=== PATIENT | female | born 1935 | race Caucasian/White ===

== ENCOUNTER → 2016-06-22 | Outpatient (CLI) | payer BC ==
[~2016-06-22] MED LIST: ACT15 PO; ATOR10TA88 PO; CHOL2000 PO; CMD5 PO; DIGO0.2518 PO; DLCSR240 PO; HMLIS SC; INSDGI SC; LMGOPS OPB; METO100T14 PO
[2016-06-22 12:05] LABS: HEMATOCRIT 39.5 % (37-47); MEAN CELL VOLUME 97.3 fL (80-100); MEAN CORPUSCULAR HGB CONC 34.9 g/dl (32-36); MEAN PLATELET VOLUME 10.3 fL (7.4-10.4); PLATELET COUNT 268 K/uL (130-400); RED BLOOD COUNT 4.06 M/uL (4.2-5.4); WHITE BLOOD COUNT 8.48 K/uL (4.8-10.8)
[2016-06-22 12:17] LABS: ALT/SGPT 19 U/L (12-78); AST/SGOT 22 U/L (15-37); BLOOD UREA NITROGEN 18 mg/dl (7-18); BUN/CREATININE RATIO 13.7 (10-20); CALCIUM 9.8 mg/dl (8.5-10.1); CARBON DIOXIDE 26 mmol/L (21-32); CHLORIDE 103 mmol/L (98-107); CHOLESTEROL 128 mg/dl (0-200); GLUCOSE 162 mg/dl (70-99); POTASSIUM 4.1 mmol/L (3.5-5.1); SODIUM 140 mmol/L (136-145); TRIGLYCERIDES 113 mg/dl (0-150); VERY LOW DENSITY LIPOPROT CALC 23 mg/dl
[2016-06-22 12:18] LABS: URINE APPEARANCE CLOUDY (CLEAR); URINE COLOR DK YELLOW; URINE EPITHELIAL CELL AUTO >30 /lpf (0-5); URINE NITRITE NEG (NEG); URINE SPECIFIC GRAVITY 1.028 (1.000-1.030); UROBILINOGEN NEG (NEG)
[2016-06-22 12:20] LABS: CHOLESTEROL/HDL RATIO 2.2; HDL CHOLESTEROL 59 mg/dl; LDL CHOLESTEROL CALCULATED 46 mg/dl; PHOSPHORUS 2.8 mg/dl (2.5-4.9)
[2016-06-22 12:41] LABS: MANUAL MICROSCOPIC REQUIRED? NO; REVIEW REQ? YES; URINE BILIRUBIN NEG (NEG)
[2016-06-22 12:43] LABS: ESTIMATED AVERAGE GLUCOSE 217 mg/dl; HA1C FLAG Normal (Normal)
[2016-06-22 12:48] LABS: URINE PROTIEN/CREAT RATIO 0.3 (0-0.2); URINE TOTAL PROTEIN 118.2 mg/dl (0-11.9)
[2016-06-22 12:49] LABS: URINE MUCUS PRESENT (NONE PRSENT)
== END | disposition home or self-care (01) ==
LOC: C.LAB1850 10:12
PROVIDERS: ATTEND Internal Medicine Nephrology
DX: E11.29 Type 2 diabetes mellitus with other diabetic kidney complication (principal); I48.2 Chronic atrial fibrillation; I12.9 Hypertensive chronic kidney disease with stage 1 through stage 4 chronic kidney disease, or unspecified chronic kidney disease; N18.3 Chronic kidney disease, stage 3 (moderate); R60.9 Edema, unspecified; E11.22 Type 2 diabetes mellitus with diabetic chronic kidney disease

== ENCOUNTER → 2016-12-03 | Outpatient (CLI) | payer BC ==
[2016-12-03 09:37] LABS: MEAN CORPUSCULAR HEMOGLOBIN 33.9 pg (25-34); MEAN PLATELET VOLUME 10.5 fL (7.4-10.4); PLATELET COUNT 246 K/uL (130-400); RED BLOOD COUNT 4.33 M/uL (4.2-5.4); WHITE BLOOD COUNT 6.73 K/uL (4.8-10.8)
[2016-12-03 09:42] LABS: URINE APPEARANCE CLOUDY (CLEAR); URINE BILIRUBIN NEG (NEG); URINE COLOR YELLOW; URINE EPITHELIAL CELL AUTO >30 /lpf (0-5); URINE NITRITE NEG (NEG); UROBILINOGEN NEG (NEG)
[2016-12-03 09:44] LABS: MANUAL MICROSCOPIC REQUIRED? NO; REVIEW REQ? YES
[2016-12-03 10:07] LABS: BLOOD UREA NITROGEN 17 mg/dl (7-18); BUN/CREATININE RATIO 13.2 (10-20); CALCIUM 9.6 mg/dl (8.5-10.1); CARBON DIOXIDE 28 mmol/L (21-32); CHLORIDE 104 mmol/L (98-107); ESTIMATED AVERAGE GLUCOSE 246 mg/dl; GLUCOSE 156 mg/dl (70-99); HA1C FLAG Normal (Normal); PHOSPHORUS 2.9 mg/dl (2.5-4.9); POTASSIUM 4.1 mmol/L (3.5-5.1); SODIUM 137 mmol/L (136-145)
[2016-12-03 10:10] LABS: URINE PROTIEN/CREAT RATIO 0.3 (0-0.2); URINE TOTAL PROTEIN 41.4 mg/dl (0-11.9)
== END | disposition home or self-care (01) ==
LOC: C.LAB1850 08:08
PROVIDERS: ATTEND Nurse Practitioner Adult Health
DX: I12.9 Hypertensive chronic kidney disease with stage 1 through stage 4 chronic kidney disease, or unspecified chronic kidney disease (principal); N18.3 Chronic kidney disease, stage 3 (moderate); R80.9 Proteinuria, unspecified; I73.9 Peripheral vascular disease, unspecified; R60.9 Edema, unspecified; E11.65 Type 2 diabetes mellitus with hyperglycemia

== ENCOUNTER → 2017-05-02 | Day surgery (SDC) | payer BC ==
[2017-04-23 08:45] VITALS: BMI 29.0
[~2017-05-02] VITALS: Ht 170.2 cm; Wt 84.5 kg
[~2017-05-02] MED LIST changes: +ATOR10TA82 PO; -ATOR10TA88 PO; +ATROPINE SULFATE 0.1 MG/ML 5ML SYR IV PRN; +BIMA0.01 OPB; -CMD5 PO; -DIGO0.2518 PO; +DIGO0.2519 PO; +DILT240C48 PO; -DLCSR240 PO; +EpHEDrine SULFATE INJ 50 MG/ML AMP IV PRN; -HMLIS SC; +INSU100I2 SC; +LIDOCAINE HCL 2% 2 ML VIAL (20MG/ML) ONE; -LMGOPS OPB; +PROPOFOL IV EMULSION 10 MG/ML 20 ML VIAL IV ONE; +WARF5TAB7 PO
[2017-05-02 14:09] VITALS: Ht 170.2 cm; Wt 84.5 kg
--- NOTE | 2017-05-02 14:28 | Endo History and Physical ---
History & Physical Date of Service: May 02, 2017. Chief Complaint: Hx CRC Referring Physician: Dr Kahn History of Present Illness For colonoscopy Past Surgical History Hx Cardiac Surgery: Yes (CARDIOVERSION) Hx Internal Defibrillator: No Hx Pacemaker: No Hx Abdominal Surgery: Yes ([facility]ARDO AND APPY) Hx of Implantable Prosthesis: No Hx Post-Op Nausea and Vomiting: No Hx Cancer Surgery: Yes (LARGE INTESTINE COLON RESECTION) Hx Thoracic Surgery: No Hx Orthopedic: No Hx Urinary Tract Surgery: No Family History None Social History Smoking Status: Never Smoker Hx Substance Use: No Hx Alcohol Use: No Allergies Coded Allergies: Sulfa Drugs (Verified Allergy, Unknown, BAD TASTE "LIKE ROTTEN EGGS", 04/23) Current Medications Reported Home Medications Medications Dose Route/Sig Max Daily Dose Days Date Category Dose Instructions Lumigan (Bimatoprost) 0.01 % Mary 1 Drops OPB HS 04/23/17 Reported Humalog Kwikpen (Insulin Lispro (Human)) 100 Unit/Ml Inj 1 Dose SC UD 04/23/17 Reported PER SLIDING SCALE Lantus (Insulin Glargine) 100 Unit/Ml Inj 30 Units SC BID 04/23/17 Reported Cartia Xt (Diltiazem Hcl Coated Beads) 240 Mg Cap 1 Cap PO QAM 04/23/17 Reported Actos (Pioglitazone) 15 Mg Tab 1 Tab PO QPM 04/23/17 Reported Jantoven (Warfarin Sodium) 5 Mg Tab 0.5 Tab PO 2XWK 04/23/17 Reported MON,FRI Jantoven (Warfarin Sodium) 5 Mg Tab 5 Mg PO 5XWK 04/23/17 Reported SUN,TUES,WED,THURS,SAT Digox (Digoxin) 250 Mcg Tab 1 Tab PO QPM 04/23/17 Reported Vitamin D3 (Cholecalciferol) 2,000 Unit Cap 2,000 Interunit PO QAM 12/20/16 Reported Lopressor (Metoprolol Tartrate) 100 Mg Tab 0.5 Tab PO BID 11/15/10 Reported Lipitor (Atorvastatin Calcium) 10 Mg Tab 10 Mg PO QPM 05/05/07 Reported Vital Signs Weight (Kilograms): 84.55 Height (Feet): 5 Height (Inches): 7 Physical Exam General Appearance: WD/WN Respiratory/Chest: Respiratory effort: no dyspnea Cardiovascular: Heart Auscultation: RRR Abdomen: Inspection & Palpation: soft (scar) Assessment and Plan Hx CRC for colonoscopy
--- NOTE | 2017-05-02 14:51 | Discharge Instructions ---
Endoscopy Patient Instructions Date / Procedure(s) Performed May 02, 2017. Colonoscopy Allergy Information Coded Allergies: Sulfa Drugs (Verified Allergy, Unknown, BAD TASTE "LIKE ROTTEN EGGS", 04/23) Discharge Date / Findings May 02, 2017. diverticulosis Medication Instructions Stopped Medication(s): TOLD TO JUST TAKE BLOOD PRESSURE MEDIACTIONS Restart Stopped Medication(s): resume meds Reported Home Medications Medications Dose Route/Sig Max Daily Dose Days Date Category Dose Instructions Lumigan (Bimatoprost) 0.01 % Mary 1 Drops OPB HS 04/23/17 Reported Humalog Kwikpen (Insulin Lispro (Human)) 100 Unit/Ml Inj 1 Dose SC UD 04/23/17 Reported PER SLIDING SCALE Lantus (Insulin Glargine) 100 Unit/Ml Inj 30 Units SC BID 04/23/17 Reported Cartia Xt (Diltiazem Hcl Coated Beads) 240 Mg Cap 1 Cap PO QAM 04/23/17 Reported Actos (Pioglitazone) 15 Mg Tab 1 Tab PO QPM 04/23/17 Reported Jantoven (Warfarin Sodium) 5 Mg Tab 0.5 Tab PO 2XWK 04/23/17 Reported MON,FRI Jantoven (Warfarin Sodium) 5 Mg Tab 5 Mg PO 5XWK 04/23/17 Reported SUN,TUES,WED,THURS,SAT Digox (Digoxin) 250 Mcg Tab 1 Tab PO QPM 04/23/17 Reported Vitamin D3 (Cholecalciferol) 2,000 Unit Cap 2,000 Interunit PO QAM 12/20/16 Reported Lopressor (Metoprolol Tartrate) 100 Mg Tab 0.5 Tab PO BID 11/15/10 Reported Lipitor (Atorvastatin Calcium) 10 Mg Tab 10 Mg PO QPM 05/05/07 Reported Provider Instructions Activity Restrictions - No exercising or heavy lifting for 24 hours. - Do not drink alcohol the day of the procedure. - Do not drive a car or operate machinery until the day after the procedure. - Do not make any important decisions or sign important papers in 24 hours after the procedure. Following Day: - Return to full activity which may include returning to work/school. Diet Start your diet with liquids and light foods (jello, soup, juice, toast). Then eat your usual diet if not nauseated. Treatment For Common After Affects For mild abdominal pain, bloating, or excessive gas: - Rest - Eat lightly - Lie on right side Follow-Up Information Follow-up with DR. WINIFRED MARTINEZ as scheduled Anesthesia Information What You Should Know You have had a procedure that required some medicine to reduce anxiety and discomfort. This treatment is called moderate sedation. After receiving the treatment, you may be sleepy, but you will be able to breathe on your own. The effects of the treatment may last for several hours. Follow these instructions along with Activity/Diet recommendations noted above: * Do NOT do anything where dizziness or clumsiness would be dangerous. * Rest quietly at home today, then you can be up and about tomorrow. * Have a responsible person stay with you the rest of today. * You may have had an I.V. today. If so, you may take the dressing off later today. Recommendations Call your doctor if: * Trouble breathing * Continuous vomiting for more than 24 hours * Temperature above 101 degrees * Severe abdominal pain or bloating * Pain not relieved by pain medicine ordered * There is increased drainage or redness from any incision * A large amount of rectal bleeding greater than 2-3 tablespoons. (If you had a polyp/s removed or have hemorrhoids, a small amount of blood - from the rectum is to be expected.) * You have any unanswered questions or concerns. IN THE EVENT OF A SERIOUS EMERGENCY, GO TO THE NEAREST EMERGENCY ROOM Your discharge instructions were prepared by provider Nestor Key. Patient Instructions Signature Page Ewelina Nolasco Patient (or Guardian) Signature/Date: I have read and understand the instructions given to me by my caregivers. Caregiver/RN/Doctor Signature/Date: The above-named patient and/or guardian has received patient instructions on this date. + Original Patient Signature Page (only) stays with chart. Please make copy for patient.
--- NOTE | 2017-05-02 14:56 | GI REPORT ---
Procedure Date: 05/02/2017 2:23 PM Procedure: Colonoscopy Indications: Personal history of malignant neoplasm of the colon Medicines: Propofol total dose 200 mg IV, Lidocaine 40 mg IV Complications: No immediate complications. Estimated Blood Loss: Estimated blood loss: none. Procedure: Pre-Anesthesia Assessment: - Prior to the procedure, a History and Physical was performed, and patient medications, allergies and sensitivities were reviewed. The patient's tolerance of previous anesthesia was reviewed. - The risks and benefits of the procedure and the sedation options and risks were discussed with the patient. All questions were answered and informed consent was obtained. After I obtained informed consent, the scope was passed under direct vision. Throughout the procedure, the patient's blood pressure, pulse, and oxygen saturations were monitored continuously. The scope was introduced through the anus and advanced to the ileocolonic anastomosis. The colonoscopy was performed without difficulty. The patient tolerated the procedure well. The quality of the bowel preparation was good. Findings: There was evidence of a prior end-to-side ileo-colonic anastomosis in the recto-sigmoid colon. This was patent and was characterized by healthy appearing mucosa. The anastomosis was traversed. The terminal ileum appeared normal. A few diverticula were found in the recto-sigmoid colon. Impression: - Patent end-to-side ileo-colonic anastomosis, characterized by healthy appearing mucosa. - The examined portion of the ileum was normal. - Diverticulosis in the recto-sigmoid colon. - No specimens collected. Recommendation: - Discharge patient to home (ambulatory). - Continue present medications. - Repeat colonoscopy in 5 years for surveillance. - Return to primary care physician PRN. Nestor Key M.D. Nestor Key MD 05/02/2017 2:55:50 PM This report has been signed electronically. Note Initiated On: 05/02/2017 2:23 PM I attest to the content of the Intraoperative Record and orders documented therein, exceptions below
--- NOTE | 2017-05-02 15:00 | Anesthesiology Progress Note ---
Anesthesia Post Op Note Date & Time May 02, 2017 at 15:00 Vital Signs Pain Intensity: 0 Vital Signs Past 12 Hours Date Time Temp Pulse Resp B/P (MAP) Pulse Ox O2 Delivery O2 Flow Rate FiO2 05/02/17 14:17 36.4 89 20 162/103 (122) 99 Room Air Notes Mental Status: alert / awake / arousable, participated in evaluation Pt Amnestic to Procedure: Yes Nausea / Vomiting: adequately controlled Pain: adequately controlled Airway Patency, RR, SpO2: stable & adequate BP & HR: stable & adequate Hydration State: stable & adequate Anesthetic Complications: no major complications apparent
[2017-05-02 15:26] VITALS: BP 170/98; PULSE 86; O2SAT 98
== END | disposition home or self-care (01) ==
LOC: C.GI 13:49
PROVIDERS: ATTEND Internal Medicine Gastroenterology
DX: Z85.038 Personal history of other malignant neoplasm of large intestine (principal); K57.30 Diverticulosis of large intestine without perforation or abscess without bleeding; Z90.49 Acquired absence of other specified parts of digestive tract; Z79.4 Long term (current) use of insulin; Z79.899 Other long term (current) drug therapy

== ENCOUNTER → 2017-06-25 | Outpatient (CLI) | payer BC ==
[~2017-06-25] MED LIST changes: -ATROPINE SULFATE 0.1 MG/ML 5ML SYR IV PRN; -EpHEDrine SULFATE INJ 50 MG/ML AMP IV PRN; -LIDOCAINE HCL 2% 2 ML VIAL (20MG/ML) ONE; +MULT-190 PO; -PROPOFOL IV EMULSION 10 MG/ML 20 ML VIAL IV ONE
[2017-06-25 09:33] LABS: HEMATOCRIT 40.2 % (37-47); HEMOGLOBIN 13.8 g/dL (12.0-16.0); MEAN CELL VOLUME 98.8 fL (80-100); MEAN CORPUSCULAR HEMOGLOBIN 33.9 pg (25-34); MEAN CORPUSCULAR HGB CONC 34.3 g/dl (32-36); MEAN PLATELET VOLUME 10.6 fL (7.4-10.4); PLATELET COUNT 214 K/uL (130-400); RED CELL DISTRIBUTION WIDTH CV 13.6 % (11.5-14.5); RED CELL DISTRIBUTION WIDTH SD 49.2 fL (36.4-46.3); WHITE BLOOD COUNT 5.74 K/uL (4.8-10.8)
[2017-06-25 09:55] LABS: HEMOGLOBIN A1C 10.4 % (4.5-5.6)
[2017-06-25 10:08] LABS: ALBUMIN 3.3 gm/dl (3.4-5.0); ALT/SGPT 26 U/L (12-78); AST/SGOT 23 U/L (15-37); BLOOD UREA NITROGEN 17 mg/dl (7-18); CALCIUM 9.3 mg/dl (8.5-10.1); CARBON DIOXIDE 25 mmol/L (21-32); CREATININE 1.28 mg/dl (0.60-1.20); GLUCOSE 181 mg/dl (70-99); POTASSIUM 4.1 mmol/L (3.5-5.1); SODIUM 136 mmol/L (136-145)
[2017-06-25 10:11] LABS: ALKALINE PHOSPHATASE 63 U/L (45-117); PHOSPHORUS 2.5 mg/dl (2.5-4.9)
== END | disposition home or self-care (01) ==
LOC: C.LAB1850 08:26
PROVIDERS: ATTEND Nurse Practitioner Adult Health
DX: E11.65 Type 2 diabetes mellitus with hyperglycemia (principal); I12.9 Hypertensive chronic kidney disease with stage 1 through stage 4 chronic kidney disease, or unspecified chronic kidney disease; N18.3 Chronic kidney disease, stage 3 (moderate); R80.9 Proteinuria, unspecified

== ENCOUNTER → 2017-11-12 | Outpatient (CLI) | payer BC ==
[2017-11-12 10:18] LABS: HEMOGLOBIN A1C 9.6 % (4.5-5.6)
== END | disposition home or self-care (01) ==
LOC: C.LAB1850 08:25
PROVIDERS: ATTEND Nurse Practitioner Adult Health
DX: E78.5 Hyperlipidemia, unspecified (principal); E11.29 Type 2 diabetes mellitus with other diabetic kidney complication; Z79.4 Long term (current) use of insulin

== ENCOUNTER 2021-09-07 12:22 | Inpatient (IN) ==
[2021-09-07] MEDS ORDERED: OPTIRAY 320 125ml IV ONE (12:40)
--- NOTE | 2021-09-07 12:57 | Emergency Department Note ---
Impression & Plan Confusion, Vomiting, Back pain ED Provider Note Provider: Jarod Walker MD DATE OF SERVICE: 09/07/2021 CHIEF COMPLAINT: Pain, vomiting HISTORY OF PRESENT ILLNESS: Patient is a 86-year-old female history type 2 diabetes, CKD, hypertension, atrial fibrillation on Coumadin presenting to the emergency department today with reports of onset of confusion this morning. Was normal at breakfast 8 AM. Between then and neck just before noon had a episode of emesis and was complaining of a headache and was acting more confused. He met states she has been wearing some redirection. They states that she has had some garbled speech has been making some odd statements. No trauma has been reported. Patient herself cries out help me help he was able to give a clear history. Given that she was taken immediately upon arrival here the emergency department to the CT scanner for head imaging. Patient denies abdominal pain. She reports he is having back pain or she describes it "pain in my fender and pocket ". She knows her birthday but not what month it is. She is able to tell me how long she has been at [facility]. She follows simple commands sometimes. Likes to rest on her right side. REVIEW OF SYSTEMS: A total of 10 review of systems was obtained and negative except as stated above in the HPI. PAST MEDICAL HISTORY: As noted above MEDICATIONS: Medication listing from the facility SOCIAL HISTORY: Resides at [facility] PHYSICAL EXAM: GENERAL: alert laying on her right side in the stretcher. Head: normocephalic and atraumatic EYES: No injection, discharge or icterus. PERRL NECK: Trachea midline. Supple. ENT: Mucous membranes pink and moist. LUNGS: Airway patent. No retractions. Breath sounds clear with good air entry bilaterally. HEART: Irregular irregularrate and rhythm. No chest wall tenderness ABDOMEN: Soft and non-tender, without guarding or rebound. BACK: No midline tenderness, no SI joint tenderness. SKIN: Acyanotic, warm, dry, without rashes EXTREMITIES: Patient with 1+ lower extremity swelling but no obvious deformity. Negative straight leg raise. NEUROLOGICAL: No obvious facial droop. No clear aphasia but occasionally will not answer questions appropriately. Normal strength and tone in the extremities. Sensation to gross touch normal. EK from an atrial fibrillation with rapid ventricular response. Nonspecific ST changes across the precordium and laterally. QTc 421 CONTINUOUS CARDIAC MONITORING: was ordered and showed a heart rate of 90s-110s bpm in atrial fibrillation Patient's laboratory studies and imaging reviewed. Differential includes Infection, dehydration, metabolic abnormality, hypo/hyperglycemia, electrolyte disturbance, anemia, hypoxia, cardiac sources, intracerebral event, toxicologic, neurologic, as well as other pathologies. IMPRESSION/MEDICAL DECISION MAKING: Patient reportedly with headache and episode of vomiting and more confused suddenly this morning. She is on Coumadin, INR 1.9. Immediately taken for CT scan upon arrival here without evidence of acute intracranial bleed or obvious vascular occlusion according to radiology report. Upon evaluation she not having significant focal deficits that I can obviously tell although she is not oriented to the month and not always answering questions appropriately. She gestures to pain in her back But negative straight leg raise. Benign abdomen in the front. However given her complaints and the odd story we will complete a CT abdomen pelvis to look for occult pathology. Doubt spinal cord pathology. Question if she could have an occult CVA that is not hemorrhagic or large vessel occlusion. UA was ordered. Digoxin level sent and therapeutic. Negative COVID. Stable renal function. Mild hyponatremia although not that far off recent values. High since he troponin 24 with no priors for comparison. Lipase not elevated. CT abdomen pelvis per radiology without significant acute pathology noted. Heart rates have been mildly elevated in regards to her atrial fibrillation. Normally takes diltiazem and given a small IV dose of this. Now complains a bit of a headache and given a dose of Tylenol. Given her continued confusion and change in underlying status early further observation here is warranted. Hospitalist contacted. Attempted to contact daughter at listed phone number who was updated. Question if some of the back pain is more chronic however the confusion again reported as more acute. DIAGNOSIS: Confusion, back pain, nausea, atrial fibrillation with rapid ventricular response, headache DISPOSITION: Hospitalist will evaluate Past Med/Surg History Medical History Chronic kidney disease, stage 3 Dysmetabolic syndrome X History of actinic keratosis History of basal cell carcinoma History of colon cancer History of diabetes mellitus History of nummular eczema History of rheumatic fever History of rosacea Hypertension Right knee DJD Vitamin D deficiency Surgical History History of partial colectomy History of tonsillectomy Hx of appendectomy Hx of cholecystectomy Family History (System 09/07/21 @ 12:47 by Laura Gardner) Unknown Family history of thromboembolic disease Social History (System 09/07/21 @ 12:47 by Laura Gardner) Smoking Status: Unknown if ever smoked Hx Alcohol Use: No marital status: / current occupational status: retired Feels Safe at Home: Yes Allergies Allergies Allergy/AdvReac Type Severity Reaction Status Date / Time Sulfa (Sulfonamide Allergy Unknown Nausea Unverified 09/07/21 12:47 Antibiotics) Home Meds Home Medications Medication Instructions Recorded Confirmed cholecalciferol (vitamin D3) 50 2,000 unit PO DAILY 01/03/18 09/06/21 mcg (2,000 unit) capsule (Vitamin D3) lancets (3D SystemsTouch UltraSoft #50 ea 10/31/18 09/06/21 Lancets) blood sugar diagnostic (3D SystemsTouch ea 06/29/20 09/06/21 Ultra Blue Test Strip) vitamins A,C,[id number]-eduz-[id number] 14,320 1 cap PO BID 11/24/20 09/06/21 unit-226 mg-200 unit capsule (PreserVision AREDS) insulin glargine 100 unit/mL 38 unit SUBCUT BID ml 08/09/21 09/06/21 subcutaneous solution (Lantus U-100 Insulin) acetaminophen 500 mg tablet 1,000 mg PO TID tab 08/22/21 09/06/21 tramadol 50 mg tablet 50 mg PO Q6H PRN 08/22/21 09/06/21 bimatoprost 0.01 % eye drops 1 drp OPHTHALMIC (EYE) DAILY 09/06/21 09/06/21 cyclobenzaprine 5 mg tablet 5 mg PO TID PRN 09/06/21 09/06/21 warfarin 5 mg tablet See Rx Instructions PO UD tab 09/06/21 09/06/21 Previous Rx's Medication Instructions Recorded digoxin 250 mcg (0.25 mg) tablet 250 mcg PO QPM #90 tab 05/11/20 BD SafetyGlide Insulin Syringe 1 #100 ea NS 07/13/20 mL 31 gauge x 15/64" (insulin syringe,safetyneedle) BD Ultra-Fine Short Pen Needle 31 #100 ea NS 07/13/20 gauge x 5/16" (pen needle, diabetic) metoprolol tartrate 100 mg tablet 50 mg PO BID #90 tab 09/19/20 (Lopressor) diltiazem HCl 240 mg 240 mg PO DAILY #90 cap 11/18/20 capsule,extended release 24 hr (Cartia XT) atorvastatin 10 mg tablet 10 mg PO QPM #90 tab 11/21/20 insulin lispro 100 unit/mL 18 - 22 unit SUBCUT AC #15 ml 05/08/21 subcutaneous pen (Humalog KwikPen (U-100) Insulin) FreeStyle Roman 2 Sensor (flash #2 ea NS 08/04/21 glucose sensor) Results & Data (ED) Vital Signs Vital Signs - 24 hr 09/07/21 12:27 Temperature 36.7 C Temperature Source Oral Pulse Rate 108 H Pulse Rhythm Irregular Pulse Strength Normal Respiratory Rate 18 Respiratory Effort / Characteristics Non-Labored Respiratory Depth Normal Respiratory Pattern Regular Blood Pressure 195/90 H Blood Pressure Mean 125 Blood Pressure Position Lying Pulse Oximetry 97 Oxygen Delivery Method Room Air Sepsis Recent Fever Within 48 Hours No Sepsis New/Unexplained Change in Mental Status Yes Sepsis Action Taken by Nursing MD Previously Notified Laboratory Data Result diagrams: 09/07/21 12:45 09/07/21 12:45 Lab Results 09/07/21 09/07/21 09/07/21 Range/Units 12:45 12:45 12:45 WBC 10.58 (4.8-10.8) K/uL RBC 3.84 L (4.2-5.4) M/uL Hgb 12.8 (12.0-16.0) g/dL Hct 38.0 (37-47) % MCV 99.0 (80-100) fL MCH 33.3 (25-34) pg MCHC 33.7 (32-36) g/dL RDW Std Deviation 49.7 H (36.4-46.3) fL RDW Coeff of Rosie 13.9 (11.5-14.5) % Plt Count 272 (130-400) K/uL MPV 10.1 (7.4-10.4) fL Immature Gran % (Auto) 0.2 % Neut % (Auto) 76.7 % Lymph % (Auto) 13.3 % Moody % (Auto) 9.5 % Eos % (Auto) 0.1 % Baso % (Auto) 0.2 % Neut # (Auto) 8.11 H (1.4-6.5) K/uL Lymph # (Auto) 1.41 (1.2-3.4) K/uL Moody # (Auto) 1.01 H (0.11-0.59) K/uL Eos # (Auto) 0.01 (0-0.5) K/uL Baso # (Auto) 0.02 (0-0.2) K/uL Immature Gran # (Auto) 0.02 (0.00-0.02) K/uL PT 19.1 H (9.0-12.0) Seconds INR 1.9 H (0.9-1.1) APTT 29.1 (21.0-31.0) Seconds PTT Ratio 1.1 Sodium 130 L (136-145) mmol/L Potassium 4.5 (3.5-5.1) mmol/L Chloride 95 L (98-107) mmol/L Carbon Dioxide 27 (21-32) mmol/L Anion Gap 8 (3-11) BUN 26 H (6-23) mg/dl Creatinine 1.05 (0.6-1.2) mg/dl Est Cr Clr Drug Dosing 48.1 ml/min Est GFR ( Amer) 56.5 ml/min Est GFR (Non-Af Amer) 48.7 ml/min BUN/Creatinine Ratio 24.8 H (10-20) Glucose 272 H (70-99(Fasting)) mg/dl POC Glucose (70-99) mg/dl Calcium 9.4 (8.5-10.1) mg/dl Magnesium 1.7 (1.7-2.4) mg/dl Total Bilirubin 0.8 (0.2-1.0) mg/dl AST 15 (13-39) U/L ALT 23 (7-52) U/L Alkaline Phosphatase 53 (34-104) U/L Troponin I High Sens 24.1 H (0-14) pg/ml Total Protein 6.5 (6.0-8.3) gm/dl Albumin 3.4 (3.4-5.0) gm/dl Globulin 3.1 (2.5-4.0) gm/dl Albumin/Globulin Ratio 1.1 (0.9-2) Lipase 21 (11-82) U/L Digoxin (0.8-2.0) ng/ml SARS-CoV-2, RNA, NAAT (NEGATIVE) 09/07/21 09/07/21 09/07/21 Range/Units 12:45 12:45 13:13 WBC (4.8-10.8) K/uL RBC (4.2-5.4) M/uL Hgb (12.0-16.0) g/dL Hct (37-47) % MCV (80-100) fL MCH (25-34) pg MCHC (32-36) g/dL RDW Std Deviation (36.4-46.3) fL RDW Coeff of Rosie (11.5-14.5) % Plt Count (130-400) K/uL MPV (7.4-10.4) fL Immature Gran % (Auto) % Neut % (Auto) % Lymph % (Auto) % Moody % (Auto) % Eos % (Auto) % Baso % (Auto) % Neut # (Auto) (1.4-6.5) K/uL Lymph # (Auto) (1.2-3.4) K/uL Moody # (Auto) (0.11-0.59) K/uL Eos # (Auto) (0-0.5) K/uL Baso # (Auto) (0-0.2) K/uL Immature Gran # (Auto) (0.00-0.02) K/uL PT (9.0-12.0) Seconds INR (0.9-1.1) APTT (21.0-31.0) Seconds PTT Ratio Sodium (136-145) mmol/L Potassium (3.5-5.1) mmol/L Chloride (98-107) mmol/L Carbon Dioxide (21-32) mmol/L Anion Gap (3-11) BUN (6-23) mg/dl Creatinine (0.6-1.2) mg/dl Est Cr Clr Drug Dosing ml/min Est GFR ( Amer) ml/min Est GFR (Non-Af Amer) ml/min BUN/Creatinine Ratio (10-20) Glucose (70-99(Fasting)) mg/dl POC Glucose 276 H (70-99) mg/dl Calcium (8.5-10.1) mg/dl Magnesium (1.7-2.4) mg/dl Total Bilirubin (0.2-1.0) mg/dl AST (13-39) U/L ALT (7-52) U/L Alkaline Phosphatase (34-104) U/L Troponin I High Sens (0-14) pg/ml Total Protein (6.0-8.3) gm/dl Albumin (3.4-5.0) gm/dl Globulin (2.5-4.0) gm/dl Albumin/Globulin Ratio (0.9-2) Lipase (11-82) U/L Digoxin 1.6 (0.8-2.0) ng/ml SARS-CoV-2, RNA, NAAT NEGATIVE (NEGATIVE) Administered Medications Discontinued Medications Sodium Chloride (Nss 1000ml) 500 mls @ 999 mls/hr IV .Q31M ONE Stop: 09/07/21 13:34 Last Admin: 09/07/21 14:31 Dose: 999 mls/hr Documented by: [id number] Ioversol (Optiray 320 125ml) 120 ml IV ONCE ONE Stop: 09/07/21 12:41 Last Admin: 09/07/21 12:41 Dose: 120 ml Documented by: [id number] Imaging Data Radiologist's Impression: Head CT 09/07/21 12:[address] OF THE BRAIN; CT ANGIOGRAM OF THE BRAIN; CT ANGIOGRAM OF THE NECK CLINICAL HISTORY: Strokelike symptoms. Headache. COMPARISON STUDY: No priors TECHNIQUE: Unenhanced axial CT scan of the brain is performed. Subsequently, following the IV administration of 120 of Optiray 320, CT angiogram of the head and neck was performed from the aortic arch to the vertex. Images are reviewed in the axial, sagittal, and coronal planes. 3-D MIPS images are created and assessed. IV contrast was administered without complication. All measurements were calculated based on NASCET criteria. A dose lowering technique was utilized adhering to the principles of ALARA. The CT angiogram of the neck is significantly degraded by motion artifact. CT DOSE: 2060.36 mGy.cm FINDINGS: Brain parenchyma: There is age-related involutional change noting mild subcortical and periventricular microangiopathic disease. There is no hemorrhage, mass effect, or evidence of acute territorial ischemia by CT criteria. There is no evidence of enhancing mass lesion on the angiogram phase images. The ventricles, sulci, and cisterns are prominent secondary to involutional change. Mejia-white matter differentiation is preserved. No extra- axial fluid collection is seen. Thoracic aorta: There is atherosclerotic calcification of the thoracic aorta. Visualized portions of the thoracic aorta are normal in caliber. The aortic arch demonstrates standard 3-vessel anatomy. Right carotid arterial system: The right common carotid artery is widely patent, as are the right internal and external carotid arteries. Calcified plaque is no ren in the carotid bulb. Left carotid arterial system: The left common carotid artery is widely patent, as are the left internal and external carotid arteries. Calcified plaque is noted in the carotid bulb. Vertebral arteries: The vertebral arteries are widely patent bilaterally and codominant. Subclavian arteries: Widely patent bilaterally. Intracranial vasculature: The internal carotid arteries are patent at the skull base, as are the anterior and middle cerebral arteries bilaterally. There is origin of the left posterior cerebral artery. The vertebrobasilar system and posterior cerebral arteries are widely patent. The vertebral arteries are codominant. There is no high-grade stenosis or focal vessel cut off seen throughout the intracranial circulation. 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 No additional aneurysm is identified throughout the intracranial circulation. Jugular veins: Patent bilaterally. Dural sinuses: Patent. Lung apices: Partially visualized upper lobe lung parenchyma appears clear. Soft tissues: The visualized pharyngeal soft tissues are normal in appearance noting angiographic phase technique. The oropharyngeal airway appears widely patent. The salivary and thyroid glands are normal in appearance. No cervical lymphadenopathy is seen. Skeletal structures: The skeletal structures are osteopenic. The calvarium appears intact. The cervical spine is maintained noting multilevel spondylosis. No lytic or blastic lesion is seen. Orbits: The bony orbits are intact. Orbital contents are normal as visualized noting a right ocular lens implants. Sinuses and mastoids: There is trace mucosal thickening within the maxillary antra. The remaining paranasal sinuses are clear. The mastoid air cells are well pneumatized. IMPRESSION: 1 There is no hemorrhage, mass effect, or evidence of acute territorial ischemia by CT criteria. 2. 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 3. Otherwise unremarkable CT angiogram of the brain. 4. Unremarkable CT angiogram of the neck. ACT 112: Negative or not required by law. Electronically signed by: Antonio Brock M.D. 09/07/2021 12:56 PM Head CTA 09/07/21 12:[address] OF THE BRAIN; CT ANGIOGRAM OF THE BRAIN; CT ANGIOGRAM OF THE NECK CLINICAL HISTORY: Strokelike symptoms. Headache. COMPARISON STUDY: No priors TECHNIQUE: Unenhanced axial CT scan of the brain is performed. Subsequently, following the IV administration of 120 of Optiray 320, CT angiogram of the head and neck was performed from the aortic arch to the vertex. Images are reviewed in the axial, sagittal, and coronal planes. 3-D MIPS images are created and assessed. IV contrast was administered without complication. All measurements were calculated based on NASCET criteria. A dose lowering technique was utilized adhering to the principles of ALARA. The CT angiogram of the neck is significantly degraded by motion artifact. CT DOSE: 2060.36 mGy.cm FINDINGS: Brain parenchyma: There is age-related involutional change noting mild subcortical and periventricular microangiopathic disease. There is no hemorrhage, mass effect, or evidence of acute territorial ischemia by CT criteria. There is no evidence of enhancing mass lesion on the angiogram phase images. The ventricles, sulci, and cisterns are prominent secondary to involutional change. Mejia-white matter differentiation is preserved. No extra- axial fluid collection is seen. Thoracic aorta: There is atherosclerotic calcification of the thoracic aorta. Visualized portions of the thoracic aorta are normal in caliber. The aortic arch demonstrates standard 3-vessel anatomy. Right carotid arterial system: The right common carotid artery is widely patent, as are the right internal and external carotid arteries. Calcified plaque is noted in the carotid bulb. Left carotid arterial system: The left common carotid artery is widely patent, as are the left internal and external carotid arteries. Calcified plaque is noted in the carotid bulb. Vertebral arteries: The vertebral arteries are widely patent bilaterally and codominant. Subclavian arteries: Widely patent bilaterally. Intracranial vasculature: The internal carotid arteries are patent at the skull base, as are the anterior and middle cerebral arteries bilaterally. There is origin of the left posterior cerebral artery. The vertebrobasilar system and posterior cerebral arteries are widely patent. The vertebral arteries are codominant. There is no high-grade stenosis or focal vessel cut off seen throughout the intracranial circulation. There is a 4 mm aneurysm of the M2 se gment of the right middle cerebral artery seen in the temporal fossa on image #119. No additional aneurysm is identified throughout the intracranial circulation. Jugular veins: Patent bilaterally. Dural sinuses: Patent. Lung apices: Partially visualized upper lobe lung parenchyma appears clear. Soft tissues: The visualized pharyngeal soft tissues are normal in appearance noting angiographic phase technique. The oropharyngeal airway appears widely patent. The salivary and thyroid glands are normal in appearance. No cervical lymphadenopathy is seen. Skeletal structures: The skeletal structures are osteopenic. The calvarium appears intact. The cervical spine is maintained noting multilevel spondylosis. No lytic or blastic lesion is seen. Orbits: The bony orbits are intact. Orbital contents are normal as visualized noting a right ocular lens implants. Sinuses and mastoids: There is trace mucosal thickening within the maxillary antra. The remaining paranasal sinuses are clear. The mastoid air cells are well pneumatized. IMPRESSION: 1 There is no hemorrhage, mass effect, or evidence of acute territorial ischemia by CT criteria. 2. 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 3. Otherwise unremarkable CT angiogram of the brain. 4. Unremarkable CT angiogram of the neck. ACT 112: Negative or not required by law. Electronically signed by: Antonio Brock M.D. 09/07/2021 12:56 PM Neck CTA 09/07/21 12:[address] OF THE BRAIN; CT ANGIOGRAM OF THE BRAIN; CT ANGIOGRAM OF THE NECK CLINICAL HISTORY: Strokelike symptoms. Headache. COMPARISON STUDY: No priors TECHNIQUE: Unenhanced axial CT scan of the brain is performed. Subsequently, following the IV administration of 120 of Optiray 320, CT angiogram of the head and neck was performed from the aortic arch to the vertex. Images are reviewed in the axial, sagittal, and coronal planes. 3-D MIPS images are created and assessed. IV contrast was administered without complication. All measurements were calculated based on NASCET criteria. A dose lowering technique was utilized adhering to the principles of ALARA. The CT angiogram of the neck is significantly degraded by motion artifact. CT DOSE: 2060.36 mGy.cm FINDINGS: Brain parenchyma: There is age-related involutional change noting mild subcortical and periventricular microangiopathic disease. There is no hemorrhage, mass effect, or evidence of acute territorial ischemia by CT criteria. There is no evidence of enhancing mass lesion on the angiogram phase images. The ventricles, sulci, and cisterns are prominent secondary to involutional change. Mejia-white matter differentiation is preserved. No extra- axial fluid collection is seen. Thoracic aorta: There is atherosclerotic calcification of the thoracic aorta. Visualized portions of the thoracic aorta are normal in caliber. The aortic arch demonstrates standard 3-vessel anatomy. Right carotid arterial system: The right common carotid artery is widely patent, as are the right internal and external carotid arteries. Calcified plaque is noted in the carotid bulb. Left carotid arterial system: The left common carotid artery is widely patent, as are the left internal and external carotid arteries. Calcified plaque is noted in the carotid bulb. Vertebral arteries: The vertebral arteries are widely patent bilaterally and codominant. Subclavian arteries: Widely patent bilaterally. Intracranial vasculature: The internal carotid arteries are patent at the skull base, as are the anterior and middle cerebral arteries bilaterally. There is origin of the left posterior cerebral artery. The vertebrobasilar system and posterior cerebral arteries are widely patent. The vertebral arteries are codominant. There is no high-grade stenosis or focal vessel cut off seen throughout the intracranial circulation. 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 No additional aneurysm is identified throughout the intracranial circulation. Jugular veins: Patent bilaterally. Dural sinuses: Patent. Lung apices: Partially visualized upper lobe lung parenchyma appears clear. Soft tissues: The visualized pharyngeal soft tissues are normal in appearance noting angiographic phase technique. The oropharyngeal airway appears widely patent. The salivary and thyroid glands are normal in appearance. No cervical lymphadenopathy is seen. Skeletal structures: The skeletal structures are osteopenic. The calvarium appears intact. The cervical spine is maintained noting multilevel spondylosis. No lytic or blastic lesion is seen. Orbits: The bony orbits are intact. Orbital contents are normal as visualized noting a right ocular lens implants. Sinuses and mastoids: There is trace mucosal thickening within the maxillary antra. The remaining paranasal sinuses are clear. The mastoid air cells are well pneumatized. IMPRESSION: 1 There is no hemorrhage, mass effect, or evidence of acute territorial ischemia by CT criteria. 2. 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 3. Otherwise unremarkable CT angiogram of the brain. 4. Unremarkable CT angiogram of the neck. ACT 112: Negative or not required by law. Electronically signed by: Antonio Brock M.D. 09/07/2021 12:56 PM Abdomen/Pelvis CT 09/07/21 13:[address] WITHOUT CONTRAST CT DOSE: 339.18 mGy.cm HISTORY: Acute nausea with low back pain nausea, confusion, back pain TECHNIQUE: Multiaxial CT images of the abdomen and pelvis were performed without contrast. A dose lowering technique was utilized adhering to the principles of ALARA. COMPARISON STUDY: CT lumbar spine 08/21/2021 FINDINGS: Cardiomegaly with coronary artery calcifications. Mild linear scarring versus atelectasis within the right middle lobe. Study is degraded by respiratory motion artifact. There is no pneumatosis or pneumoperitoneum. The unenhanced spleen is unremarkable with a few scattered calcified granulomata. The pancreas is atrophic with associated pancreatic calcifications suggestive of chronic pancreatitis. Calcifications of the left adrenal gland suggests prior hemorrhage or infection. The right adrenal gland is unremarkable. The gallbladder is not identified and is either contracted or surgically absent. Hepatic steatosis. No hepatic mass or marginal nodularity identified. Contrast within the renal collecting systems from the CTA studies of same day. This limits evaluation of renal or ureteral calculi. No hydronephrosis or urothelial lesion identified. Mild nonspecific urinary bladder wall thickening. Vascular calcifications of the uterus. No adnexal mass lesions identified. Atherosclerosis of the aorta. There is no lymphadenopathy. Small hiatal hernia. No bowel obstruction or bowel wall thickening. Surgical suture material is noted involving a loop of bowel within the anterior pelvis. No ascites or mesenteric inflammation. Degenerative changes of the spine, pelvis and hips. No acute fracture identified. IMPRESSION: 1. Motion degraded exam. 2. No bowel obstruction or bowel wall thickening. 3. Hepatic steatosis. 4. Evidence of chronic pancreatitis. 5. Tiny hiatal hernia. 6. Additional findings as above. ACT 112: Negative or not required by law. The above report was generated using voice recognition software. It may contain grammatical, syntax or spelling errors. Electronically signed by: Merlin Nye M.D. 09/07/2021 2:49 PM Discharge Plan Visit Data Chief Complaint: Confusion ED Provider: Jarod Walker Discharge Problem: Confusion, Vomiting, Back pain Patient Disposition: Being Evaluated by Hospitalist Forms Stand Alone Forms: [facility] [email or web address] Prescriptions Prescriptions: No Action tramadol 50 mg tablet 50 mg PO Q6H PRNRF: 0 PreserVision AREDS [id number] capsule 1 cap PO BID RF: 0 acetaminophen 500 mg tablet 1,000 mg PO TID RF: 0 warfarin 5 mg tablet See Rx Instructions PO UD RF: 0 cyclobenzaprine 5 mg tablet 5 mg PO TID PRNRF: 0 bimatoprost 0.01 % drops 1 drp ophthalmic (eye) DAILY RF: 0 digoxin 250 mcg (0.25 mg) tablet 250 mcg PO QPM Qty: 90 RF: 3 (DME) BD SafetyGlide Insulin Syringe 1 mL 31 gauge x 15/64" syringe See Rx Instructions .ROUTE .MEDSUPPLY Qty: 100 RF: 11 (DME) pen needle, diabetic [BD Ultra-Fine Short Pen Needle] 31 gauge x 5/16" needle See Rx Instructions .ROUTE .MEDSUPPLY Qty: 100 RF: 11 metoprolol tartrate [Lopressor] 100 mg tablet 50 mg PO BID Qty: 90 RF: 3 diltiazem HCl [Cartia XT] 240 mg capsule,extended release 24hr 240 mg PO DAILY Qty: 90 RF: 3 atorvastatin 10 mg tablet 10 mg PO QPM Qty: 90 RF: 3 insulin lispro [Humalog KwikPen Insulin] 100 unit/mL insulin pen 18 - 22 unit SUBCUT AC Qty: 15 RF: 3 (DME) FreeStyle Roman 2 Sensor Kit See Rx Instructions .ROUTE .MEDSUPPLY Qty: 2 RF: 1 (DME) lancets [OneTouch UltraSoft Lancets] misc See Dose Instructions .ROUTE .MEDSUPPLY Qty: 50 RF: 0 (DME) OneTouch Ultra Blue Test Strip Strip See Rx Instructions .ROUTE .MEDSUPPLY RF: 0 Lantus U-100 Insulin 100 unit/mL solution 38 unit SUBCUT BID RF: 0 cholecalciferol (vitamin D3) [Vitamin D3] 2,000 unit Capsule 2,000 unit PO DAILY RF: 0 Referrals Referrals: Erik Garcia [Primary Care Provider] - Discharge Problem: Vomiting Qualifiers: Vomiting type: unspecified Nausea presence: unspecified Qualified Code(s): R11.10 - Vomiting, unspecified Back pain Qualifiers: Back pain location: low back pain Chronicity: unspecified Back pain laterality: midline Sciatica presence: without sciatica Qualified Code(s): M54.50 - Low back pain, unspecified
--- NOTE | 2021-09-07 12:58 | CT Scan Report ---
UNENHANCED CT OF THE BRAIN; CT ANGIOGRAM OF THE BRAIN; CT ANGIOGRAM OF THE NECK CLINICAL HISTORY: Strokelike symptoms. Headache. COMPARISON STUDY: No priors TECHNIQUE: Unenhanced axial CT scan of the brain is performed. Subsequently, following the IV adminis tration of 120 of Optiray 320, CT angiogram of the head and neck was performed from the aortic arch t o the vertex. Images are reviewed in the axial, sagittal, and coronal planes. 3-D MIPS images are cre ated and assessed. IV contrast was administered without complication. All measurements were calculate d based on NASCET criteria. A dose lowering technique was utilized adhering to the principles of ALA RA. The CT angiogram of the neck is significantly degraded by motion artifact. CT DOSE: 2060.36 mGy.cm FINDINGS: Brain parenchyma: There is age-related involutional change noting mild subcortical and periventricula r microangiopathic disease. There is no hemorrhage, mass effect, or evidence of acute territorial isc hemia by CT criteria. There is no evidence of enhancing mass lesion on the angiogram phase images. Th e ventricles, sulci, and cisterns are prominent secondary to involutional change. Mejia-white matter d ifferentiation is preserved. No extra-axial fluid collection is seen. Thoracic aorta: There is atherosclerotic calcification of the thoracic aorta. Visualized portions of the thoracic aorta are normal in caliber. The aortic arch demonstrates standard 3-vessel anatomy. Right carotid arterial system: The right common carotid artery is widely patent, as are the right int ernal and external carotid arteries. Calcified plaque is noted in the carotid bulb. Left carotid arterial system: The left common carotid artery is widely patent, as are the left fashion styling intern al and external carotid arteries. Calcified plaque is noted in the carotid bulb. Vertebral arteries: The vertebral arteries are widely patent bilaterally and codominant. Subclavian arteries: Widely patent bilaterally. Intracranial vasculature: The internal carotid arteries are patent at the skull base, as are the ante rior and middle cerebral arteries bilaterally. There is origin of the left posterior cerebral a rtery. The vertebrobasilar system and posterior cerebral arteries are widely patent. The vertebral ar teries are codominant. There is no high-grade stenosis or focal vessel cut off seen throughout the in tracranial circulation. 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 No additional aneurysm is identified throughout the intra cranial circulation. Jugular veins: Patent bilaterally. Dural sinuses: Patent. Lung apices: Partially visualized upper lobe lung parenchyma appears clear. Soft tissues: The visualized pharyngeal soft tissues are normal in appearance noting angiographic pha se technique. The oropharyngeal airway appears widely patent. The salivary and thyroid glands are nor mal in appearance. No cervical lymphadenopathy is seen. Skeletal structures: The skeletal structures are osteopenic. The calvarium appears intact. The cervic al spine is maintained noting multilevel spondylosis. No lytic or blastic lesion is seen. Orbits: The bony orbits are intact. Orbital contents are normal as visualized noting a right ocular l ens implants. Sinuses and mastoids: There is trace mucosal thickening within the maxillary antra. The remaining par anasal sinuses are clear. The mastoid air cells are well pneumatized. IMPRESSION: 1 There is no hemorrhage, mass effect, or evidence of acute territorial ischemia by CT criteria. 2. 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 3. Otherwise unremarkable CT angiogram of the brain. 4. Unremarkable CT angiogram of the neck. ACT 112: Negative or not required by law. Electronically signed by: Antonio Brock M.D. 09/07/2021 12:56 PM
[2021-09-07] MEDS ORDERED: SODIUM CHLORIDE 0.9% 1000ML 500 ML IV ONE (13:04)
[2021-09-07 13:15] LABS: Basophils # (auto) 0.02 K/uL (0-0.2); Basophils % (auto) 0.2 %; Eosinophils # (auto) 0.01 K/uL (0-0.5); Eosinophils % (auto) 0.1 %; Hemoglobin 12.8 g/dL (12.0-16.0); Immature Granulocytes # (auto) 0.02 K/uL (0.00-0.02); Immature Granulocytes % (auto) 0.2 %; Lymphocytes # (auto) 1.41 K/uL (1.2-3.4); Lymphocytes % (auto) 13.3 %; Mean Corpuscular Hemoglobin 33.3 pg (25-34); Mean Corpuscular Hgb Conc 33.7 g/dL (32-36); Mean Platelet Volume 10.1 fL (7.4-10.4); Monocytes # (auto) 1.01 K/uL (0.11-0.59); Monocytes % (auto) 9.5 %; Neutrophils # (auto) 8.11 K/uL (1.4-6.5); Neutrophils % (auto) 76.7 %; Platelet Count 272 K/uL (130-400); RDW Coefficient of Variation 13.9 % (11.5-14.5); RDW Standard Deviation 49.7 fL (36.4-46.3); Red Blood Count 3.84 M/uL (4.2-5.4); White Blood Count 10.58 K/uL (4.8-10.8)
[2021-09-07 13:23] LABS: INR 1.9 (0.9-1.1); Partial Thromboplastin Ratio 1.1; Partial Thromboplastin Time 29.1 Seconds (21.0-31.0); Prothrombin Time 19.1 Seconds (9.0-12.0)
[2021-09-07 13:45] LABS: Troponin I High Sensitivity 24.1 pg/ml (0-14)
[2021-09-07 13:55] LABS: Albumin Globulin Ratio 1.1 (0.9-2); Albumin Level 3.4 gm/dl (3.4-5.0); BUN Creatinine Ratio 24.8 (10-20); Bilirubin,Total 0.8 mg/dl (0.2-1.0); Calcium 9.4 mg/dl (8.5-10.1); Creatinine Clr Calc Pharmacy 48.1 ml/min; Est GFR (African American) 56.5 ml/min; Est GFR (Non-African American) 48.7 ml/min; Globulin 3.1 gm/dl (2.5-4.0); Magnesium 1.7 mg/dl (1.7-2.4); Potassium 4.5 mmol/L (3.5-5.1); Total Protein 6.5 gm/dl (6.0-8.3)
--- NOTE | 2021-09-07 14:51 | CT Scan Report ---
ABDOMEN AND PELVIS CT WITHOUT CONTRAST CT DOSE: 339.18 mGy.cm HISTORY: Acute nausea with low back pain nausea, confusion, back pain TECHNIQUE: Multiaxial CT images of the abdomen and pelvis were performed without contrast. A dose lo wering technique was utilized adhering to the principles of ALARA. COMPARISON STUDY: CT lumbar spine 08/21/2021 FINDINGS: Cardiomegaly with coronary artery calcifications. Mild linear scarring versus atelectasis within the right middle lobe. Study is degraded by respiratory motion artifact. There is no pneumatosis or pneum operitoneum. The unenhanced spleen is unremarkable with a few scattered calcified granulomata. The pa ncreas is atrophic with associated pancreatic calcifications suggestive of chronic pancreatitis. Calc ifications of the left adrenal gland suggests prior hemorrhage or infection. The right adrenal gland is unremarkable. The gallbladder is not identified and is either contracted or surgically absent. Hep atic steatosis. No hepatic mass or marginal nodularity identified. Contrast within the renal collecting systems from the CTA studies of same day. This limits evaluation of renal or ureteral calculi. No hydronephrosis or urothelial lesion identified. Mild nonspecific ur inary bladder wall thickening. Vascular calcifications of the uterus. No adnexal mass lesions identif ied. Atherosclerosis of the aorta. There is no lymphadenopathy. Small hiatal hernia. No bowel obstruction or bowel wall thickening. Surgical suture material is noted involving a loop of bowel within the anterior pelvis. No ascites or mesenteric inflammation. Degener ative changes of the spine, pelvis and hips. No acute fracture identified. IMPRESSION: 1. Motion degraded exam. 2. No bowel obstruction or bowel wall thickening. 3. Hepatic steatosis. 4. Evidence of chronic pancreatitis. 5. Tiny hiatal hernia. 6. Additional findings as above. ACT 112: Negative or not required by law. The above report was generated using voice recognition software. It may contain grammatical, syntax o r spelling errors. Electronically signed by: Merlin Nye M.D. 09/07/2021 2:49 PM
[2021-09-07] MEDS ORDERED: dilTIAZem HCl 5 MG/ML 5 ML VIAL IV STA (14:55)
[2021-09-07] MEDS ORDERED: ACETAMINOPHEN 325 MG TAB PO STA (14:59)
--- NOTE | 2021-09-07 15:15 | History & Physical Report ---
Date of Service September 07, 2021 Assessment & Plan (1) Encephalopathy: Plan: Patient presents with confusion, headache and elevated blood pressure in the setting of n/v and elevated BP - DDX: HTN Urgency vs. Toxic vs. Metabolic - she did not take any of her medications this morning -- will admin now - digoxin level not elevated - Glucose appears to be within her normal range - currently without infectious etiology WBC 10, NLR ~2.1- may be elevated from this morning vomiting and stress- follow await UA - Appears this has been ongoing over the past 3-4 days per review - Will hold her Tramadol - Follow Dig level in AM - MRI brain evaluate for PRESS or CVA/other cause- PRESS unlikely as BP not overtly elevated and not noted on CT - Neurological exam q4 hours- follow hemodynamics through PM (2) Headache: Plan: As above- CT head completed without tumor mass or noted congestion in sinus - Provider oral BP medications home regimen - No seizures, and improving mentation - Not meningitic - extends into upper shoulders/traps - MRI negative (3) Back pain: Plan: Chronic- SI joint pain with palpation and with leg raise of the left leg - Hold Tramadol - Previously appears trialed on Gabapentin - Consider Lumbar/sacral MRI - CT scan of Lspine done 08/21/21 - Tylenol and lidocaine patch- Narcotic if needed (4) A-fib: Plan: Usually well controlled with rate - On Cardizem HCL - give home dose now - Metoprolol Succinate 50mg PO BID- give dose tonight - will give 25mg Metoprolol tartrate now to bridge until dose tonight - Follow- electrolytes are within normal range - PRN Metoprolol if needed - COntinue warfarin INR in morning - currently 1.9 (5) Dyslipidemia: Plan: Continue statin (6) Controlled type 2 diabetes mellitus with kidney complication, with long-term current use of insulin: Plan: On Basal bolus insulin dosing at home with Dexcom - Previous A1c in August 07, 2021- 8.4 - continu basal insulin - sliding scal aspart insulin for bolus dosing CF 20, ration 10 (7) Hypertension: Plan: Usually appears well controlled - provide home dosing at this time- CT scan of head and CTA without evidence of PRESS or bleed - MRI as above - Follow closely over next 24 hours (8) Chronic kidney disease, stage 3: Plan: As above- secondary to poorly controlled DM - follow with BP control - avoid further nephrotoxins (9) Elevated troponin: Plan: HScTNI evaluated by EMD on arrival- 24.1 will recheck level now - ECG pending - Likely type II secondary to demand with elevated BP and tachycardia- trend (10) Aneurysm: Plan: 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 Past medical history of: chronic back pain, right leg pain, bilateral knee pain, DMII (on Insulin), HTN, AFIB (on Warfarin), CKDIII, VItamin D deficiency, HLD. Patient sent to the EMD today after eating breakfast she had large amount of emesis, nausea, associated with confusion. She also has a POLST form with DNR/DNI. Patient is mentating better at this time as compared to initial EMD evaluation, remains complaining of lower back pain, and headache that is frontal as well as back of neck into shoulders. Reviewing notes from [facility], patient appears to report not feeling well over the weekend, with decreased appetite and variable blood pressures. She was checked for COVID on 09/06/21 at [facility] that was negative and is COVID negative on admission as well. Appears as well the patient did not take her morning medications either. Did call and discuss with the patient's daughter Kenny for review. She states that over the past couple months the patient has been being evaluated for chronic lower back pain that does go down her legs as well as causing her knee and ankle pain. She follows with Dr. Sousa and has had some of her pain medications adjusted and is planning for MRI of the lower back later in the month. She reports that she is normally fairly independent getting around and getting to meals. Usually a good appetite. Patient will be admitted to PCU for frequent neurological evaluations and following her HR and BP effects over the night. Will obtain MRI brain evaluate for CVA/PRESS. COVID test on admisison is: NEGATIVE Allergies Allergy/AdvReac Type Severity Reaction Status Date / Time Sulfa (Sulfonamide Allergy Unknown Nausea Unverified 09/07/21 15:39 Antibiotics) Home Medications Medication Instructions Recorded Confirmed Type cholecalciferol (vitamin D3) 50 2,000 unit PO DAILY 01/03/18 09/07/21 History mcg (2,000 unit) capsule (Vitamin D3) lancets (weipassTouch UltraSoft #50 ea 10/31/18 09/06/21 History Lancets) blood sugar diagnostic (OneTouch ea 06/29/20 09/06/21 History Ultra Blue Test Strip) BD SafetyGlide Insulin Syringe 1 #100 ea NS 07/13/20 09/06/21 Rx mL 31 gauge x 15/64" (insulin syringe,safetyneedle) BD Ultra-Fine Short Pen Needle 31 #100 ea NS 07/13/20 09/06/21 Rx gauge x 5/16" (pen needle, diabetic) metoprolol tartrate 100 mg tablet 50 mg PO BID #90 tab 09/19/20 09/07/21 Rx (Lopressor) atorvastatin 10 mg tablet 10 mg PO QPM #90 tab 11/21/20 09/07/21 Rx vitamins A,C,V-rluw-crevke 14,320 1 cap PO BID 11/24/20 09/07/21 History unit-226 mg-200 unit capsule (PreserVision AREDS) insulin lispro 100 unit/mL 18 - 22 unit SUBCUT AC #15 ml 05/08/21 09/07/21 Rx subcutaneous pen (Humalog KwikPen (U-100) Insulin) FreeStyle Roman 2 Sensor (flash #2 ea NS 08/04/21 09/06/21 Rx glucose sensor) insulin glargine 100 unit/mL 38 unit SUBCUT BID ml 08/09/21 09/07/21 History subcutaneous solution (Lantus U-100 Insulin) acetaminophen 500 mg tablet 1,000 mg PO TID tab 08/22/21 09/07/21 History tramadol 50 mg tablet 50 mg PO Q6H PRN 08/22/21 09/07/21 History bimatoprost 0.01 % eye drops 1 drp OPHTHALMIC (EYE) DAILY 09/06/21 09/07/21 History cyclobenzaprine 5 mg tablet 5 mg PO TID PRN 09/06/21 09/07/21 History warfarin 5 mg tablet 5 mg PO 3XWK tab 09/06/21 09/07/21 History bisacodyl 10 mg rectal suppository 10 mg CO Q OTHER DAY PRN 09/07/21 09/07/21 History digoxin 250 mcg (0.25 mg) tablet 250 mcg PO QAM 09/07/21 09/07/21 History diltiazem HCl 240 mg 240 mg PO QAM 09/07/21 09/07/21 History capsule,extended release 24 hr (Cartia XT) magnesium hydroxide 400 mg/5 mL 30 ml PO Q OTHER DAY PRN 09/07/21 09/07/21 History oral suspension (Milk of Magnesia) sodium phosphates 19 gram-7 118 ml CO Q3D PRN 09/07/21 09/07/21 History gram/118 mL enema (Fleet Enema) warfarin 5 mg tablet 2.5 mg PO 4XWK 09/07/21 09/07/21 History Past Med/Surg History Medical History Chronic kidney disease, stage 3 Dysmetabolic syndrome X History of actinic keratosis History of basal cell carcinoma History of colon cancer History of diabetes mellitus History of nummular eczema History of rheumatic fever History of rosacea Hypertension Right knee DJD Vitamin D deficiency Surgical History History of partial colectomy History of tonsillectomy Hx of appendectomy Hx of cholecystectomy Family History Unknown Family history of thromboembolic disease Social History Smoking Status: Never smoker Hx Alcohol Use: No Hx Substance Use: No Preferred Language: Citizen Of [place] Communication Ability: Effective 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 Beliefs That Will Affect Care: None marital status: / Current Living Situation: Alone Current Living Situation Comment: [facility], [place] [facility] [place] current occupational status: retired Feels Safe at Home: Yes Safety Concerns: Feels Safe At This Time Assistive Devices: Walker Review of Systems Review of Systems: REVIEW OF SYSTEMS: Constitutional: No fever, sweats or chills Eyes: (+) frontal headache behind eyes, No diplopia, no worsening or blurred vision ENT: normal hearing, no trouble swallowing Respiratory: No cough, sputum, dyspnea at rest or on exertion Cardiovascular: No chest pain, tightness or palpitations Abdomen: (+) N/V, No pain, diarrhea or constipation Musculoskeletal: (+) Lower back pain SI joint, No joint pain, calf pain, swelling Neurologic: (+) confusion and fatigue, No weakness, numbness/tingling, or balance problems Psychiatric: No anxiety or depression Skin: No rash or itch Physical Exam Physical Exam: PHYSICAL EXAM: General: awake, alert, oriented to person and date, Head: Normocephalic, atraumatic ENT: PERRLA, EOMI, no pharyngeal exudate, mucous membranes dry Neuro: AAO x 2, speech clear and appropriate, strength intact bilaterally 5/5, sensation intact and equal all extremities and dermatomes, no pronator drift, no facial asymmetry Chest: equal rise and fall of the chest, no accessory muscle use, no heaves or thrills, Clear to auscultation, on room air, Cardiac: irregular rate and rhythm, telemetry reviewed- afib, skin warm dry, cap refill <3 seconds, peripheral pulses +2 no JVD, no murmur, trace lower extremity edema GI: NABS x 4 quadrants, soft, nontender to palpation, no rebound, guarding or tenderness : incontinent urine, no pain, no CVA tenderness, Psych: Normal mood and affect Skin: bruising to lower legs Results & Data Results & Data ([facility]) Vital Signs (Past 12 Hours) Vital Signs Temp Pulse Resp BP Pulse Ox 09/07/21 12:27 36.7 C 108 H 18 195/90 H 97 Laboratory Results Abnormal lab results 09/07/21 09/07/21 09/07/21 Range/Units 12:45 12:45 12:45 RBC 3.84 L (4.2-5.4) M/uL RDW Std Deviation 49.7 H (36.4-46.3) fL Neut # (Auto) 8.11 H (1.4-6.5) K/uL [place] # (Auto) 1.01 H (0.11-0.59) K/uL PT 19.1 H (9.0-12.0) Seconds INR 1.9 H (0.9-1.1) Sodium 130 L (136-145) mmol/L Chloride 95 L (98-107) mmol/L BUN 26 H (6-23) mg/dl BUN/Creatinine Ratio 24.8 H (10-20) Glucose 272 H (70-99(Fasting)) mg/dl POC Glucose (70-99) mg/dl Troponin I High Sens 24.1 H (0-14) pg/ml 09/07/21 Range/Units 13:13 RBC (4.2-5.4) M/uL RDW Std Deviation (36.4-46.3) fL Neut # (Auto) (1.4-6.5) K/uL [place] # (Auto) (0.11-0.59) K/uL PT (9.0-12.0) Seconds INR (0.9-1.1) Sodium (136-145) mmol/L Chloride (98-107) mmol/L BUN (6-23) mg/dl BUN/Creatinine Ratio (10-20) Glucose (70-99(Fasting)) mg/dl POC Glucose 276 H (70-99) mg/dl Troponin I High Sens (0-14) pg/ml Diagnostic Findings Head CT 09/07/21 12:[address] OF THE BRAIN; CT ANGIOGRAM OF THE BRAIN; CT ANGIOGRAM OF THE NECK CLINICAL HISTORY: Strokelike symptoms. Headache. COMPARISON STUDY: No priors TECHNIQUE: Unenhanced axial CT scan of the brain is performed. Subsequently, following the IV administration of 120 of Optiray 320, CT angiogram of the head and neck was performed from the aortic arch to the vertex. Images are reviewed in the axial, sagittal, and coronal planes. 3-D MIPS images are created and assessed. IV contrast was administered without complication. All measurements were calculated based on NASCET criteria. A dose lowering technique was utilized adhering to the principles of ALARA. The CT angiogram of the neck is significantly degraded by motion artifact. CT DOSE: 2060.36 mGy.cm FINDINGS: Brain parenchyma: There is age-related involutional change noting mild subcortical and periventricular microangiopathic disease. There is no hemorrhage, mass effect, or evidence of acute territorial ischemia by CT criteria. There is no evidence of enhancing mass lesion on the angiogram phase images. The ventricles, sulci, and cisterns are prominent secondary to involu tional change. Mejia-white matter differentiation is preserved. No extra-axial fluid collection is seen. Thoracic aorta: There is atherosclerotic calcification of the thoracic aorta. Visualized portions of the thoracic aorta are normal in caliber. The aortic arch demonstrates standard 3-vessel anatomy. Right carotid arterial system: The right common carotid artery is widely patent, as are the right internal and external carotid arteries. Calcified plaque is noted in the carotid bulb. Left carotid arterial system: The left common carotid artery is widely patent, as are the left internal and external carotid arteries. Calcified plaque is noted in the carotid bulb. Vertebral arteries: The vertebral arteries are widely patent bilaterally and codominant. Subclavian arteries: Widely patent bilaterally. Intracranial vasculature: The internal carotid arteries are patent at the skull base, as are the anterior and middle cerebral arteries bilaterally. There is origin of the left posterior cerebral artery. The vertebrobasilar system and posterior cerebral arteries are widely patent. The vertebral arteries are codominant. There is no high-grade stenosis or focal vessel cut off seen throughout the intracranial circulation. 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 No additional aneurysm is identified throughout the intracranial circulation. Jugular veins: Patent bilaterally. Dural sinuses: Patent. Lung apices: Partially visualized upper lobe lung parenchyma appears clear. Soft tissues: The visualized pharyngeal soft tissues are normal in appearance noting angiographic phase technique. The oropharyngeal airway appears widely patent. The salivary and thyroid glands are normal in appearance. No cervical lymphadenopathy is seen. Skeletal structures: The skeletal structures are osteopenic. The calvarium appears intact. The cervical spine is maintained noting multilevel spondylosis. No lytic or blastic lesion is seen. Orbits: The bony orbits are intact. Orbital contents are normal as visualized noting a right ocular lens implants. Sinuses and mastoids: There is trace mucosal thickening within the maxillary antra. The remaining paranasal sinuses are clear. The mastoid air cells are well pneumatized. IMPRESSION: 1 There is no hemorrhage, mass effect, or evidence of acute territorial ischemia by CT criteria. 2. 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 3. Otherwise unremarkable CT angiogram of the brain. 4. Unremarkable CT angiogram of the neck. ACT 112: Negative or not required by law. Electronically signed by: Antonio Brock M.D. 09/07/2021 12:56 PM Head CTA 09/07/21 12:[address] OF THE BRAIN; CT ANGIOGRAM OF THE BRAIN; CT ANGIOGRAM OF THE NECK CLINICAL HISTORY: Strokelike symptoms. Headache. COMPARISON STUDY: No priors TECHNIQUE: Unenhanced axial CT scan of the brain is performed. Subsequently, following the IV administration of 120 of Optiray 320, CT angiogram of the head and neck was performed from the aortic arch to the vertex. Images are reviewed in the axial, sagittal, and coronal planes. 3-D MIPS images are created and assessed. IV contrast was administered without complication. All measurements were calculated based on NASCET criteria. A dose lowering technique was utilized adhering to the principles of ALARA. The CT angiogram of the neck is significantly degraded by motion artifact. CT DOSE: 2060.36 mGy.cm FINDINGS: Brain parenchyma: There is age-related involutional change noting mild subcortical and periventricular microangiopathic disease. There is no hemorrhage, mass effect, or evidence of acute territorial ischemia by CT criteria. There is no evidence of enhancing mass lesion on the angiogram phase images. The ventricles, sulci, and cisterns are prominent secondary to involutional change. Mejia-white matter differentiation is preserved. No extra- axial fluid collection is seen. Thoracic aorta: There is atherosclerotic calcification of the thoracic aorta. Visualized portions of the thoracic aorta are normal in caliber. The aortic arch demonstrates standard 3-vessel anatomy. Right carotid arterial system: The right common carotid artery is widely patent, as are the right internal and external carotid arteries. Calcified plaque is noted in the carotid bulb. Left carotid arterial system: The left common carotid artery is widely patent, as are the left internal and external carotid arteries. Calcified plaque is noted in the carotid bulb. Vertebral arteries: The vertebral arteries are widely patent bilaterally and codominant. Subclavian arteries: Widely patent bilaterally. Intracranial vasculature: The internal carotid arteries are patent at the skull base, as are the anterior and middle cerebral arteries bilaterally. There is origin of the left posterior cerebral artery. The vertebrobasilar system and posterior cerebral arteries are widely patent. The vertebral arteries are codominant. There is no high-grade stenosis or focal vessel cut off seen throughout the intracranial circulation. 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 No additional aneurysm is identified throughout the intracranial circulation. Jugular veins: Patent bilaterally. Dural sinuses: Patent. Lung apices: Partially visualized upper lobe lung parenchyma appears clear. Soft tissues: The visualized pharyngeal soft tissues are normal in appearance noting angiographic phase technique. The oropharyngeal airway appears widely patent. The salivary and thyroid glands are normal in appearance. No cervical lymphadenopathy is seen. Skeletal structures: The skeletal structures are osteopenic. The calvarium appears intact. The cervical spine is maintained noting multilevel spondylosis. No lytic or blastic lesion is seen. Orbits: The bony orbits are intact. Orbital contents are normal as visualized noting a right ocular lens implants. Sinuses and mastoids: There is trace mucosal thickening within the maxillary antra. The remaining paranasal sinuses are clear. The mastoid air cells are well pneumatized. IMPRESSION: 1 There is no hemorrhage, mass effect, or evidence of acute territorial ischemia by CT criteria. 2. 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 3. Otherwise unremarkable CT angiogram of the brain. 4. Unremarkable CT angiogram of the neck. ACT 112: Negative or not required by law. Electronically signed by: Antonio Brock M.D. 09/07/2021 12:56 PM Neck CTA 09/07/21 12:[address] OF THE BRAIN; CT ANGIOGRAM OF THE BRAIN; CT ANGIOGRAM OF THE NECK CLINICAL HISTORY: Strokelike symptoms. Headache. COMPARISON STUDY: No priors TECHNIQUE: Unenhanced axial CT scan of the brain is performed. Subsequently, following the IV administration of 120 of Optiray 320, CT angiogram of the head and neck was performed from the aortic arch to the vertex. Images are reviewed in the axial, sagittal, and coronal planes. 3-D MIPS images are created and assessed. IV contrast was administered without complication. All measurements were calculated based on NASCET criteria. A dose lowering technique was utilized adhering to the principles of ALARA. The CT angiogram of the neck is significantly degraded by motion artifact. CT DOSE: 2060.36 mGy.cm FINDINGS: Brain parenchyma: There is age-related involutional change noting mild subcortical and periventricular microangiopathic disease. There is no hemorrhage, mass effect, or evidence of acute territorial ischemia by CT criteria. There is no evidence of enhancing mass lesion on the angiogram phase images. The ventricles, sulci, and cisterns are prominent secondary to involutional change. Mejia-white matter differentiation is preserved. No extra- axial fluid collection is seen. Thoracic aorta: There is atherosclerotic calcification of the thoracic aorta. Visualized portions of the thoracic aorta are normal in caliber. The aortic arch demonstrates standard 3-vessel anatomy. Right carotid arterial system: The right common carotid artery is widely patent, as are the right internal and external carotid arteries. Calcified plaque is noted in the carotid bulb. Left carotid arterial system: The left common carotid artery is widely patent, as are the left internal and external carotid arteries. Calcified plaque is noted in the carotid bulb. Vertebral arteries: The vertebral arteries are widely patent bilaterally and codominant. Subclavian arteries: Widely patent bilaterally. Intracranial vasculature: The internal carotid arteries are patent at the skull base, as are the anterior and middle cerebral arteries bilaterally. There is origin of the left posterior cerebral artery. The vertebrobasilar system and posterior cerebral arteries are widely patent. The vertebral arteries are codominant. There is no high-grade stenosis or focal vessel cut off seen throughout the intracranial circulation. 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 No additional aneurysm is identified throughout the intracranial circulation. Jugular veins: Patent bilaterally. Dural sinuses: Patent. Lung apices: Partially visualized upper lobe lung parenchyma appears clear. Soft tissues: The visualized pharyngeal soft tissues are normal in appearance noting angiographic phase technique. The oropharyngeal airway appears widely patent. The salivary and thyroid glands are normal in appearance. No cervical lymphadenopathy is seen. Skeletal structures: The skeletal structures are osteopenic. The calvarium appears intact. The cervical spine is maintained noting multilevel spondylosis. No lytic or blastic lesion is seen. Orbits: The bony orbits are intact. Orbital contents are normal as visualized noting a right ocular lens implants. Sinuses and mastoids: There is trace mucosal thickening within the maxillary antra. The remaining paranasal sinuses are clear. The mastoid air cells are well pneumatized. IMPRESSION: 1 There is no hemorrhage, mass effect, or evidence of acute territorial ischemia by CT criteria. 2. 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 3. Otherwise unremarkable CT angiogram of the brain. 4. Unremarkable CT angiogram of the neck. ACT 112: Negative or not required by law. Electronically signed by: Antonio Brock M.D. 09/07/2021 12:56 PM Abdomen/Pelvis CT 09/07/21 13:[address] WITHOUT CONTRAST CT DOSE: 339.18 mGy.cm HISTORY: Acute nausea with low back pain nausea, confusion, back pain TECHNIQUE: Multiaxial CT images of the abdomen and pelvis were performed without contrast. A dose lowering technique was utilized adhering to the principles of ALARA. COMPARISON STUDY: CT lumbar spine 08/21/2021 FINDINGS: Cardiomegaly with coronary artery calcifications. Mild linear scarring versus atelectasis within the right middle lobe. Study is degraded by respiratory motion artifact. There is no pneumatosis or pneumoperitoneum. The unenhanced spleen is unremarkable with a few scattered calcified granulomata. The pancreas is atrophic with associated pancreatic calcifications suggestive of chronic pancreatitis. Calcifications of the left adrenal gland suggests prior hemorrhage or infection. The right adrenal gland is unremarkable. The gallbladder is not identified and is either contracted or surgically absent. Hepatic steatosis. No hepatic mass or marginal nodularity identified. Contrast within the renal collecting systems from the CTA studies of same day. This limits evaluation of renal or ureteral calculi. No hydronephrosis or urothelial lesion identified. Mild nonspecific urinary bladder wall thickening. Vascular calcifications of the uterus. No adnexal mass lesions identified. Atherosclerosis of the aorta. There is no lymphadenopathy. Small hiatal hernia. No bowel obstruction or bowel wall thickening. Surgical suture material is noted involving a loop of bowel within the anterior pelvis. No ascites or mesenteric inflammation. Degenerative changes of the spine, pelvis and hips. No acute fracture identified. IMPRESSION: 1. Motion degraded exam. 2. No bowel obstruction or bowel wall thickening. 3. Hepatic steatosis. 4. Evidence of chronic pancreatitis. 5. Tiny hiatal hernia. 6. Additional findings as above. ACT 112: Negative or not required by law. The above report was generated using voice recognition software. It may contain grammatical, syntax or spelling errors. Electronically signed by: Merlin Nye M.D. 09/07/2021 2:49 PM Medications Administered Discontinued Medications Acetaminophen (Acetaminophen 325 Mg Tab) 650 mg PO NOW STA Stop: 09/07/21 15:00 Last Admin: 09/07/21 15:29 Dose: 650 mg Documented by: [id number] Diltiazem HCl (Diltiazem Hcl 5 Mg/Ml 5 Ml Vial) 10 mg IV NOW STA Stop: 09/07/21 14:56 Last Admin: 09/07/21 15:32 Dose: 10 mg Documented by: [id number] Cosigned by: [id number] Sodium Chloride (Nss 1000ml) 500 mls @ 999 mls/hr IV .Q31M ONE Stop: 09/07/21 13:34 Last Infusion: 09/07/21 15:49 Dose: 0 mls/hr Documented by: [id number] Admin: 09/07/21 14:31 Dose: 999 mls/hr Documented by: [id number] Ioversol (Optiray 320 125ml) 120 ml IV ONCE ONE Stop: 09/07/21 12:41 Last Admin: 09/07/21 12:41 Dose: 120 ml Documented by: [id number] Home Medications cholecalciferol (vitamin D3) 50 mcg (2,000 unit) capsule (Vitamin D3) 2,000 unit PO DAILY 01/03/18 [History Confirmed 09/06/21] lancets (weipassTouch UltraSoft Lancets) #50 ea 10/31/18 [History Confirmed 09/06/21] blood sugar diagnostic (OneTouch Ultra Blue Test Strip) ea 06/29/20 [History Confirmed 09/06/21] BD SafetyGlide Insulin Syringe 1 mL 31 gauge x 15/64" (insulin syringe,safetyneedle) #100 ea NS 07/13/20 [Rx Confirmed 09/06/21] BD Ultra-Fine Short Pen Needle 31 gauge x 5/16" (pen needle, diabetic) #100 ea NS 07/13/20 [Rx Confirmed 09/06/21] metoprolol tartrate 100 mg tablet (Lopressor) 50 mg PO BID #90 tab 09/19/20 [Rx Confirmed 09/06/21] atorvastatin 10 mg tablet 10 mg PO QPM #90 tab 11/21/20 [Rx Confirmed 09/06/21] vitamins A,C,U-cirb-rpnaac 14,320 unit-226 mg-200 unit capsule (PreserVision AREDS) 1 cap PO BID 11/24/20 [History Confirmed 09/06/21] insulin lispro 100 unit/mL subcutaneous pen (Humalog KwikPen (U-100) Insulin) 18 - 22 unit SUBCUT AC #15 ml 05/08/21 [Rx Confirmed 09/06/21] FreeStyle Roman 2 Sensor (flash glucose sensor) #2 ea NS 08/04/21 [Rx Confirmed 09/06/21] insulin glargine 100 unit/mL subcutaneous solution (Lantus U-100 Insulin) 38 unit SUBCUT BID ml 08/09/21 [History Confirmed 09/06/21] acetaminophen 500 mg tablet 1,000 mg PO TID tab 08/22/21 [History Confirmed 09/06/21] tramadol 50 mg tablet 50 mg PO Q6H PRN 08/22/21 [History Confirmed 09/06/21] bimatoprost 0.01 % eye drops 1 drp OPHTHALMIC (EYE) DAILY 09/06/21 [History Confirmed 09/06/21] cyclobenzaprine 5 mg tablet 5 mg PO TID PRN 09/06/21 [History Confirmed 09/06/21] warfarin 5 mg tablet See Rx Instructions PO UD tab 09/06/21 [History Confirmed 09/06/21] bisacodyl 10 mg rectal suppository 10 mg CO Q OTHER DAY PRN 09/07/21 [History Confirmed 09/07/21] digoxin 250 mcg (0.25 mg) tablet 250 mcg PO QAM 09/07/21 [History Confirmed 09/07/21] diltiazem HCl 240 mg capsule,extended release 24 hr (Cartia XT) 240 mg PO QAM 09/07/21 [History Confirmed 09/07/21] magnesium hydroxide 400 mg/5 mL oral suspension (Milk of Magnesia) 30 ml PO Q OTHER DAY PRN 09/07/21 [History Confirmed 09/07/21] sodium phosphates 19 gram-7 gram/118 mL enema (Fleet Enema) 118 ml CO Q3D PRN 09/07/21 [History Confirmed 09/07/21] warfarin 5 mg tablet 2.5 mg PO [id number] 09/07/21 [History Confirmed 09/07/21] Active Medications Diltiazem HCl (Diltiazem Hcl 240 Mg Capcr) 240 mg PO QAM AAYUSH Stop: 10/07/21 16:14 ECG Additional Comments: Atrial fibrillation with rapid ventricular response Left axis deviation Septal infarct , age undetermined ST & T wave abnormality, consider lateral ischemia Abnormal ECG Code Status & VTE Plan Code Status CODE: DNR/DNI VTE: SCDS, Warfain VTE Prophylaxis Plan VTE Prophylaxis will be ordered: Yes Supervising Physician Co-Signing Physician Notes Patient seen and examined at bedside. Obtained a physical examination and history during face to face encounter. I discussed plan of care with JOHN Garcia I reviewed above note and agree with it. Patient admitted for encephalopathy. Will monitor. doubt PRES PG Care Time/CCT Total # of Minutes Spent Total Time Spent with Patient: Total time spent is greater than 50% in coordination of care (as documented) at patient's floor/unit and/or counseling patient: Coding Level of Care Code 09332 Initial Inpt Care Lvl 3 Diagnoses Encephalopathy G93.40 Back pain M54.50 Back pain laterality: midline Back pain location: low back pain Chronicity: unspecified Sciatica presence: without sciatica A-fib I48.91 Dyslipidemia E78.5 Controlled type 2 diabetes mellitus with kidney complication, with long-term current use of insulin E11.29; Z79.4 Hypertension I10 Chronic kidney disease, stage 3 N18.3 Elevated troponin R77.8 Aneurysm I72.9 Headache R51.9 Chronic pancreatitis K86.1 (1) Back pain Back pain laterality: midline Back pain location: low back pain Chronicity: unspecified Sciatica presence: without sciatica Qualified Code(s): M54.50 - Low back pain, unspecified
[2021-09-07] MEDS ORDERED: METOPROLOL TARTRATE 25 MG TAB PO ONE (16:00)
--- NOTE | 2021-09-07 18:10 | Magnetic Resonance Report ---
MR brain wo con HISTORY: 86 years-old Female encephalopathy, rule out stroke or other acute headache with strokelike symptoms and confusion COMPARISON: Head CT of same day TECHNIQUE: Multiplanar multisequence MRI of the brain was obtained without the use of IV contrast. 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 Degenerative changes of the yang ged cervical spine. Midline structures appear unremarkable. No restricted diffusion. No acute intracr anial hemorrhage, midline shift, abnormal extra-axial collection, hydrocephalus or intracranial mass. Mild involutional changes. Mild to moderate T2/FLAIR hyperintense foci are noted throughout the whit e matter and pontine brainstem. Venous sinuses and major arterial flow voids appear patent. Mastoid air cells are clear. Minimal muco pallavi thickening of the paranasal sinuses. The skull and soft tissues are unremarkable. Prior right-marco a ed lens repair. IMPRESSION: 1. No acute intracranial abnormality. No acute or subacute infarct. 2. Age-related involutional changes with mild to moderate chronic microvascular ischemic disease. ACT 112: Negative or not required by law. The above report was generated using voice recognition software. It may contain grammatical, syntax o r spelling errors. Electronically signed by: Merlin Nye M.D. 09/07/2021 6:07 PM
[2021-09-07] MEDS ORDERED: GLUCOSE 40% GEL 15 GM TUBE PO PRN (18:32)
[2021-09-07] MEDS ORDERED: METOPROLOL TARTRATE 1 MG/ML VIAL IV PRN (18:32)
[2021-09-07] MEDS ORDERED: traMADol HCL 50 MG TABLET PO PRN (18:32)
[2021-09-07] MEDS ORDERED: GLUCAGON FOR INJ 1 MG VIAL SQ PRN (18:32)
[2021-09-07] MEDS ORDERED: ACETAMINOPHEN 325 MG TAB PO PRN (18:32)
[2021-09-07] MEDS ORDERED: CARBOHYDRATES FOR HYPOGLYCEMIA PO PRN (18:32)
[2021-09-07] MEDS ORDERED: GLUCOSE 10 TABS/TUBE PO PRN (18:32)
[2021-09-07] MEDS ORDERED: LIDOCAINE 5% 1 PATCH TD SCH (18:32)
[2021-09-07] MEDS ORDERED: DEXTROSE 50% 50 ML SYRINGE IV PRN (18:32)
[2021-09-07] MEDS ORDERED: ONDANSETRON INJ 2 MG/ML 2 ML VIAL IV PRN (18:32)
[2021-09-07] MEDS: LIDOCAINE 5% 1 PATCH TD SCH (19:47)
[2021-09-07] MEDS: WARFARIN SOD 2.5 MG TAB PO SCH (19:50)
[2021-09-07] MEDS: ATORVASTATIN 10 MG TAB PO SCH (19:51)
[2021-09-07] MEDS: METOPROLOL TARTRATE 50 MG TAB PO SCH (19:52)
[2021-09-07] MEDS: FAMOTIDINE 20 MG in SYRINGE 3 ML IV SCH (19:52)
[2021-09-07] MEDS: dilTIAZem HCL 240 MG CAPCR PO SCH (19:52)
[2021-09-07] MEDS: INSULIN ASPART PER UNIT SC SCH ×2 (20:26→20:33)
[2021-09-07] MEDS: INSULIN GLARGINE SOLOSTAR 100 UNITS/ML 3 ML PEN SQ SCH (20:27)
[2021-09-08 03:48] LABS: Basophils # (auto) 0.01 K/uL (0-0.2); Basophils % (auto) 0.1 %; Eosinophils # (auto) 0.05 K/uL (0-0.5); Eosinophils % (auto) 0.5 %; Hematocrit (blood only) 38.6 % (37-47); Hemoglobin 13.3 g/dL (12.0-16.0); Immature Granulocytes # (auto) 0.02 K/uL (0.00-0.02); Immature Granulocytes % (auto) 0.2 %; Lymphocytes % (auto) 23.7 %; Mean Corpuscular Hemoglobin 34.7 pg (25-34); Mean Corpuscular Hgb Conc 34.5 g/dL (32-36); Mean Corpuscular Volume 100.8 fL (80-100); Mean Platelet Volume 9.7 fL (7.4-10.4); Monocytes # (auto) 1.56 K/uL (0.11-0.59); Monocytes % (auto) 14.2 %; Neutrophils # (auto) 6.75 K/uL (1.4-6.5); Neutrophils % (auto) 61.3 %; Platelet Count 266 K/uL (130-400); RDW Coefficient of Variation 13.7 % (11.5-14.5); Red Blood Count 3.83 M/uL (4.2-5.4); White Blood Count 10.99 K/uL (4.8-10.8)
[2021-09-08 04:04] LABS: BUN Creatinine Ratio 23.1 (10-20); Calcium 9.6 mg/dl (8.5-10.1); Creatinine Clr Calc Pharmacy 46.4 ml/min; Est GFR (African American) 67.1 ml/min; Est GFR (Non-African American) 57.9 ml/min; Potassium 4.2 mmol/L (3.5-5.1)
[2021-09-08 04:11] LABS: INR 1.5 (0.9-1.1); Prothrombin Time 16.1 Seconds (9.0-12.0)
[2021-09-08 07:24] LABS: Estimated Average Glucose 189 mg/dl; Hemoglobin A1C 8.2 % (4.5-5.6)
[2021-09-08] MEDS: INSULIN ASPART PER UNIT SC SCH ×4 (08:40→21:54)
[2021-09-08] MEDS: INSULIN GLARGINE SOLOSTAR 100 UNITS/ML 3 ML PEN SQ SCH ×2 (08:43→21:55)
[2021-09-08] MEDS ORDERED: dilTIAZem HCL 240 MG CAPCR PO SCH (09:00)
[2021-09-08] MEDS: dilTIAZem HCL 240 MG CAPCR PO SCH (10:48)
[2021-09-08] MEDS: DIGOXIN 0.25 MG TAB PO SCH (10:48)
[2021-09-08] MEDS: FAMOTIDINE 20 MG in SYRINGE 3 ML IV SCH (10:57)
[2021-09-08] MEDS: METOPROLOL TARTRATE 50 MG TAB PO SCH ×2 (11:25→20:08)
--- NOTE | 2021-09-08 11:58 | Hospitalist Progress Note ---
Date of Service September 08, 2021 Assessment & Plan (1) Encephalopathy: Plan: Patient presents with confusion, headache and elevated blood pressure in the setting of n/v No fevers, urinalysis still not yet collected as patient is incontinent and refuses straight cath. Mild leukocytosis at 10.9 on admission, mild hyponatremia may be contributing. Renal function normal. CT head, CT angiogram head and neck all normal except a 4 mm right MCA aneurysm which would not be causing this MRI brain negative for stroke CT abdomen/pelvis done for some complaint of abdominal pain on admission which she is no longer having-has evidence of chronic pancreatitis, fatty liver, but otherwise normal Digoxin level acceptable at 1.5 Glucose normal Mentation is somewhat improved today it seems with normalized blood pressures and normalized sodium although remains lethargic. Headache is improved after receiving IV fluids However, given outdoor exposure and history of frequent walking of her dog and recent sciatica-checked Lyme titer which was positive for the IgM. She had a ne gative Lyme titer 1 year ago. -Treat with doxycycline for Lyme disease for a minimum of 14 days -Follow-up Western blot of Lyme -Check TSH in the morning -Check anaplasmosis smear-negative, anaplasmosis PCR pending -Follow-up on urinalysis when able to be collected -Discontinued home tramadol -Supportive care (2) Lyme disease: Plan: IgM positive Follow-up Western blot Treating with doxycycline (3) Elevated troponin: Plan: High-sensitivity troponin mildly elevated at 24.1 and trended upward and peaked at [address] depressions in lateral leads which improved on repeat ECG today She has no chest pain at all Echocardiogram ordered and pending Cardiology consult pending Likely myocardial demand ischemia in the setting of acute illness (4) Headache: Plan: As above- CT head completed without tumor mass or noted congestion in sinus -Improved now with improvement in blood pressure MRI brain negative - No seizures, and improving mentation - Not meningitic - extends into upper shoulders/traps Tylenol as needed Treating for Lyme disease (5) Hyponatremia: Plan: Sodium 130 on arrival and now improved 135 after normal saline Hold home tramadol which can cause SIADH Follow BMP (6) Vomiting: Plan: Now resolved, tolerating clear liquids diet Continue clear liquids diet for now and advance as tolerated (7) Sciatica: Plan: Recent last few weeks has caused her to have to enter into assisted living at [facility] Lumbar CT recently negative for anything significant Could be related to Lyme disease Treating for Lyme as above Hold tramadol due to confusion and hyponatremia Apparently gabapentin was ordered as an outpatient but was not covered by insurance-daughter reports she might pay allen for this if needed Could trial low-dose gabapentin here if needed Tylenol as needed Lidocaine patch (8) A-fib: Plan: Rates are now well controlled Continue home metoprolol 50 mg p.o. twice daily, diltiazem 240 mg once daily Continue telemetry monitoring - COntinue warfarin at home dosing-INR is subtherapeutic today at 1.5 Start bridging Lovenox at 1 mg/KG twice daily until INR is therapeutic Follow INR in the morning (9) Controlled type 2 diabetes mellitus with kidney complication, with long-term current use of insulin: Plan: On Basal bolus insulin dosing at home with Dexcom - Previous A1c in August 07, 2021- 8.4 percent -Continue basal bolus insulin and adjust as needed (10) Hypertension: Plan: Usually appears well controlled but was elevated on arrival-now improved Continue home medications (11) Chronic kidney disease, stage 3: Plan: As above- secondary to poorly controlled DM - follow with BP control - avoid further nephrotoxins (12) Aneurysm: Plan: 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 Disposition-continued stay on PCU DNR/DNI Case discussed with her daughter on the phone and later with her son at the bedside Will need PT/OT consultations Admission and Anticipated Discharge Date Admission Date: September 07, 2021 Subjective Patient feels very tired, no appetite but is not nauseated anymore. Wants to try clear liquids diet rather than solid foods. The patient reports she has no recollection of coming to the hospital yesterday or why she came. Denies headache or lightheadedness, no chest pains or shortness of breath, no abdominal pains. No diarrhea. No joint pains but does have pretty significant right-sided sciatica pain for the last several weeks. No rashes anywhere. When asked if she has had any tick bites she points to a spot on her scalp that she has felt a lump with crusty sensation on it for the last 2 weeks. She reports that prior to developing the significant sciatica and going into personal-assisted within the last 2 weeks, she was walking her dog 4 times a day. Her daughter reports to me on the phone that despite being in personal care, the patient was outside with them for a visit within the last week. I discussed her care with cardiology. Telemetry with atrial fibrillation with rates in the 80s to 90s Review of Systems Review of Systems: All systems reviewed & are unremarkable except as noted in HPI & below Physical Exam Constitutional: WD/WN, vitals as above Eyes: PERRL, conjunctivae normal, anicteric sclerae ENMT: external ear and nose normal, oropharynx normal Neck: trachea midline, no thyromegaly neck nontender Respiratory: normal respiratory effort, lungs clear to auscultation Cardiovascular: Rate/Rhythm: regular rate and + irregularly irregular Heart Sounds: no murmur Extremities: + edema (1+ pitting edema ankles and distal legs bilaterally-chronic as per patient) Chest (Breasts): Chest: normal inspection of chest Gastrointestinal (Abdomen): normal bowel sounds, soft, nontender, no hepatosplenomegaly Musculoskeletal: Extremities: extremities normal to inspection; no cyanosis and no clubbing Skin: no rashes, warm and dry Small 2 mm crusted scab on top of scalp anteriorly, no erythema Neurologic: moves all extremities and awake; no focal motor deficits Psychiatric: A+Ox3, euthymic affect Lymphatic: no cervical lymphadenopathy Results & Data Results & Data ([facility]) Vital Signs (Past 12 Hours) Vital Signs Temp Pulse Pulse Resp BP Pulse Ox 09/08/21 11:52 36.7 C 99 H 18 105/61 96 09/08/21 08:01 36.9 C 80 16 96/53 L 96 09/08/21 02:42 36.8 C 79 20 145/85 H 97 09/08/21 00:00 89 Laboratory Results 09/08/21 09/08/21 09/08/21 Range/Units Unknown 16:28 12:28 WBC (4.8-10.8) K/uL RBC (4.2-5.4) M/uL Hgb (12.0-16.0) g/dL Hct (37-47) % MCV (80-100) fL MCH (25-34) pg MCHC (32-36) g/dL RDW Std Deviation (36.4-46.3) fL RDW Coeff of Rosie (11.5-14.5) % Plt Count (130-400) K/uL MPV (7.4-10.4) fL Immature Gran % (Auto) % Neut % (Auto) % Lymph % (Auto) % Real % (Auto) % Eos % (Auto) % Baso % (Auto) % Neut # (Auto) (1.4-6.5) K/uL Lymph # (Auto) (1.2-3.4) K/uL Real # (Auto) (0.11-0.59) K/uL Eos # (Auto) (0-0.5) K/uL Baso # (Auto) (0-0.2) K/uL Immature Gran # (Auto) (0.00-0.02) K/uL PT (9.0-12.0) Seconds INR (0.9-1.1) Sodium (136-145) mmol/L Potassium (3.5-5.1) mmol/L Chloride (98-107) mmol/L Carbon Dioxide (21-32) mmol/L Anion Gap (3-11) BUN (6-23) mg/dl Creatinine (0.6-1.2) mg/dl Est Cr Clr Drug Dosing ml/min Est GFR ( Amer) ml/min Est GFR (Non-Af Amer) ml/min BUN/Creatinine Ratio (10-20) Glucose (70-99(Fasting)) mg/dl POC Glucose 206 H (70-99) mg/dl Estimat Average Glucose mg/dl Hemoglobin A1c (4.5-5.6) % Calcium (8.5-10.1) mg/dl Magnesium (1.7-2.4) mg/dl Troponin I High Sens (0-14) pg/ml Nasal Screen MRSA (PCR) Negative (Negative) Digoxin (0.8-2.0) ng/ml Anaplasma Smear A. phagocytophilum DNA Lyme Disease IgG Ab (Negative) Lyme IgG (Western Blot) Pending Lyme IgG 18 kDa Band Pending Lyme IgG 23 kDa Band Pending Lyme IgG 28 kDa Band Pending Lyme IgG 30 kDa Band Pending Lyme IgG 39 kDa Band Pending Lyme IgG 41 kDa Band Pending Lyme IgG 45 kDa Band Pending Lyme IgG 58 kDa Band Pending Lyme IgG 66 kDa Band Pending Lyme IgG 93 kDa Band Pending Lyme IgM Ab (WB) Pending Lyme Disease IgM Ab (Negative) Lyme IgM 23 kDa Band Pending Lyme IgM 39 kDa Band Pending Lyme IgM 41 kDa Band Pending 09/08/21 09/08/21 09/08/21 Range/Units 12:28 12:28 12:28 WBC (4.8-10.8) K/uL RBC (4.2-5.4) M/uL Hgb (12.0-16.0) g/dL Hct (37-47) % MCV (80-100) fL MCH (25-34) pg MCHC (32-36) g/dL RDW Std Deviation (36.4-46.3) fL RDW Coeff of Rosie (11.5-14.5) % Plt Count (130-400) K/uL MPV (7.4-10.4) fL Immature Gran % (Auto) % Neut % (Auto) % Lymph % (Auto) % Real % (Auto) % Eos % (Auto) % Baso % (Auto) % Neut # (Auto) (1.4-6.5) K/uL Lymph # (Auto) (1.2-3.4) K/uL Real # (Auto) (0.11-0.59) K/uL Eos # (Auto) (0-0.5) K/uL Baso # (Auto) (0-0.2) K/uL Immature Gran # (Auto) (0.00-0.02) K/uL PT (9.0-12.0) Seconds INR (0.9-1.1) Sodium (136-145) mmol/L Potassium (3.5-5.1) mmol/L Chloride (98-107) mmol/L Carbon Dioxide (21-32) mmol/L Anion Gap (3-11) BUN (6-23) mg/dl Creatinine (0.6-1.2) mg/dl Est Cr Clr Drug Dosing ml/min Est GFR ( Amer) ml/min Est GFR (Non-Af Amer) ml/min BUN/Creatinine Ratio (10-20) Glucose (70-99(Fasting)) mg/dl POC Glucose (70-99) mg/dl Estimat Average Glucose mg/dl Hemoglobin A1c (4.5-5.6) % Calcium (8.5-10.1) mg/dl Magnesium (1.7-2.4) mg/dl Troponin I High Sens (0-14) pg/ml Nasal Screen MRSA (PCR) (Negative) Digoxin (0.8-2.0) ng/ml Anaplasma Smear See Comment A. phagocytophilum DNA Pending Lyme Disease IgG Ab Negative (Negative) Lyme IgG (Western Blot) Lyme IgG 18 kDa Band Lyme IgG 23 kDa Band Lyme IgG 28 kDa Band Lyme IgG 30 kDa Band Lyme IgG 39 kDa Band Lyme IgG 41 kDa Band Lyme IgG 45 kDa Band Lyme IgG 58 kDa Band Lyme IgG 66 kDa Band Lyme IgG 93 kDa Band Lyme IgM Ab (WB) Lyme Disease IgM Ab Positive A (Negative) Lyme IgM 23 kDa Band Lyme IgM 39 kDa Band Lyme IgM 41 kDa Band 09/08/21 09/08/21 09/08/21 Range/Units 11:22 10:40 07:22 WBC (4.8-10.8) K/uL RBC (4.2-5.4) M/uL Hgb (12.0-16.0) g/dL Hct (37-47) % MCV (80-100) fL MCH (25-34) pg MCHC (32-36) g/dL RDW Std Deviation (36.4-46.3) fL RDW Coeff of Rosie (11.5-14.5) % Plt Count (130-400) K/uL MPV (7.4-10.4) fL Immature Gran % (Auto) % Neut % (Auto) % Lymph % (Auto) % Real % (Auto) % Eos % (Auto) % Baso % (Auto) % Neut # (Auto) (1.4-6.5) K/uL Lymph # (Auto) (1.2-3.4) K/uL Real # (Auto) (0.11-0.59) K/uL Eos # (Auto) (0-0.5) K/uL Baso # (Auto) (0-0.2) K/uL Immature Gran # (Auto) (0.00-0.02) K/uL PT (9.0-12.0) Seconds INR (0.9-1.1) Sodium (136-145) mmol/L Potassium (3.5-5.1) mmol/L Chloride (98-107) mmol/L Carbon Dioxide (21-32) mmol/L Anion Gap (3-11) BUN (6-23) mg/dl Creatinine (0.6-1.2) mg/dl Est Cr Clr Drug Dosing ml/min Est GFR ( Amer) ml/min Est GFR (Non-Af Amer) ml/min BUN/Creatinine Ratio (10-20) Glucose (70-99(Fasting)) mg/dl POC Glucose 233 H 192 H (70-99) mg/dl Estimat Average Glucose mg/dl Hemoglobin A1c (4.5-5.6) % Calcium (8.5-10.1) mg/dl Magnesium (1.7-2.4) mg/dl Troponin I High Sens 42.6 H D (0-14) pg/ml Nasal Screen MRSA (PCR) (Negative) Digoxin (0.8-2.0) ng/ml Anaplasma Smear A. phagocytophilum DNA Lyme Disease IgG Ab (Negative) Lyme IgG (Western Blot) Lyme IgG 18 kDa Band Lyme IgG 23 kDa Band Lyme IgG 28 kDa Band Lyme IgG 30 kDa Band Lyme IgG 39 kDa Band Lyme IgG 41 kDa Band Lyme IgG 45 kDa Band Lyme IgG 58 kDa Band Lyme IgG 66 kDa Band Lyme IgG 93 kDa Band Lyme IgM Ab (WB) Lyme Disease IgM Ab (Negative) Lyme IgM 23 kDa Band Lyme IgM 39 kDa Band Lyme IgM 41 kDa Band 09/08/21 09/08/21 09/08/21 Range/Units 03:31 03:31 03:31 WBC (4.8-10.8) K/uL RBC (4.2-5.4) M/uL Hgb (12.0-16.0) g/dL Hct (37-47) % MCV (80-100) fL MCH (25-34) pg MCHC (32-36) g/dL RDW Std Deviation (36.4-46.3) fL RDW Coeff of Rosie (11.5-14.5) % Plt Count (130-400) K/uL MPV (7.4-10.4) fL Immature Gran % (Auto) % Neut % (Auto) % Lymph % (Auto) % Real % (Auto) % Eos % (Auto) % Baso % (Auto) % Neut # (Auto) (1.4-6.5) K/uL Lymph # (Auto) (1.2-3.4) K/uL Real # (Auto) (0.11-0.59) K/uL Eos # (Auto) (0-0.5) K/uL Baso # (Auto) (0-0.2) K/uL Immature Gran # (Auto) (0.00-0.02) K/uL PT (9.0-12.0) Seconds INR (0.9-1.1) Sodium 135 L (136-145) mmol/L Potassium 4.2 (3.5-5.1) mmol/L Chloride 99 (98-107) mmol/L Carbon Dioxide 28 (21-32) mmol/L Anion Gap 8 (3-11) BUN 21 (6-23) mg/dl Creatinine 0.91 (0.6-1.2) mg/dl Est Cr Clr Drug Dosing 46.4 ml/min Est GFR ( Amer) 67.1 ml/min Est GFR (Non-Af Amer) 57.9 ml/min BUN/Creatinine Ratio 23.1 H (10-20) Glucose 145 H (70-99(Fasting)) mg/dl POC Glucose (70-99) mg/dl Estimat Average Glucose 189 mg/dl Hemoglobin A1c 8.2 H (4.5-5.6) % Calcium 9.6 (8.5-10.1) mg/dl Magnesium 2.0 (1.7-2.4) mg/dl Troponin I High Sens 52.6 H* (0-14) pg/ml Nasal Screen MRSA (PCR) (Negative) Digoxin (0.8-2.0) ng/ml Anaplasma Smear A. phagocytophilum DNA Lyme Disease IgG Ab (Negative) Lyme IgG (Western Blot) Lyme IgG 18 kDa Band Lyme IgG 23 kDa Band Lyme IgG 28 kDa Band Lyme IgG 30 kDa Band Lyme IgG 39 kDa Band Lyme IgG 41 kDa Band Lyme IgG 45 kDa Band Lyme IgG 58 kDa Band Lyme IgG 66 kDa Band Lyme IgG 93 kDa Band Lyme IgM Ab (WB) Lyme Disease IgM Ab (Negative) Lyme IgM 23 kDa Band Lyme IgM 39 kDa Band Lyme IgM 41 kDa Band 09/08/21 09/08/21 09/08/21 Range/Units 03:31 03:31 03:31 WBC 10.99 H (4.8-10.8) K/uL RBC 3.83 L (4.2-5.4) M/uL Hgb 13.3 (12.0-16.0) g/dL Hct 38.6 (37-47) % MCV 100.8 H (80-100) fL MCH 34.7 H (25-34) pg MCHC 34.5 (32-36) g/dL RDW Std Deviation 51.0 H (36.4-46.3) fL RDW Coeff of Rosie 13.7 (11.5-14.5) % Plt Count 266 (130-400) K/uL MPV 9.7 (7.4-10.4) fL Immature Gran % (Auto) 0.2 % Neut % (Auto) 61.3 % Lymph % (Auto) 23.7 % Real % (Auto) 14.2 % Eos % (Auto) 0.5 % Baso % (Auto) 0.1 % Neut # (Auto) 6.75 H (1.4-6.5) K/uL Lymph # (Auto) 2.60 (1.2-3.4) K/uL Real # (Auto) 1.56 H (0.11-0.59) K/uL Eos # (Auto) 0.05 (0-0.5) K/uL Baso # (Auto) 0.01 (0-0.2) K/uL Immature Gran # (Auto) 0.02 (0.00-0.02) K/uL PT 16.1 H (9.0-12.0) Seconds INR 1.5 H (0.9-1.1) Sodium (136-145) mmol/L Potassium (3.5-5.1) mmol/L Chloride (98-107) mmol/L Carbon Dioxide (21-32) mmol/L Anion Gap (3-11) BUN (6-23) mg/dl Creatinine (0.6-1.2) mg/dl Est Cr Clr Drug Dosing ml/min Est GFR ( Amer) ml/min Est GFR (Non-Af Amer) ml/min BUN/Creatinine Ratio (10-20) Glucose (70-99(Fasting)) mg/dl POC Glucose (70-99) mg/dl Estimat Average Glucose mg/dl Hemoglobin A1c (4.5-5.6) % Calcium (8.5-10.1) mg/dl Magnesium (1.7-2.4) mg/dl Troponin I High Sens (0-14) pg/ml Nasal Screen MRSA (PCR) (Negative) Digoxin 1.5 (0.8-2.0) ng/ml Anaplasma Smear A. phagocytophilum DNA Lyme Disease IgG Ab (Negative) Lyme IgG (Western Blot) Lyme IgG 18 kDa Band Lyme IgG 23 kDa Band Lyme IgG 28 kDa Band Lyme IgG 30 kDa Band Lyme IgG 39 kDa Band Lyme IgG 41 kDa Band Lyme IgG 45 kDa Band Lyme IgG 58 kDa Band Lyme IgG 66 kDa Band Lyme IgG 93 kDa Band Lyme IgM Ab (WB) Lyme Disease IgM Ab (Negative) Lyme IgM 23 kDa Band Lyme IgM 39 kDa Band Lyme IgM 41 kDa Band 09/08/21 09/07/21 Range/Units 00:00 22:19 WBC (4.8-10.8) K/uL RBC (4.2-5.4) M/uL Hgb (12.0-16.0) g/dL Hct (37-47) % MCV (80-100) fL MCH (25-34) pg MCHC (32-36) g/dL RDW Std Deviation (36.4-46.3) fL RDW Coeff of Rosie (11.5-14.5) % Plt Count (130-400) K/uL MPV (7.4-10.4) fL Immature Gran % (Auto) % Neut % (Auto) % Lymph % (Auto) % Real % (Auto) % Eos % (Auto) % Baso % (Auto) % Neut # (Auto) (1.4-6.5) K/uL Lymph # (Auto) (1.2-3.4) K/uL Real # (Auto) (0.11-0.59) K/uL Eos # (Auto) (0-0.5) K/uL Baso # (Auto) (0-0.2) K/uL Immature Gran # (Auto) (0.00-0.02) K/uL PT (9.0-12.0) Seconds INR (0.9-1.1) Sodium (136-145) mmol/L Potassium (3.5-5.1) mmol/L Chloride (98-107) mmol/L Carbon Dioxide (21-32) mmol/L Anion Gap (3-11) BUN (6-23) mg/dl Creatinine (0.6-1.2) mg/dl Est Cr Clr Drug Dosing ml/min Est GFR ( Amer) ml/min Est GFR (Non-Af Amer) ml/min BUN/Creatinine Ratio (10-20) Glucose (70-99(Fasting)) mg/dl POC Glucose 136 H (70-99) mg/dl Estimat Average Glucose mg/dl Hemoglobin A1c (4.5-5.6) % Calcium (8.5-10.1) mg/dl Magnesium (1.7-2.4) mg/dl Troponin I High Sens 47.8 H D (0-14) pg/ml Nasal Screen MRSA (PCR) (Negative) Digoxin (0.8-2.0) ng/ml Anaplasma Smear A. phagocytophilum DNA Lyme Disease IgG Ab (Negative) Lyme IgG (Western Blot) Lyme IgG 18 kDa Band Lyme IgG 23 kDa Band Lyme IgG 28 kDa Band Lyme IgG 30 kDa Band Lyme IgG 39 kDa Band Lyme IgG 41 kDa Band Lyme IgG 45 kDa Band Lyme IgG 58 kDa Band Lyme IgG 66 kDa Band Lyme IgG 93 kDa Band Lyme IgM Ab (WB) Lyme Disease IgM Ab (Negative) Lyme IgM 23 kDa Band Lyme IgM 39 kDa Band Lyme IgM 41 kDa Band PG Care Time/CCT Total # of Minutes Spent Total Time Spent with Patient: Total time spent is greater than 50% in coordination of care (as documented) at patient's floor/unit and/or counseling patient: Coding Level of Care Code 02528 Subseq Hosp Care Lvl 3 Diagnoses Encephalopathy G93.40 Headache R51.9 A-fib I48.91 Dyslipidemia E78.5 Controlled type 2 diabetes mellitus with kidney complication, with long-term current use of insulin E11.29; Z79.4 Hypertension I10 Chronic kidney disease, stage 3 N18.3 Elevated troponin R77.8 Aneurysm I72.9 Chronic pancreatitis K86.1 Vomiting R11.10 Nausea presence: unspecified Vomiting type: unspecified Lyme disease A69.20 Sciatica M54.30 Hyponatremia E87.1 (1) Vomiting Nausea presence: unspecified Vomiting type: unspecified Qualified Code(s): R11.10 - Vomiting, unspecified
[2021-09-08 14:04] LABS: Lyme Ab IgG w/WB Rflx Negative (Negative)
[2021-09-08 14:18] LABS: Lyme Ab IgM w/WB Rflx Positive (Negative)
[2021-09-08] MEDS: ENOXAPARIN 80 MG/0.8 ML SYR SQ SCH ×2 (15:34→21:56)
[2021-09-08] MEDS: DOXYCYCLINE HYCLATE 100 MG in DEXTROSE 5% 100 ML IV SCH (15:35)
[2021-09-08] MEDS ORDERED: WARFARIN SOD 5 MG TAB PO SCH (16:00)
[2021-09-08] MEDS: LIDOCAINE 5% 1 PATCH TD SCH (20:07)
[2021-09-08] MEDS: ATORVASTATIN 10 MG TAB PO SCH (20:08)
[2021-09-09] MEDS: DOXYCYCLINE HYCLATE 100 MG in DEXTROSE 5% 100 ML IV SCH ×2 (03:09→14:29)
[2021-09-09 06:25] LABS: Basophils # (auto) 0.02 K/uL (0-0.2); Basophils % (auto) 0.2 %; Hematocrit (blood only) 39.5 % (37-47); Hemoglobin 13.5 g/dL (12.0-16.0); Immature Granulocytes # (auto) 0.02 K/uL (0.00-0.02); Immature Granulocytes % (auto) 0.2 %; Lymphocytes # (auto) 2.24 K/uL (1.2-3.4); Mean Corpuscular Hemoglobin 33.8 pg (25-34); Mean Corpuscular Hgb Conc 34.2 g/dL (32-36); Mean Corpuscular Volume 98.8 fL (80-100); Monocytes # (auto) 1.42 K/uL (0.11-0.59); Monocytes % (auto) 14.6 %; Neutrophils # (auto) 5.92 K/uL (1.4-6.5); Platelet Count 274 K/uL (130-400); RDW Coefficient of Variation 13.4 % (11.5-14.5); RDW Standard Deviation 48.6 fL (36.4-46.3); White Blood Count 9.72 K/uL (4.8-10.8)
[2021-09-09 06:49] LABS: INR 1.8 (0.9-1.1); Prothrombin Time 18.2 Seconds (9.0-12.0)
[2021-09-09 06:50] LABS: Albumin Level 3.6 gm/dl (3.4-5.0); BUN Creatinine Ratio 22.2 (10-20); Bilirubin Direct 0.1 mg/dl (0-0.2); Bilirubin,Total 1.1 mg/dl (0.2-1.0); Calcium 9.6 mg/dl (8.5-10.1); Creatinine Clr Calc Pharmacy 42.7 ml/min; Est GFR (African American) 60.6 ml/min; Est GFR (Non-African American) 52.3 ml/min; Magnesium 1.9 mg/dl (1.7-2.4); Potassium 3.8 mmol/L (3.5-5.1)
--- NOTE | 2021-09-09 07:39 | Cardiology Consultation ---
Date of Consultation September 08, 2021 Assessment & Plan (1) Elevated troponin: (2) A-fib: (3) Chronic anticoagulation: (4) Confusion: 1. Elevated troponin: She does have an elevated troponin, it is certainly possible that she has underlying coronary artery disease as she does have risk factors for it and perhaps her electrocardiographic abnormalities are consistent with that. On the other hand the level is relatively low and is probably demand ischemia, either in the presence of coronary disease or not. In either case it is not symptomatic and I do not believe I would pursue further evaluation at this time. I would recommend an echocardiogram now and consideration for stress test later although I think that is optional at this point. I do not know what we would do with the result if it were positive although perhaps we would change her medical therapy. 2. Atrial fibrillation: She has permanent atrial fibrillation, her rate appears to be adequately controlled although was somewhat elevated on presentation but that may have been due to anxiety. 3. Anticoagulation: She is on chronic warfarin anticoagulation, her INR measurements are not good, out of the last 10 measurements she was in range on half of them (5 times) and both over and under the remainder. I am not sure why she is not on one of the newer agents I do not see a contraindication. I would recommend switching to Eliquis, she has normal kidney function and is greater than 60 kg therefore her dose would be 5 mg twice a day. 4. Confusion: I do not know the cause of her confusion, it does not appear on her brain imaging that there is any stroke so it is probably not related to atrial fibrillation although with poor control (often with a low INR) perhaps small nondetectable strokes could explain it although that seems remote. History of Present Illness Reason for Consultation: Elevated troponin, ECG abnormalities Attending Physician: Steff Tuttle MD History of Present Illness This is a 86-year-old woman with a history of hypertension, dyslipidemia, chronic kidney disease and permanent atrial fibrillation. She is followed by Dr. Murphy in our office as well as by nephrology and the anticoagulant clinic as well as for diabetes. She was last seen December 2020 in the cardiology office where she was doing well from the cardiovascular standpoint. She presented to the emergency room on September 07, 2021 with some confusion which started that morning as well as some headache and emesis. When I discussed her presenting symptoms with her she could not describe them, she seemed to not know or have any recollection of the symptoms that preceded her admission. At the time my evaluation she was comfortable and laying in bed. Evaluation in the emergency room was somewhat concerning due to some lateral ST- T abnormalities on her electrocardiogram as well as some tachycardia during atrial fibrillation (presenting rate 107 bpm although that corrected to 88 bpm by the next day but the electrocardiographic abnormalities continued). High- sensitivity troponin measurements were done a total of 5 times, on presentation the measurement was 24 and it increased to 52 by the morning of September 08, 2021 but later that morning had dropped back to 42. I do not believe that her coronary status is known, she did have a stress test perhaps a decade ago which was negative for ischemia but has not had a catheterization to my knowledge. At the time of my evaluation as noted above she had no recollection of what happened at her presentation, she was laying in bed and was confused in general but conversational and seem to be moving all extremities. She denied current cardiovascular symptoms including palpitations or chest discomfort. Allergies Allergy/AdvReac Type Severity Reaction Status Date / Time Sulfa (Sulfonamide Allergy Unknown Nausea Unverified 09/07/21 15:39 Antibiotics) Home Medications Medication Instructions Recorded Confirmed Type cholecalciferol (vitamin D3) 50 2,000 unit PO DAILY 01/03/18 09/07/21 History mcg (2,000 unit) capsule (Vitamin D3) lancets (OneTouch UltraSoft #50 ea 10/31/18 09/06/21 History Lancets) blood sugar diagnostic (OneTouch ea 06/29/20 09/06/21 History Ultra Blue Test Strip) BD SafetyGlide Insulin Syringe 1 #100 ea NS 07/13/20 09/06/21 Rx mL 31 gauge x 15/64" (insulin syringe,safetyneedle) BD Ultra-Fine Short Pen Needle 31 #100 ea NS 07/13/20 09/06/21 Rx gauge x 5/16" (pen needle, diabetic) metoprolol tartrate 100 mg tablet 50 mg PO BID #90 tab 09/19/20 09/07/21 Rx (Lopressor) atorvastatin 10 mg tablet 10 mg PO QPM #90 tab 11/21/20 09/07/21 Rx vitamins A,C,A-iywf-dqynsu 14,320 1 cap PO BID 11/24/20 09/07/21 History unit-226 mg-200 unit capsule (PreserVision AREDS) insulin lispro 100 unit/mL 18 - 22 unit SUBCUT AC #15 ml 05/08/21 09/07/21 Rx subcutaneous pen (Humalog KwikPen (U-100) Insulin) FreeStyle Roman 2 Sensor (flash #2 ea NS 08/04/21 09/06/21 Rx glucose sensor) insulin glargine 100 unit/mL 38 unit SUBCUT BID ml 08/09/21 09/07/21 History subcutaneous solution (Lantus U-100 Insulin) acetaminophen 500 mg tablet 1,000 mg PO TID tab 08/22/21 09/07/21 History tramadol 50 mg tablet 50 mg PO Q6H PRN 08/22/21 09/07/21 History bimatoprost 0.01 % eye drops 1 drp OPHTHALMIC (EYE) DAILY 09/06/21 09/07/21 History cyclobenzaprine 5 mg tablet 5 mg PO TID PRN 09/06/21 09/07/21 History warfarin 5 mg tablet 5 mg PO 3XWK tab 09/06/21 09/07/21 History bisacodyl 10 mg rectal suppository 10 mg LA Q OTHER DAY PRN 09/07/21 09/07/21 History digoxin 250 mcg (0.25 mg) tablet 250 mcg PO QAM 09/07/21 09/07/21 History diltiazem HCl 240 mg 240 mg PO QAM 09/07/21 09/07/21 History capsule,extended release 24 hr (Cartia XT) magnesium hydroxide 400 mg/5 mL 30 ml PO Q OTHER DAY PRN 09/07/21 09/07/21 History oral suspension (Milk of Magnesia) sodium phosphates 19 gram-7 118 ml LA Q3D PRN 09/07/21 09/07/21 History gram/118 mL enema (Fleet Enema) warfarin 5 mg tablet 2.5 mg PO 4XWK 09/07/21 09/07/21 History Patient History Medical History Chronic kidney disease, stage 3 Dysmetabolic syndrome X History of actinic keratosis History of basal cell carcinoma History of colon cancer History of diabetes mellitus History of nummular eczema History of rheumatic fever History of rosacea Hypertension Right knee DJD Vitamin D deficiency Surgical History History of partial colectomy History of tonsillectomy Hx of appendectomy Hx of cholecystectomy Family History Unknown Family history of thromboembolic disease Social History Smoking Status: Never smoker Hx Alcohol Use: No Hx Substance Use: No Preferred Language: [place]ian Communication Ability: Effective 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 HEENT: Unremarkable Neck: No jugular venous distention, carotid pulses are irregular but otherwise normal and equal bilaterally without bruits. Pulmonary: Clear to auscultation bilaterally. Cardiac: Irregular rhythm with no murmur, gallop or rub. Abdomen: Soft, nontender with normal bowel sounds. Extremities: +1 bilateral pretibial edema. Distal pulses intact. Neurologic: No focal findings. Gait is steady. Skin: No rash, ecchymoses or petechiae. Results & Data ([facility]) Vital Signs (Past 12 Hours) Vital Signs Temp Pulse Pulse Resp BP Pulse Ox 09/08/21 19:06 36.6 C 81 18 137/67 97 09/08/21 15:48 36.8 C 85 20 147/75 H 96 09/08/21 11:52 36.7 C 99 H 18 105/61 96 09/08/21 08:01 36.9 C 80 16 96/53 L 96 Laboratory Results Cardiac Enzymes 09/08/21 09/09/21 Range/Units 10:40 05:52 AST 18 (13-39) U/L Troponin I High Sens 42.6 H D (0-14) pg/ml Coagulation 09/09/21 Range/Units 05:52 PT 18.2 H (9.0-12.0) Seconds CBC 09/09/21 Range/Units 05:52 WBC 9.72 (4.8-10.8) K/uL RBC 4.00 L (4.2-5.4) M/uL Hgb 13.5 (12.0-16.0) g/dL Hct 39.5 (37-47) % Plt Count 274 (130-400) K/uL Neut # (Auto) 5.92 (1.4-6.5) K/uL Lymph # (Auto) 2.24 (1.2-3.4) K/uL [place] # (Auto) 1.42 H (0.11-0.59) K/uL Eos # (Auto) 0.10 (0-0.5) K/uL Baso # (Auto) 0.02 (0-0.2) K/uL Comprehensive Metabolic Panel 09/09/21 Range/Units 05:52 Sodium 137 (136-145) mmol/L Potassium 3.8 (3.5-5.1) mmol/L Chloride 101 (98-107) mmol/L Carbon Dioxide 27 (21-32) mmol/L BUN 22 (6-23) mg/dl Creatinine 0.99 (0.6-1.2) mg/dl Glucose 149 H (70-99(Fasting)) mg/dl Calcium 9.6 (8.5-10.1) mg/dl Direct Bilirubin 0.1 (0-0.2) mg/dl AST 18 (13-39) U/L ALT 24 (7-52) U/L Alkaline Phosphatase 54 (34-104) U/L Total Protein 7.0 (6.0-8.3) gm/dl Albumin 3.6 (3.4-5.0) gm/dl Intake and Output 09/08/21 09/09/21 09/09/21 22:59 06:59 14:59 Intake Total 110 / 220 110 / 220 Balance 110 / 218 110 / 218 Intake: IV 110 / 220 110 / 220 Doxycycline Hyclate 100 mg In 110 / 220 110 / 220 Dextrose 5% 100 ml @ 50 mls/hr IV Q12H [facility] Rx#:[id number] Other: Other Intake Source sips # Unmeasured Voids 2 3 Weight 75.9 kg Weight Measurement Method Built in [facility] Diagnostic Findings Telemetry: Atrial fibrillation with a well-controlled heart rate PG Care Time/CCT Total # of Minutes Spent Total Time Spent with Patient: Total time spent is greater than 50% in coordination of care (as documented) at patient's floor/unit and/or counseling patient: Coding Level of Care Code 22318 Initial Inpt Care Lvl 3 Diagnoses Elevated troponin R77.8 A-fib I48.21 Atrial fibrillation type: permanent Chronic anticoagulation Z79.01 Confusion R41.0 (1) A-fib Atrial fibrillation type: permanent Qualified Code(s): I48.21 - Permanent atrial fibrillation
--- NOTE | 2021-09-09 08:01 | Hospitalist Progress Note ---
Date of Service September 09, 2021 Assessment & Plan (1) Encephalopathy: Plan: Patient presents with confusion, headache and elevated blood pressure in the setting of n/v. No lactic/blood cx/procal on admission (will check procal to am labs) No fevers, urinalysis still not yet collected as patient is incontinent and refuses straight cath. Mild leukocytosis at 10.9 on admission, mild hyponatremia may be contributing. Renal function normal. CT head, CT angiogram head and neck all normal except a 4 mm right MCA aneurysm which would not be causing this MRI brain negative for stroke CT abdomen/pelvis done for some complaint of abdominal pain on admission which she is no longer having-has evidence of chronic pancreatitis, fatty liver, but otherwise normal Digoxin level acceptable at 1.5 TSH 0.479 Glucose normal Mentation is somewhat improved today it seems with normalized blood pressures and normalized sodium although remains lethargic/faatigued. Reported headache is improved after receiving IV fluids and no headache reported 6/4 Given outdoor exposure and history of frequent walking of her dog and recent sciatica-checked Lyme titer which was positive for the IgM. She had a negative Lyme titer 1 year ago. * -Treat with doxycycline for Lyme disease for a minimum of 14 days * -Follow-up Western blot of Lyme * Anaplasmosis smear-negative, anaplasmosis PCR pending Follow-up on urinalysis when able to be collected -- still incontinent Discontinued home tramadol 6/4 WBC wnl, afebrile and awaiting PT/OT evaluations (2) Lyme disease: Plan: IgM positive Follow-up Western blot Treating with doxycycline (3) Elevated troponin: Plan: High-sensitivity troponin mildly elevated at 24.1 and trended upward and peaked at [address] depressions in lateral leads which improved on repeat ECG today She has no chest pain at all Echocardiogram ordered -- LV systolic function normal, mild concentric LVH, LA mildly dilated. RA mild-moderately dilated. Mild MR. RVSP is normal Cardiology consult pending -- would not persue further eval, could consider stress test later Likely myocardial demand ischemia in the setting of acute illness (4) Headache: Plan: As above- CT head completed without tumor mass or noted congestion in sinus -Improved now with improvement in blood pressure , none reported today MRI brain negative - No seizures, and improving mentation - Not meningitic - extended into upper shoulders/traps Tylenol as needed Treating for Lyme disease (5) Hyponatremia: Plan: Sodium 130 on arrival and now improved 135 after normal saline and currently 137 Holding home tramadol which can cause SIADH Follow BMP (6) Vomiting: Plan: Now resolved, tolerating clear liquids diet and requested advancement of diet as reported nausea related to not being able to advance past clears Monitor (7) Sciatica: Plan: Recent last few weeks has caused her to have to enter into assisted living at [facility] Lumbar CT recently negative for anything significant Could be related to Lyme disease Treating for Lyme as above Hold tramadol due to confusion and hyponatremia Apparently gabapentin was ordered as an outpatient but was not covered by insurance-daughter reports she might pay allen for this if needed Could trial low-dose gabapentin here if needed, denies need for increased pain control currently Tylenol as needed Lidocaine patch (8) A-fib: Plan: Rates are now well controlled Continue home metoprolol 50 mg p.o. twice daily, diltiazem 240 mg once daily Continue telemetry monitoring -Continue warfarin at home dosing-INR is subtherapeutic today at 1.8 - Continue bridging Lovenox at 1 mg/KG twice daily until INR is therapeutic INRs consistently subtherapeutic and discussed with patient possibly switching to low dose eliquis instead of the coumadin She would like to think about it and we will re-discuss in AM Follow INR in the morning (9) Controlled type 2 diabetes mellitus with kidney complication, with long-term current use of insulin: Plan: On Basal bolus insulin dosing at home with Dexcom - Previous A1c in August 07, 2021- 8.4 percent -Continue basal bolus insulin and adjust as needed Elevated BSGs last evening to 300s addressed by resident team takes glargine 38u BID, lispro 18-22u AC at home (not getting nearly that however decreased PO/clear liquid since admit, just now advanced) --> tightened parameters slightly this afternoon given BSGs to 201 and will monitor ad diet advanced (10) Hypertension: Plan: Usually appears well controlled but was elevated on arrival-now improved 151/76 Continue home medications (11) Chronic kidney disease, stage 3: Plan: As above- secondary to poorly controlled DM Cr stable 0.99, Crcl 42.7 - follow with BP control - avoid further nephrotoxins If agreeable to Eliquis, would require 2.5mg BID dosing given age/wt <80 (12) Aneurysm: Plan: CTA of head revealed 4mm M2 segment MCA aneurysm - no comparison for size comparison over time - no acute need at this time- BP control Recommend outpatient follow-up (13) Chronic pancreatitis: Plan: noted on CT scan of abdomen and pelvis- lipase currently normal (14) Dyslipidemia: Plan: Continue statin Plan: DVT prophylaxis-Coumadin, Lovenox. Disposition-continued stay on PCU DNR/DNI Case discussed with her daughter on the phone and later with her son at the bedside / PT/OT consultations ordered -recs SNF. Will alert CM Admission and Anticipated Discharge Date Admission Date: September 07, 2021 Subjective Evaluated this morning. States she feels about the same. Had some nausea this morning but no vomiting. She states she would like to try some more solid food. BM/urinary incontinence this morning. States was seen by PT yesterday but they didn't work together, unclear why. Discussed tx for Lyme. Also reporting some R knee discomfort, no falls reported. Pain currently controlled and stating not having pain in her lower legs. [place] cold this morning and currently. Looked at thermostat, turned the whole way down. ASked neighbor, also very cold, and turned up temperature in the room. No chest pain/shortness of breath or abdominal pain associated with nausea, no palpitations. Discussed eliquis over coumadin. She would like time to think about this. Questions/concerns addressed at this time. Review of Systems Review of Systems: All systems reviewed & are unremarkable except as noted in HPI & below Physical Exam Constitutional: WD/WN, vitals as above Eyes: PERRL, conjunctivae normal, anicteric sclerae ENMT: external ear and nose normal, oropharynx normal Neck: trachea midline, no thyromegaly neck nontender Respiratory: normal respiratory effort, lungs clear to auscultation Cardiovascular: Rate/Rhythm: + irregularly irregular (rate low 100s this morning) Heart Sounds: no murmur Extremities: + edema (1+ pitting edema ankles and distal legs bilaterally-chronic as per patient) Chest (Breasts): Chest: normal inspection of chest Gastrointestinal (Abdomen): normal bowel sounds, soft, nontender, no hepatosplenomegaly Musculoskeletal: Extremities: extremities normal to inspection; no cyanosis and no clubbing R knee slightly tender, no erythema/bruising (or report of prior fall) Skin: no rashes, warm and dry Small 2 mm crusted scab on top of scalp anteriorly, no erythema Neurologic: moves all extremities and awake; no focal motor deficits generalized weakness Psychiatric: A+Ox3, euthymic affect Genitourinary: no mcgregor Lymphatic: no cervical lymphadenopathy Results & Data Results & Data ([facility]) Vital Signs (Past 12 Hours) Vital Signs Temp Pulse Resp BP Pulse Ox 09/09/21 04:10 37 C 83 20 161/81 H 97 09/08/21 23:59 36.9 C 71 18 149/81 H 95 Laboratory Results 09/09/21 09/09/21 09/09/21 Range/Units 07:46 05:52 05:52 WBC 9.72 (4.8-10.8) K/uL RBC 4.00 L (4.2-5.4) M/uL Hgb 13.5 (12.0-16.0) g/dL Hct 39.5 (37-47) % MCV 98.8 (80-100) fL MCH 33.8 (25-34) pg MCHC 34.2 (32-36) g/dL RDW Std Deviation 48.6 H (36.4-46.3) fL RDW Coeff of Rosie 13.4 (11.5-14.5) % Plt Count 274 (130-400) K/uL MPV 10.0 (7.4-10.4) fL Immature Gran % (Auto) 0.2 % Neut % (Auto) 61.0 % Lymph % (Auto) 23.0 % Garfield % (Auto) 14.6 % Eos % (Auto) 1.0 % Baso % (Auto) 0.2 % Neut # (Auto) 5.92 (1.4-6.5) K/uL Lymph # (Auto) 2.24 (1.2-3.4) K/uL Garfield # (Auto) 1.42 H (0.11-0.59) K/uL Eos # (Auto) 0.10 (0-0.5) K/uL Baso # (Auto) 0.02 (0-0.2) K/uL Immature Gran # (Auto) 0.02 (0.00-0.02) K/uL PT 18.2 H (9.0-12.0) Seconds INR 1.8 H (0.9-1.1) Sodium (136-145) mmol/L Potassium (3.5-5.1) mmol/L Chloride (98-107) mmol/L Carbon Dioxide (21-32) mmol/L Anion Gap (3-11) BUN (6-23) mg/dl Creatinine (0.6-1.2) mg/dl Est Cr Clr Drug Dosing ml/min Est GFR ( Amer) ml/min Est GFR (Non-Af Amer) ml/min BUN/Creatinine Ratio (10-20) Glucose (70-99(Fasting)) mg/dl POC Glucose 169 H (70-99) mg/dl Calcium (8.5-10.1) mg/dl Magnesium (1.7-2.4) mg/dl Total Bilirubin (0.2-1.0) mg/dl Direct Bilirubin (0-0.2) mg/dl AST (13-39) U/L ALT (7-52) U/L Alkaline Phosphatase (34-104) U/L Troponin I High Sens (0-14) pg/ml Total Protein (6.0-8.3) gm/dl Albumin (3.4-5.0) gm/dl TSH (0.300-4.500) uIu/ml Anaplasma Smear A. phagocytophilum DNA Lyme Disease IgG Ab (Negative) Lyme IgG (Western Blot) Lyme IgG 18 kDa Band Lyme IgG 23 kDa Band Lyme IgG 28 kDa Band Lyme IgG 30 kDa Band Lyme IgG 39 kDa Band Lyme IgG 41 kDa Band Lyme IgG 45 kDa Band Lyme IgG 58 kDa Band Lyme IgG 66 kDa Band Lyme IgG 93 kDa Band Lyme IgM Ab (WB) Lyme Disease IgM Ab (Negative) Lyme IgM 23 kDa Band Lyme IgM 39 kDa Band Lyme IgM 41 kDa Band 09/09/21 09/09/21 09/09/21 Range/Units 05:52 05:52 04:54 WBC (4.8-10.8) K/uL RBC (4.2-5.4) M/uL Hgb (12.0-16.0) g/dL Hct (37-47) % MCV (80-100) fL MCH (25-34) pg MCHC (32-36) g/dL RDW Std Deviation (36.4-46.3) fL RDW Coeff of Rosie (11.5-14.5) % Plt Count (130-400) K/uL MPV (7.4-10.4) fL Immature Gran % (Auto) % Neut % (Auto) % Lymph % (Auto) % Garfield % (Auto) % Eos % (Auto) % Baso % (Auto) % Neut # (Auto) (1.4-6.5) K/uL Lymph # (Auto) (1.2-3.4) K/uL Garfield # (Auto) (0.11-0.59) K/uL Eos # (Auto) (0-0.5) K/uL Baso # (Auto) (0-0.2) K/uL Immature Gran # (Auto) (0.00-0.02) K/uL PT (9.0-12.0) Seconds INR (0.9-1.1) Sodium 137 (136-145) mmol/L Potassium 3.8 (3.5-5.1) mmol/L Chloride 101 (98-107) mmol/L Carbon Dioxide 27 (21-32) mmol/L Anion Gap 9 (3-11) BUN 22 (6-23) mg/dl Creatinine 0.99 (0.6-1.2) mg/dl Est Cr Clr Drug Dosing 42.7 ml/min Est GFR ( Amer) 60.6 ml/min Est GFR (Non-Af Amer) 52.3 ml/min BUN/Creatinine Ratio 22.2 H (10-20) Glucose 149 H (70-99(Fasting)) mg/dl POC Glucose 163 H (70-99) mg/dl Calcium 9.6 (8.5-10.1) mg/dl Magnesium 1.9 (1.7-2.4) mg/dl Total Bilirubin 1.1 H (0.2-1.0) mg/dl Direct Bilirubin 0.1 (0-0.2) mg/dl AST 18 (13-39) U/L ALT 24 (7-52) U/L Alkaline Phosphatase 54 (34-104) U/L Troponin I High Sens (0-14) pg/ml Total Protein 7.0 (6.0-8.3) gm/dl Albumin 3.6 (3.4-5.0) gm/dl TSH 0.479 (0.300-4.500) uIu/ml Anaplasma Smear A. phagocytophilum DNA Lyme Disease IgG Ab (Negative) Lyme IgG (Western Blot) Lyme IgG 18 kDa Band Lyme IgG 23 kDa Band Lyme IgG 28 kDa Band Lyme IgG 30 kDa Band Lyme IgG 39 kDa Band Lyme IgG 41 kDa Band Lyme IgG 45 kDa Band Lyme IgG 58 kDa Band Lyme IgG 66 kDa Band Lyme IgG 93 kDa Band Lyme IgM Ab (WB) Lyme Disease IgM Ab (Negative) Lyme IgM 23 kDa Band Lyme IgM 39 kDa Band Lyme IgM 41 kDa Band 09/09/21 09/08/21 09/08/21 Range/Units 00:05 21:17 21:15 WBC (4.8-10.8) K/uL RBC (4.2-5.4) M/uL Hgb (12.0-16.0) g/dL Hct (37-47) % MCV (80-100) fL MCH (25-34) pg MCHC (32-36) g/dL RDW Std Deviation (36.4-46.3) fL RDW Coeff of Rosie (11.5-14.5) % Plt Count (130-400) K/uL MPV (7.4-10.4) fL Immature Gran % (Auto) % Neut % (Auto) % Lymph % (Auto) % Garfield % (Auto) % Eos % (Auto) % Baso % (Auto) % Neut # (Auto) (1.4-6.5) K/uL Lymph # (Auto) (1.2-3.4) K/uL Garfield # (Auto) (0.11-0.59) K/uL Eos # (Auto) (0-0.5) K/uL Baso # (Auto) (0-0.2) K/uL Immature Gran # (Auto) (0.00-0.02) K/uL PT (9.0-12.0) Seconds INR (0.9-1.1) Sodium (136-145) mmol/L Potassium (3.5-5.1) mmol/L Chloride (98-107) mmol/L Carbon Dioxide (21-32) mmol/L Anion Gap (3-11) BUN (6-23) mg/dl Creatinine (0.6-1.2) mg/dl Est Cr Clr Drug Dosing ml/min Est GFR ( Amer) ml/min Est GFR (Non-Af Amer) ml/min BUN/Creatinine Ratio (10-20) Glucose (70-99(Fasting)) mg/dl POC Glucose 212 H 353 H* 331 H* (70-99) mg/dl Calcium (8.5-10.1) mg/dl Magnesium (1.7-2.4) mg/dl Total Bilirubin (0.2-1.0) mg/dl Direct Bilirubin (0-0.2) mg/dl AST (13-39) U/L ALT (7-52) U/L Alkaline Phosphatase (34-104) U/L Troponin I High Sens (0-14) pg/ml Total Protein (6.0-8.3) gm/dl Albumin (3.4-5.0) gm/dl TSH (0.300-4.500) uIu/ml Anaplasma Smear A. phagocytophilum DNA Lyme Disease IgG Ab (Negative) Lyme IgG (Western Blot) Lyme IgG 18 kDa Band Lyme IgG 23 kDa Band Lyme IgG 28 kDa Band Lyme IgG 30 kDa Band Lyme IgG 39 kDa Band Lyme IgG 41 kDa Band Lyme IgG 45 kDa Band Lyme IgG 58 kDa Band Lyme IgG 66 kDa Band Lyme IgG 93 kDa Band Lyme IgM Ab (WB) Lyme Disease IgM Ab (Negative) Lyme IgM 23 kDa Band Lyme IgM 39 kDa Band Lyme IgM 41 kDa Band 09/08/21 09/08/21 09/08/21 Range/Units 16:28 12:28 12:28 WBC (4.8-10.8) K/uL RBC (4.2-5.4) M/uL Hgb (12.0-16.0) g/dL Hct (37-47) % MCV (80-100) fL MCH (25-34) pg MCHC (32-36) g/dL RDW Std Deviation (36.4-46.3) fL RDW Coeff of Rosie (11.5-14.5) % Plt Count (130-400) K/uL MPV (7.4-10.4) fL Immature Gran % (Auto) % Neut % (Auto) % Lymph % (Auto) % Garfield % (Auto) % Eos % (Auto) % Baso % (Auto) % Neut # (Auto) (1.4-6.5) K/uL Lymph # (Auto) (1.2-3.4) K/uL [place]field # (Auto) (0.11-0.59) K/uL Eos # (Auto) (0-0.5) K/uL Baso # (Auto) (0-0.2) K/uL Immature Gran # (Auto) (0.00-0.02) K/uL PT (9.0-12.0) Seconds INR (0.9-1.1) Sodium (136-145) mmol/L Potassium (3.5-5.1) mmol/L Chloride (98-107) mmol/L Carbon Dioxide (21-32) mmol/L Anion Gap (3-11) BUN (6-23) mg/dl Creatinine (0.6-1.2) mg/dl Est Cr Clr Drug Dosing ml/min Est GFR ( Amer) ml/min Est GFR (Non-Af Amer) ml/min BUN/Creatinine Ratio (10-20) Glucose (70-99(Fasting)) mg/dl POC Glucose 206 H (70-99) mg/dl Calcium (8.5-10.1) mg/dl Magnesium (1.7-2.4) mg/dl Total Bilirubin (0.2-1.0) mg/dl Direct Bilirubin (0-0.2) mg/dl AST (13-39) U/L ALT (7-52) U/L Alkaline Phosphatase (34-104) U/L Troponin I High Sens (0-14) pg/ml Total Protein (6.0-8.3) gm/dl Albumin (3.4-5.0) gm/dl TSH (0.300-4.500) uIu/ml Anaplasma Smear A. phagocytophilum DNA Pending Lyme Disease IgG Ab (Negative) Lyme IgG (Western Blot) Pending Lyme IgG 18 kDa Band Pending Lyme IgG 23 kDa Band Pending Lyme IgG 28 kDa Band Pending Lyme IgG 30 kDa Band Pending Lyme IgG 39 kDa Band Pending Lyme IgG 41 kDa Band Pending Lyme IgG 45 kDa Band Pending Lyme IgG 58 kDa Band Pending Lyme IgG 66 kDa Band Pending Lyme IgG 93 kDa Band Pending Lyme IgM Ab (WB) Pending Lyme Disease IgM Ab (Negative) Lyme IgM 23 kDa Band Pending Lyme IgM 39 kDa Band Pending Lyme IgM 41 kDa Band Pending 09/08/21 09/08/21 09/08/21 Range/Units 12:28 12:28 11:22 WBC (4.8-10.8) K/uL RBC (4.2-5.4) M/uL Hgb (12.0-16.0) g/dL Hct (37-47) % MCV (80-100) fL MCH (25-34) pg MCHC (32-36) g/dL RDW Std Deviation (36.4-46.3) fL RDW Coeff of Rosie (11.5-14.5) % Plt Count (130-400) K/uL MPV (7.4-10.4) fL Immature Gran % (Auto) % Neut % (Auto) % Lymph % (Auto) % [place]field % (Auto) % Eos % (Auto) % Baso % (Auto) % Neut # (Auto) (1.4-6.5) K/uL Lymph # (Auto) (1.2-3.4) K/uL [place]field # (Auto) (0.11-0.59) K/uL Eos # (Auto) (0-0.5) K/uL Baso # (Auto) (0-0.2) K/uL Immature Gran # (Auto) (0.00-0.02) K/uL PT (9.0-12.0) Seconds INR (0.9-1.1) Sodium (136-145) mmol/L Potassium (3.5-5.1) mmol/L Chloride (98-107) mmol/L Carbon Dioxide (21-32) mmol/L Anion Gap (3-11) BUN (6-23) mg/dl Creatinine (0.6-1.2) mg/dl Est Cr Clr Drug Dosing ml/min Est GFR ( Amer) ml/min Est GFR (Non-Af Amer) ml/min BUN/Creatinine Ratio (10-20) Glucose (70-99(Fasting)) mg/dl POC Glucose 233 H (70-99) mg/dl Calcium (8.5-10.1) mg/dl Magnesium (1.7-2.4) mg/dl Total Bilirubin (0.2-1.0) mg/dl Direct Bilirubin (0-0.2) mg/dl AST (13-39) U/L ALT (7-52) U/L Alkaline Phosphatase (34-104) U/L Troponin I High Sens (0-14) pg/ml Total Protein (6.0-8.3) gm/dl Albumin (3.4-5.0) gm/dl TSH (0.300-4.500) uIu/ml Anaplasma Smear See Comment A. phagocytophilum DNA Lyme Disease IgG Ab Negative (Negative) Lyme IgG (Western Blot) Lyme IgG 18 kDa Band Lyme IgG 23 kDa Band Lyme IgG 28 kDa Band Lyme IgG 30 kDa Band Lyme IgG 39 kDa Band Lyme IgG 41 kDa Band Lyme IgG 45 kDa Band Lyme IgG 58 kDa Band Lyme IgG 66 kDa Band Lyme IgG 93 kDa Band Lyme IgM Ab (WB) Lyme Disease IgM Ab Positive A (Negative) Lyme IgM 23 kDa Band Lyme IgM 39 kDa Band Lyme IgM 41 kDa Band 09/08/21 Range/Units 10:40 WBC (4.8-10.8) K/uL RBC (4.2-5.4) M/uL Hgb (12.0-16.0) g/dL Hct (37-47) % MCV (80-100) fL MCH (25-34) pg MCHC (32-36) g/dL RDW Std Deviation (36.4-46.3) fL RDW Coeff of Rosie (11.5-14.5) % Plt Count (130-400) K/uL MPV (7.4-10.4) fL Immature Gran % (Auto) % Neut % (Auto) % Lymph % (Auto) % [place] % (Auto) % Eos % (Auto) % Baso % (Auto) % Neut # (Auto) (1.4-6.5) K/uL Lymph # (Auto) (1.2-3.4) K/uL [place] # (Auto) (0.11-0.59) K/uL Eos # (Auto) (0-0.5) K/uL Baso # (Auto) (0-0.2) K/uL Immature Gran # (Auto) (0.00-0.02) K/uL PT (9.0-12.0) Seconds INR (0.9-1.1) Sodium (136-145) mmol/L Potassium (3.5-5.1) mmol/L Chloride (98-107) mmol/L Carbon Dioxide (21-32) mmol/L Anion Gap (3-11) BUN (6-23) mg/dl Creatinine (0.6-1.2) mg/dl Est Cr Clr Drug Dosing ml/min Est GFR ( Amer) ml/min Est GFR (Non-Af Amer) ml/min BUN/Creatinine Ratio (10-20) Glucose (70-99(Fasting)) mg/dl POC Glucose (70-99) mg/dl Calcium (8.5-10.1) mg/dl Magnesium (1.7-2.4) mg/dl Total Bilirubin (0.2-1.0) mg/dl Direct Bilirubin (0-0.2) mg/dl AST (13-39) U/L ALT (7-52) U/L Alkaline Phosphatase (34-104) U/L Troponin I High Sens 42.6 H D (0-14) pg/ml Total Protein (6.0-8.3) gm/dl Albumin (3.4-5.0) gm/dl TSH (0.300-4.500) uIu/ml Anaplasma Smear A. phagocytophilum DNA Lyme Disease IgG Ab (Negative) Lyme IgG (Western Blot) Lyme IgG 18 kDa Band Lyme IgG 23 kDa Band Lyme IgG 28 kDa Band Lyme IgG 30 kDa Band Lyme IgG 39 kDa Band Lyme IgG 41 kDa Band Lyme IgG 45 kDa Band Lyme IgG 58 kDa Band Lyme IgG 66 kDa Band Lyme IgG 93 kDa Band Lyme IgM Ab (WB) Lyme Disease IgM Ab (Negative) Lyme IgM 23 kDa Band Lyme IgM 39 kDa Band Lyme IgM 41 kDa Band PG Care Time/CCT Total # of Minutes Spent Total Time Spent with Patient: Total time spent is greater than 50% in coordination of care (as documented) at patient's floor/unit and/or counseling patient: Coding Level of Care Code 43191 Subseq Hosp Care Lvl 2 Diagnoses Encephalopathy G93.40 Lyme disease A69.20 Elevated troponin R77.8 Headache R51.9 Hyponatremia E87.1 Vomiting R11.10 Nausea presence: unspecified Vomiting type: unspecified Sciatica M54.30 A-fib I48.21 Atrial fibrillation type: permanent Controlled type 2 diabetes mellitus with kidney complication, with long-term current use of insulin E11.29; Z79.4 Hypertension I10 Chronic kidney disease, stage 3 N18.3 Aneurysm I72.9 Chronic pancreatitis K86.1 Dyslipidemia E78.5 (1) A-fib Atrial fibrillation type: permanent Qualified Code(s): I48.21 - Permanent atrial fibrillation (2) Vomiting Nausea presence: unspecified Vomiting type: unspecified Qualified Code(s): R11.10 - Vomiting, unspecified
[2021-09-09] MEDS: INSULIN ASPART PER UNIT SC SCH ×4 (08:40→21:01)
[2021-09-09] MEDS: INSULIN GLARGINE SOLOSTAR 100 UNITS/ML 3 ML PEN SQ SCH ×2 (08:40→20:54)
[2021-09-09] MEDS: dilTIAZem HCL 240 MG CAPCR PO SCH (08:43)
[2021-09-09] MEDS: DIGOXIN 0.25 MG TAB PO SCH (08:43)
[2021-09-09] MEDS: METOPROLOL TARTRATE 50 MG TAB PO SCH ×2 (08:44→21:05)
[2021-09-09] MEDS: FAMOTIDINE 20 MG in SYRINGE 3 ML IV SCH (08:44)
[2021-09-09] MEDS: ENOXAPARIN 80 MG/0.8 ML SYR SQ SCH ×2 (08:44→20:50)
--- NOTE | 2021-09-09 09:53 | XCELERA ---
[id number]
--- NOTE | 2021-09-09 14:14 | Electrocardiogram Report ---
Test Reason : Blood Pressure : / mmHG Vent. Rate : 107 BPM Atrial Rate : 081 BPM P-R Int : 000 ms QRS Dur : 082 ms QT Int : 316 ms P-R-T Axes : 000 -68 117 degrees QTc Int : 421 ms Atrial fibrillation with rapid ventricular response Left axis deviation Septal infarct (cited on or before 07-SEP-2021) Abnormal ECG When compared with ECG of 20-JUL-2020 08:22, Septal infarct is now Present Confirmed by Odin Chapman ([id number]) on 09/09/2021 2:14:11 PM Referred By: REFERRED SELF Confirmed By:Odin Chapman
[2021-09-09] MEDS: WARFARIN SOD 2.5 MG TAB PO SCH (17:06)
[2021-09-09] MEDS: LIDOCAINE 5% 1 PATCH TD SCH (20:51)
[2021-09-09] MEDS: ATORVASTATIN 10 MG TAB PO SCH (20:53)
[2021-09-10] MEDS: DOXYCYCLINE HYCLATE 100 MG in DEXTROSE 5% 100 ML IV SCH ×2 (02:21→16:49)
[2021-09-10 06:41] LABS: Hematocrit (blood only) 38.2 % (37-47); Mean Corpuscular Hemoglobin 33.6 pg (25-34); Mean Corpuscular Volume 98.7 fL (80-100); Mean Platelet Volume 10.6 fL (7.4-10.4); Platelet Count 253 K/uL (130-400); RDW Coefficient of Variation 13.6 % (11.5-14.5); RDW Standard Deviation 48.5 fL (36.4-46.3); Red Blood Count 3.87 M/uL (4.2-5.4); White Blood Count 14.76 K/uL (4.8-10.8)
[2021-09-10 06:53] LABS: Basophils # (auto) 0.02 K/uL (0-0.2); Basophils % (auto) 0.1 %; Eosinophils # (auto) 0.01 K/uL (0-0.5); Eosinophils % (auto) 0.1 %; Immature Granulocytes # (auto) 0.09 K/uL (0.00-0.02); Immature Granulocytes % (auto) 0.6 %; Lymphocytes # (auto) 1.82 K/uL (1.2-3.4); Lymphocytes % (auto) 12.3 %; Monocytes # (auto) 3.01 K/uL (0.11-0.59); Monocytes % (auto) 20.4 %; Neutrophils # (auto) 9.81 K/uL (1.4-6.5); Neutrophils % (auto) 66.5 %
[2021-09-10 07:01] LABS: INR 2.3 (0.9-1.1); Prothrombin Time 23.3 Seconds (9.0-12.0)
[2021-09-10 07:05] LABS: BUN Creatinine Ratio 20.2 (10-20); Calcium 9.2 mg/dl (8.5-10.1); Creatinine Clr Calc Pharmacy 40.6 ml/min; Est GFR (African American) 57.1 ml/min; Est GFR (Non-African American) 49.3 ml/min; Magnesium 1.8 mg/dl (1.7-2.4); Potassium 3.7 mmol/L (3.5-5.1)
--- NOTE | 2021-09-10 07:58 | Electrocardiogram Report ---
Test Reason : Blood Pressure : / mmHG Vent. Rate : 088 BPM Atrial Rate : 094 BPM P-R Int : 000 ms QRS Dur : 082 ms QT Int : 320 ms P-R-T Axes : 000 -60 143 degrees QTc Int : 387 ms Atrial fibrillation Left axis deviation Septal infarct (cited on or before 07-SEP-2021) Abnormal ECG When compared with ECG of 07-SEP-2021 12:46, (unconfirmed) No significant change Confirmed by Odin Chapman ([id number]) on 09/10/2021 7:57:50 AM Referred By: REFERRED SELF Confirmed By:Odin Chapman
--- NOTE | 2021-09-10 08:17 | Hospitalist Progress Note ---
Date of Service September 10, 2021 Assessment & Plan (1) Encephalopathy: Plan: Patient presents with confusion, headache and elevated blood pressure in the setting of n/v. No lactic/blood cx/procal on admission (will check procal to am labs) No fevers, urinalysis still not yet collected as patient is incontinent and refuses straight cath. Mild leukocytosis at 10.9 on admission, mild hyponatremia may be contributing. Renal function normal. CT head, CT angiogram head and neck all normal except a 4 mm right MCA aneurysm which would not be causing this MRI brain negative for stroke CT abdomen/pelvis done for some complaint of abdominal pain on admission which she is no longer having-has evidence of chronic pancreatitis, fatty liver, but otherwise normal Digoxin level acceptable at 1.5 TSH 0.479 Glucose normal Mentation is somewhat improved today it seems with normalized blood pressures and normalized sodium although remains lethargic/faatigued. Reported headache is improved after receiving IV fluids and no headache reported 09/09 Given outdoor exposure and history of frequent walking of her dog and recent sciatica-checked Lyme titer which was positive for the IgM. She had a negative Lyme titer 1 year ago. * -Treat with doxycycline for Lyme disease for a minimum of 14 days * -Follow-up Western blot of Lyme * Anaplasmosis smear-negative, anaplasmosis PCR pending Follow-up on urinalysis when able to be collected -- still incontinent Discontinued home tramadol 09/09 WBC wnl, afebrile and awaiting PT/OT evaluations --> bed at [facility] sunday 09/10 --> WBC again elevated, but no fever. BCx remain negative. Chronic pancreatitis on CTAP on admission. Reports nausea but no abd pain/vomiting. Trial Creon Would continue H2/PPI at discharge Electrolytes --> K 3.7, ordered oral 20meq to keep closer to 4, Mag 1.8 and ordered additional 1gm IV Will increase metoprolol to 75mg BID for HR plans to switch to Eliquis 5mg BID in AM if INR <2. Pharmacy assisting Will check Venous Doppler LE/ Xray R knee to r/o DVT/acute fx however patient declines any prior falls. ?Lyme related (2) Lyme disease: Plan: IgM positive Follow-up Western blot Treating with doxycycline (3) Elevated troponin: Plan: High-sensitivity troponin mildly elevated at 24.1 and trended upward and peaked at [address] depressions in lateral leads which improved on repeat ECG today She has no chest pain at all Echocardiogram ordered -- LV systolic function normal, mild concentric LVH, LA mildly dilated. RA mild-moderately dilated. Mild MR. RVSP is normal Cardiology consult pending -- would not persue further eval, could consider stress test later Likely myocardial demand ischemia in the setting of acute illness (4) Headache: Plan: As above- CT head completed without tumor mass or noted congestion in sinus -Improved now with improvement in blood pressure , none reported today MRI brain negative - No seizures, and improving mentation - Not meningitic - extended into upper shoulders/traps Tylenol as needed Treating for Lyme disease NO headache reported 09/10 but fatigued and stated did not sleep at all due to roommate (5) Hyponatremia: Plan: Sodium 130 on arrival and now improved 135 and was 137 but back to 135 today but stable Holding home tramadol which can cause SIADH Follow BMP (6) Vomiting: Plan: Now resolved, tolerating full liquid diet 09/09, advanced to regular/low fiber Adding creon for possible pancreatitis Monitor (7) Sciatica: Plan: Recent last few weeks has caused her to have to enter into assisted living at [facility] Lumbar CT recently negative for anything significant Could be related to Lyme disease Treating for Lyme as above Hold tramadol due to confusion and hyponatremia Apparently gabapentin was ordered as an outpatient but was not covered by insurance-daughter reports she might pay allen for this if needed Could trial low-dose gabapentin here if needed, denies need for increased pain control currently Tylenol as needed Lidocaine patch (8) A-fib: Plan: Rates are now well controlled Continue home metoprolol 50 mg p.o. twice daily, but increased to 75mg BID given HRs 100-110s, no increase in pain reported Continue diltiazem 240 mg once daily Continue telemetry monitoring Coumadin bridged w/ Lovenox until AM 09/10 (INR 2.3) and patient agreed to switch to Eliquis Plan for eliquis 5mg BID once INR <2 and to d/c Lovenox/coumadin INR in AM No increased bleeding reported (9) Controlled type 2 diabetes mellitus with kidney complication, with long-term current use of insulin: Plan: On Basal bolus insulin dosing at home with Dexcom A1c recently 8.4 ISS while inpatient , BSGs improved with adjustment in SSI last evening (takes glargine 38u BID, lispro 18-22u AC at home) Continue to monitor (10) Hypertension: Plan: On dilt, metoprolol increase metoprolol to 75mg BID, continue diltiazem Monitor (11) Chronic kidney disease, stage 3: Plan: As above- secondary to poorly controlled DM Cr stable 1.04 - follow with BP control - avoid further nephrotoxins Switching to Eliquis as above, reduced dose given age/wt (12) Aneurysm: Plan: CTA of head revealed 4mm M2 segment MCA aneurysm - no comparison for size comparison over time - no acute need at this time- BP control Recommend outpatient follow-up (13) Chronic pancreatitis: Plan: noted on CT scan of abdomen and pelvis- lipase currently normal Trial creon to see if improvement in nausea (14) Dyslipidemia: Plan: Continue statin Plan: DVT prophylaxis-Coumadin, Lovenox --> Eliquis 6/6 AM if INR <2 Disposition-continued stay on PCU for now DNR/DNI PT/OT --> SNF. [facility] to have bed Saturday if stable. CM following Admission and Anticipated Discharge Date Admission Date: September 07, 2021 Subjective Patient evaluated this morning. Fatigued appearing and states didn't get much sleep at all overnight. Roommate coughing all night and patient wanting to rest. States occassional nausea but no abdominal pain or vomiting. Discussed creon for possible pancreatitis, ok to trial. She has thought about the AC and decision for Eliquis and will change for this evening. No fever/chill, chest pain, shortness of breath. No other issues at this time and wanting to rest. Review of Systems Review of Systems: All systems reviewed & are unremarkable except as noted in HPI & below Physical Exam Constitutional: WD/WN, vitals as above fatigued appearing, general pallor Eyes: PERRL, conjunctivae normal, anicteric sclerae ENMT: external ear and nose normal, oropharynx normal Neck: trachea midline, no thyromegaly neck nontender Respiratory: normal respiratory effort, lungs clear to auscultation Cardiovascular: Rate/Rhythm: + irregularly irregular (rate low 100s this morning) Heart Sounds: no murmur Extremities: + edema (1+ pitting edema ankles and distal legs bilaterally-chronic as per patient) Chest (Breasts): Chest: normal inspection of chest Gastrointestinal (Abdomen): normal bowel sounds, soft, nontender, no hepatosplenomegaly Musculoskeletal: Extremities: extremities normal to inspection; no cyanosis and no clubbing R knee slightly tender, swollen, no erythema/bruising (or report of prior fall), calves tender to palpation (reported cramping) RLE edema (non-pitting) >LLE Skin: no rashes, warm and dry Small 2 mm crusted scab on top of scalp anteriorly, no erythema Neurologic: moves all extremities and awake; no focal motor deficits generalized weakness Psychiatric: AOX3, fatigued, but cooperative Genitourinary: no mcgregor Lymphatic: no cervical lymphadenopathy Results & Data Results & Data ([facility]) Vital Signs (Past 12 Hours) Vital Signs Temp Pulse Resp BP Pulse Ox 09/10/21 07:55 37.2 C 108 H 18 161/78 H 97 09/10/21 03:00 37.3 C 107 H 18 131/79 95 09/09/21 23:28 36.8 C 79 18 129/70 95 09/09/21 21:03 37 C 100 H 16 146/87 H 97 09/09/21 20:54 157/86 H Laboratory Results 09/10/21 09/10/21 09/10/21 Range/Units 07:25 06:13 06:02 WBC 14.76 H (4.8-10.8) K/uL RBC 3.87 L (4.2-5.4) M/uL Hgb 13.0 (12.0-16.0) g/dL Hct 38.2 (37-47) % MCV 98.7 (80-100) fL MCH 33.6 (25-34) pg MCHC 34.0 (32-36) g/dL RDW Std Deviation 48.5 H (36.4-46.3) fL RDW Coeff of Rosie 13.6 (11.5-14.5) % Plt Count 253 (130-400) K/uL MPV 10.6 H (7.4-10.4) fL Immature Gran % (Auto) 0.6 % Neut % (Auto) 66.5 % Lymph % (Auto) 12.3 % Childress % (Auto) 20.4 % Eos % (Auto) 0.1 % Baso % (Auto) 0.1 % Neut # (Auto) 9.81 H (1.4-6.5) K/uL Lymph # (Auto) 1.82 (1.2-3.4) K/uL Childress # (Auto) 3.01 H (0.11-0.59) K/uL Eos # (Auto) 0.01 (0-0.5) K/uL Baso # (Auto) 0.02 (0-0.2) K/uL Immature Gran # (Auto) 0.09 H (0.00-0.02) K/uL PT (9.0-12.0) Seconds INR (0.9-1.1) Sodium 135 L (136-145) mmol/L Potassium 3.7 (3.5-5.1) mmol/L Chloride 101 (98-107) mmol/L Carbon Dioxide 24 (21-32) mmol/L Anion Gap 10 (3-11) BUN 21 (6-23) mg/dl Creatinine 1.04 (0.6-1.2) mg/dl Est Cr Clr Drug Dosing 40.6 ml/min Est GFR ( Amer) 57.1 ml/min Est GFR (Non-Af Amer) 49.3 ml/min BUN/Creatinine Ratio 20.2 H (10-20) Glucose 127 H (70-99(Fasting)) mg/dl POC Glucose 125 H (70-99) mg/dl Calcium 9.2 (8.5-10.1) mg/dl Magnesium 1.8 (1.7-2.4) mg/dl Procalcitonin (0-0.5) ng/ml 09/10/21 09/09/21 09/09/21 Range/Units 06:02 20:23 16:21 WBC (4.8-10.8) K/uL RBC (4.2-5.4) M/uL Hgb (12.0-16.0) g/dL Hct (37-47) % MCV (80-100) fL MCH (25-34) pg MCHC (32-36) g/dL RDW Std Deviation (36.4-46.3) fL RDW Coeff of Rosie (11.5-14.5) % Plt Count (130-400) K/uL MPV (7.4-10.4) fL Immature Gran % (Auto) % Neut % (Auto) % Lymph % (Auto) % Childress % (Auto) % Eos % (Auto) % Baso % (Auto) % Neut # (Auto) (1.4-6.5) K/uL Lymph # (Auto) (1.2-3.4) K/uL Childress # (Auto) (0.11-0.59) K/uL Eos # (Auto) (0-0.5) K/uL Baso # (Auto) (0-0.2) K/uL Immature Gran # (Auto) (0.00-0.02) K/uL PT 23.3 H (9.0-12.0) Seconds INR 2.3 H (0.9-1.1) Sodium (136-145) mmol/L Potassium (3.5-5.1) mmol/L Chloride (98-107) mmol/L Carbon Dioxide (21-32) mmol/L Anion Gap (3-11) BUN (6-23) mg/dl Creatinine (0.6-1.2) mg/dl Est Cr Clr Drug Dosing ml/min Est GFR ( Amer) ml/min Est GFR (Non-Af Amer) ml/min BUN/Creatinine Ratio (10-20) Glucose (70-99(Fasting)) mg/dl POC Glucose 238 H 185 H (70-99) mg/dl Calcium (8.5-10.1) mg/dl Magnesium (1.7-2.4) mg/dl Procalcitonin (0-0.5) ng/ml 09/09/21 09/09/21 Range/Units 16:11 11:10 WBC (4.8-10.8) K/uL RBC (4.2-5.4) M/uL Hgb (12.0-16.0) g/dL Hct (37-47) % MCV (80-100) fL MCH (25-34) pg MCHC (32-36) g/dL RDW Std Deviation (36.4-46.3) fL RDW Coeff of Rosie (11.5-14.5) % Plt Count (130-400) K/uL MPV (7.4-10.4) fL Immature Gran % (Auto) % Neut % (Auto) % Lymph % (Auto) % Childress % (Auto) % Eos % (Auto) % Baso % (Auto) % Neut # (Auto) (1.4-6.5) K/uL Lymph # (Auto) (1.2-3.4) K/uL Childress # (Auto) (0.11-0.59) K/uL Eos # (Auto) (0-0.5) K/uL Baso # (Auto) (0-0.2) K/uL Immature Gran # (Auto) (0.00-0.02) K/uL PT (9.0-12.0) Seconds INR (0.9-1.1) Sodium (136-145) mmol/L Potassium (3.5-5.1) mmol/L Chloride (98-107) mmol/L Carbon Dioxide (21-32) mmol/L Anion Gap (3-11) BUN (6-23) mg/dl Creatinine (0.6-1.2) mg/dl Est Cr Clr Drug Dosing ml/min Est GFR ( Amer) ml/min Est GFR (Non-Af Amer) ml/min BUN/Creatinine Ratio (10-20) Glucose (70-99(Fasting)) mg/dl POC Glucose 201 H (70-99) mg/dl Calcium (8.5-10.1) mg/dl Magnesium (1.7-2.4) mg/dl Procalcitonin 0.19 (0-0.5) ng/ml PG Care Time/CCT Total # of Minutes Spent Total Time Spent with Patient: Total time spent is greater than 50% in coordination of care (as documented) at patient's floor/unit and/or counseling patient: Coding Level of Care Code 48307 Subseq Hosp Care Lvl 3 Diagnoses Encephalopathy G93.40 Lyme disease A69.20 Elevated troponin R77.8 Headache R51.9 Hyponatremia E87.1 Vomiting R11.10 Nausea presence: unspecified Vomiting type: unspecified Sciatica M54.30 A-fib I48.21 Atrial fibrillation type: permanent Controlled type 2 diabetes mellitus with kidney complication, with long-term current use of insulin E11.29; Z79.4 Hypertension I10 Chronic kidney disease, stage 3 N18.3 Aneurysm I72.9 Chronic pancreatitis K86.1 Dyslipidemia E78.5 (1) A-fib Atrial fibrillation type: permanent Qualified Code(s): I48.21 - Permanent atrial fibrillation (2) Vomiting Nausea presence: unspecified Vomiting type: unspecified Qualified Code(s): R11.10 - Vomiting, unspecified
[2021-09-10] MEDS ORDERED: POTASSIUM CHLORIDE CRTAB 20 MEQ TABCR PO STA (08:18)
[2021-09-10] MEDS ORDERED: MAGNESIUM SULFATE / D5W 1 GM/100 ML BAG IV ONE (08:25)
[2021-09-10] MEDS: INSULIN ASPART PER UNIT SC SCH ×4 (08:29→20:37)
[2021-09-10] MEDS: METOPROLOL TARTRATE 50 MG TAB PO SCH (08:30)
[2021-09-10] MEDS: DIGOXIN 0.25 MG TAB PO SCH (08:30)
[2021-09-10] MEDS: INSULIN GLARGINE SOLOSTAR 100 UNITS/ML 3 ML PEN SQ SCH ×2 (08:31→20:37)
[2021-09-10] MEDS: dilTIAZem HCL 240 MG CAPCR PO SCH (08:31)
[2021-09-10] MEDS: FAMOTIDINE 20 MG in SYRINGE 3 ML IV SCH (08:35)
[2021-09-10] MEDS: PANCREAZE (LIPASE 10,500U) CAP PO SCH ×2 (12:18→16:49)
--- NOTE | 2021-09-10 12:19 | XRay Report ---
RIGHT KNEE 3 VIEWS CLINICAL HISTORY: Right knee pain. FINDINGS: AP, crosstable lateral, and sunrise views of the right knee are compared to study dated 05/09. The skeletal structures are osteopenic. No fracture is identified. There is moderate degenera tive narrowing in the medial and patellofemoral compartments. Milder narrowing is seen in the lateral compartment. There are marginal osteophytes and patellar enthesophytes. Chondrocalcinosis is noted i n the medial and lateral compartments. A moderate joint effusion is observed. Soft tissue swelling is seen around the knee. IMPRESSION: 1. Soft tissue swelling and joint effusion with no acute bony abnormality identified. 2. Osteopenia with degenerative change and chondrocalcinosis as above. Electronically signed by: Antonio Brock M.D. 09/10/2021 12:18 PM
--- NOTE | 2021-09-10 12:23 | XRay Report ---
SINGLE VIEW CHEST CLINICAL HISTORY: Leukocytosis. FINDINGS: An AP, portable, upright chest radiograph is compared to study dated 04/25/2007. The heart i s enlarged noting atherosclerotic calcification of the thoracic aorta. The pulmonary vasculature is n oncongested. There is elevation of the right hemidiaphragm and bibasilar atelectasis. No airspace con solidation typical for pneumonia or large pleural effusion is identified. No pneumothorax is seen. Th e skeletal structures are osteopenic. The bony thorax is grossly intact. IMPRESSION: Cardiomegaly with no acute cardiopulmonary abnormality identified. ACT 112: Negative or not required by law. Electronically signed by: Antonio Brock M.D. 09/10/2021 12:22 PM
--- NOTE | 2021-09-10 12:25 | Cardiology Progress Note ---
Date of Service September 10, 2021 Assessment & Plan (1) Elevated troponin: (2) A-fib: (3) Chronic anticoagulation: (4) Confusion: Plan: 1. Elevated troponin: She does have an elevated troponin, it is certainly possible that she has underlying coronary artery disease as she does have risk factors for it and perhaps her electrocardiographic abnormalities are consistent with that. On the other hand the level is relatively low and is probably demand ischemia, either in the presence of coronary disease or not. In either case it is not symptomatic and I do not believe I would pursue further evaluation at this time. Her baseline echocardiogram showed normal left ventricular function, we can consider a stress test later although I think that is optional at this point. I do not know what we would do with the result if it were positive although perhaps we would change her medical therapy. 2. Atrial fibrillation: She has permanent atrial fibrillation, her rate appears to be adequately controlled although was somewhat elevated on presentation but that may have been due to anxiety. 3. Anticoagulation: She had been maintained on warfarin but is now on Eliquis. I agree with the current dose. 4. Confusion: I do not know the cause of her confusion but it does seem to be somewhat improved today, it does not appear on her brain imaging that there is any stroke so it is probably not related to atrial fibrillation although with poor control (often with a low INR) perhaps small nondetectable strokes could explain it although that seems remote. Admission and Anticipated Discharge Date Admission Date: September 07, 2021 Subjective She is feeling well today, and she seems more alert and denies cardiovascular symptoms. I did have to wake her up and she felt immediately back to sleep when I stopped talking to her however. Physical Exam Physical Exam: Constitutional: Alert, cooperative and in no distress. HEENT: Unremarkable Neck: No jugular venous distention, carotid pulses are irregular but otherwise normal and equal bilaterally without bruits. Pulmonary: Clear to auscultation bilaterally. Cardiac: Irregular rhythm with no murmur, gallop or rub. Abdomen: Soft, nontender with normal bowel sounds. Extremities: +1 bilateral pretibial edema. Distal pulses intact. Neurologic: No focal findings. Skin: No rash, ecchymoses or petechiae. Results & Data ([facility]) Vital Signs (Past 12 Hours) Vital Signs Temp Pulse Pulse Resp BP Pulse Ox 09/10/21 12:03 37.2 C 95 H 17 139/65 98 09/10/21 08:30 106 H 09/10/21 07:55 37.2 C 108 H 18 161/78 H 97 09/10/21 03:00 37.3 C 107 H 18 131/79 95 Laboratory Results Coagulation 09/10/21 Range/Units 06:02 PT 23.3 H (9.0-12.0) Seconds CBC 09/10/21 Range/Units 06:13 WBC 14.76 H (4.8-10.8) K/uL RBC 3.87 L (4.2-5.4) M/uL Hgb 13.0 (12.0-16.0) g/dL Hct 38.2 (37-47) % Plt Count 253 (130-400) K/uL Neut # (Auto) 9.81 H (1.4-6.5) K/uL Lymph # (Auto) 1.82 (1.2-3.4) K/uL Tift # (Auto) 3.01 H (0.11-0.59) K/uL Eos # (Auto) 0.01 (0-0.5) K/uL Baso # (Auto) 0.02 (0-0.2) K/uL Comprehensive Metabolic Panel 09/10/21 Range/Units 06:02 Sodium 135 L (136-145) mmol/L Potassium 3.7 (3.5-5.1) mmol/L Chloride 101 (98-107) mmol/L Carbon Dioxide 24 (21-32) mmol/L BUN 21 (6-23) mg/dl Creatinine 1.04 (0.6-1.2) mg/dl Glucose 127 H (70-99(Fasting)) mg/dl Calcium 9.2 (8.5-10.1) mg/dl Intake and Output 09/09/21 09/10/21 09/10/21 22:59 06:59 14:59 Intake Total 110 / 370 110 / 370 Balance 110 / 370 110 / 370 Intake: IV 110 / 220 110 / 220 Doxycycline Hyclate 100 mg In 110 / 220 110 / 220 Dextrose 5% 100 ml @ 50 mls/hr IV Q12H [facility] Rx#:[id number] Other: Other Intake Source sips # Unmeasured Voids 2 1 Weight 75.7 kg Diagnostic Findings Telemetry: Atrial fibrillation, rate varying about 80 to 100 bpm. An echocardiogram done on September 09, 2021 shows normal left ventricular systolic function with mild concentric left ventricular hypertrophy and mild left atrial dilatation. No wall motion abnormalities. PG Care Time/CCT Total # of Minutes Spent Total Time Spent with Patient: Total time spent is greater than 50% in coordination of care (as documented) at patient's floor/unit and/or counseling patient: Coding Level of Care Code 51116 Subseq Hosp Care Lvl 2 Diagnoses Elevated troponin R77.8 A-fib I48.21 Atrial fibrillation type: permanent Chronic anticoagulation Z79.01 Confusion R41.0 (1) A-fib Atrial fibrillation type: permanent Qualified Code(s): I48.21 - Permanent atrial fibrillation
--- NOTE | 2021-09-10 14:12 | Ultrasound Report ---
ULTRASOUND BILATERAL LOWER EXTREMITY VENOUS CLINICAL HISTORY: Leg pain. COMPARISON STUDY: No priors. TECHNIQUE: Real-time, grayscale, and color Doppler sonography of the deep veins of the right and left lower extremity was performed from the inguinal crease to the calf. Compression and augmentation wer e utilized. FINDINGS: There is no sonographic evidence of deep venous thrombosis identified in the right or left lower extremity. The common femoral, superficial femoral, and popliteal veins are patent and normally compressible bilaterally. The greater saphenous vein and the profunda femoris vein at the junction w ith the common femoral vein are clear in both legs. The visualized calf veins are patent bilaterally. IMPRESSION: There is no sonographic evidence of deep venous thrombosis identified in the right or lef t lower extremity. ACT 112: Negative or not required by law. Electronically signed by: Antonio Brock M.D. 09/10/2021 2:11 PM
[2021-09-10] MEDS: CYANOCOBALAMIN 1000 MCG/ML VIAL IM SCH (16:49)
[2021-09-10] MEDS: ACETAMINOPHEN 325 MG TAB PO PRN (19:31)
[2021-09-10] MEDS: LIDOCAINE 5% 1 PATCH TD SCH (19:39)
[2021-09-10] MEDS: ATORVASTATIN 10 MG TAB PO SCH (20:36)
[2021-09-10] MEDS: METOPROLOL TARTRATE 25 MG TAB PO SCH (20:36)
[2021-09-11] MEDS: ACETAMINOPHEN 325 MG TAB PO PRN ×2 (01:28→12:00)
[2021-09-11] MEDS: DOXYCYCLINE HYCLATE 100 MG in DEXTROSE 5% 100 ML IV SCH ×2 (02:20→14:42)
[2021-09-11 05:01] LABS: Appearance Urine Cloudy (Clear); Bacteria Urine Automated Negative (Negative); Bilirubin Urine Negative (Negative); Blood Urine Negative (Negative); Color Urine Yellow; Epithelial Cell Urine Auto >30 /lpf (0-5); Glucose Urine UA 2+ (Negative); Ketones Urine Negative (Negative); Leukocyte Esterase Urine Negative (Negative); Nitrite Urine Negative (Negative); Protein Urine 2+ (Negative); Specific Gravity Urine 1.021 (1.000-1.030); Urobilinogen Urine Negative (Negative)
[2021-09-11 06:44] LABS: Hematocrit (blood only) 36.9 % (37-47); Hemoglobin 12.8 g/dL (12.0-16.0); Mean Corpuscular Hemoglobin 34.8 pg (25-34); Mean Corpuscular Hgb Conc 34.7 g/dL (32-36); Mean Corpuscular Volume 100.3 fL (80-100); Mean Platelet Volume 10.2 fL (7.4-10.4); Platelet Count 234 K/uL (130-400); RDW Coefficient of Variation 13.4 % (11.5-14.5); RDW Standard Deviation 48.9 fL (36.4-46.3); Red Blood Count 3.68 M/uL (4.2-5.4); White Blood Count 13.55 K/uL (4.8-10.8)
[2021-09-11 07:00] LABS: INR 1.9 (0.9-1.1)
[2021-09-11 07:06] LABS: Creatinine Clr Calc Pharmacy 45.4 ml/min; Est GFR (African American) 59.2 ml/min; Est GFR (Non-African American) 51.1 ml/min
[2021-09-11] MEDS: INSULIN GLARGINE SOLOSTAR 100 UNITS/ML 3 ML PEN SQ SCH ×2 (07:55→20:05)
[2021-09-11] MEDS: INSULIN ASPART PER UNIT SC SCH ×4 (07:55→20:08)
[2021-09-11] MEDS: METOPROLOL TARTRATE 25 MG TAB PO SCH ×2 (08:35→20:03)
[2021-09-11] MEDS: APIXABAN 5 MG TABLET PO SCH ×2 (08:36→20:02)
[2021-09-11] MEDS: PANCREAZE (LIPASE 10,500U) CAP PO SCH ×3 (08:36→17:03)
[2021-09-11] MEDS: DIGOXIN 0.25 MG TAB PO SCH (08:36)
[2021-09-11] MEDS: dilTIAZem HCL 240 MG CAPCR PO SCH (08:36)
[2021-09-11] MEDS: FAMOTIDINE 20 MG in SYRINGE 3 ML IV SCH (08:37)
[2021-09-11] MEDS: CYANOCOBALAMIN 1000 MCG/ML VIAL IM SCH (10:05)
--- NOTE | 2021-09-11 17:05 | Hospitalist Progress Note ---
Date of Service September 11, 2021 Assessment & Plan (1) Encephalopathy: Plan: Patient presents with confusion, headache and elevated blood pressure in the setting of n/v and elevated BP - DDX: HTN Urgency vs. Toxic vs. Metabolic - she did not take any of her medications this morning -- will admin now - digoxin level not elevated - Glucose appears to be within her normal range - currently without infectious etiology WBC 10, NLR ~2.1- may be elevated from this morning vomiting and stress- follow await UA - Appears this has been ongoing over the past 3-4 days per review - Will hold her Tramadol - Follow Dig level in AM - MRI brain evaluate for PRESS or CVA/other cause- PRESS unlikely as BP not overtly elevated and not noted on CT - Neurological exam q4 hours- follow hemodynamics through PM Awaiting placement. (2) Headache: Plan: As above- CT head completed without tumor mass or noted congestion in sinus - Provider oral BP medications home regimen - No seizures, and improving mentation - Not meningitic - extends into upper shoulders/traps - MRI negative (3) Back pain: Plan: Chronic- SI joint pain with palpation and with leg raise of the left leg - Hold Tramadol - Previously appears trialed on Gabapentin - Consider Lumbar/sacral MRI - CT scan of Lspine done 08/21/21 - Tylenol and lidocaine patch- Narcotic if needed (4) A-fib: Plan: Usually well controlled with rate - On Cardizem HCL - give home dose now - Metoprolol Succinate 50mg PO BID- give dose tonight - will give 25mg Metoprolol tartrate now to bridge until dose tonight - Follow- electrolytes are within normal range - PRN Metoprolol if needed - COntinue warfarin INR in morning (5) Dyslipidemia: Plan: Continue statin (6) Controlled type 2 diabetes mellitus with kidney complication, with long-term current use of insulin: Plan: On Basal bolus insulin dosing at home with Dexcom - Previous A1c in August 07, 2021- 8.4 - continu basal insulin - sliding scal aspart insulin for bolus dosing CF 20, ration 10 (7) Hypertension: Plan: Usually appears well controlled - provide home dosing at this time- CT scan of head and CTA without evidence of PRESS or bleed - MRI as above - Follow closely over next 24 hours (8) Chronic kidney disease, stage 3: Plan: As above- secondary to poorly controlled DM - follow with BP control - avoid further nephrotoxins (9) Elevated troponin: Plan: HScTNI evaluated by EMD on arrival- 24.1 will recheck level now - ECG pending - Likely type II secondary to demand with elevated BP and tachycardia- trend (10) Aneurysm: Plan: CTA of head revealed 4mm M2 segment MCA aneurysm - no comparison for size comparison over time - no acute need at this time- BP controll (11) Chronic pancreatitis: Plan: noted on CT scan of abdomen and pelvis- lipase currently normal - will add on H2 musa - better glucose control - follow Admission and Anticipated Discharge Date Admission Date: September 07, 2021 Subjective Patient reports being back to her baseline. Review of Systems Review of Systems: All systems reviewed & are unremarkable except as noted in HPI & below Physical Exam Constitutional: WD/WN, vitals as above Eyes: PERRL, conjunctivae normal, anicteric sclerae ENMT: external ear and nose normal, oropharynx normal Neck: trachea midline, no thyromegaly neck nontender Respiratory: normal respiratory effort, lungs clear to auscultation Cardiovascular: Rate/Rhythm: + irregularly irregular (rate low 100s this morning) Heart Sounds: no murmur Extremities: + edema (1+ pitting edema ankles and distal legs bilaterally-chronic as per patient) Chest (Breasts): Chest: normal inspection of chest Gastrointestinal (Abdomen): normal bowel sounds, soft, nontender, no hepatosplenomegaly Musculoskeletal: Extremities: extremities normal to inspection; no cyanosis and no clubbing Skin: no rashes, warm and dry Neurologic: moves all extremities and awake; no focal motor deficits Psychiatric: A+Ox3, euthymic affect Lymphatic: no cervical lymphadenopathy Results & Data Results & Data ([facility]) Vital Signs (Past 12 Hours) Vital Signs Temp Pulse Pulse Resp BP Pulse Ox 09/11/21 15:31 36.7 C 87 18 150/68 H 98 09/11/21 11:36 37.0 C 83 19 131/74 94 09/11/21 08:36 109 H 09/11/21 07:05 37.3 C 104 H 18 114/77 95 PG Care Time/CCT Total # of Minutes Spent Total Time Spent with Patient: Total time spent is greater than 50% in coordination of care (as documented) at patient's floor/unit and/or counseling patient: Coding Level of Care Code 73497 Subseq Hosp Care Lvl 2 Diagnoses Encephalopathy G93.40 Headache R51.9 Back pain M54.50 Back pain laterality: midline Back pain location: low back pain Chronicity: unspecified Sciatica presence: without sciatica A-fib I48.21 Atrial fibrillation type: permanent Dyslipidemia E78.5 Controlled type 2 diabetes mellitus with kidney complication, with long-term current use of insulin E11.29; Z79.4 Hypertension I10 Chronic kidney disease, stage 3 N18.3 Elevated troponin R77.8 Aneurysm I72.9 Chronic pancreatitis K86.1 (1) Back pain Back pain laterality: midline Back pain location: low back pain Chronicity: unspecified Sciatica presence: without sciatica Qualified Code(s): M54.50 - Low back pain, unspecified (2) A-fib Atrial fibrillation type: permanent Qualified Code(s): I48.21 - Permanent atrial fibrillation
[2021-09-11] MEDS: ATORVASTATIN 10 MG TAB PO SCH (20:02)
[2021-09-11] MEDS: LIDOCAINE 5% 1 PATCH TD SCH (20:03)
[2021-09-12 02:06] LABS: 18KDIGG Band REACTIVE; 23KDIGG Band NON-REACTIVE; 23KDIGM Band NON-REACTIVE; 28KDIGG Band NON-REACTIVE; 30KDIGG Band NON-REACTIVE; 39KDIGG Band NON-REACTIVE; 39KDIGM Band NON-REACTIVE; 41KDIGG Band NON-REACTIVE; 41KDIGM Band NON-REACTIVE; 45KDIGG Band NON-REACTIVE; 58KDIGG Band NON-REACTIVE; 66KDIGG Band NON-REACTIVE; 93KDIGG Band NON-REACTIVE; Lyme Antibodies, WB IgG NEGATIVE (NEGATIVE); Lyme Antibodies, WB IgM NEGATIVE (NEGATIVE)
[2021-09-12] MEDS: DOXYCYCLINE HYCLATE 100 MG in DEXTROSE 5% 100 ML IV SCH ×2 (02:46→16:31)
[2021-09-12 07:09] LABS: INR 1.7 (0.9-1.1); Prothrombin Time 17.2 Seconds (9.0-12.0)
[2021-09-12] MEDS: INSULIN ASPART PER UNIT SC SCH ×4 (07:23→21:18)
[2021-09-12] MEDS: METOPROLOL TARTRATE 25 MG TAB PO SCH ×2 (09:19→19:58)
[2021-09-12] MEDS: CYANOCOBALAMIN 1000 MCG/ML VIAL IM SCH (09:19)
[2021-09-12] MEDS: DIGOXIN 0.25 MG TAB PO SCH (09:20)
[2021-09-12] MEDS: dilTIAZem HCL 240 MG CAPCR PO SCH (09:20)
[2021-09-12] MEDS: APIXABAN 5 MG TABLET PO SCH ×2 (09:20→19:57)
[2021-09-12] MEDS: PANCREAZE (LIPASE 10,500U) CAP PO SCH ×3 (09:20→19:57)
[2021-09-12] MEDS: INSULIN GLARGINE SOLOSTAR 100 UNITS/ML 3 ML PEN SQ SCH ×2 (09:21→21:18)
[2021-09-12] MEDS: FAMOTIDINE 20 MG in SYRINGE 3 ML IV SCH (09:21)
[2021-09-12] MEDS: ATORVASTATIN 10 MG TAB PO SCH (19:58)
[2021-09-12] MEDS: LIDOCAINE 5% 1 PATCH TD SCH (19:59)
--- NOTE | 2021-09-12 20:33 | Hospitalist Progress Note ---
Date of Service September 12, 2021 Assessment & Plan (1) Encephalopathy: Plan: Patient presents with confusion, headache and elevated blood pressure in the setting of n/v and elevated BP - DDX: HTN Urgency vs. Toxic vs. Metabolic - she did not take any of her medications this morning -- will admin now - digoxin level not elevated - Glucose appears to be within her normal range - currently without infectious etiology WBC 10, NLR ~2.1- may be elevated from this morning vomiting and stress- follow await UA - Appears this has been ongoing over the past 3-4 days per review - Will hold her Tramadol - Follow Dig level in AM - MRI brain evaluate for PRESS or CVA/other cause- PRESS unlikely as BP not overtly elevated and not noted on CT - Neurological exam q4 hours- follow hemodynamics through PM Awaiting placement. (2) Headache: Plan: As above- CT head completed without tumor mass or noted congestion in sinus - Provider oral BP medications home regimen - No seizures, and improving mentation - Not meningitic - extends into upper shoulders/traps - MRI negative (3) Back pain: Plan: Chronic- SI joint pain with palpation and with leg raise of the left leg - Hold Tramadol - Previously appears trialed on Gabapentin - Consider Lumbar/sacral MRI - CT scan of Lspine done 08/21/21 - Tylenol and lidocaine patch- Narcotic if needed (4) A-fib: Plan: Usually well controlled with rate - On Cardizem HCL - give home dose now - Metoprolol Succinate 50mg PO BID- give dose tonight - will give 25mg Metoprolol tartrate now to bridge until dose tonight - Follow- electrolytes are within normal range - PRN Metoprolol if needed - now on apixaban (5) Dyslipidemia: Plan: Continue statin (6) Controlled type 2 diabetes mellitus with kidney complication, with long-term current use of insulin: Plan: On Basal bolus insulin dosing at home with Dexcom - Previous A1c in August 07, 2021- 8.4 - continu basal insulin - sliding scal aspart insulin for bolus dosing CF 20, ration 10 (7) Hypertension: Plan: Usually appears well controlled - provide home dosing at this time- CT scan of head and CTA without evidence of PRESS or bleed - MRI as above - B/P stable (8) Chronic kidney disease, stage 3: Plan: As above- secondary to poorly controlled DM - follow with BP control - avoid further nephrotoxins (9) Elevated troponin: Plan: HScTNI evaluated by EMD on arrival- 24.1 will recheck level now - ECG pending - Likely type II secondary to demand with elevated BP and tachycardia- trend (10) Aneurysm: Plan: CTA of head revealed 4mm M2 segment MCA aneurysm - no comparison for size comparison over time - no acute need at this time- BP controll (11) Chronic pancreatitis: Plan: noted on CT scan of abdomen and pelvis- lipase currently normal - will add on H2 musa - better glucose control - follow Admission and Anticipated Discharge Date Admission Date: September 07, 2021 Subjective Patient reports feeling well. Review of Systems Review of Systems: All systems reviewed & are unremarkable except as noted in HPI & below Physical Exam Constitutional: WD/WN, vitals as above Eyes: PERRL, conjunctivae normal, anicteric sclerae ENMT: external ear and nose normal, oropharynx normal Neck: trachea midline, no thyromegaly neck nontender Respiratory: normal respiratory effort, lungs clear to auscultation Cardiovascular: Rate/Rhythm: regular rate and + irregularly irregular Heart Sounds: no murmur Extremities: + edema (1+ pitting edema ankles and distal legs bilaterally-chronic as per patient) Chest (Breasts): Chest: normal inspection of chest Gastrointestinal (Abdomen): normal bowel sounds, soft, nontender, no hepatosplenomegaly Musculoskeletal: Extremities: extremities normal to inspection; no cyanosis and no clubbing Skin: no rashes, warm and dry Neurologic: moves all extremities and awake; no focal motor deficits Psychiatric: A+Ox3, euthymic affect Lymphatic: no cervical lymphadenopathy Results & Data Results & Data ([facility]) Vital Signs (Past 12 Hours) Vital Signs Temp Pulse Pulse Resp BP Pulse Ox Pulse Ox 09/12/21 18:46 37.0 C 88 17 157/73 H 94 09/12/21 17:42 95 09/12/21 15:37 37.2 C 82 18 162/68 H 95 09/12/21 11:50 36.7 C 74 17 151/82 H 96 09/12/21 09:20 96 H PG Care Time/CCT Total # of Minutes Spent Total Time Spent with Patient: Total time spent is greater than 50% in coordination of care (as documented) at patient's floor/unit and/or counseling patient: Coding Level of Care Code 76016 Subseq Hosp Care Lvl 2 Diagnoses Encephalopathy G93.40 Headache R51.9 Back pain M54.50 Back pain laterality: midline Back pain location: low back pain Chronicity: unspecified Sciatica presence: without sciatica A-fib I48.21 Atrial fibrillation type: permanent Dyslipidemia E78.5 Controlled type 2 diabetes mellitus with kidney complication, with long-term current use of insulin E11.29; Z79.4 Hypertension I10 Chronic kidney disease, stage 3 N18.3 Elevated troponin R77.8 Aneurysm I72.9 Chronic pancreatitis K86.1 (1) Back pain Back pain laterality: midline Back pain location: low back pain Chronicity: unspecified Sciatica presence: without sciatica Qualified Code(s): M54.50 - Low back pain, unspecified (2) A-fib Atrial fibrillation type: permanent Qualified Code(s): I48.21 - Permanent atrial fibrillation
[2021-09-13] MEDS: DOXYCYCLINE HYCLATE 100 MG in DEXTROSE 5% 100 ML IV SCH (03:59)
[2021-09-13] MEDS: INSULIN ASPART PER UNIT SC SCH (08:18)
[2021-09-13] MEDS: PANCREAZE (LIPASE 10,500U) CAP PO SCH (08:59)
[2021-09-13] MEDS: APIXABAN 5 MG TABLET PO SCH (08:59)
[2021-09-13] MEDS: METOPROLOL TARTRATE 25 MG TAB PO SCH (09:00)
[2021-09-13] MEDS: dilTIAZem HCL 240 MG CAPCR PO SCH (09:01)
[2021-09-13] MEDS: CYANOCOBALAMIN 1000 MCG/ML VIAL IM SCH (09:01)
[2021-09-13] MEDS: DIGOXIN 0.25 MG TAB PO SCH (09:02)
[2021-09-13] MEDS: FAMOTIDINE 20 MG in SYRINGE 3 ML IV SCH (09:02)
[2021-09-13] MEDS: INSULIN GLARGINE SOLOSTAR 100 UNITS/ML 3 ML PEN SQ SCH (09:04)
--- NOTE | 2021-09-21 16:19 | Discharge Summary ---
Date of Service September 13, 2021 Admission HPI Per Admitting Provider 86 YOF resident of [facility]. Past medical history of: chronic back pain, right leg pain, bilateral knee pain, DMII (on Insulin), HTN, AFIB (on Warfarin), CKDIII, VItamin D deficiency, HLD. Patient sent to the EMD today after eating breakfast she had large amount of emesis, nausea, associated with confusion. She also has a POLST form with DNR/DNI. Patient is mentating better at this time as compared to initial EMD evaluation, remains complaining of lower back pain, and headache that is frontal as well as back of neck into shoulders. Reviewing notes from [facility], patient appears to report not feeling well over the weekend, with decreased appetite and variable blood pressures. She was checked for COVID on 09/06/21 at [facility] that was negative and is COVID negative on admission as well. Appears as well the patient did not take her morning medications either. Did call and discuss with the patient's daughter Kenny for review. She states that over the past couple months the patient has been being evaluated for chronic lower back pain that does go down her legs as well as causing her knee and ankle pain. She follows with Dr. Sousa and has had some of her pain medications adjusted and is planning for MRI of the lower back later in the month. She reports that she is normally fairly independent getting around and getting to meals. Usually a good appetite. Patient will be admitted to PCU for frequent neurological evaluations and following her HR and BP effects over the night. Will obtain MRI brain evaluate for CVA/PRESS. COVID test on admisison is: NEGATIVE Principal Diagnosis encephalopathy Discharge Exam Constitutional: WD/WN, vitals as above Eyes: PERRL, conjunctivae normal, anicteric sclerae ENMT: external ear and nose normal, oropharynx normal Neck: trachea midline, no thyromegaly neck nontender Respiratory: normal respiratory effort, lungs clear to auscultation Cardiovascular: Rate/Rhythm: regular rate and + irregularly irregular Heart Sounds: no murmur Extremities: + edema (1+ pitting edema ankles and distal legs bilaterally-chronic as per patient) Gastrointestinal (Abdomen): normal bowel sounds, soft, nontender, no hepatosplenomegaly Musculoskeletal: Extremities: extremities normal to inspection; no cyanosis and no clubbing Skin: no rashes, warm and dry Neurologic: moves all extremities and awake; no focal motor deficits Psychiatric: A+Ox3, euthymic affect Lymphatic: no cervical lymphadenopathy Discharge Data Allergies Allergy/AdvReac Type Severity Reaction Status Date / Time Sulfa (Sulfonamide Allergy Unknown Nausea Unverified 09/07/21 15:39 Antibiotics) Consultations 09/07/21 15:03 ED Decision to Admit Stat 09/08/21 10:24 Consult Cardiology Routine Ordered Studies 09/07/21 12:27 CT angio head w con Stat CT angio neck with con Stat CT head/brain wo con Stat 09/07/21 13:04 CT abd pelvis wo con Stat 09/07/21 15:36 MR brain wo con Routine 09/10/21 10:42 US venous doppler LE Routine Hospital Course (1) Encephalopathy: Patient presents with confusion, headache and elevated blood pressure in the setting of n/v and elevated BP - DDX: HTN Urgency vs. Toxic vs. Metabolic - she did not take any of her medications this morning -- will admin now - digoxin level not elevated - Glucose appears to be within her normal range - currently without infectious etiology WBC 10, NLR ~2.1- may be elevated from this morning vomiting and stress- follow await UA - Appears this has been ongoing over the past 3-4 days per review - Will hold her Tramadol - Follow Dig level in AM - MRI brain evaluate for PRESS or CVA/other cause- PRESS unlikely as BP not overtly elevated and not noted on CT - Neurological exam q4 hours- follow hemodynamics through PM Bed available at [facility] on 09/13/21 (2) Headache: As above- CT head completed without tumor mass or noted congestion in sinus - Provider oral BP medications home regimen - No seizures, and improving mentation - Not meningitic - extends into upper shoulders/traps - MRI negative (3) Back pain: Chronic- SI joint pain with palpation and with leg raise of the left leg - Hold Tramadol - Previously appears trialed on Gabapentin - Consider Lumbar/sacral MRI - CT scan of Lspine done 08/21/21 - Tylenol and lidocaine patch- Narcotic if needed (4) A-fib: Usually well controlled with rate - On Cardizem HCL - give home dose now - Metoprolol Succinate 50mg PO BID- give dose tonight - will give 25mg Metoprolol tartrate now to bridge until dose tonight - Follow- electrolytes are within normal range - PRN Metoprolol if needed - now on apixaban (5) Dyslipidemia: Continue statin (6) Controlled type 2 diabetes mellitus with kidney complication, with long-term current use of insulin: On Basal bolus insulin dosing at home with Dexcom - Previous A1c in August 07, 2021- 8.4 - continu basal insulin - sliding scal aspart insulin for bolus dosing CF 20, ration 10 (7) Hypertension: Usually appears well controlled - provide home dosing at this time- CT scan of head and CTA without evidence of PRESS or bleed - MRI as above - B/P stable (8) Chronic kidney disease, stage 3: As above- secondary to poorly controlled DM - follow with BP control - avoid further nephrotoxins (9) Elevated troponin: HScTNI evaluated by EMD on arrival- 24.1 will recheck level now - ECG pending - Likely type II secondary to demand with elevated BP and tachycardia- trend (10) Aneurysm: CTA of head revealed 4mm M2 segment MCA aneurysm - no comparison for size comparison over time - no acute need at this time- BP controll (11) Chronic pancreatitis: noted on CT scan of abdomen and pelvis- lipase currently normal - will add on H2 musa - better glucose control - follow Total Time Total Time Spent Total Time Spent (In Minutes): 35 Discharge Plan Discharge Items Patient Disposition: Transfer [facility] Fac Reason For Visit: ENCEPHALOPATHY, HTN, AFIB Discharge Diagnosis: encephalopathy Activity: Resume your previous activity Non-emergency contact: Primary Care Provider Call non-emergency contact if: you have any medication questions Follow-up/Referrals: Erik Garcia [Primary Care Provider] - Diet: Low Fiber Addtl Attending Provider Instructions: You have been hospitalized for an acute medical problem. During your stay at [facility], we have made an effort to correct the problem that brought you to the hospital while keeping you as comfortable as possible. Medications were used to bring your condition under control and your discharge instructions will include directions for any medications you should take after leaving the hospital. Please make sure you see your Primary Care Provider as part of your follow up plan. Pending Studies at Discharge: No Stand-Alone Forms: My [facility] Skilled Items Patient informed of condition?: Yes DNR: Yes Discharge Level of Care: Skilled Communicable Disease: No Discharge Prognosis: Stable Lines: None Urinary Catheter: No Medications and DC Order Prescriptions: New lidocaine 5 % Adhesive Patch,Medicated 1 patch transdermal HS Qty: 10 RF: 0 Eliquis 5 mg Tablet 5 mg PO BID Qty: 60 RF: 0 famotidine 20 mg tablet 20 mg PO DAILY Qty: 30 RF: 0 Continued tramadol 50 mg tablet 50 mg PO Q6H PRN (Reason: Pain) RF: 0 PreserVision AREDS [id number] capsule 1 cap PO BID RF: 0 acetaminophen 500 mg tablet 1,000 mg PO TID RF: 0 bimatoprost 0.01 % drops 1 drp ophthalmic (eye) DAILY RF: 0 (DME) BD SafetyGlide Insulin Syringe 1 mL 31 gauge x 15/64" syringe See Rx Instructions .ROUTE .MEDSUPPLY Qty: 100 RF: 11 (DME) pen needle, diabetic [BD Ultra-Fine Short Pen Needle] 31 gauge x 5/16" needle See Rx Instructions .ROUTE .MEDSUPPLY Qty: 100 RF: 11 metoprolol tartrate [Lopressor] 100 mg tablet 50 mg PO BID Qty: 90 RF: 3 atorvastatin 10 mg tablet 10 mg PO QPM Qty: 90 RF: 3 insulin lispro [Humalog KwikPen Insulin] 100 unit/mL insulin pen 18 - 22 unit SUBCUT AC Qty: 15 RF: 3 (DME) FreeStyle Roman 2 Sensor Kit See Rx Instructions .ROUTE .MEDSUPPLY Qty: 2 RF: 1 (DME) lancets [OneTouch UltraSoft Lancets] misc See Dose Instructions .ROUTE .MEDSUPPLY Qty: 50 RF: 0 (DME) OneTouch Ultra Blue Test Strip Strip See Rx Instructions .ROUTE .MEDSUPPLY RF: 0 Lantus U-100 Insulin 100 unit/mL solution 38 unit SUBCUT BID RF: 0 cholecalciferol (vitamin D3) [Vitamin D3] 2,000 unit Capsule 2,000 unit PO DAILY RF: 0 magnesium hydroxide [Milk of Magnesia] 400 mg/5 mL Suspension 30 ml PO Q OTHER DAY PRN (Reason: Constipation) RF: 0 bisacodyl 10 mg Suppository 10 mg MO Q OTHER DAY PRN (Reason: Constipation) RF: 0 Fleet Enema 19-7 gram/118 mL Enema 118 ml MO Q3D PRN (Reason: Constipation) RF: 0 diltiazem HCl [Cartia XT] 240 mg capsule,extended release 24hr 240 mg PO QAM RF: 0 digoxin 250 mcg (0.25 mg) tablet 250 mcg PO QAM RF: 0 Discontinued warfarin 5 mg tablet 5 mg PO 3XWK RF: 0 cyclobenzaprine 5 mg tablet 5 mg PO TID PRN (Reason: Muscle Spasm) RF: 0 warfarin 5 mg tablet 2.5 mg PO 4XWK RF: 0 Discharge Orders: Discharge Order (Routine); Ordered 09/13/21 Ordered By: Raymundo Hoover/Other Patient Handouts: Managing Type 2 Diabetes Admission Data Admit Date/Time: 09/07/21 15:14 Attending Provider: Raymundo Benoit Admit Provider: Raymundo Benoit Primary Care Provider: Erik Garcia Other Providers: Odin Chapman Other Interventions: Discharge Summary Assessment (RN) Last Done: 09/13/21 10:17 Coding Level of Care Code D/C DAY MANAGEMENT >30 MINS Diagnoses Encephalopathy G93.40 Headache R51.9 Back pain M54.50 Back pain laterality: midline Back pain location: low back pain Chronicity: unspecified Sciatica presence: without sciatica A-fib I48.21 Atrial fibrillation type: permanent Dyslipidemia E78.5 Controlled type 2 diabetes mellitus with kidney complication, with long-term current use of insulin E11.29; Z79.4 Hypertension I10 Chronic kidney disease, stage 3 N18.3 Elevated troponin R77.8 Aneurysm I72.9 Chronic pancreatitis K86.1
--- NOTE | 2021-09-22 07:49 | Coding Query ---
CODING QUERY To promote full compliance with coding requirements relating to patient care, provider participation is requested in all cases of label coder uncertainty. Please assist us with the question(s) below: Coding Question(s): Encephalopathy is documented with documentation in the record and on Discharge Summary of, " Encephalopathy: Patient presents with confusion, headache and elevated blood pressure in the setting of n/v and elevated BP - DDX: HTN Urgency vs. Toxic vs. Metabolic". Please specify below, in your clinical opinion, the most likely source(s) of the Encephalopathy. ( ) Possible Toxic Encephalopathy. Please specify further below: ( ) likely due to Tramadol taken as prescribed ( ) likely due to other medication take as prescribed. Please Specify ( ) likely due to unknown medication taken as prescribed ( ) Other: Please Specify ( ) Possible Metabolic Encephalopathy. Please specify further below: ( ) likely due to Hyponatremia that is SIADH likely caused by Tramadol ( ) likely due to Hyponatremia, with NO SIADH ( ) likely due to possible Lyme Disease ( ) likely due to Other: Please Specify ( ) due to Unknown possible source ( ) Encephalopathy likely due to Hypertensive Urgency. Please Specify below: ( ) Metabolic Encephalopathy due to hypertensive urgency ( x) Hypertensive Encephalopathy due to hypertensive urgency ( ) Other Encephalopathy. Please Specify Physician's Response(s): Thank you Berenice Portillo Principal Diagnosis: "that condition established after study, to be chiefly responsible for occasioning the admission of the patient to the hospital for care." Co-Existing Principal Diagnosis: "when two or more diagnoses equally meet the criteria for principal diagnosis as determined by the circumstances of admission, diagnostic work up, and/or therapy provided, and the Alphabetic Index, Tabular List, or another coding guideline does not provide sequencing direction, any one of the diagnoses may be sequenced first." "When the physician has documented what appears to be a current diagnosis in the body of the record, but has not included the diagnosis in the final diagnostic statement, the physician should be asked whether the diagnosis should be added." (Source Coding [facility] 2 QTR90. p3-4) ROXANA
== END 2021-09-13 11:13 | DRG 78 ==
LOC: ED 12:22 → MERGE 12:22 → 2S 15:14 → SUATTDRO 15:14 → 2S 18:05

== ENCOUNTER 2021-10-23 16:02 | Inpatient (IN) ==
--- NOTE | 2021-10-23 16:26 | Emergency Department Note ---
History of Present Illness General Chief complaint: Stroke/CVA Symptoms Time Seen by Provider: 10/23/21 16:15 History of Present Illness 86-year-old female presents to the ED with a chief complaint of some word fi nding issues earlier today. The patient was noticed to have the word finding issues earlier by the [facility] nurses. The patient states that she has been more tired than usual and has been sleeping most of the day today. She does report a runny nose over the past week or so. She states that that seems to be improving over the past day or 2. She is typically wheelchair-bound due to chronic weakness. She does have history of A. fib and is chronically on apixaban and digoxin. The patient denies any specific complaints. Denies headaches, chest pains, shortness of breath or any other complaints at this time. Home Medications Medication Instructions Recorded Confirmed Type cholecalciferol (vitamin D3) 50 2,000 unit PO DAILY 01/03/18 10/16/21 History mcg (2,000 unit) capsule (Vitamin D3) lancets (SiCortexTouch UltraSoft #50 ea 10/31/18 10/16/21 History Lancets) blood sugar diagnostic (OneTouch 06/29/20 10/16/21 History Ultra Blue Test Strip) BD SafetyGlide Insulin Syringe 1 #100 ea 07/13/20 10/16/21 Rx mL 31 gauge x 15/64" (insulin syringe,safetyneedle) BD Ultra-Fine Short Pen Needle 31 #100 ea 07/13/20 10/16/21 Rx gauge x 5/16" (pen needle, diabetic) atorvastatin 10 mg tablet 10 mg PO QPM #90 tabs 11/21/20 10/16/21 Rx vitamins A,C,P-yyny-lyfdnt 14,320 1 cap PO BID 11/24/20 10/16/21 History unit-226 mg-200 unit capsule (PreserVision AREDS) insulin lispro 100 unit/mL 18 - 22 unit (0.18 - 0.22 mL) 05/08/21 10/16/21 Rx subcutaneous pen (Humalog KwikPen subcut AC #15 mL (U-100) Insulin) FreeStyle Roman 2 Sensor (flash #2 ea 08/04/21 10/16/21 Rx glucose sensor) insulin glargine 100 unit/mL 38 unit subcut BID 08/09/21 10/16/21 History subcutaneous solution (Lantus U-100 Insulin) acetaminophen 500 mg tablet 1,000 mg PO TID pain 08/22/21 10/16/21 History tramadol 50 mg tablet 50 mg PO Q6H PRN Pain 08/22/21 10/16/21 History bimatoprost 0.01 % eye drops 1 drp ophthalmic (eye) DAILY 09/06/21 10/16/21 History bisacodyl 10 mg rectal suppository 10 mg MN Q OTHER DAY PRN 09/07/21 10/16/21 History Constipation digoxin 250 mcg (0.25 mg) tablet 250 mcg PO QAM 09/07/21 10/16/21 History diltiazem HCl 240 mg 240 mg PO QAM 09/07/21 10/16/21 History capsule,extended release 24 hr (Cartia XT) magnesium hydroxide 400 mg/5 mL 30 ml PO Q OTHER DAY PRN 09/07/21 10/16/21 History oral suspension (Milk of Magnesia) Constipation sodium phosphates 19 gram-7 118 ml MN Q3D PRN Constipation 09/07/21 10/16/21 History gram/118 mL enema (Fleet Enema) apixaban 5 mg tablet (Eliquis) 5 mg PO BID #60 tabs 09/12/21 10/16/21 Rx lidocaine 5 % topical patch 1 patch transdermal HS #10 ea 09/12/21 10/16/21 Rx famotidine 20 mg tablet 20 mg PO DAILY #30 tabs 09/13/21 10/16/21 Rx fludrocortisone 0.1 mg tablet 0.2 mg PO DAILY 10/16/21 10/16/21 History metoprolol tartrate 100 mg tablet 75 mg PO BID 10/16/21 History (Lopressor) Allergies Allergy/AdvReac Type Severity Reaction Status Date / Time Sulfa (Sulfonamide Allergy Unknown Nausea Unverified 10/16/21 16:08 Antibiotics) Past Med/Surg History Medical History Chronic kidney disease, stage 3 Dysmetabolic syndrome X History of actinic keratosis History of basal cell carcinoma History of colon cancer History of diabetes mellitus History of nummular eczema History of rheumatic fever History of rosacea Hypertension Right knee DJD Vitamin D deficiency Surgical History History of partial colectomy History of tonsillectomy Hx of appendectomy Hx of cholecystectomy Family History Unknown Family history of thromboembolic disease Social History Smoking Status: Never smoker Hx Alcohol Use: No Hx Substance Use: No Preferred Language: Omani Communication Ability: Effective Generator Rebuilder Required: No Beliefs That Will Affect Care: None marital status: / Current Living Situation: Alone Current Living Situation Comment: [facility], lives in [facility] [place] current occupational status: retired Feels Safe at Home: Yes Assistive Devices: Walker Review of Systems A total of 10 systems reviewed and were otherwise negative Physical Exam Vital Signs Vital Signs - 24 hr 10/23/21 16:06 10/23/21 16:23 10/23/21 17:42 Temperature 36.9 C Temperature Source Oral Pulse Rate 78 73 Pulse Rate [Finger] 71 Pulse Rhythm Regular Respiratory Rate 21 20 18 Respiratory Effort / Characteristics Non-Labored Respiratory Depth Normal Respiratory Pattern Regular Blood Pressure 186/90 H Blood Pressure [Left Arm] 215/114 H Blood Pressure Mean 122 Blood Pressure Mean [Left Arm] 147 Blood Pressure Position Semi-fowlers Blood Pressure Position [Left Arm] Lying Pulse Oximetry 94 94 98 Oxygen Delivery Method Room Air Room Air Room Air Sepsis Recent Fever Within 48 Hours No Sepsis New/Unexplained Change in Mental Status N/A Sepsis Action Taken by Nursing No Action Required CONSTITUTIONAL/VITAL SIGNS: Reviewed / noted above. GENERAL: Non-toxic in appearance. Patient seems a little tired. INTEGUMENTARY: Warm, dry, and [place]. HEAD: Normocephalic. EYES: without scleral icterus or trauma. ENT/OROPHARYNX: clear and moist. LYMPHADENOPATHY/NECK: Is supple without lymphadenopathy or meningismus. RESPIRATORY: Clear to auscultation bilaterally. No increased work of breathing. CARDIOVASCULAR: Regular rate and rhythm. GI/ABDOMEN: Soft and nontender. No organomegaly or pulsatile mass. EXTREMITIES: Warm and well perfused. BACK: No CVA tenderness. NEUROLOGICAL: Intact without focal deficits. Cranial nerves II through XII are intact. No pronator drift. No facial droop. The patient seems a little slow with her speech but otherwise is speaking normally and is not confusing any words. Cerebellar testing within normal limits. Some generalized but symmetric weakness in the lower extremities. PSYCHIATRIC: normal affect. MUSCULOSKELETAL: Normally developed with good muscle tone. TRIAGE NURSING DOCUMENTATION REVIEWED. Course Administered Medications Discontinued Medications Sodium Chloride (Nss) 500 mls @ 999 mls/hr IV .Q31M AAYUSH Stop: 10/23/21 17:00 Last Infusion: 10/23/21 17:36 Dose: 0 mls/hr Documented By: Admin: 10/23/21 16:58 Dose: 999 mls/hr Documented By: AVILA Medical Decision Making Differential Diagnosis Differential includes acute coronary syndrome, myocardial infarction, CVA, TIA, anemia, infection, pneumonia, UTI, pyelonephritis, poor nutrition, dehydration, electrolyte disturbance,hypoglycemia. Medical Records Attestation: I reviewed the patient's medical records. Home Medications Current Medication List: was personally reviewed by me Laboratory Data Attestation: I reviewed the patient's lab results. Result diagrams: 10/23/21 16:13 10/23/21 16:13 Lab Results 10/23/21 10/23/21 10/23/21 Range/Units 16:13 16:13 16:13 WBC 8.61 (4.8-10.8) K/ul RBC 3.84 L (3.93-5.22) M/uL Hgb 12.9 (12.0-16.0) g/dl Hct 38.9 (34.1-44.9) % MCV 101.3 H (80.0-100.0) fL MCH 33.6 (25.0-34.0) pg MCHC 33.2 (32.0-36.0) g/dL RDW Std Deviation 49.1 H (36.4-46.3) fL RDW Coeff of Rosie 13.2 (11.5-14.5) % Plt Count 298 (130-400) K/uL MPV 9.7 (9.4-12.3) fL Immature Gran % (Auto) 0.3 % Neut % (Auto) 55.5 % Lymph % (Auto) 28.3 % Ward % (Auto) 12.2 % Eos % (Auto) 3.4 % Baso % (Auto) 0.3 % Neut # (Auto) 4.77 (1.4-6.5) K/uL Lymph # (Auto) 2.44 (1.2-3.4) K/uL Ward # (Auto) 1.05 H (0.24-0.82) K/uL Eos # (Auto) 0.29 (0-0.50) K/uL Baso # (Auto) 0.03 (0-0.2) K/uL Immature Gran # (Auto) 0.03 H (0.00-0.02) K/uL Sodium 138 (136-145) mmol/L Potassium 3.7 (3.5-5.1) mmol/L Chloride 99 (98-107) mmol/L Carbon Dioxide 31 (21-32) mmol/L Anion Gap 8 (3-11) BUN 13 (6-23) mg/dl Creatinine 1.12 (0.6-1.2) mg/dl Est Cr Clr Drug Dosing 37.7 ml/min Est GFR ( Amer) 52.2 ml/min Est GFR (Non-Af Amer) 45.1 ml/min BUN/Creatinine Ratio 11.6 (10-20) Glucose 195 H (70-99(Fasting)) mg/dl Calcium 9.3 (8.5-10.1) mg/dl Total Bilirubin 0.6 (0.2-1.0) mg/dl AST 9 L (13-39) U/L ALT 15 (7-52) U/L Alkaline Phosphatase 56 (34-104) U/L Total Creatine Kinase 32 (26-192) U/L Troponin I High Sens 34.3 H (0-14) pg/ml Total Protein 7.1 (6.0-8.3) gm/dl Albumin 3.4 (3.4-5.0) gm/dl Globulin 3.7 (2.5-4.0) gm/dl Albumin/Globulin Ratio 0.9 (0.9-2) Digoxin 1.9 (0.8-2.0) ng/ml SARS-CoV-2, RNA, NAAT (NEGATIVE) 10/23/21 Range/Units 16:33 WBC (4.8-10.8) K/ul RBC (3.93-5.22) M/uL Hgb (12.0-16.0) g/dl Hct (34.1-44.9) % MCV (80.0-100.0) fL MCH (25.0-34.0) pg MCHC (32.0-36.0) g/dL RDW Std Deviation (36.4-46.3) fL RDW Coeff of Rosie (11.5-14.5) % Plt Count (130-400) K/uL MPV (9.4-12.3) fL Immature Gran % (Auto) % Neut % (Auto) % Lymph % (Auto) % Ward % (Auto) % Eos % (Auto) % Baso % (Auto) % Neut # (Auto) (1.4-6.5) K/uL Lymph # (Auto) (1.2-3.4) K/uL Ward # (Auto) (0.24-0.82) K/uL Eos # (Auto) (0-0.50) K/uL Baso # (Auto) (0-0.2) K/uL Immature Gran # (Auto) (0.00-0.02) K/uL Sodium (136-145) mmol/L Potassium (3.5-5.1) mmol/L Chloride (98-107) mmol/L Carbon Dioxide (21-32) mmol/L Anion Gap (3-11) BUN (6-23) mg/dl Creatinine (0.6-1.2) mg/dl Est Cr Clr Drug Dosing ml/min Est GFR ( Amer) ml/min Est GFR (Non-Af Amer) ml/min BUN/Creatinine Ratio (10-20) Glucose (70-99(Fasting)) mg/dl Calcium (8.5-10.1) mg/dl Total Bilirubin (0.2-1.0) mg/dl AST (13-39) U/L ALT (7-52) U/L Alkaline Phosphatase (34-104) U/L Total Creatine Kinase (26-192) U/L Troponin I High Sens (0-14) pg/ml Total Protein (6.0-8.3) gm/dl Albumin (3.4-5.0) gm/dl Globulin (2.5-4.0) gm/dl Albumin/Globulin Ratio (0.9-2) Digoxin (0.8-2.0) ng/ml SARS-CoV-2, RNA, NAAT NEGATIVE (NEGATIVE) Imaging Data Radiologist's Impression: Head CT 10/23/21 16:22 CT head/brain wo con CLINICAL HISTORY: transient word finding issues Technique: Contiguous axial CT images of the head were acquired from the base of the skull to the vertex without intravenous contrast administration. Images were viewed in brain, subdural and bone windows. Automated dose lowering techniques and/or adjustment according to patient size were utilized for this exam. Comparison: Comparison is made to CTA head and neck 09/07/2021 Findings: The ventricles, basal cisterns, and cerebral sulci are normal. There is no acute intracranial hemorrhage or evidence of acute territorial infarction. Neither mass effect, shift of the midline structures, nor abnormal extra-axial fluid collections are shown. Imaged portions of the paranasal sinuses and mastoid air cells are clear. The orbits appear normal. There are no acute fractures of the calvaria or scalp swelling. Impression: No acute intracranial hemorrhage, no evidence of acute territorial infarction or other acute intracranial disease process. ACT 112: Negative or not required by law. Electronically signed by: Dayron Flores M.D. 10/23/2021 5:15 PM Chest X-Ray 10/23/21 16:23 SINGLE VIEW CHEST CLINICAL HISTORY: Generalized weakness. FINDINGS: 2 AP, portable, upright chest radiographs are compared to study dated 09/10/2021. The heart is enlarged noting atherosclerotic calcification of the thoracic aorta. There is prominence of the pulmonary vasculature. Scarring/atelectasis is noted at the lung bases. No airspace consolidation or large pleural effusion is identified No pneumothorax is seen. The skeletal structures are osteopenic. The bony thorax is grossly intact. IMPRESSION: Cardiomegaly with prominence of the pulmonary vasculature. Correlate clinically for evidence of fluid overload/mild congestion. ACT 112: Negative or not required by law. Electronically signed by: Antonio Brock M.D. 10/23/2021 4:51 PM ECG Data Attestation: I personally reviewed and interpreted this ECG as follows: Additional Comments: Twelve-lead EKG: Per my interpretation shows chronic A. fib at a rate of 73. Chronic T wave inversions in 1 and aVL. Normal QTC.No ST elevation. No PVCs. MDM Narrative 86-year-old female presents with some word finding issues per the [facility] nursing staff. She has been sleeping most of the day today and more tired than usual. She reports a runny nose for a week but states that it seems to be getting better. Patient denies any specific complaints at this time. No word finding issues on my evaluation. No focal exam findings. She does seem a little tired and slow with her speech. Vital signs reveal hypertension. A CT scan of the brain did not show acute process. EKG shows chronic A. fib. A chest x-ray was negative for acute disease. COVID test was negative. CBC was unremarkable. Chemistry panel was unremarkable. Glucose is 195. Troponin is elevated at 34. Digoxin level is normal. The patient was told the results of the test. Her symptoms seem consistent with a TIA. She is not having any significant clinical symptoms here. The patient will be seen by the hospitalist for further evaluation and care. The patient was given a dose of clonidine for her hypertension here. She was also given some IV fluids. The patient is chronically on Eliquis for her A. fib. Impression & Plan Brain TIA, Elevated troponin, Accelerated hypertension Discharge Plan Visit Data Chief Complaint: Stroke/CVA Symptoms ED Provider: Nhan Mccarthy Discharge Problem: Brain TIA, Elevated troponin, Accelerated hypertension Patient Disposition: Being Evaluated by Hospitalist Forms Stand Alone Forms: My [facility] Prescriptions Prescriptions: No Action tramadol 50 mg tablet 50 mg PO Q6H PRN (Reason: Pain) PreserVision AREDS [id number] capsule 1 cap PO BID acetaminophen 500 mg tablet 1,000 mg PO TID bimatoprost 0.01 % drops 1 drp ophthalmic (eye) DAILY (DME) BD SafetyGlide Insulin Syringe 1 mL 31 gauge x 15/64" syringe See Rx Instructions .ROUTE .MEDSUPPLY Qty: 100 11RF Rx Instructions: Use 2 per day with Lantus (DME) pen needle, diabetic [BD Ultra-Fine Short Pen Needle] 31 gauge x 5/16" needle See Rx Instructions .ROUTE .MEDSUPPLY Qty: 100 11RF Rx Instructions: Use 2 per day to inject insulin atorvastatin 10 mg tablet 10 mg PO QPM Qty: 90 3RF insulin lispro [Humalog KwikPen Insulin] 100 unit/mL insulin pen 18 - 22 unit SUBCUT AC Qty: 15 3RF Rx Instructions: SLIDING SCALE (DME) FreeStyle Roman 2 Sensor Kit See Rx Instructions .ROUTE .MEDSUPPLY Qty: 2 1RF Rx Instructions: change sensor every 2 weeks (DME) lancets [OneTouch UltraSoft Lancets] misc See Dose Instructions .ROUTE .MEDSUPPLY Qty: 50 Rx Instructions: As directed (DME) OneTouch Ultra Blue Test Strip Strip See Rx Instructions .ROUTE .MEDSUPPLY Rx Instructions: test 4 times daily fludrocortisone 0.1 mg tablet 0.2 mg PO DAILY metoprolol tartrate [Lopressor] 100 mg tablet 75 mg PO BID Lantus U-100 Insulin 100 unit/mL solution 38 unit SUBCUT BID cholecalciferol (vitamin D3) [Vitamin D3] 2,000 unit Capsule 2,000 unit PO DAILY magnesium hydroxide [Milk of Magnesia] 400 mg/5 mL Suspension 30 ml PO Q OTHER DAY PRN (Reason: Constipation) bisacodyl 10 mg Suppository 10 mg MN Q OTHER DAY PRN (Reason: Constipation) Fleet Enema 19-7 gram/118 mL Enema 118 ml MN Q3D PRN (Reason: Constipation) diltiazem HCl [Cartia XT] 240 mg capsule,extended release 24hr 240 mg PO QAM digoxin 250 mcg (0.25 mg) tablet 250 mcg PO QAM lidocaine 5 % Adhesive Patch,Medicated 1 patch transdermal HS Qty: 10 0RF Eliquis 5 mg Tablet 5 mg PO BID Qty: 60 0RF famotidine 20 mg tablet 20 mg PO DAILY Qty: 30 0RF Referrals Referrals: Erik Garica [Primary Care Provider] -
[2021-10-23] MEDS ORDERED: SODIUM CHLORIDE 0.9% 500 ML IV SCH (16:30)
[2021-10-23 16:37] LABS: Basophils # (auto) 0.03 K/uL (0-0.2); Basophils % (auto) 0.3 %; Eosinophils # (auto) 0.29 K/uL (0-0.50); Eosinophils % (auto) 3.4 %; Hematocrit (blood only) 38.9 % (34.1-44.9); Hemoglobin 12.9 g/dl (12.0-16.0); Immature Granulocytes # (auto) 0.03 K/uL (0.00-0.02); Immature Granulocytes % (auto) 0.3 %; Lymphocytes # (auto) 2.44 K/uL (1.2-3.4); Lymphocytes % (auto) 28.3 %; Mean Corpuscular Hemoglobin 33.6 pg (25.0-34.0); Mean Corpuscular Hgb Conc 33.2 g/dL (32.0-36.0); Mean Corpuscular Volume 101.3 fL (80.0-100.0); Mean Platelet Volume 9.7 fL (9.4-12.3); Monocytes # (auto) 1.05 K/uL (0.24-0.82); Monocytes % (auto) 12.2 %; Neutrophils # (auto) 4.77 K/uL (1.4-6.5); Neutrophils % (auto) 55.5 %; Platelet Count 298 K/uL (130-400); RDW Coefficient of Variation 13.2 % (11.5-14.5); RDW Standard Deviation 49.1 fL (36.4-46.3); Red Blood Count 3.84 M/uL (3.93-5.22); White Blood Count 8.61 K/ul (4.8-10.8)
--- NOTE | 2021-10-23 16:52 | XRay Report ---
SINGLE VIEW CHEST CLINICAL HISTORY: Generalized weakness. FINDINGS: 2 AP, portable, upright chest radiographs are compared to study dated 09/10/2021. The heart i s enlarged noting atherosclerotic calcification of the thoracic aorta. There is prominence of the pul monary vasculature. Scarring/atelectasis is noted at the lung bases. No airspace consolidation or lar ge pleural effusion is identified No pneumothorax is seen. The skeletal structures are osteopenic. Th e bony thorax is grossly intact. IMPRESSION: Cardiomegaly with prominence of the pulmonary vasculature. Correlate clinically for evide nce of fluid overload/mild congestion. ACT 112: Negative or not required by law. Electronically signed by: Antonio Brock M.D. 10/23/2021 4:51 PM
[2021-10-23 16:56] LABS: Albumin Globulin Ratio 0.9 (0.9-2); Albumin Level 3.4 gm/dl (3.4-5.0); BUN Creatinine Ratio 11.6 (10-20); Bilirubin,Total 0.6 mg/dl (0.2-1.0); Calcium 9.3 mg/dl (8.5-10.1); Creatinine Clr Calc Pharmacy 37.7 ml/min; Est GFR (African American) 52.2 ml/min; Est GFR (Non-African American) 45.1 ml/min; Globulin 3.7 gm/dl (2.5-4.0); Potassium 3.7 mmol/L (3.5-5.1); Total Protein 7.1 gm/dl (6.0-8.3)
--- NOTE | 2021-10-23 17:16 | CT Scan Report ---
CT head/brain wo con CLINICAL HISTORY: transient word finding issues Technique: Contiguous axial CT images of the head were acquired from the base of the skull to the [place] without intravenous contrast administration. Images were viewed in brain, subdural and [facility]. Automated dose lowering techniques and/or adjustment according to patient size were utilized for this exam. Comparison: Comparison is made to CTA head and neck 09/07/2021 Findings: The ventricles, basal cisterns, and cerebral sulci are normal. There is no acute intracranial hemorrh age or evidence of acute territorial infarction. Neither mass effect, shift of the midline structures , nor abnormal extra-axial fluid collections are shown. Imaged portions of the paranasal sinuses and mastoid air cells are clear. The orbits appear normal. There are no acute fractures of the calvaria or scalp swelling. Impression: No acute intracranial hemorrhage, no evidence of acute territorial infarction or other acute intracra nial disease process. ACT 112: Negative or not required by law. Electronically signed by: Dayron Flores M.D. 10/23/2021 5:15 PM
[2021-10-23 17:17] LABS: Troponin I High Sensitivity 34.3 pg/ml (0-14)
[2021-10-23] MEDS ORDERED: cloNIDine HCL 0.1 MG TAB PO ONE (17:50)
--- NOTE | 2021-10-23 18:40 | History & Physical Report ---
Date of Service October 23, 2021 Assessment & Plan (1) TIA (transient ischemic attack): Plan: - NIH scale 1--mild aphasia. Mostly resolved at time of my assessment. No other deficits. - Head CT without evidence of hemorrhage or acute ischemic event; CTA head and neck pending. - MRI, routine, tomorrow. - Echo in a.m. - CBC, BMP, HbA1c, lipid panel in a.m. - PT, OT, ST to evaluate in a.m. - Will start on ASA, consider increasing to high intensity statin tomorrow pending lipid panel results. Continue on Eliquis for a fib. (2) Elevated troponin: Plan: - 34.3, suspect this may be due to severe hypertension, will continue to trend. - EKG without ST segment or T wave inversions. (3) Hypertension: Plan: - Presented 215/114, coming down after clonidine in ED. - Continue home BP meds. (4) Dyslipidemia: Plan: - Continue statin, consider starting on high intensity. (5) Controlled type 2 diabetes mellitus with kidney complication, with long-term current use of insulin: Plan: - Continue home basal insulin with accuchecks ACHS + SSI. - A1c in August--> 8.4% (6) A-fib: Plan: - Permanent; continue Eliquis, digoxin, diltiazem, metoprolol. (7) Chronic kidney disease, stage 3: Plan: - Renal function at baseline today. - Avoid nephrotoxins, renally dose meds as able. Plan - Admit to med/tele. - SCDs, Eliquis for VTE ppx. - DNR/DNI. History of Present Illness Chief Complaint: aphasia at 3 pm this afternoon Primary Care Provider: [facility] Ewelina Nolasco is an 86-year-old female with past medical history significant for DM2, hypertension, chronic A. fib, CKD3, hyperlipidemia, and chronic back pain presents today from [facility] with reported word finding difficulties around 3 PM. Patient states she was having lunch and talking with the resident when she had difficulty finding her words. She also had appointment with a therapist today who also reported she was having word finding difficulty during her planning, therefore she was brought to the ED for further evaluation. Patient reports she otherwise been feeling her normal self with the exception of being more tired than usual and having a runny nose this week. She continues to have some mild word finding difficulties during her conversation, however has no sensory deficits, motor deficits, visual changes, dizziness, headache, nausea or vomiting. In ED, she is hypertensive 04/17/2014, now down to 188/96 after clonidine. VS otherwise wnl. Labs significant for elevated glucose 195, hs trop 34.3. Dig level 1.9. Head CT without any acute findings. Allergies Allergy/AdvReac Type Severity Reaction Status Date / Time Sulfa (Sulfonamide Allergy Unknown Nausea Unverified 10/16/21 16:08 Antibiotics) Home Medications Medication Instructions Recorded Confirmed Type cholecalciferol (vitamin D3) 50 2,000 unit PO DAILY 01/03/18 10/16/21 History mcg (2,000 unit) capsule (Vitamin D3) lancets (BiographiconTouch UltraSoft #50 ea 10/31/18 10/16/21 History Lancets) blood sugar diagnostic (OneTouch 06/29/20 10/16/21 History Ultra Blue Test Strip) BD SafetyGlide Insulin Syringe 1 #100 ea 07/13/20 10/16/21 Rx mL 31 gauge x 15/64" (insulin syringe,safetyneedle) BD Ultra-Fine Short Pen Needle 31 #100 ea 07/13/20 10/16/21 Rx gauge x 5/16" (pen needle, diabetic) atorvastatin 10 mg tablet 10 mg PO QPM #90 tabs 11/21/20 10/16/21 Rx vitamins A,C,L-aegh-lefgkl 14,320 1 cap PO BID 11/24/20 10/16/21 History unit-226 mg-200 unit capsule (PreserVision AREDS) insulin lispro 100 unit/mL 18 - 22 unit (0.18 - 0.22 mL) 05/08/21 10/16/21 Rx subcutaneous pen (Humalog KwikPen subcut AC #15 mL (U-100) Insulin) FreeStyle Roman 2 Sensor (flash #2 ea 08/04/21 10/16/21 Rx glucose sensor) insulin glargine 100 unit/mL 38 unit subcut BID 08/09/21 10/16/21 History subcutaneous solution (Lantus U-100 Insulin) acetaminophen 500 mg tablet 1,000 mg PO TID pain 08/22/21 10/16/21 History tramadol 50 mg tablet 50 mg PO Q6H PRN Pain 08/22/21 10/16/21 History bimatoprost 0.01 % eye drops 1 drp ophthalmic (eye) DAILY 09/06/21 10/16/21 History bisacodyl 10 mg rectal suppository 10 mg NH Q OTHER DAY PRN 09/07/21 10/16/21 History Constipation digoxin 250 mcg (0.25 mg) tablet 250 mcg PO QAM 09/07/21 10/16/21 History diltiazem HCl 240 mg 240 mg PO QAM 09/07/21 10/16/21 History capsule,extended release 24 hr (Cartia XT) magnesium hydroxide 400 mg/5 mL 30 ml PO Q OTHER DAY PRN 09/07/21 10/16/21 History oral suspension (Milk of Magnesia) Constipation sodium phosphates 19 gram-7 118 ml NH Q3D PRN Constipation 09/07/21 10/16/21 History gram/118 mL enema (Fleet Enema) apixaban 5 mg tablet (Eliquis) 5 mg PO BID #60 tabs 09/12/21 10/16/21 Rx lidocaine 5 % topical patch 1 patch transdermal HS #10 ea 09/12/21 10/16/21 Rx famotidine 20 mg tablet 20 mg PO DAILY #30 tabs 09/13/21 10/16/21 Rx fludrocortisone 0.1 mg tablet 0.2 mg PO DAILY 10/16/21 10/16/21 History metoprolol tartrate 100 mg tablet 75 mg PO BID 10/16/21 History (Lopressor) Past Med/Surg History Medical History Chronic kidney disease, stage 3 Dysmetabolic syndrome X History of actinic keratosis History of basal cell carcinoma History of colon cancer History of diabetes mellitus History of nummular eczema History of rheumatic fever History of rosacea Hypertension Right knee DJD Vitamin D deficiency Surgical History History of partial colectomy History of tonsillectomy Hx of appendectomy Hx of cholecystectomy Family History Unknown Family history of thromboembolic disease Social History Smoking Status: Never smoker Hx Alcohol Use: No Hx Substance Use: No Preferred Language: Omani Communication Ability: Effective 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 Required: No Beliefs That Will Affect Care: None marital status: / Current Living Situation: Alone Current Living Situation Comment: citlaly renteria, lives in [facility] [place] [place] alone current occupational status: retired Feels Safe at Home: Yes Assistive Devices: Walker Review of Systems Review of Systems: Constitutional: fatigue x 1 week; No fever/chills, weakness, myalgias, anorexia, night sweats Eyes: No diplopia, no worsening or blurred vision ENT: normal hearing, no trouble swallowing Respiratory: No cough, sputum, dyspnea at rest or on exertion Cardiovascular: No chest pain, tightness or palpitations Abdomen: No pain, nausea, vomiting, diarrhea or constipation : Denies dysuria, hematuria, increased urgency/frequency, urinary retention Musculoskeletal: No joint pain, calf pain, swelling Neurologic: word finding difficulty since this AM; No weakness, numbness/tingling, or balance problems Psychiatric: No anxiety or depression Skin: No rash or itch Physical Exam Physical Exam: General: awake, alert, no apparent distress Head: Normocephalic, atraumatic ENT: PERRL, EOMI, no pharyngeal exudate, mucous membranes moist Chest: Clear to auscultation, on room air, no adventitious breath sounds Cardiac: irregular rhythm consistent with afib; no murmur, no JVD, normal peripheral pulses, good capillary refill Abdominal: NABS x 4 quadrants, soft, nontender to palpation, no rebound, guarding or tenderness Extremities: Normal inspection, no peripheral edema or erythema, calfs nontender to palpation Psych: Normal mood and affect Neuro: AAO x 3, strength intact bilaterally and rated 5/5, no motor deficits, speech is clear, no peripheral sensory deficits Skin: no rash or erythema Results & Data Results & Data ([facility]) Vital Signs (Past 12 Hours) Vital Signs Temp Pulse Pulse Resp BP BP Pulse Ox 10/23/21 18:24 75 18 188/96 H 96 10/23/21 17:42 71 18 215/114 H 98 10/23/21 16:23 73 20 94 10/23/21 16:06 36.9 C 78 21 186/90 H 94 O2 Del Method 07/18/22 18:24 Room Air 10/23/21 17:42 Room Air 10/23/21 16:23 Room Air 10/23/21 16:06 Room Air Laboratory Results Abnormal lab results 10/23/21 10/23/21 Range/Units 16:13 16:13 RBC 3.84 L (3.93-5.22) M/uL MCV 101.3 H (80.0-100.0) fL RDW Std Deviation 49.1 H (36.4-46.3) fL [place] # (Auto) 1.05 H (0.24-0.82) K/uL Immature Gran # (Auto) 0.03 H (0.00-0.02) K/uL Glucose 195 H (70-99(Fasting)) mg/dl AST 9 L (13-39) U/L Troponin I High Sens 34.3 H (0-14) pg/ml Diagnostic Findings Head CT 10/23/21 16:22 CT head/brain wo con CLINICAL HISTORY: transient word finding issues Technique: Contiguous axial CT images of the head were acquired from the base of the skull to the vertex without intravenous contrast administration. Images were viewed in brain, subdural and bone windows. Automated dose lowering techniques and/or adjustment according to patient size were utilized for this exam. Comparison: Comparison is made to CTA head and neck 09/07/2021 Findings: The ventricles, basal cisterns, and cerebral sulci are normal. There is no acute intracranial hemorrhage or evidence of acute territorial infarction. Neither mass effect, shift of the midline structures, nor abnormal extra-axial fluid collections are shown. Imaged portions of the paranasal sinuses and mastoid air cells are clear. The orbits appear normal. There are no acute fractures of the calvaria or scalp swelling. Impression: No acute intracranial hemorrhage, no evidence of acute territorial infarction or other acute intracranial disease process. ACT 112: Negative or not required by law. Electronically signed by: Dayron Flores M.D. 10/23/2021 5:15 PM Chest X-Ray 10/23/21 16:23 SINGLE VIEW CHEST CLINICAL HISTORY: Generalized weakness. FINDINGS: 2 AP, portable, upright chest radiographs are compared to study dated 09/10/2021. The heart is enlarged noting atherosclerotic calcification of the thoracic aorta. There is prominence of the pulmonary vasculature. Scarring/atelectasis is noted at the lung bases. No airspace consolidation or large pleural effusion is identified No pneumothorax is seen. The skeletal structures are osteopenic. The bony thorax is grossly intact. IMPRESSION: Cardiomegaly with prominence of the pulmonary vasculature. Correlate clinically for evidence of fluid overload/mild congestion. ACT 112: Negative or not required by law. Electronically signed by: Antonio Brock M.D. 10/23/2021 4:51 PM ECG Additional Comments: Atrial fibrillation Left axis deviation Anterior infarct (cited on or before 07-SEP-2021) Abnormal ECG When compared with ECG of 08-SEP-2021 10:38, No significant change was found. Code Status & VTE Plan Code Status DNR/DNI. Supervising Physician Co-Signing Physician Notes Discussed case with ANTOLIN, agree with her note above. This is a 86-year-old female who [facility] after being noted to have significant aphasia. Symptoms apparently had mostly resolved by the time the ER physician examined the patient. Initial work-up was essentially negative outside of hypertension. CT of the brain was negative. Plan to place in monitored observation for TIA work-up. 2D echo. CT angiogram of patient's renal function can tolerate. Agree with aspirin. Patient was on atorvastatin 10 mg daily, will need to consider increasing to high intensity dosing. PT/OT evaluation. If work-up negative, patient will likely return back to her previous living situation. PG Care Time/CCT Total # of Minutes Spent Total Time Spent with Patient: Total time spent is greater than 50% in coordination of care (as documented) at patient's floor/unit and/or counseling patient: Coding Level of Care Code 17470 Initial Inpt Care Lvl 2 Diagnoses TIA (transient ischemic attack) G45.9 Elevated troponin R77.8 Hypertension I10 Dyslipidemia E78.5 Controlled type 2 diabetes mellitus with kidney complication, with long-term current use of insulin E11.29; Z79.4 A-fib I48.21 Atrial fibrillation type: permanent Chronic kidney disease, stage 3 N18.3 (1) A-fib Atrial fibrillation type: permanent Qualified Code(s): I48.21 - Permanent atrial fibrillation
[2021-10-23] MEDS ORDERED: OPTIRAY 320 125ml IV ONE (20:22)
[2021-10-23] MEDS ORDERED: GLUCAGON FOR INJ 1 MG VIAL SQ PRN (20:37)
[2021-10-23] MEDS ORDERED: MAGNESIUM HYDROXIDE SUSP 30 ML UDC PO PRN (20:37)
[2021-10-23] MEDS ORDERED: DEXTROSE 50% 50 ML SYRINGE IV PRN (20:37)
[2021-10-23] MEDS ORDERED: CARBOHYDRATES FOR HYPOGLYCEMIA PO PRN (20:37)
[2021-10-23] MEDS ORDERED: GLUCOSE 40% GEL 15 GM TUBE PO PRN (20:37)
[2021-10-23] MEDS ORDERED: GLUCOSE 10 TAB/TUBE PO PRN (20:37)
[2021-10-23] MEDS ORDERED: PHARMACIST DISCHARGE MED REC CONSULT PRN (20:37)
[2021-10-23] MEDS ORDERED: bisacodyL 10 MG SUPP PR PRN (20:37)
[2021-10-23] MEDS ORDERED: ONDANSETRON INJ 2 MG/ML 2 ML VIAL IV PRN (20:37)
[2021-10-23] MEDS ORDERED: SODIUM CHLORIDE 0.9% 1000ML 1,000 ML IV SCH (20:45)
--- NOTE | 2021-10-23 20:51 | CT Scan Report ---
CT ANGIOGRAM OF THE BRAIN; CT ANGIOGRAM OF THE NECK CLINICAL HISTORY: Strokelike symptoms. Change in mental status. COMPARISON STUDY: CT angiogram of the head and neck dated 09/07/2021. Unenhanced CT of the brain dated 10/23/2021. TECHNIQUE: Following the IV administration of 118 of Optiray 320, CT angiogram of the head and neck w as performed from the aortic arch to the vertex. Images are reviewed in the axial, sagittal, and remigio nal planes. 3-D MIPS images are created and assessed. IV contrast was administered without complicati on. All measurements were calculated based on NASCET criteria. A dose lowering technique was utilize d adhering to the principles of ALARA. CT DOSE: 439.56 mGy.cm FINDINGS: Brain parenchyma: There is age-related involutional change noting [id number] subcortical and pe riventricular microangiopathic disease. There is no evidence of hemorrhage, mass effect, or acute ter ritorial ischemia noting angiographic phase technique. There is no evidence of enhancing mass lesion on the angiogram phase images. The ventricles, sulci, and cisterns are prominent secondary to involut ional change. Mejia-white matter differentiation is preserved. No extra-axial fluid collection is seen . Thoracic aorta: There is atherosclerotic calcification of the thoracic aorta. Visualized portions of the thoracic aorta are normal in caliber. The aortic arch demonstrates standard 3-vessel anatomy. Right carotid arterial system: The right common carotid artery is widely patent, as are the right int ernal and external carotid arteries. Calcified plaque is noted in the carotid bulb. Left carotid arterial system: The left common carotid artery is widely patent, as are the left trestle mainternance laborer al and external carotid arteries. Calcified plaque is noted in the carotid bulb. Vertebral arteries: The vertebral arteries are widely patent bilaterally and codominant. Subclavian arteries: Widely patent bilaterally. Intracranial vasculature: The internal carotid arteries are patent at the skull base, as are the ante rior and middle cerebral arteries bilaterally. There is origin of the left posterior cerebral a rtery. The vertebrobasilar system and posterior cerebral arteries are widely patent. The vertebral ar teries are codominant. There is no high-grade stenosis or focal vessel cut off seen throughout the in tracranial circulation. 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 No additional aneurysm is identified througho ut the intracranial circulation. Jugular veins: Patent bilaterally. Dural sinuses: Patent. Lung apices: Partially visualized upper lobe lung parenchyma appears clear. Soft tissues: The visualized pharyngeal soft tissues are normal in appearance noting angiographic pha se technique. The oropharyngeal airway appears widely patent. The salivary and thyroid glands are nor mal in appearance. No cervical lymphadenopathy is seen. Skeletal structures: The skeletal structures are osteopenic. The calvarium appears intact. The cervic al spine is maintained noting multilevel spondylosis. A large posterior disc osteophyte complex at C6 -C7 contribute to acquired compromise of the central canal. No lytic or blastic lesion is seen. Orbits: The bony orbits are intact. Orbital contents are normal as visualized noting a right ocular l ens implants. Sinuses and mastoids: There is trace mucosal thickening in the left maxillary antrum. The remaining p aranasal sinuses are clear. The mastoid air cells are well pneumatized. IMPRESSION: 1. There is no evidence of hemorrhage, mass effect, or acute territorial ischemia noting angiographic phase technique. 2. 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 3. Otherwise unremarkable CT angiogram of the brain. No change from 09/07/2021. 4. Unremarkable CT angiogram of the neck. No change from 09/07/2021. ACT 112: Negative or not required by law. Electronically signed by: Antonio Brock M.D. 10/23/2021 8:49 PM
[2021-10-23] MEDS: ACETAMINOPHEN 500 MG TAB PO SCH (21:00)
[2021-10-23 21:06] LABS: Appearance Urine Clear (Clear); Bacteria Urine Automated Negative (Negative); Bilirubin Urine Negative (Negative); Blood Urine Negative (Negative); Cast Urine Automated 0 /lpf (0-5); Color Urine Yellow; Epithelial Cell Urine Auto >30 /lpf (0-5); Glucose Urine UA Trace (Negative); Ketones Urine Negative (Negative); Leukocyte Esterase Urine Negative (Negative); Nitrite Urine Negative (Negative); RBC Urine Automated 0-4 /hpf (0-4); Specific Gravity Urine 1.011 (1.000-1.030); Urobilinogen Urine Negative (Negative); pH Urine 7.5 (4.5-7.5)
[2021-10-23 21:09] LABS: Protein Urine 2+ (Negative)
[2021-10-23] MEDS: APIXABAN 5 MG TABLET PO SCH (21:22)
[2021-10-23] MEDS: ATORVASTATIN 10 MG TAB PO SCH (21:23)
[2021-10-23] MEDS: METOPROLOL TARTRATE 25 MG TAB PO SCH (21:24)
[2021-10-23] MEDS: LIDOCAINE 5% 1 PATCH TD SCH (21:25)
[2021-10-23] MEDS: LANTUS PER UNIT CHARGE SQ SCH (21:33)
[2021-10-23] MEDS: INSULIN ASPART PER UNIT SC SCH (21:34)
--- NOTE | 2021-10-24 08:11 | Magnetic Resonance Report ---
MR brain wo con CLINICAL HISTORY: expressive aphasia, ? CVA TECHNIQUE: Multiplanar and multisequence MR images of the brain were obtained without intravenous con trast. Comparison: Comparison is made to MRI brain 09/07/2021 FINDINGS: No abnormal restricted diffusion is identified. Foci of T2 and FLAIR hyperintensity are noted in the paraventricular areas consistent with chronic small vessel ischemic disease. Ex vacuo ventriculomegal y and sulcal enlargement is noted compatible with diffuse encephalomalacia. No mass is seen. There is no mass effect or midline shift. There is no evidence of acute intraparenchymal hemorrhage. No extra axial fluid collections are seen. The corpus callosum, pituitary gland, and cerebellar tonsils appea r grossly unremarkable. Flow voids of the major intracranial arterial vessels are identified. The imaged portions of the para nasal sinuses, mastoid air cells, and orbits are unremarkable. IMPRESSION: No acute abnormalities. ACT 112: Negative or not required by law. Electronically signed by: Dayron Flores M.D. 10/24/2021 8:09 AM
[2021-10-24 08:15] LABS: Basophils # (auto) 0.04 K/uL (0-0.2); Basophils % (auto) 0.5 %; Eosinophils % (auto) 3.7 %; Hematocrit (blood only) 39.4 % (34.1-44.9); Immature Granulocytes # (auto) 0.03 K/uL (0.00-0.02); Immature Granulocytes % (auto) 0.4 %; Lymphocytes # (auto) 1.63 K/uL (1.2-3.4); Lymphocytes % (auto) 20.1 %; Mean Corpuscular Hemoglobin 33.2 pg (25.0-34.0); Mean Corpuscular Volume 100.8 fL (80.0-100.0); Mean Platelet Volume 9.7 fL (9.4-12.3); Monocytes # (auto) 1.06 K/uL (0.24-0.82); Monocytes % (auto) 13.1 %; Neutrophils # (auto) 5.05 K/uL (1.4-6.5); Neutrophils % (auto) 62.2 %; Platelet Count 280 K/uL (130-400); RDW Coefficient of Variation 13.2 % (11.5-14.5); RDW Standard Deviation 48.4 fL (36.4-46.3); Red Blood Count 3.91 M/uL (3.93-5.22); White Blood Count 8.11 K/ul (4.8-10.8)
[2021-10-24] MEDS: LANTUS PER UNIT CHARGE SQ SCH ×2 (08:31→20:33)
[2021-10-24] MEDS: INSULIN ASPART PER UNIT SC SCH ×4 (08:31→20:23)
[2021-10-24] MEDS: ACETAMINOPHEN 500 MG TAB PO SCH ×4 (08:32→20:27)
[2021-10-24] MEDS: CHOLECALCIFEROL 1,000 UNITS 25 MCG TAB PO SCH (08:32)
[2021-10-24] MEDS: ASPIRIN 81 MG ECTAB PO SCH (08:33)
[2021-10-24] MEDS: METOPROLOL TARTRATE 25 MG TAB PO SCH ×2 (08:33→20:25)
[2021-10-24] MEDS: dilTIAZem HCL 240 MG CAPCR PO SCH (08:33)
[2021-10-24] MEDS: DIGOXIN 0.25 MG TAB PO SCH (08:33)
[2021-10-24] MEDS: FAMOTIDINE 20 MG TAB PO SCH (08:34)
[2021-10-24] MEDS: BIMATOPROST 0.01% OP SOLN 2.5 ML BTL OP SCH (08:34)
[2021-10-24] MEDS: APIXABAN 5 MG TABLET PO SCH ×2 (08:34→20:27)
[2021-10-24 08:43] LABS: BUN Creatinine Ratio 11.1 (10-20); Calcium 8.8 mg/dl (8.5-10.1); Chol HDL Ratio 4.6 (0-5); Creatinine Clr Calc Pharmacy 52.2 ml/min; Est GFR (African American) 77.3 ml/min; Est GFR (Non-African American) 66.7 ml/min; Potassium 3.5 mmol/L (3.5-5.1)
[2021-10-24 09:07] LABS: Estimated Average Glucose 183 mg/dl
[2021-10-24] MEDS ORDERED: STROKE PATIENT DISCHARGE STA (13:22)
[2021-10-24] MEDS ORDERED: PERFLUTREN LIPID MICROSPHERE (DEFINITY) IV ONE (14:34)
--- NOTE | 2021-10-24 16:44 | XCELERA ---
[id number]
--- NOTE | 2021-10-24 17:05 | Electrocardiogram Report ---
Test Reason : Blood Pressure : / mmHG Vent. Rate : 073 BPM Atrial Rate : 202 BPM P-R Int : 000 ms QRS Dur : 082 ms QT Int : 350 ms P-R-T Axes : 000 -64 111 degrees QTc Int : 385 ms Atrial fibrillation Left axis deviation Anterior infarct (cited on or before 07-SEP-2021) Abnormal ECG When compared with ECG of 08-SEP-2021 10:38, No significant change was found Confirmed by Guy Childs ([id number]) on 10/24/2021 5:04:48 PM Referred By: Erik Garcia Confirmed By:Guy Childs
--- NOTE | 2021-10-24 18:58 | Hospitalist Progress Note ---
Date of Service October 24, 2021 Assessment & Plan (1) TIA (transient ischemic attack): Plan: With difficulty word finding as her symptoms Improved. Symptoms have resolved. While she does have diabetes and dyslipidemia, her hypertension with fairly marked elevations would suggest that it was probably small vessel disease predominantly mediated by hypertension. Initiate losartan 25 mg titrate up as needed. Initiate aspirin 81 mg and follow (discussed small increased risk of bleeding being on Eliquis as wellbut that overall the benefits would outweigh the risks) Would defer to PCP as far as upgrading statin to moderate to high intensitygiven that her LDL is fairly low already, as far as any vascular benefit versus bleed risk. Likewise with her A1c being 8, certainly from a vascular disease standpoint tighter control would be reasonable, but given her a ge and overall conditionits not clear that she would truly benefit from tighter glycemic controlso therefore we will defer to the PCP in this regard as well. (2) Elevated troponin: Plan: - 34.3, suspect this may be due to severe hypertension, echo pending, but no significant concern for MA. (3) Hypertension: Plan: - On metoprolol, added losartan (4) Dyslipidemia: Plan: - Continue statin, consider starting on high intensitybut will defer to PCP as above. (5) Controlled type 2 diabetes mellitus with kidney complication, with long-term current use of insulin: Plan: A1c 8. Otherwise as above. (6) A-fib: Plan: Rate controlled, anticoagulated. (Rates actually sometimes a bit low, but largely she appears to be asymptomaticwe will continue to follow). (7) Chronic kidney disease, stage 3: Plan: - Renal function at baseline - Cr actually normal. may just be due to limitations of cockroft gault equation at her advanced age rather than true impairment in her GFR. Plan -stable for return to [facility] when they are able to accept her. Admission and Anticipated Discharge Date Admission Date: October 23, 2021 Subjective Feeling better and feeling back to baseline. Notes that she had a very brief (o nly a few seconds) difficulty with word finding earlier today which has since resolved and not returned. Otherwise she is feeling like her normal self. Would very much like to get out of the hospital. No other acute complaints. Discussed working diagnosis in detail. Review of Systems Review of Systems: All systems reviewed & are unremarkable except as noted in HPI & below Physical Exam Physical Exam: General she is awake and alert oriented pleasant no distress. HEENT normocephalic atraumatic mucous membranes moist. Breathing unlabored no accessory muscle use good effort. Skin shows no rashes no pallor or icterus. Neuro without focal deficits. Her speech is relatively fluent, she shows no focal deficits or lateralizing signs at this time. Results & Data Results & Data ([facility]) Vital Signs (Past 12 Hours) Vital Signs Temp Pulse Pulse Resp BP Pulse Ox O2 Del Method 10/24/21 18:32 98.1 F 48 L 19 176/73 H 96 Room Air 10/24/21 16:31 67 10/24/21 15:35 98.1 F 67 19 167/64 H 96 Room Air 10/24/21 12:08 97.7 F 54 L 18 137/63 96 Room Air 10/24/21 08:30 Room Air 10/24/21 08:33 76 10/24/21 07:17 77 10/24/21 07:02 98.2 F 74 18 181/95 H 95 Room Air PG Care Time/CCT Total # of Minutes Spent Total Time Spent with Patient: Total time spent is greater than 50% in coordination of care (as documented) at patient's floor/unit and/or counseling patient: Coding Level of Care Code 25820 Subseq Hosp Care Lvl 3 Diagnoses TIA (transient ischemic attack) G45.9 Elevated troponin R77.8 Hypertension I10 Dyslipidemia E78.5 Controlled type 2 diabetes mellitus with kidney complication, with long-term current use of insulin E11.29; Z79.4 A-fib I48.21 Atrial fibrillation type: permanent Chronic kidney disease, stage 3 N18.3 (1) A-fib Atrial fibrillation type: permanent Qualified Code(s): I48.21 - Permanent atrial fibrillation
[2021-10-24] MEDS: LIDOCAINE 5% 1 PATCH TD SCH ×2 (20:26→20:40)
[2021-10-24] MEDS: ATORVASTATIN 10 MG TAB PO SCH (20:27)
[2021-10-24] MEDS: LOSARTAN POTASSIUM 25 MG TAB PO SCH (20:57)
[2021-10-25 05:13] LABS: Basophils # (auto) 0.05 K/uL (0-0.2); Basophils % (auto) 0.5 %; Eosinophils # (auto) 0.07 K/uL (0-0.50); Eosinophils % (auto) 0.7 %; Hematocrit (blood only) 39.6 % (34.1-44.9); Hemoglobin 13.6 g/dl (12.0-16.0); Immature Granulocytes # (auto) 0.02 K/uL (0.00-0.02); Immature Granulocytes % (auto) 0.2 %; Lymphocytes # (auto) 1.65 K/uL (1.2-3.4); Lymphocytes % (auto) 16.7 %; Mean Corpuscular Hemoglobin 33.4 pg (25.0-34.0); Mean Corpuscular Hgb Conc 34.3 g/dL (32.0-36.0); Mean Corpuscular Volume 97.3 fL (80.0-100.0); Mean Platelet Volume 9.7 fL (9.4-12.3); Monocytes # (auto) 1.07 K/uL (0.24-0.82); Monocytes % (auto) 10.8 %; Neutrophils # (auto) 7.01 K/uL (1.4-6.5); Neutrophils % (auto) 71.1 %; Platelet Count 289 K/uL (130-400); RDW Coefficient of Variation 12.8 % (11.5-14.5); RDW Standard Deviation 45.3 fL (36.4-46.3); Red Blood Count 4.07 M/uL (3.93-5.22); White Blood Count 9.87 K/ul (4.8-10.8)
[2021-10-25 05:32] LABS: BUN Creatinine Ratio 11.4 (10-20); Calcium 9.3 mg/dl (8.5-10.1); Creatinine Clr Calc Pharmacy 53.5 ml/min; Est GFR (African American) 79.7 ml/min; Est GFR (Non-African American) 68.7 ml/min; Potassium 3.9 mmol/L (3.5-5.1)
[2021-10-25 05:37] LABS: Troponin I High Sensitivity 32.9 pg/ml (0-14)
[2021-10-25] MEDS: INSULIN ASPART PER UNIT SC SCH ×4 (08:14→20:46)
[2021-10-25] MEDS: ACETAMINOPHEN 500 MG TAB PO SCH ×3 (08:16→20:54)
[2021-10-25] MEDS: dilTIAZem HCL 240 MG CAPCR PO SCH (08:17)
[2021-10-25] MEDS: CHOLECALCIFEROL 1,000 UNITS 25 MCG TAB PO SCH (08:17)
[2021-10-25] MEDS: FAMOTIDINE 20 MG TAB PO SCH (08:17)
[2021-10-25] MEDS: DIGOXIN 0.25 MG TAB PO SCH (08:17)
[2021-10-25] MEDS: METOPROLOL TARTRATE 25 MG TAB PO SCH ×2 (08:17→20:53)
[2021-10-25] MEDS: ASPIRIN 81 MG ECTAB PO SCH (08:17)
[2021-10-25] MEDS: BIMATOPROST 0.01% OP SOLN 2.5 ML BTL OP SCH (08:18)
[2021-10-25] MEDS: APIXABAN 5 MG TABLET PO SCH (08:18)
[2021-10-25] MEDS: LANTUS PER UNIT CHARGE SQ SCH ×2 (08:21→20:53)
[2021-10-25] MEDS: LOSARTAN POTASSIUM 25 MG TAB PO SCH (09:15)
--- NOTE | 2021-10-25 18:04 | Hospitalist Progress Note ---
Date of Service October 25, 2021 Assessment & Plan (1) TIA (transient ischemic attack): Plan: With difficulty word finding as her symptoms Improved. Symptoms have resolved. While she does have diabetes and dyslipidemia, her hypertension with fairly marked elevations would suggest that it was probably small vessel disease predominantly mediated by hypertension. Initiated losartan 25 mg titrate up as needed. Initiate aspirin 81 mg and follow (discussed small increased risk of bleeding being on Eliquis as wellbut that overall the benefits would outweigh the risks) Would defer to PCP as far as upgrading statin to moderate to high intensitygiven that her LDL is fairly low already, as far as any vascular benefit versus bleed risk. Likewise with her A1c being 8, certainly from a vascular disease standpoint tighter control would be reasonable, but given her age and overall conditionits not clear that she would truly benefit from tighter glycemic controlso therefore we will defer to the PCP in this regard as well. confusion seems most consistent with a delirium, but understandably SNF nurse practitioner called with concernsnoting that the patient had never really returned to baseline after encephalitis stay in September, wondering if there was something else going on. We discussed the very likely possibility that it is just a deliriumgiven that she did have encephalopathy, and that deliriums can sometimes takes months to resolve, but given her level of concernwe will work- up further, most notably for ENDOSCOPIC TECHNICIAN Lyme or West Nile given her overall presentation during last admissionalso follow-up CBC/CMP/CRP, serial exams. Consider neurology consult. (2) Elevated troponin: Plan: - 34.3, suspect this may be due to severe hypertension, echo pending, but no significant concern for OH. (3) Hypertension: Plan: - On metoprolol, added losartan (4) Dyslipidemia: Plan: - Continue statin, consider starting on high intensitybut will defer to PCP as above. (5) Controlled type 2 diabetes mellitus with kidney complication, with long-term current use of insulin: Plan: A1c 8. Otherwise as above. (6) A-fib: Plan: Rate controlled, anticoagulated. (Rates actually sometimes a bit low, but largely she appears to be asymptomaticwe will continue to follow). (7) Chronic kidney disease, stage 3: Plan: - Renal function at baseline - Cr actually normal. may just be due to limitations of cockroft gault equation at her advanced age rather than true impairment in her GFR. Plan -stable for [facility] when [facility] are able to accept her. Admission and Anticipated Discharge Date Admission Date: October 23, 2021 Subjective More confused today. No meaningful HPI or review of systems obtainable. Nursing notes has been going on all day. Given that the overall appearance was quite consistent with a hospital-acquired delirium, initially the plan was to have the patient return to SNF with a more familiar environment. As we were coordinating discharge, SNF nurse practitioner called with concernsnoting that the patient had never really returned to baseline after encephalitis stay in September, wondering if there was something else going on. We discussed the very likely possibility that it is just a deliriumgiven that she did have encephalopathy, and that deliriums can sometimes takes months to resolve, but given her level of concernwe will work-up further, most notably for ENDOSCOPIC TECHNICIAN Lyme or West Nile given her overall presentation during last admissionalso follow-up CBC/CMP/CRP, serial exams. Consider neurology consult. Review of Systems Review of Systems: All systems reviewed & are unremarkable except as noted in HPI & below Physical Exam Physical Exam: In general she is awake but confused. No distress. HEENT normocephalic atraumatic mucous membranes moist. Breathing unlabored no accessory muscle use good effort. Skin shows no rashes no pallor or icterus. Lungs are clear to auscultation bilaterally no rales rhonchi or wheezes, cardio is regular may be slightly tachycardic at the time I see her no rubs murmurs or gallops. Neuro with no focal deficits no facial droop equal motor strength, sensory is a little bit difficult to discern but seems to be equal and intact. Results & Data Results & Data ([facility]) Vital Signs (Past 12 Hours) Vital Signs Temp Pulse Pulse Pulse Resp BP Pulse Ox 10/25/21 15:59 62 10/25/21 15:07 98.8 F 77 19 161/79 H 95 10/25/21 11:15 98.1 F 79 18 157/54 H 93 10/25/21 08:30 10/25/21 08:17 72 10/25/21 07:10 77 10/25/21 06:42 98.6 F 88 18 160/78 H 97 O2 Del Method 10/25/21 15:59 10/25/21 15:07 Room Air 10/25/21 11:15 Room Air 10/25/21 08:30 Room Air 10/25/21 08:17 10/25/21 07:10 10/25/21 06:42 Room Air PG Care Time/CCT Total # of Minutes Spent Total Time Spent with Patient: Total time spent is greater than 50% in coordination of care (as documented) at patient's floor/unit and/or counseling patient: Coding Level of Care Code 47740 Subseq Hosp Care Lvl 3 Diagnoses TIA (transient ischemic attack) G45.9 Elevated troponin R77.8 Hypertension I10 Dyslipidemia E78.5 Controlled type 2 diabetes mellitus with kidney complication, with long-term current use of insulin E11.29; Z79.4 A-fib I48.21 Atrial fibrillation type: permanent Chronic kidney disease, stage 3 N18.3 (1) A-fib Atrial fibrillation type: permanent Qualified Code(s): I48.21 - Permanent atrial fibrillation
[2021-10-25] MEDS: LIDOCAINE 5% 1 PATCH TD SCH (20:52)
[2021-10-25] MEDS: ATORVASTATIN 10 MG TAB PO SCH (20:54)
[2021-10-26] MEDS: LOSARTAN POTASSIUM 25 MG TAB PO SCH ×2 (07:50→10:06)
[2021-10-26] MEDS: dilTIAZem HCL 240 MG CAPCR PO SCH ×2 (07:50→10:06)
[2021-10-26] MEDS: METOPROLOL TARTRATE 25 MG TAB PO SCH ×3 (07:51→21:02)
[2021-10-26] MEDS: DIGOXIN 0.25 MG TAB PO SCH ×2 (07:51→10:06)
[2021-10-26] MEDS: INSULIN ASPART PER UNIT SC SCH ×4 (08:37→21:02)
[2021-10-26] MEDS: ACETAMINOPHEN 500 MG TAB PO SCH ×3 (08:38→21:01)
[2021-10-26] MEDS: FAMOTIDINE 20 MG TAB PO SCH ×2 (08:39→10:06)
[2021-10-26] MEDS: ASPIRIN 81 MG ECTAB PO SCH ×2 (08:39→10:06)
[2021-10-26] MEDS: CHOLECALCIFEROL 1,000 UNITS 25 MCG TAB PO SCH ×2 (08:39→10:06)
[2021-10-26] MEDS: BIMATOPROST 0.01% OP SOLN 2.5 ML BTL OP SCH (08:39)
[2021-10-26] MEDS: LANTUS PER UNIT CHARGE SQ SCH ×2 (08:45→21:00)
[2021-10-26 08:48] LABS: Basophils # (auto) 0.05 K/uL (0-0.2); Basophils % (auto) 0.5 %; Eosinophils # (auto) 0.03 K/uL (0-0.50); Eosinophils % (auto) 0.3 %; Hematocrit (blood only) 40.5 % (34.1-44.9); Immature Granulocytes # (auto) 0.03 K/uL (0.00-0.02); Immature Granulocytes % (auto) 0.3 %; Lymphocytes # (auto) 1.51 K/uL (1.2-3.4); Lymphocytes % (auto) 13.9 %; Mean Corpuscular Hemoglobin 33.5 pg (25.0-34.0); Mean Corpuscular Hgb Conc 34.6 g/dL (32.0-36.0); Mean Corpuscular Volume 96.9 fL (80.0-100.0); Mean Platelet Volume 9.8 fL (9.4-12.3); Monocytes # (auto) 1.04 K/uL (0.24-0.82); Monocytes % (auto) 9.6 %; Neutrophils # (auto) 8.22 K/uL (1.4-6.5); Neutrophils % (auto) 75.4 %; Platelet Count 322 K/uL (130-400); RDW Standard Deviation 46.5 fL (36.4-46.3); Red Blood Count 4.18 M/uL (3.93-5.22); White Blood Count 10.88 K/ul (4.8-10.8)
[2021-10-26 09:18] LABS: Albumin Globulin Ratio 0.9 (0.9-2); Albumin Level 3.5 gm/dl (3.4-5.0); Bilirubin,Total 1.1 mg/dl (0.2-1.0); C Reactive Protein 3.76 mg/dl (0-0.5); Calcium 9.5 mg/dl (8.5-10.1); Creatinine Clr Calc Pharmacy 52.8 ml/min; Est GFR (African American) 78.5 ml/min; Est GFR (Non-African American) 67.7 ml/min; Globulin 4.1 gm/dl (2.5-4.0); Potassium 3.6 mmol/L (3.5-5.1); Total Protein 7.6 gm/dl (6.0-8.3)
[2021-10-26] MEDS: CYANOCOBALAMIN 1000 MCG/ML VIAL IM SCH (15:17)
--- NOTE | 2021-10-26 19:03 | Hospitalist Progress Note ---
Date of Service October 26, 2021 Assessment & Plan (1) TIA (transient ischemic attack): Plan: With difficulty word finding as her symptoms Improved. Symptoms have resolved. While she does have diabetes and dyslipidemia, her hypertension with fairly marked elevations would suggest that it was probably small vessel disease predominantly mediated by hypertension. Initiated losartan 25 mg titrate up as needed. Initiate aspirin 81 mg and follow (discussed small increased risk of bleeding being on Eliquis as wellbut that overall the benefits would outweigh the risks) Would defer to PCP as far as upgrading statin to moderate to high intensitygiven that her LDL is fairly low already, as far as any vascular benefit versus bleed risk. Likewise with her A1c being 8, certainly from a vascular disease standpoint tighter control would be reasonable, but given her age and overall conditionits not clear that she would truly benefit from tighter glycemic controlso therefore we will defer to the PCP in this regard as well. confusion seems most consistent with a delirium, but understandably SNF nurse practitioner called with concernsnoting that the patient had never really returned to baseline after encephalitis stay in September, wondering if there was something else going on. On more detailed reviewher Lyme screen was positive, but the bands were actually negative, casting a bit more of an unclear picture of what was driving her encephalopathy/delirium a month ago. Given that we are in an endemic area however, LP for Lyme and West Nile certainly has a plausible yield. On review of other labsTSH was normal, B12 oddly was low at 198 and then a bit low at 394 a few weeks apartbut given that low B12 could certainly contributereplacing. Will send thiamine level for completeness given that she is slow on B vitamins. She still most suspected delirium clinically, and that her waxing and waning mentation would fit with a delirium that has simply not cleared yet, but within parameters of what is commonly seen with deliriumbut certainly warrants further work-up as above. MRI brain was negative, of note. Given that she is not eating well, will start maintenance fluids to avoid dehydration being a another potential deliria genic factor. (2) Elevated troponin: Plan: - 34.3, suspect this may be due to severe hypertension, echo pending, but no significant concern for OR. (3) Hypertension: Plan: - On metoprolol, added losartan, after discussion with SNF medical teammidodrine was started due to persistent orthostasisgiven that this has not been the case here, it has been held. (4) Dyslipidemia: Plan: - Continue statin, consider starting on high intensitybut will defer to PCP as above. (5) Controlled type 2 diabetes mellitus with kidney complication, with long-term current use of insulin: Plan: A1c 8. Not eating welllow sugar todayinsulins reduced. (6) A-fib: Plan: Rate controlled, anticoagulated chronicallyacutely on hold due to LP. (7) Chronic kidney disease, stage 3: Plan: - Renal function at baseline - Cr actually normal. may just be due to limitations of cockroft gault equation at her advanced age rather than true impairment in her GFR. Admission and Anticipated Discharge Date Admission Date: October 23, 2021 Subjective No meaningful HPI review of systems. Does not really talk today. Has not really been taking medicines. LP to be done tomorrow given her Eliquis dosing. Review of Systems Review of Systems: Unobtainable due to cognitive status Physical Exam Physical Exam: Awake but noncommunicative. Appears in no distress. HEENT normocephalic atraumatic mucous membranes moist. Cardio is regular no rubs murmurs or gallops. Lungs are clear to auscultation bilaterally no rales rhonchi or wheeze with good effort. Abdomen is soft nondistended nontender no masses organomegaly. Extremities without cyanosis clubbing. Neuro exam difficult due to lack of cooperation but she shows no focal neurodeficits, motor appears to be equal muscle tone is equal and intact bilaterally, pupils are equal and reactive eyes move symmetrically. Skin without rashes, pallor, icterus. Neck is supple. Results & Data Results & Data ([facility]) Vital Signs (Past 12 Hours) Vital Signs Temp Pulse Pulse Pulse Resp BP BP 10/26/21 15:47 107 H 10/26/21 14:57 97.7 F 114 H 18 160/73 H 10/26/21 11:03 98.1 F 90 19 179/98 H 10/26/21 07:45 10/26/21 07:57 98.4 F 92 H 18 195/77 H 10/26/21 07:48 91 H 187/79 H 10/26/21 07:28 85 Pulse Ox O2 Del Method 10/26/21 15:47 10/26/21 14:57 95 Room Air 10/26/21 11:03 95 07/21/22 07:45 Room Air 10/26/21 07:57 95 Room Air 10/26/21 07:48 10/26/21 07:28 PG Care Time/CCT Total # of Minutes Spent Total Time Spent with Patient: Total time spent is greater than 50% in coordination of care (as documented) at patient's floor/unit and/or counseling patient: Coding Level of Care Code 13444 Subseq Hosp Care Lvl 3 Diagnoses TIA (transient ischemic attack) G45.9 Elevated troponin R77.8 Hypertension I10 Dyslipidemia E78.5 Controlled type 2 diabetes mellitus with kidney complication, with long-term current use of insulin E11.29; Z79.4 A-fib I48.21 Atrial fibrillation type: permanent Chronic kidney disease, stage 3 N18.3 (1) A-fib Atrial fibrillation type: permanent Qualified Code(s): I48.21 - Permanent atrial fibrillation
[2021-10-26] MEDS: LACTATED RINGER'S 1,000 ML IV SCH (21:00)
[2021-10-26] MEDS: ATORVASTATIN 10 MG TAB PO SCH (21:01)
[2021-10-26] MEDS: LIDOCAINE 5% 1 PATCH TD SCH (21:02)
[2021-10-27 08:03] LABS: Anion Gap 7 (3-11); BUN Creatinine Ratio 19.8 (10-20); Blood Urea Nitrogen 16 mg/dl (6-23); C Reactive Protein 5.44 mg/dl (0-0.5); Carbon Dioxide 29 mmol/L (21-32); Chloride 100 mmol/L (98-107); Creatinine Clr Calc Pharmacy 52.2 ml/min; Est GFR (African American) 77.3 ml/min; Est GFR (Non-African American) 66.7 ml/min; Glucose 65 mg/dl (70-99(Fasting)); Sodium 136 mmol/L (136-145)
[2021-10-27] MEDS: CYANOCOBALAMIN 1000 MCG/ML VIAL IM SCH ×2 (08:34→08:53)
[2021-10-27] MEDS: ASPIRIN 81 MG ECTAB PO SCH ×2 (08:35→08:36)
[2021-10-27] MEDS: CHOLECALCIFEROL 1,000 UNITS 25 MCG TAB PO SCH ×2 (08:35→08:38)
[2021-10-27] MEDS: METOPROLOL TARTRATE 25 MG TAB PO SCH ×4 (08:35→21:57)
[2021-10-27] MEDS: BIMATOPROST 0.01% OP SOLN 2.5 ML BTL OP SCH ×2 (08:35→08:37)
[2021-10-27] MEDS: dilTIAZem HCL 240 MG CAPCR PO SCH ×2 (08:35→08:37)
[2021-10-27] MEDS: LOSARTAN POTASSIUM 25 MG TAB PO SCH ×2 (08:35→08:36)
[2021-10-27] MEDS: DIGOXIN 0.25 MG TAB PO SCH ×2 (08:36→08:37)
[2021-10-27] MEDS: FAMOTIDINE 20 MG TAB PO SCH ×2 (08:37→08:39)
[2021-10-27] MEDS: ACETAMINOPHEN 500 MG TAB PO SCH ×3 (08:37→21:34)
[2021-10-27] MEDS: INSULIN ASPART PER UNIT SC SCH ×4 (08:42→21:34)
[2021-10-27] MEDS: LANTUS PER UNIT CHARGE SQ SCH ×2 (08:43→21:34)
[2021-10-27] MEDS: LACTATED RINGER'S 1,000 ML IV SCH ×2 (10:45→23:39)
--- NOTE | 2021-10-27 13:57 | Fluoroscopy Report ---
FLUOROSCOPIC GUIDED LUMBAR PUNCTURE CLINICAL HISTORY: Encephalopathy. PROCEDURE: The risks, benefits, and alternatives to the procedure is discussed with the patient who v oiced understanding. Informed phone consent was obtained from the patient's daughter. The patient was placed prone on the fluoroscopy table. The lower back was prepped and draped in the usual sterile fa shion. 1% lidocaine was used for local anesthesia. A 20-gauge spinal needle was inserted into the L3- L4 interlaminar space and approximately 10 cc of clear colorless cerebrospinal fluid was removed. A s hossein spot image was saved. The patient tolerated the procedure well. There were no immediate complic ations. The patient was then returned to the medical floor for further observation. Fluoroscopy time: 0.3 minutes IMPRESSION: Fluoroscopic guided lumbar puncture with removal of approximately 10 cc of cerebrospinal fluid. There were no immediate complications. ACT 112: Negative or not required by law. Electronically signed by: Antonio Brock M.D. 10/27/2021 1:55 PM
[2021-10-27 14:11] LABS: Appearance CSF Clear; CSF Count Tube # 2; CSF Xanthrochromic No xanthochromia; Color CSF Colorless; Red Blood Cell CSF (A) 12 /uL (0-); Red Blood Cell CSF (B) 12 /uL (0-); White Blood Cell CSF (A) 0 /uL (0-5); White Blood Cell CSF (B) 3 /uL (0-5)
[2021-10-27 14:16] LABS: Total Protein CSF 93.8 mg/dl (15-45)
[2021-10-27] MEDS: cefTRIAXone SODIUM 2,000 MG in DEXTROSE 5% 50 ML IV SCH (18:11)
--- NOTE | 2021-10-27 18:40 | Hospitalist Progress Note ---
Date of Service October 27, 2021 Assessment & Plan (1) TIA (transient ischemic attack): Plan: With difficulty word finding as her symptoms Improved. Symptoms have resolved. While she does have diabetes and dyslipidemia, her hypertension with fairly marked elevations would suggest that it was probably small vessel disease predominantly mediated by hypertension. Initiated losartan 25 mg titrate up as needed. Initiate aspirin 81 mg and follow (discussed small increased risk of bleeding being on Eliquis as wellbut that overall the benefits would outweigh the risks) Would defer to PCP as far as upgrading statin to moderate to high intensitygiven that her LDL is fairly low already, as far as any vascular benefit versus bleed risk. Likewise with her A1c being 8, certainly from a vascular disease standpoint tighter control would be reasonable, but given her age and overall conditionits not clear that she would truly benefit from tighter glycemic controlso therefore we will defer to the PCP in this regard as well. confusion seems most consistent with a delirium, but understandably SNF nurse practitioner called with concernsnoting that the patient had never really returned to baseline after encephalitis stay in September, wondering if there was something else going on. On more detailed reviewher Lyme screen was positive, but the bands were actually negative, casting a bit more of an unclear picture of what was driving her encephalopathy/delirium a month ago. Given that we are in an endemic area however, LP for Lyme and [place] Nile certainly has a plausible yield. At this point given that LP has a total protein of almost 95we will start empiric Rocephin pending Lyme PCR/antibodies. If Lyme is negative and West Nile is positive, then that would certainly be a plausible explanation. If both are negativethen consideration for formal neurology consult, possibly repeat LP for odd/rare/esoteric autoantibodies, or just empiric trial of corticosteroids could be entertained. On review of other labsTSH was normal, B12 oddly was low at 198 and then a bit low at 394 a few weeks apartbut given that low B12 could certainly contributereplacing. Sent thiamine level for completeness given that she is slow on B vitamins. She still most suspected delirium clinically, and that her waxing and waning mentation would fit with a delirium that has simply not cleared yet, but within parameters of what is commonly seen with deliriumbut certainly warrants further work-up as above. MRI brain was negative, of note. Given that she is not eating well, continue maintenance fluids to avoid dehydration being a another potential deliriogenic factor. (2) Elevated troponin: Plan: - 34.3, suspect this may be due to severe hypertension, echo pending, but no significant concern for PA. (3) Hypertension: Plan: - On metoprolol, added losartan, after discussion with SNF medical teammidodrine was started due to persistent orthostasisgiven that this has not been the case here, it has been held. Blood pressures running somewhat high, but she has been not taking her p.o. meds well. But given that she is not showing any significant acute signs or symptoms at this time, I hesitate to add as needed/intravenous antihypertensives that may cause a bit of transient hypotension/symptoms that may worsen her delirium. (4) Dyslipidemia: Plan: - Continue statin, consider changing to high intensitybut will defer to PCP as above. (5) Controlled type 2 diabetes mellitus with kidney complication, with long-term current use of insulin: Plan: A1c 8. Not eating well againinsulins reduced again (6) A-fib: Plan: Rate overall controlled, anticoagulated chronicallyacutely on hold due to LP. (7) Chronic kidney disease, stage 3: Plan: - Renal function at baseline - Cr actually normal. may just be due to limitations of cockroft gault equation at her advanced age rather than true impairment in her GFR. Admission and Anticipated Discharge Date Admission Date: October 23, 2021 Subjective a bit more alert when son present. still no meaningful HPI or ROS. updated son to the best of my ability. Answered all questions to his satisfaction. Reviewed LP, discussed case with nurse practitioner at [facility] and updated Review of Systems Review of Systems: Unobtainable due to cognitive status Physical Exam Physical Exam: This morning whenever I see her she is giving no meaningful HPI review of systems, staring blankly. This afternoon she does converse with the son, albeit in very small and superficial things and sometimes not at all, but she is able to answer questions such as "I do not know" in an answer to asking exactly where her daughter practices as a PA. (For clarity sake it should be noted that the son was not fully aware himself either). HEENT normocephalic atraumatic mucous membranes more moist. Cardio is regular no rubs murmurs gallops. Lungs are clear no rales rhonchi or wheeze with good effort. No focal neurodeficits. Skin without rashes pallor or icterus. Results & Data Results & Data ([facility]) Vital Signs (Past 12 Hours) Vital Signs Temp Pulse Pulse Resp BP Pulse Ox O2 Del Method 10/27/21 15:00 84 10/27/21 15:21 98.2 F 104 H 16 176/80 H 94 Room Air 10/27/21 08:30 Room Air 10/27/21 11:07 97.7 F 95 H 16 174/90 H 97 Room Air 10/27/21 08:43 97.7 F 83 16 165/107 H 94 Room Air 10/27/21 07:18 81 PG Care Time/CCT Total # of Minutes Spent Total Time Spent with Patient: Total time spent is greater than 50% in coordination of care (as documented) at patient's floor/unit and/or counseling patient: Coding Level of Care Code 45666 Subseq Hosp Care Lvl 3 Diagnoses TIA (transient ischemic attack) G45.9 Elevated troponin R77.8 Hypertension I10 Dyslipidemia E78.5 Controlled type 2 diabetes mellitus with kidney complication, with long-term current use of insulin E11.29; Z79.4 A-fib I48.21 Atrial fibrillation type: permanent Chronic kidney disease, stage 3 N18.3 (1) A-fib Atrial fibrillation type: permanent Qualified Code(s): I48.21 - Permanent atrial fibrillation
[2021-10-27] MEDS: LIDOCAINE 5% 1 PATCH TD SCH (21:34)
[2021-10-27] MEDS: ATORVASTATIN 10 MG TAB PO SCH ×2 (21:34→21:57)
[2021-10-27] MEDS ORDERED: METOPROLOL TARTRATE 1 MG/ML VIAL IV STA (22:02)
[2021-10-28] MEDS ORDERED: METOPROLOL TARTRATE 1 MG/ML VIAL IV STA ×3 (05:01→17:38)
--- NOTE | 2021-10-28 05:07 | Communication Note ---
Date of Service: October 28, 2021 Patient has been refusing PO meds ? 2/2 delirium. She has been refusing PO metoprolol and the digxin. afib 110s-120s. Providing prn doses of IV lopressor. Repleting K and checking Mg.
[2021-10-28] MEDS: cefTRIAXone SODIUM 2,000 MG in DEXTROSE 5% 50 ML IV SCH ×2 (05:41→17:28)
[2021-10-28] MEDS: POTASSIUM CHLORIDE / WTR 10 MEQ/100 ML PLCT IV SCH ×2 (05:42→06:37)
[2021-10-28 06:44] LABS: BUN Creatinine Ratio 21.9 (10-20); Calcium 8.9 mg/dl (8.5-10.1); Creatinine Clr Calc Pharmacy 57.9 ml/min; Est GFR (African American) 87.7 ml/min; Est GFR (Non-African American) 75.6 ml/min; Magnesium 1.8 mg/dl (1.7-2.4); Potassium 3.2 mmol/L (3.5-5.1)
[2021-10-28] MEDS ORDERED: ACETAMINOPHEN 500 MG TAB PO PRN (08:24)
[2021-10-28] MEDS: INSULIN ASPART PER UNIT SC SCH ×4 (08:30→21:40)
[2021-10-28] MEDS: LACTATED RINGER'S 1,000 ML IV SCH ×2 (09:25→21:41)
[2021-10-28] MEDS: BIMATOPROST 0.01% OP SOLN 2.5 ML BTL OP SCH (09:27)
[2021-10-28] MEDS: METOPROLOL TARTRATE 25 MG TAB PO SCH ×2 (09:28→20:42)
[2021-10-28] MEDS: ASPIRIN 81 MG ECTAB PO SCH (09:28)
[2021-10-28] MEDS: LOSARTAN POTASSIUM 25 MG TAB PO SCH (09:28)
[2021-10-28] MEDS: DIGOXIN 0.25 MG TAB PO SCH (09:28)
[2021-10-28] MEDS: CHOLECALCIFEROL 1,000 UNITS 25 MCG TAB PO SCH (09:36)
[2021-10-28] MEDS: dilTIAZem HCL 240 MG CAPCR PO SCH (09:37)
[2021-10-28] MEDS: FAMOTIDINE 20 MG TAB PO SCH (09:37)
[2021-10-28] MEDS: CYANOCOBALAMIN 1000 MCG/ML VIAL IM SCH (09:44)
[2021-10-28] MEDS: METOPROLOL TARTRATE 1 MG/ML VIAL IV SCH ×3 (11:35→23:17)
--- NOTE | 2021-10-28 17:42 | Hospitalist Progress Note ---
Date of Service October 28, 2021 Assessment & Plan (1) TIA (transient ischemic attack): Plan: With difficulty word finding as her symptoms Improved. Symptoms have resolved. While she does have diabetes and dyslipidemia, her hypertension with fairly marked elevations would suggest that it was probably small vessel disease predominantly mediated by hypertension. Initiated losartan 25 mg titrate up as needed. Initiate aspirin 81 mg and follow (discussed small increased risk of bleeding being on Eliquis as wellbut that overall the benefits would outweigh the risks) Would defer to PCP as far as upgrading statin to moderate to high intensitygiven that her LDL is fairly low already, as far as any vascular benefit versus bleed risk. Likewise with her A1c being 8, certainly from a vascular disease standpoint tighter control would be reasonable, but given her age and overall conditionits not clear that she would truly benefit from tighter glycemic controlso therefore we will defer to the PCP in this regard as well. confusion seems most consistent with a delirium, but understandably SNF nurse practitioner called with concernsnoting that the patient had never really returned to baseline after encephalitis stay in September, wondering if there was something else going on. On more detailed reviewher Lyme screen was positive, but the bands were actually negative, casting a bit more of an unclear picture of what was driving her encephalopathy/delirium a month ago. Given that we are in an endemic area however, LP for Lyme and West Nile certainly has a plausible yield. At this point given that LP has a total protein of almost 95we will start empiric Rocephin pending Lyme PCR/antibodies. If Lyme is negative and West Nile is positive, then that would certainly be a plausible explanation. If both are negativethen consideration for formal neurology consult, possibly repeat LP for odd/rare/esoteric autoantibodies, or just empiric trial of corticosteroids could be entertained. On review of other labsTSH was normal, B12 oddly was low at 198 and then a bit low at 394 a few weeks apartbut given that low B12 could certainly contributereplacing. Sent thiamine level for completeness given that she is slow on B vitamins. She still most suspected delirium clinically, and that her waxing and waning mentation would fit with a delirium that has simply not cleared yet, but within parameters of what is commonly seen with deliriumbut certainly warrants further work-up as above. MRI brain was negative, of note. Given that she is not eating well yet, continue maintenance fluids to avoid dehydration being a another potential deliriogenic factor. (2) Elevated troponin: Plan: - 34.3, suspect this may be due to severe hypertension, echo pending, but no significant concern for PR. (3) Hypertension: Plan: - On metoprolol, added losartan, after discussion with SNF medical teammidodrine was started due to persistent orthostasisgiven that this has not been the case here, it has been held. Blood pressures running somewhat high, but she has been not taking her p.o. meds well. But given that she is not showing any significant acute signs or symptoms at this time, I hesitate to add as needed/intravenous antihypertensives that may cause a bit of transient hypotension/symptoms that may worsen her delirium. (4) Dyslipidemia: Plan: - Continue statin, consider changing to high intensitybut will defer to PCP as above. (5) Controlled type 2 diabetes mellitus with kidney complication, with long-term current use of insulin: Plan: A1c 8. Not eating well againinsulins reduced again (6) A-fib: Plan: Given that she has been refusing medications, rate has come up someIV metoprolol if needed to keep rates reasonable. But she is taking some of her p.o. meds now. Can resume Eliquis tonight. (7) Chronic kidney disease, stage 3: Plan: - Renal function at baseline - Cr actually normal. may just be due to limitations of cockroft gault equation at her advanced age rather than true impairment in her GFR. Admission and Anticipated Discharge Date Admission Date: October 23, 2021 Subjective Seems to be doing a little bit better. Awake and does talk some. Not really any formal or full HPI or review of systems obtainable, but does note that she is feeling okay and denies pain. Review of Systems Review of Systems: Unobtainable due to cognitive status Physical Exam Physical Exam: Awake more alert talkative still seems to be disoriented, no distress. HEENT normocephalic atraumatic mucous membranes moist. Breathing unlabored no accessory muscle use good effort. Skin shows no rashes no pallor or icterus. Neuro without focal deficits. Cardio is sl tachy irreg. Results & Data Results & [facility] ([facility]) Vital Signs (Past 12 Hours) Vital Signs Temp Pulse Pulse Resp BP BP Pulse Ox 10/28/21 15:09 116 H 07/23/22 14:40 99.0 F 109 H 16 144/66 H 95 10/28/21 11:10 98.1 F 95 H 18 133/69 93 10/28/21 08:00 10/28/21 09:28 106 H 10/28/21 07:44 98.4 F 109 H 18 162/59 H 93 10/28/21 06:10 110 H 10/28/21 06:36 111 H 186/88 H 10/28/21 05:41 120 H 184/86 H O2 Del Method 10/28/21 15:09 10/28/21 14:40 Room Air 10/28/21 11:10 Room Air 10/28/21 08:00 Room Air 10/28/21 09:28 10/28/21 07:44 Room Air 10/28/21 06:10 10/28/21 06:36 10/28/21 05:41 PG Care Time/CCT Total # of Minutes Spent Total Time Spent with Patient: Total time spent is greater than 50% in coordination of care (as documented) at patient's floor/unit and/or counseling patient: Coding Level of Care Code 70186 Subseq Hosp Care Lvl 3 Diagnoses TIA (transient ischemic attack) G45.9 Elevated troponin R77.8 Hypertension I10 Dyslipidemia E78.5 Controlled type 2 diabetes mellitus with kidney complication, with long-term cur rent use of insulin E11.29; Z79.4 A-fib I48.21 Atrial fibrillation type: permanent Chronic kidney disease, stage 3 N18.3 (1) A-fib Atrial fibrillation type: permanent Qualified Code(s): I48.21 - Permanent atrial fibrillation
[2021-10-28] MEDS: APIXABAN 5 MG TABLET PO SCH (20:46)
[2021-10-28] MEDS: LIDOCAINE 5% 1 PATCH TD SCH (20:46)
[2021-10-28] MEDS: ATORVASTATIN 10 MG TAB PO SCH (20:46)
[2021-10-28] MEDS: LANTUS PER UNIT CHARGE SQ SCH (21:40)
[2021-10-29] MEDS: METOPROLOL TARTRATE 1 MG/ML VIAL IV SCH ×5 (05:23→23:17)
[2021-10-29] MEDS: cefTRIAXone SODIUM 2,000 MG in DEXTROSE 5% 50 ML IV SCH ×2 (05:48→15:59)
[2021-10-29] MEDS: FAMOTIDINE 20 MG TAB PO SCH (08:25)
[2021-10-29] MEDS: ASPIRIN 81 MG ECTAB PO SCH (08:25)
[2021-10-29] MEDS: DIGOXIN 0.25 MG TAB PO SCH (08:27)
[2021-10-29] MEDS: CHOLECALCIFEROL 1,000 UNITS 25 MCG TAB PO SCH (08:27)
[2021-10-29] MEDS: dilTIAZem HCL 240 MG CAPCR PO SCH (08:27)
[2021-10-29] MEDS: CYANOCOBALAMIN 1000 MCG/ML VIAL IM SCH (08:27)
[2021-10-29] MEDS: LOSARTAN POTASSIUM 25 MG TAB PO SCH (08:27)
[2021-10-29] MEDS: INSULIN ASPART PER UNIT SC SCH ×4 (08:29→20:38)
[2021-10-29] MEDS: BIMATOPROST 0.01% OP SOLN 2.5 ML BTL OP SCH (08:29)
[2021-10-29] MEDS: METOPROLOL TARTRATE 100 MG TAB PO SCH ×2 (08:33→20:02)
[2021-10-29] MEDS: APIXABAN 5 MG TABLET PO SCH ×2 (10:05→20:02)
[2021-10-29] MEDS: LACTATED RINGER'S 1,000 ML IV SCH (10:39)
--- NOTE | 2021-10-29 12:58 | Hospitalist Progress Note ---
Date of Service October 29, 2021 Assessment & Plan (1) TIA (transient ischemic attack): Plan: With difficulty word finding as her symptoms Improved. Symptoms have resolved. While she does have diabetes and dyslipidemia, her hypertension with fairly marked elevations would suggest that it was probably small vessel disease predominantly mediated by hypertension. Initiated losartan 25 mg titrate up as needed. Initiate aspirin 81 mg and follow (discussed small increased risk of bleeding being on Eliquis as wellbut that overall the benefits would outweigh the risks) Would defer to PCP as far as upgrading statin to moderate to high intensitygiven that her LDL is fairly low already, as far as any vascular benefit versus bleed risk. Likewise with her A1c being 8, certainly from a vascular disease standpoint tighter control would be reasonable, but given her age and overall conditionits not clear that she would truly benefit from tighter glycemic controlso therefore we will defer to the PCP in this regard as well. confusion seems most consistent with a delirium, but understandably SNF nurse practitioner called with concernsnoting that the patient had never really returned to baseline after encephalitis stay in September, wondering if there was something else going on. On more detailed reviewher Lyme screen was positive, but the bands were actually negative, casting a bit more of an unclear picture of what was driving her encephalopathy/delirium a month ago. Given that we are in an endemic area however, LP for Lyme and West Nile certainly has a plausible yield. At this point given that LP has a total protein of almost 95we will start empiric Rocephin pending Lyme PCR/antibodies. If Lyme is negative and West Nile is positive, then that would certainly be a plausible explanation. If both are negativethen consideration for formal neurology consult, possibly repeat LP for odd/rare/esoteric autoantibodies, or just empiric trial of corticosteroids could be entertained. On review of other labsTSH was normal, B12 oddly was low at 198 and then a bit low at 394 a few weeks apartbut given that low B12 could certainly contributereplacing. Sent thiamine level for completeness given that she is slow on B vitamins. She still most suspected delirium clinically, and that her waxing and waning mentation would fit with a delirium that has simply not cleared yet, but within parameters of what is commonly seen with deliriumbut certainly warrants further work-up as above. MRI brain was negative, of note. Seems to be showing some improvementwhether that is simply because her hospital room has become a stable environment, she is starting to have benefit from the ceftriaxone, or some other inflammation is abatingcertainly could be multifactorialbut improvement is noted. Continue maintenance fluids for nowbut as her mentation improves and her p.o. intake improves, hopefully by tomorrow we can DC fluids (2) Elevated troponin: Plan: - 34.3, suspect this may be due to severe hypertension, echo pending, but no significant concern for RI. Secondary risk reduction, med management (3) Hypertension: Plan: - Blood pressures has been variable, but so has been her p.o. intakeand with that her intake of her p.o. meds. Now that she is improving mentally and taking in p.o. better/eating and drinking better, I anticipate this improving. (4) Dyslipidemia: Plan: - Continue statin, consider changing to high intensitybut will defer to PCP as above. (5) Controlled type 2 diabetes mellitus with kidney complication, with long-term current use of insulin: Plan: A1c 8. Have been adjusting insulins and patient showing reasonable glycemic control (6) A-fib: Plan: Rates got a little faster whenever she was not taking her p.o. meds, IV metoprolol was used periodically, now she is taken p.o. meds better, rates are 90 as of most recent check (7) Chronic kidney disease, stage 3: Plan: - Renal function at baseline - Cr actually normal. may just be due to limitations of cockroft gault equation at her advanced age rather than true impairment in her GFR. Plan Possibly back to [facility] tomorrow Admission and Anticipated Discharge Date Admission Date: October 23, 2021 Subjective Definitely more awake and more talkative. Still seems to be very limited in her ability to offer any meaningful HPI review of systems, but she does make good eye contact, nods appropriately, converses a little, and her roommate notes that she was conversing more earlier in the day as well. No acute complaints at this time. Review of Systems Review of Systems: Unobtainable due to cognitive status Physical Exam Physical Exam: Awake and alert pleasant no distress. HEENT normocephalic atraumatic mucous membranes moist. Breathing unlabored no accessory muscle use good effort. Skin shows no rashes no pallor or icterus. Neuro without focal deficits. Results & Data Results & Data ([facility]) Vital Signs (Past 12 Hours) Vital Signs Temp Pulse Pulse Resp BP Pulse Ox O2 Del Method 10/29/21 10:49 97.9 F 90 16 196/82 H 95 Room Air 10/29/21 08:47 104 H 10/29/21 08:27 118 H 10/29/21 07:26 98.2 F 118 H 16 130/72 96 Room Air 10/29/21 04:00 98.1 F 105 H 18 172/69 H 95 Room Air 10/29/21 02:27 Room Air PG Care Time/CCT Total # of Minutes Spent Total Time Spent with Patient: Total time spent is greater than 50% in coordination of care (as documented) at patient's floor/unit and/or counseling patient: Coding Level of Care Code 91870 Subseq Hosp Care Lvl 3 Diagnoses TIA (transient ischemic attack) G45.9 Elevated troponin R77.8 Hypertension I10 Dyslipidemia E78.5 Controlled type 2 diabetes mellitus with kidney complication, with long-term current use of insulin E11.29; Z79.4 A-fib I48.21 Atrial fibrillation type: permanent Chronic kidney disease, stage 3 N18.3 (1) A-fib Atrial fibrillation type: permanent Qualified Code(s): I48.21 - Permanent atrial fibrillation
[2021-10-29] MEDS: ATORVASTATIN 10 MG TAB PO SCH (20:02)
[2021-10-29] MEDS: LIDOCAINE 5% 1 PATCH TD SCH (20:03)
[2021-10-29] MEDS: LANTUS PER UNIT CHARGE SQ SCH (20:38)
[2021-10-29] MEDS ORDERED: Nursing to Pharmacy Communication SCH (22:30)
[2021-10-30] MEDS: LACTATED RINGER'S 1,000 ML IV SCH (02:34)
[2021-10-30] MEDS: cefTRIAXone SODIUM 2,000 MG in DEXTROSE 5% 50 ML IV SCH ×2 (04:57→21:40)
[2021-10-30] MEDS: METOPROLOL TARTRATE 1 MG/ML VIAL IV SCH ×3 (05:12→21:15)
[2021-10-30 06:06] LABS: Basophils # (auto) 0.06 K/uL (0-0.2); Basophils % (auto) 0.6 %; Eosinophils # (auto) 0.07 K/uL (0-0.50); Eosinophils % (auto) 0.7 %; Hemoglobin 11.6 g/dl (12.0-16.0); Immature Granulocytes # (auto) 0.03 K/uL (0.00-0.02); Immature Granulocytes % (auto) 0.3 %; Lymphocytes # (auto) 1.64 K/uL (1.2-3.4); Lymphocytes % (auto) 16.6 %; Mean Corpuscular Hemoglobin 33.6 pg (25.0-34.0); Mean Corpuscular Hgb Conc 34.1 g/dL (32.0-36.0); Mean Corpuscular Volume 98.6 fL (80.0-100.0); Mean Platelet Volume 9.8 fL (9.4-12.3); Monocytes # (auto) 1.28 K/uL (0.24-0.82); Neutrophils % (auto) 68.8 %; Platelet Count 314 K/uL (130-400); RDW Standard Deviation 46.5 fL (36.4-46.3); Red Blood Count 3.45 M/uL (3.93-5.22); White Blood Count 9.88 K/ul (4.8-10.8)
[2021-10-30 06:32] LABS: BUN Creatinine Ratio 21.9 (10-20); C Reactive Protein 20.74 mg/dl (0-0.5); Calcium 8.4 mg/dl (8.5-10.1); Est GFR (Non-African American) 81.9 ml/min; Potassium 2.9 mmol/L (3.5-5.1)
[2021-10-30] MEDS ORDERED: POTASSIUM CHLORIDE CRTAB 20 MEQ TABCR PO STA (08:07)
[2021-10-30] MEDS: INSULIN ASPART PER UNIT SC SCH ×4 (08:53→21:15)
[2021-10-30] MEDS: APIXABAN 5 MG TABLET PO SCH ×2 (09:21→21:40)
[2021-10-30] MEDS: METOPROLOL TARTRATE 100 MG TAB PO SCH ×2 (09:21→21:40)
[2021-10-30] MEDS: DIGOXIN 0.25 MG TAB PO SCH (09:22)
[2021-10-30] MEDS: CHOLECALCIFEROL 1,000 UNITS 25 MCG TAB PO SCH (09:22)
[2021-10-30] MEDS: FAMOTIDINE 20 MG TAB PO SCH (09:22)
[2021-10-30] MEDS: dilTIAZem HCL 240 MG CAPCR PO SCH (09:23)
[2021-10-30] MEDS: ASPIRIN 81 MG ECTAB PO SCH (09:23)
[2021-10-30] MEDS: LOSARTAN POTASSIUM 25 MG TAB PO SCH (09:23)
[2021-10-30] MEDS: BIMATOPROST 0.01% OP SOLN 2.5 ML BTL OP SCH (09:25)
[2021-10-30] MEDS: CYANOCOBALAMIN 1000 MCG/ML VIAL IM SCH (09:26)
--- NOTE | 2021-10-30 09:34 | Hospitalist Progress Note ---
Date of Service October 30, 2021 Assessment & Plan (1) TIA (transient ischemic attack): Plan: With difficulty word finding as her symptoms Improved. Symptoms have resolved. While she does have diabetes and dyslipidemia, her hypertension with fairly marked elevations would suggest that it was probably small vessel disease predominantly mediated by hypertension. Initiated losartan 25 mg titrate up as needed. Initiate aspirin 81 mg and follow (discussed small increased risk of bleeding being on Eliquis as wellbut that overall the benefits would outweigh the risks) Would defer to PCP as far as upgrading statin to moderate to high intensitygiven that her LDL is fairly low already, as far as any vascular benefit versus bleed risk. Likewise with her A1c being 8, certainly from a vascular disease standpoint tighter control would be reasonable, but given her age and overall conditionits not clear that she would truly benefit from tighter glycemic controlso therefore we will defer to the PCP in this regard as well. confusion seems most consistent with a delirium, but understandably SNF nurse practitioner called with concernsnoting that the patient had never really returned to baseline after encephalitis stay in September, wondering if there was something else going on. On more detailed reviewher Lyme screen was positive, but the bands were actually negative, casting a bit more of an unclear picture of what was driving her encephalopathy/delirium a month ago. Given that we are in an endemic area however, LP for Lyme and West Nile certainly has a plausible yield. At this point given that LP has a total protein of almost 95we will start empiric Rocephin pending Lyme PCR/antibodies. If Lyme is negative and West Nile is positive, then that would certainly be a plausible explanation. If both are negativethen consideration for formal neurology consult, possibly repeat LP for odd/rare/esoteric autoantibodies, or just empiric trial of corticosteroids could be entertained. On review of other labsTSH was normal, B12 oddly was low at 198 and then a bit low at 394 a few weeks apartbut given that low B12 could certainly contributereplacing. Sent thiamine level for completeness given that she is slow on B vitamins. Mental status probably multifactorial between a deliriumpredominantly from environment, but possibly from infectious/inflammatory initial etiology, and [employer] inflammationpossibly [employer] Lyme, versus West Nile, versus other. Since initiation of ceftriaxone, her mentation has shown a slow and steady improvement with some waxing and waning consistent with delirium, but an overall trend towards better. At the same time, she has been in the hospital long enough that it could be from stable environment rather than from medical intervention. Lyme on CSF and West Nile on CSF still pending. Would continue ceftriaxone for now, otherwise as above outlined. CRP trended up significantly todayunclear etiology, nothing on exam or lab work otherwise to suggest worsening inflammation. Because of this, as well as the fact that her A. fib is a bit more tachycardic then would be amenable for outpatient managementwe will keep in the hospital for now. Continue current care otherwise. (2) A-fib: Plan: Rates uncontrolledbut largely seems to be due to not taking her meds, and probably a bit agitation. Possibly also tachycardia from inflammatory effe ctalthough this seems less likely. She is taking her meds more reliably nowso therefore rather than escalating treatment, will follow how she does with her regular meds today. Anticoagulated on Eliquis. (3) Hypertension: Plan: Largely similar to the reasons for the RVR above. Follow how she does when she takes her medicines. (4) Chronic kidney disease, stage 3: Plan: Seems to be largely more of an impact of the limitations of the Cockcroft-Gault equation on her advanced age more than a true reduction in GFR. Does not really seem to be of clinical relevance (5) DVT prophylaxis: Plan: Anticoagulated on Eliquis (6) Discharge planning issues: Plan: For now most of her game plan hinges on the results of her CSF Lyme/West Nile. As above noted if positive for Lymewould treat for 28 days with ceftriaxone given that she was on 14 days of Doxy after prior admission. (As a complicating factor, she was being treated based off of a screening test that did not bates out to be positive with bands, but certainly since we are in an endemic area for Lyme, still quite reasonable to be suspiciousCSF is pending), if negative for Lyme but positive for West Nilesupportive care. If negative for both, then would consider formal neuro consult and looking more for autoantibody or other more esoteric/rare causes of inflammationplus or minus an empiric trial of corticosteroids. Once her RVR is improved, and once it is clear that her inflammatory state is abating, most of this probably can be carried through at [facility] given that she is currently in an SNF level of care, but for now given the RVR and the unclear status of her inflammatory statewill maintain inpatient care at this time. Admission and Anticipated Discharge Date Admission Date: October 23, 2021 Subjective Awake, calm, talkative with me. Nursing notes that she was agitated earlier. Has not yet taken her pills, and ripped out her IV. Proximally, patient denies any pain, any chest pain or shortness of breath, no abdominal pain. No skin rashes or other symptoms. She notes that generally she feels well. She does not know why she is here, but is aware that it is summer (initially says September but then quickly corrects to October, and notes that she is in the hospital) Review of Systems Review of Systems: Unobtainable due to cognitive status Review of systems a very questionable veracity due to her deliriumbut for what is worth he denies any complaints at all. Physical Exam Physical Exam: Awake and alert more orientedshe knows she is in the hospital, knows it is September/October, has no idea why she is here, but is showing improved maria d renessno distress. HEENT normocephalic atraumatic mucous membranes moist. Breathing unlabored no accessory muscle use good effort. Cardio is slightly tachycardic irregularly irregular no rubs murmurs gallops. Abdomen is soft nondistended nontender no masses organomegaly. Extremities without cyanosis or clubbing trace edema no calf tenderness. Skin a bit dry but no overt rashes, no pallor or icterus. Mental status as above Results & Data Results & Data ([facility]) Vital Signs (Past 12 Hours) Vital Signs Temp Pulse Pulse Pulse Resp BP BP 10/30/21 09:22 125 H 10/30/21 08:04 98.6 F 132 H 18 198/79 H 10/30/21 07:42 94 H 10/30/21 04:00 98.8 F 99 H 18 179/81 H 10/29/21 22:18 86 10/29/21 23:19 98.8 F 77 18 171/89 H Pulse Ox O2 Del Method 10/30/21 09:22 10/30/21 08:04 93 10/30/21 07:42 10/30/21 04:00 95 Room Air 10/29/21 22:18 07/24/22 23:19 96 Room Air PG Care Time/CCT Total # of Minutes Spent Total Time Spent with Patient: Total time spent is greater than 50% in coordination of care (as documented) at patient's floor/unit and/or counseling patient: Coding Level of Care Code 56836 Subseq Hosp Care Lvl 3 Diagnoses TIA (transient ischemic attack) G45.9 A-fib I48.21 Atrial fibrillation type: permanent Hypertension I10 Chronic kidney disease, stage 3 N18.3 DVT prophylaxis Z29.9 Discharge planning issues Z02.9 (1) A-fib Atrial fibrillation type: permanent Qualified Code(s): I48.21 - Permanent atrial fibrillation
[2021-10-30] MEDS ORDERED: POTASSIUM CHLORIDE CRTAB 20 MEQ TABCR PO ONE (12:00)
[2021-10-30] MEDS ORDERED: HALOPERIDOL LACTATE 5 MG/ML 1 ML VIAL IM STA (18:31)
[2021-10-30] MEDS ORDERED: HALOPERIDOL LACTATE 5 MG/ML 1 ML VIAL IM PRN (18:31)
[2021-10-30] MEDS: LIDOCAINE 5% 1 PATCH TD SCH (21:40)
[2021-10-30] MEDS: LANTUS PER UNIT CHARGE SQ SCH (21:41)
[2021-10-30] MEDS: ATORVASTATIN 10 MG TAB PO SCH (21:41)
[2021-10-31] MEDS: METOPROLOL TARTRATE 1 MG/ML VIAL IV SCH ×2 (00:07→05:58)
[2021-10-31] MEDS: cefTRIAXone SODIUM 2,000 MG in DEXTROSE 5% 50 ML IV SCH (04:38)
--- NOTE | 2021-10-31 07:00 | Hospitalist Progress Note ---
Date of Service October 31, 2021 Assessment & Plan (1) TIA (transient ischemic attack): Plan: 86yo Female PMH DM2 HTN afib CKD3 HLD here from [facility] with word finding difficulty. (1) TIA (transient ischemic attack): -Patient initially admited with difficulty word finding as her symptoms. Symptoms have resolved. Likely small vessel disease predominantly mediated by hypertension. -For BP control - Initiated losartan 25 mg titrate up as needed. -Initiate aspirin 81 mg, Patient to continue her eliquis, understands benefits and risks -will defer to PCP on starting statin or tightening glycemic control, given her age and condition may not benefit as much from additional medication management ()Delirium - improving -per SNF nurse never returned to baseline after encephalitis stay in September -noted previous lyme screen positive but bands negative lumbar puncture positive protein 93.8 but normal cell count. CRP elevated to 20.74, WBC wnl - continue to trend Started empirically on rocephine for possible Lyme ds. Lyme test negative in september. With mentation at baseline - will d/c rocephine and monitor for next 24 hours. -B12 being repleted -TSH normal -Haldol 5mg PRN for agitation (2) A-fib: -Rates uncontrolled at home, possible noncompliance with medication at home -continue digoxin 0.25 mg, eliquis 5mg BID, metoprolol 100mg BID, diltiazem 240mg (3) Hypertension: continue diltiazem, losartan, metoprolol (4) Chronic kidney disease, stage 3: Creatinine last 0.71, baseline 0.7-1.0 (5) DVT prophylaxis: Anticoagulated on Eliquis () Disposition -in am if mentation stable and ventricular rate controlled. FENa: regular diet Code Status: DNR/DNI DVT PPX: Eliquis Case Management: [facility] Dispo: med/surg Kaye Ho Do PGY 2, FCM (2) A-fib: (3) Hypertension: (4) Chronic kidney disease, stage 3: (5) DVT prophylaxis: (6) Discharge planning issues: Admission and Anticipated Discharge Date Admission Date: October 23, 2021 Supervising Physician Co-Signing Physician Notes Resident Physician Supervision Note: I independently interviewed and examined the patient and verified the mariee his tory and physical, reviewed labs and image studies and agree with resident Dr. Ho findings and care plan. Subjective Patient seen at bedside, comfortable calm eating breakfast. She denies any pain or discomfort at this time, denies any fever difficulty breathing headache dizziness. Patient aware we are still awaiting lab results at this time. Oth erwise no acute concerns. Review of Systems Review of Systems: Negative fever chills Negative headache dizziness Negative chest pain palpitations SOB Negative nausea vomitting diarrhea constipation Negative numbness tingling rash swelling Physical Exam Constitutional: WD/WN, vitals as above cooperative and comfortable Eyes: PERRL, conjunctivae normal, anicteric sclerae ENMT: external ear and nose normal, oropharynx normal Neck: trachea midline, no thyromegaly Respiratory: normal respiratory effort, lungs clear to auscultation Cardiovascular: Rate/Rhythm: regular rate and regular rhythm Extremities: + edema (trace pitting in b/l LE, UE) Chest (Breasts): Chest: normal inspection of chest Gastrointestinal (Abdomen): Inspection/Auscultation: abdomen normal to inspection Percussion/Palpation: abdomen soft; abdomen nontender Skin: no rashes, warm and dry Results & Data Results & Data ([facility]) Vital Signs (Past 12 Hours) Vital Signs Temp Pulse Pulse Resp BP BP BP 10/31/21 05:58 116 H 143/74 H 10/31/21 04:07 36.9 C 91 H 20 162/72 H 10/30/21 22:45 36.2 C L 78 20 153/84 H 10/30/21 23:11 86 10/30/21 19:15 36.6 C 100 H 20 193/83 H Pulse Ox O2 Del Method 10/31/21 05:58 10/31/21 04:07 95 Room Air 10/30/21 22:45 95 Room Air 10/30/21 23:11 10/30/21 19:15 96 Room Air Diagnostic Findings Laboratory Results WBC 9.89 K/ul (4.8-10.8) 10/31/21 08:41 RBC 3.73 M/uL (3.93-5.22) L 10/31/21 08:41 Hgb 12.4 g/dl (12.0-16.0) 10/31/21 08:41 Hct 36.7 % (34.1-44.9) 10/31/21 08:41 MCV 98.4 fL (80.0-100.0) 10/31/21 08:41 MCH 33.2 pg (25.0-34.0) 10/31/21 08:41 MCHC 33.8 g/dL (32.0-36.0) 10/31/21 08:41 RDW Std Deviation 45.2 fL (36.4-46.3) 10/31/21 08:41 RDW Coeff of Rosie 12.6 % (11.5-14.5) 10/31/21 08:41 Plt Count 345 K/uL (130-400) 10/31/21 08:41 MPV 9.6 fL (9.4-12.3) 10/31/21 08:41 Immature Gran % (Auto) 0.3 % 10/31/21 08:41 Neut % (Auto) 69.3 % 10/31/21 08:41 Lymph % (Auto) 15.8 % 10/31/21 08:41 [place] % (Auto) 12.6 % 10/31/21 08:41 Eos % (Auto) 1.5 % 10/31/21 08:41 Baso % (Auto) 0.5 % 10/31/21 08:41 Neut # (Auto) 6.85 K/uL (1.4-6.5) H 10/31/21 08:41 Lymph # (Auto) 1.56 K/uL (1.2-3.4) 10/31/21 08:41 [place] # (Auto) 1.25 K/uL (0.24-0.82) H 10/31/21 08:41 Eos # (Auto) 0.15 K/uL (0-0.50) 10/31/21 08:41 Baso # (Auto) 0.05 K/uL (0-0.2) 10/31/21 08:41 Immature Gran # (Auto) 0.03 K/uL (0.00-0.02) H 10/31/21 08:41 Sodium 135 mmol/L (136-145) L 10/31/21 08:41 Potassium 3.6 mmol/L (3.5-5.1) D 10/31/21 08:41 Chloride 99 mmol/L (98-107) 10/31/21 08:41 Carbon Dioxide 28 mmol/L (21-32) 10/31/21 08:41 Anion Gap 8 (3-11) 10/31/21 08:41 BUN 12 mg/dl (6-23) 10/31/21 08:41 Creatinine 0.71 mg/dl (0.6-1.2) 10/31/21 08:41 Est Cr Clr Drug Dosing 59.5 ml/min 10/31/21 08:41 Est GFR ( Amer) 90.7 ml/min 10/31/21 08:41 Est GFR (Non-Af Amer) 78.2 ml/min 10/31/21 08:41 BUN/Creatinine Ratio 16.9 (10-20) 10/31/21 08:41 Glucose 129 mg/dl (70-99(Fasting)) H 10/31/21 08:41 POC Glucose 127 mg/dl (70-99) H 10/31/21 07:37 Estimat Average Glucose 183 mg/dl 10/24/21 07:36 Hemoglobin A1c 8.0 % (4.5-5.6) H 10/24/21 07:36 Calcium 8.9 mg/dl (8.5-10.1) 10/31/21 08:41 Magnesium 1.8 mg/dl (1.7-2.4) 10/28/21 05:37 Total Bilirubin 1.1 mg/dl (0.2-1.0) H 10/26/21 07:56 AST 13 U/L (13-39) 10/26/21 07:56 ALT 13 U/L (7-52) 10/26/21 07:56 Alkaline Phosphatase 61 U/L (34-104) 10/26/21 07:56 Total Creatine Kinase 32 U/L (26-192) 10/23/21 16:13 Troponin I High Sens 32.9 pg/ml (0-14) H 10/25/21 04:54 C-Reactive Protein 20.07 mg/dl (0-0.5) H 10/31/21 08:41 Total Protein 7.6 gm/dl (6.0-8.3) 10/26/21 07:56 Albumin 3.5 gm/dl (3.4-5.0) 10/26/21 07:56 Globulin 4.1 gm/dl (2.5-4.0) H 10/26/21 07:56 Albumin/Globulin Ratio 0.9 (0.9-2) 10/26/21 07:56 Triglycerides 244 mg/dl (0-150) H 10/24/21 07:36 Cholesterol 147 mg/dl (0-200) 10/24/21 07:36 LDL Cholesterol, Calc 66 mg/dl 10/24/21 07:36 VLDL Cholesterol, Calc 49 mg/dl (0-30) H 10/24/21 07:36 HDL Cholesterol 32 mg/dl 10/24/21 07:36 Cholesterol/HDL Ratio 4.6 (0-5) 10/24/21 07:36 Procalcitonin 0.54 ng/ml (0-0.5) H 10/31/21 08:41 Urine Color Yellow 10/23/21 20:52 Urine Appearance Clear (Clear) 10/23/21 20:52 Urine pH 7.5 (4.5-7.5) 10/23/21 20:52 Ur Specific [place] 1.011 (1.000-1.030) 10/23/21 20:52 Urine Protein 2+ (Negative) H 10/23/21 20:52 Urine Glucose (UA) Trace (Negative) H 10/23/21 20:52 Urine Ketones Negative (Negative) 10/23/21 20:52 Urine Blood Negative (Negative) 10/23/21 20:52 Urine Nitrite Negative (Negative) 10/23/21 20:52 Urine Bilirubin Negative (Negative) 10/23/21 20:52 Urine Urobilinogen Negative (Negative) 10/23/21 20:52 Ur Leukocyte Esterase Negative (Negative) 10/23/21 20:52 Urine WBC (Auto) 1-5 /hpf (0-5) 10/23/21 20:52 Urine RBC (Auto) 0-4 /hpf (0-4) 10/23/21 20:52 U Hyaline Cast (Auto) 0 /lpf (0-5) 10/23/21 20:52 U Epithel Cells (Auto) >30 /lpf (0-5) H 10/23/21 20:52 Urine Bacteria (Auto) Negative (Negative) 10/23/21 20:52 Fluid Comment 10/27/21 13:20 CSF Appearance Clear 10/27/21 13:20 CSF Color Colorless 10/27/21 13:20 Xanthrochromic No xanthochromia 10/27/21 13:20 CSF WBC 0 /uL (0-5) 10/27/21 13:20 CSF RBC 12 /uL (0-) 10/27/21 13:20 CSF Cell Count Tube # 2 10/27/21 13:20 CSF Chemistry Tube # 1 10/27/21 13:20 CSF Glucose 40 mg/dl (40-70) 10/27/21 13:20 CSF Total Protein 93.8 mg/dl (15-45) H 10/27/21 13:20 CSF Lyme IgG (Immblot) Cancelled 10/27/21 13:20 CSF Lyme IgG Bands Det Cancelled 10/27/21 13:20 CSF Lyme IgM (Immblot) Cancelled 10/27/21 13:20 CSF Lyme IgM Bands Det Cancelled 10/27/21 13:20 Digoxin 1.6 ng/ml (0.8-2.0) 10/24/21 07:36 SARS-CoV-2, RNA, NAAT NEGATIVE (NEGATIVE) 10/25/21 10:[address] 10/23/21 16:22 CT head/brain wo con CLINICAL HISTORY: transient word finding issues Technique: Contiguous axial CT images of the head were acquired from the base of the skull to the vertex without intravenous contrast administration. Images were viewed in brain, subdural and bone windows. Automated dose lowering techniques and/or adjustment according to patient size were utilized for this exam. Comparison: Comparison is made to CTA head and neck 09/07/2021 Findings: The ventricles, basal cisterns, and cerebral sulci are normal. There is no acute intracranial hemorrhage or evidence of acute territorial infarction. Neither mass effect, shift of the midline structures, nor abnormal extra-axial fluid collections are shown. Imaged portions of the paranasal sinuses and mastoid air cells are clear. The orbits appear normal. There are no acute fractures of the calvaria or scalp swelling. Impression: No acute intracranial hemorrhage, no evidence of acute territorial infarction or other acute intracranial disease process. ACT 112: Negative or not required by law. Electronically signed by: Dayron Flores M.D. 10/23/2021 5:15 PM Chest X-Ray 10/23/21 16:23 SINGLE VIEW CHEST CLINICAL HISTORY: Generalized weakness. FINDINGS: 2 AP, portable, upright chest radiographs are compared to study dated 09/10/2021. The heart is enlarged noting atherosclerotic calcification of the thoracic aorta. There is prominence of the pulmonary vasculature. Scarring/atelectasis is noted at the lung bases. No airspace consolidation or large pleural effusion is identified No pneumothorax is seen. The skeletal structures are osteopenic. The bony thorax is grossly intact. IMPRESSION: Cardiomegaly with prominence of the pulmonary vasculature. Correlate clinically for evidence of fluid overload/mild congestion. ACT 112: Negative or not required by law. Electronically signed by: Antonio Brock M.D. 10/23/2021 4:51 PM Head CTA 10/23/21 19:31 CT ANGIOGRAM OF THE BRAIN; CT ANGIOGRAM OF THE NECK CLINICAL HISTORY: Strokelike symptoms. Change in mental status. COMPARISON STUDY: CT angiogram of the head and neck dated 09/07/2021. Unenhanced CT of the brain dated 10/23/2021. TECHNIQUE: Following the IV administration of 118 of Optiray 320, CT angiogram of the head and neck was performed from the aortic arch to the vertex. Images are reviewed in the axial, sagittal, and coronal planes. 3-D MIPS images are created and assessed. IV contrast was administered without complication. All measurements were calculated based on NASCET criteria. A dose lowering technique was utilized adhering to the principles of ALARA. CT DOSE: 439.56 mGy.cm FINDINGS: Brain parenchyma: There is age-related involutional change noting [id number] subcortical and periventricular microangiopathic disease. There is no evidence of hemorrhage, mass effect, or acute territorial ischemia noting angiographic phase technique. There is no evidence of enhancing mass lesion on the angiogram phase images. The ventricles, sulci, and cisterns are prominent secondary to involutional change. Mejia-white matter differentiation is preserved. No extra-axial fluid collection is seen. Thoracic aorta: There is atherosclerotic calcification of the thoracic aorta. Visualized portions of the thoracic aorta are normal in caliber. The aortic arch demonstrates standard 3-vessel anatomy. Right carotid arterial system: The right common carotid artery is widely patent, as are the right internal and external carotid arteries. Calcified plaque is noted in the carotid bulb. Left carotid arterial system: The left common carotid artery is widely patent, as are the left internal and external carotid arteries. Calcified plaque is noted in the carotid bulb. Vertebral arteries: The vertebral arteries are widely patent bilaterally and codominant. Subclavian arteries: Widely patent bilaterally. Intracranial vasculature: The internal carotid arteries are patent at the skull base, as are the anterior and middle cerebral arteries bilaterally. There is origin of the left posterior cerebral artery. The vertebrobasilar system and posterior cerebral arteries are widely patent. The vertebral arteries are codominant. There is no high-grade stenosis or focal vessel cut off seen throughout the intracranial circulation. 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 No additional aneurysm is identified throughout the intracranial circulation. Jugular veins: Patent bilaterally. Dural sinuses: Patent. Lung apices: Partially visualized upper lobe lung parenchyma appears clear. Soft tissues: The visualized pharyngeal soft tissues are normal in appearance noting angiographic phase technique. The oropharyngeal airway appears widely patent. The salivary and thyroid glands are normal in appearance. No cervical lymphadenopathy is seen. Skeletal structures: The skeletal structures are osteopenic. The calvarium appears intact. The cervical spine is maintained noting multilevel spondylosis. A large posterior disc osteophyte complex at C6-C7 contribute to acquired compromise of the central canal. No lytic or blastic lesion is seen. Orbits: The bony orbits are intact. Orbital contents are normal as visualized noting a right ocular lens implants. Sinuses and mastoids: There is trace mucosal thickening in the left maxillary antrum. The remaining paranasal sinuses are clear. The mastoid air cells are well pneumatized. IMPRESSION: 1. There is no evidence of hemorrhage, mass effect, or acute territorial ischemia noting angiographic phase technique. 2. 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 3. Otherwise unremarkable CT angiogram of the brain. No change from 09/07/2021. 4. Unremarkable CT angiogram of the neck. No change from 09/07/2021. ACT 112: Negative or not required by law. Electronically signed by: Antonio Brock M.D. 10/23/2021 8:49 PM Neck CTA 10/23/21 19:31 CT ANGIOGRAM OF THE BRAIN; CT ANGIOGRAM OF THE NECK CLINICAL HISTORY: Strokelike symptoms. Change in mental status. COMPARISON STUDY: CT angiogram of the head and neck dated 09/07/2021. Unenhanced CT of the brain dated 10/23/2021. TECHNIQUE: Following the IV administration of 118 of Optiray 320, CT angiogram of the head and neck was performed from the aortic arch to the vertex. Images are reviewed in the axial, sagittal, and coronal planes. 3-D MIPS images are created and assessed. IV contrast was administered without complication. All measurements were calculated based on NASCET criteria. A dose lowering technique was utilized adhering to the principles of ALARA. CT DOSE: 439.56 mGy.cm FINDINGS: Brain parenchyma: There is age-related involutional change noting [id number] subcortical and periventricular microangiopathic disease. There is no evidence of hemorrhage, mass effect, or acute territorial ischemia noting angiographic phase technique. There is no evidence of enhancing mass lesion on the angiogram phase images. The ventricles, sulci, and cisterns are prominent secondary to involutional change. Mejia-white matter differentiation is preserved. No extra-axial fluid collection is seen. Thoracic aorta: There is atherosclerotic calcification of the thoracic aorta. Visualized portions of the thoracic aorta are normal in caliber. The aortic arch demonstrates standard 3-vessel anatomy. Right carotid arterial system: The right common carotid artery is widely patent, as are the right internal and external carotid arteries. Calcified plaque is noted in the carotid bulb. Left carotid arterial system: The left common carotid artery is widely patent, as are the left internal and external carotid arteries. Calcified plaque is noted in the carotid bulb. Vertebral arteries: The vertebral arteries are widely patent bilaterally and codominant. Subclavian arteries: Widely patent bilaterally. Intracranial vasculature: The internal carotid arteries are patent at the skull base, as are the anterior and middle cerebral arteries bilaterally. There is origin of the left posterior cerebral artery. The vertebrobasilar system and posterior cerebral arteries are widely patent. The vertebral arteries are codominant. There is no high-grade stenosis or focal vessel cut off seen throughout the intracranial circulation. 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 No additional aneurysm is identified throughout the intracranial circulation. Jugular veins: Patent bilaterally. Dural sinuses: Patent. Lung apices: Partially visualized upper lobe lung parenchyma appears clear. Soft tissues: The visualized pharyngeal soft tissues are normal in appearance noting angiographic phase technique. The oropharyngeal airway appears widely patent. The salivary and thyroid glands are normal in appearance. No cervical lymphadenopathy is seen. Skeletal structures: The skeletal structures are osteopenic. The calvarium appears intact. The cervical spine is maintained noting multilevel spondylosis. A large posterior disc osteophyte complex at C6-C7 contribute to acquired compromise of the central canal. No lytic or blastic lesion is seen. Orbits: The bony orbits are intact. Orbital contents are normal as visualized noting a right ocular lens implants. Sinuses and mastoids: There is trace mucosal thickening in the left maxillary antrum. The remaining paranasal sinuses are clear. The mastoid air cells are well pneumatized. IMPRESSION: 1. There is no evidence of hemorrhage, mass effect, or acute territorial ischemia noting angiographic phase technique. 2. 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 3. Otherwise unremarkable CT angiogram of the brain. No change from 09/07/2021. 4. Unremarkable CT angiogram of the neck. No change from 09/07/2021. ACT 112: Negative or not required by law. Electronically signed by: Antonio Brock M.D. 10/23/2021 8:49 PM Brain MRI 10/23/21 20:37 MR brain wo con CLINICAL HISTORY: expressive aphasia, ? CVA TECHNIQUE: Multiplanar and multisequence MR images of the brain were obtained without intravenous contrast. Comparison: Comparison is made to MRI brain 09/07/2021 FINDINGS: No abnormal restricted diffusion is identified. Foci of T2 and FLAIR hyperintensity are noted in the paraventricular areas consistent with chronic small vessel ischemic disease. Ex vacuo ventriculomegaly and sulcal enlargement is noted compatible with diffuse encephalomalacia. No mass is seen. There is no mass effect or midline shift. There is no evidence of acute intraparenchymal hemorrhage. No extra axial fluid collections are seen. The corpus callosum, pituitary gland, and cerebellar tonsils appear grossly unremarkable. Flow voids of the major intracranial arterial vessels are identified. The imaged portions of the paranasal sinuses, mastoid air cells, and orbits are unremarkable. IMPRESSION: No acute abnormalities. ACT 112: Negative or not required by law. Electronically signed by: Dayron Flores M.D. 10/24/2021 8:09 AM Lumbar Puncture Fluoroscopy 10/27/21 12:00 FLUOROSCOPIC GUIDED LUMBAR PUNCTURE CLINICAL HISTORY: Encephalopathy. PROCEDURE: The risks, benefits, and alternatives to the procedure is discussed with the patient who voiced understanding. Informed phone consent was obtained from the patient's daughter. The patient was placed prone on the fluoroscopy table. The lower back was prepped and draped in the usual sterile fashion. 1% lidocaine was used for local anesthesia. A 20-gauge spinal needle was inserted into the L3-L4 interlaminar space and approximately 10 cc of clear colorless cerebrospinal fluid was removed. A single spot image was saved. The patient tolerated the procedure well. There were no immediate complications. The patient was then returned to the medical floor for further observation. Fluoroscopy time: 0.3 minutes IMPRESSION: Fluoroscopic guided lumbar puncture with removal of approximately 10 cc of cerebrospinal fluid. There were no immediate complications. ACT 112: Negative or not required by law. Electronically signed by: Antonio Brock M.D. 10/27/2021 1:55 PM Medications Administered Current Inpatient Medications Acetaminophen (Acetaminophen 500 Mg Tab) 1,000 mg PO TID PRN PRN Reason: pain Stop: 11/22/21 20:59 Apixaban (Apixaban 5 Mg Tablet) 5 mg PO BID AAYUSH Stop: 11/22/21 20:59 Last Admin: 10/31/21 08:17 Dose: 5 mg Aspirin (Aspirin 81 Mg Ectab) 81 mg PO QAM AAYUSH Stop: 11/27/21 08:59 Last Admin: 10/31/21 08:18 Dose: 81 mg Atorvastatin Calcium (Atorvastatin 10 Mg Tab) 10 mg PO QPM AAYUSH Stop: 11/22/21 20:59 Last Admin: 10/30/21 21:41 Dose: 10 mg Bimatoprost (Bimatoprost 0.01% Op Soln 2.5 Ml Btl) 1 drops OP DAILY AAYUSH Stop: 11/23/21 08:59 Last Admin: 10/31/21 08:20 Dose: 1 drops Bisacodyl (Bisacodyl 10 Mg Supp) [address] Q2D PRN PRN Reason: Constipation Stop: 11/22/21 20:36 Cyanocobalamin (Cyanocobalamin 1000 Mcg/Ml Vial) 1,000 mcg IM QAM AAYUSH Stop: 11/25/21 12:29 Last Admin: 10/31/21 08:19 Dose: 1,000 mcg Dextrose (Dextrose 50% 50 Ml Syringe) 25 - 50 ml IV UD PRN; Protocol PRN Reason: Hypoglycemia Protocol Stop: 11/22/21 20:36 Last Admin: 10/26/21 16:35 Dose: 25 ml Digoxin (Digoxin 0.25 Mg Tab) 0.25 mg PO QAM [facility] Stop: 11/23/21 08:59 Last Admin: 10/31/21 08:18 Dose: 0.25 mg Diltiazem HCl (Diltiazem Hcl 240 Mg Capcr) 240 mg PO QAM [facility] Stop: 11/23/21 08:59 Last Admin: 10/31/21 08:18 Dose: 240 mg Famotidine (Famotidine 20 Mg Tab) 20 mg PO DAILY AAYUSH Stop: 11/23/21 08:59 Last Admin: 10/31/21 08:19 Dose: 20 mg Glucagon (Glucagon For Inj 1 Mg Vial) 1 mg SQ UD PRN; Protocol PRN Reason: Hypoglycemia Protocol Stop: 11/22/21 20:36 Glucose (Glucose 40% Gel 15 Gm Tube) 15 - 30 gm PO UD PRN; Protocol PRN Reason: Hypoglycemia Protocol Stop: 11/22/21 20:36 Glucose (Glucose 10 Tab/Tube) 4 - 8 tab PO UD PRN; Protocol PRN Reason: Hypoglycemia Treatment Stop: 11/22/21 20:36 Haloperidol Lactate (Haloperidol Lactate 5 Mg/Ml 1 Ml Vial) 5 mg IM ONE PRN PRN Reason: violent agitation Stop: 11/29/21 18:30 Ceftriaxone Sodium 2,000 mg/ (Dextrose) 70 mls @ 100 mls/hr IV Q12H [facility]; Protocol Stop: 11/06/21 16:59 Last Infusion: 10/31/21 05:24 Dose: Infused Insulin Aspart (Insulin Aspart Per Unit) 0 units SC ACHS [facility] Stop: 11/22/21 20:59 Last Admin: 10/31/21 08:27 Dose: Not Given Insulin Glargine (Lantus Per Unit Charge) 25 units SQ HS [facility] Stop: 11/27/21 20:59 Last Admin: 10/30/21 21:41 Dose: 25 units Lidocaine (Lidocaine 5% 1 Patch) 1 patch TD Q24H [facility] Stop: 11/22/21 20:59 Last Admin: 10/30/21 21:40 Dose: 1 patch Losartan Potassium (Losartan Potassium 25 Mg Tab) 25 mg PO QAM AAYUSH Stop: 11/23/21 18:59 Last Admin: 10/31/21 08:19 Dose: 25 mg Magnesium Hydroxide (Magnesium Hydroxide Susp 30 Ml Udc) 30 ml PO Q2D PRN PRN Reason: Constipation Stop: 11/22/21 20:36 Metoprolol Tartrate (Metoprolol Tartrate 100 Mg Tab) 100 mg PO BID AAYUSH Stop: 11/28/21 08:59 Last Admin: 10/31/21 09:12 Dose: 100 mg Miscellaneous (Remove Lidoderm Patch) 1 each N/A Q24H [facility]USH Stop: 11/23/21 08:59 Last Admin: 10/31/21 08:20 Dose: 1 each Miscellaneous (Carbohydrates For Hypoglycemia ) 15 - 30 gm PO UD PRN PRN Reason: Hypoglycemia Protocol Stop: 11/22/21 20:36 Ondansetron HCl (Ondansetron Inj 2 Mg/Ml 2 Ml Vial) 4 mg IV Q6H PRN PRN Reason: Nausea Stop: 11/22/21 20:36 Last Admin: 10/24/21 21:32 Dose: 4 mg Vitamin D (Cholecalciferol 1,000 Units 25 Mcg Tab) 2,000 units PO DAILY AAYUSH Stop: 11/23/21 08:59 Last Admin: 10/31/21 08:18 Dose: 2,000 units Resident Activity Tracking Resident Involvement: Resident Care Provided Care Provided: Adult Hospital Medicine (1) A-fib Atrial fibrillation type: permanent Qualified Code(s): I48.21 - Permanent atrial fibrillation
[2021-10-31] MEDS: APIXABAN 5 MG TABLET PO SCH ×2 (08:17→20:41)
[2021-10-31] MEDS: dilTIAZem HCL 240 MG CAPCR PO SCH (08:18)
[2021-10-31] MEDS: CHOLECALCIFEROL 1,000 UNITS 25 MCG TAB PO SCH (08:18)
[2021-10-31] MEDS: ASPIRIN 81 MG ECTAB PO SCH (08:18)
[2021-10-31] MEDS: DIGOXIN 0.25 MG TAB PO SCH (08:18)
[2021-10-31] MEDS: LOSARTAN POTASSIUM 25 MG TAB PO SCH (08:19)
[2021-10-31] MEDS: CYANOCOBALAMIN 1000 MCG/ML VIAL IM SCH (08:19)
[2021-10-31] MEDS: FAMOTIDINE 20 MG TAB PO SCH (08:19)
[2021-10-31] MEDS: BIMATOPROST 0.01% OP SOLN 2.5 ML BTL OP SCH (08:20)
[2021-10-31] MEDS: INSULIN ASPART PER UNIT SC SCH ×4 (08:27→20:57)
[2021-10-31] MEDS: METOPROLOL TARTRATE 100 MG TAB PO SCH ×2 (09:12→20:41)
[2021-10-31 09:16] LABS: Basophils # (auto) 0.05 K/uL (0-0.2); Basophils % (auto) 0.5 %; Eosinophils # (auto) 0.15 K/uL (0-0.50); Eosinophils % (auto) 1.5 %; Hematocrit (blood only) 36.7 % (34.1-44.9); Hemoglobin 12.4 g/dl (12.0-16.0); Immature Granulocytes # (auto) 0.03 K/uL (0.00-0.02); Immature Granulocytes % (auto) 0.3 %; Lymphocytes # (auto) 1.56 K/uL (1.2-3.4); Lymphocytes % (auto) 15.8 %; Mean Corpuscular Hemoglobin 33.2 pg (25.0-34.0); Mean Corpuscular Hgb Conc 33.8 g/dL (32.0-36.0); Mean Corpuscular Volume 98.4 fL (80.0-100.0); Mean Platelet Volume 9.6 fL (9.4-12.3); Monocytes # (auto) 1.25 K/uL (0.24-0.82); Monocytes % (auto) 12.6 %; Neutrophils # (auto) 6.85 K/uL (1.4-6.5); Neutrophils % (auto) 69.3 %; Platelet Count 345 K/uL (130-400); RDW Coefficient of Variation 12.6 % (11.5-14.5); RDW Standard Deviation 45.2 fL (36.4-46.3); Red Blood Count 3.73 M/uL (3.93-5.22); White Blood Count 9.89 K/ul (4.8-10.8)
[2021-10-31 09:47] LABS: BUN Creatinine Ratio 16.9 (10-20); C Reactive Protein 20.07 mg/dl (0-0.5); Calcium 8.9 mg/dl (8.5-10.1); Creatinine Clr Calc Pharmacy 59.5 ml/min; Est GFR (African American) 90.7 ml/min; Est GFR (Non-African American) 78.2 ml/min; Potassium 3.6 mmol/L (3.5-5.1)
[2021-10-31] MEDS: ATORVASTATIN 10 MG TAB PO SCH (20:41)
[2021-10-31] MEDS: LIDOCAINE 5% 1 PATCH TD SCH (20:43)
[2021-10-31] MEDS: LANTUS PER UNIT CHARGE SQ SCH (20:58)
[2021-11-01 06:54] LABS: Hematocrit (blood only) 36.4 % (34.1-44.9); Hemoglobin 12.3 g/dl (12.0-16.0); Mean Corpuscular Hemoglobin 33.2 pg (25.0-34.0); Mean Corpuscular Hgb Conc 33.8 g/dL (32.0-36.0); Mean Corpuscular Volume 98.1 fL (80.0-100.0); Mean Platelet Volume 9.3 fL (9.4-12.3); Platelet Count 364 K/uL (130-400); RDW Coefficient of Variation 12.7 % (11.5-14.5); RDW Standard Deviation 45.3 fL (36.4-46.3); Red Blood Count 3.71 M/uL (3.93-5.22); White Blood Count 7.98 K/ul (4.8-10.8)
[2021-11-01 07:18] LABS: BUN Creatinine Ratio 17.2 (10-20); C Reactive Protein 14.8 mg/dl (0-0.5); Calcium 8.7 mg/dl (8.5-10.1); Creatinine Clr Calc Pharmacy 45.4 ml/min; Est GFR (African American) 65.4 ml/min; Est GFR (Non-African American) 56.4 ml/min; Potassium 3.5 mmol/L (3.5-5.1)
[2021-11-01] MEDS: INSULIN ASPART PER UNIT SC SCH ×2 (08:48→12:43)
[2021-11-01] MEDS: METOPROLOL TARTRATE 100 MG TAB PO SCH (08:53)
[2021-11-01] MEDS: DIGOXIN 0.25 MG TAB PO SCH (08:54)
[2021-11-01] MEDS: APIXABAN 5 MG TABLET PO SCH (08:54)
[2021-11-01] MEDS: LOSARTAN POTASSIUM 25 MG TAB PO SCH (08:54)
[2021-11-01] MEDS: ASPIRIN 81 MG ECTAB PO SCH (08:54)
[2021-11-01] MEDS: CHOLECALCIFEROL 1,000 UNITS 25 MCG TAB PO SCH (08:54)
[2021-11-01] MEDS: CYANOCOBALAMIN 1000 MCG/ML VIAL IM SCH (09:03)
[2021-11-01] MEDS: dilTIAZem HCL 240 MG CAPCR PO SCH (09:03)
[2021-11-01] MEDS: FAMOTIDINE 20 MG TAB PO SCH (09:03)
[2021-11-01] MEDS: BIMATOPROST 0.01% OP SOLN 2.5 ML BTL OP SCH (09:03)
--- NOTE | 2021-11-01 09:19 | Discharge Summary ---
Date of Service November 01, 2021 Admission HPI Per Admitting Provider Ewelina Nolasco is an 86-year-old female with past medical history significant for DM2, hypertension, chronic A. fib, CKD3, hyperlipidemia, and chronic back pain presents today from [facility] with reported word finding difficulties around 3 PM. Patient states she was having lunch and talking with the resident when she had difficulty finding her words. She also had appointment with a therapist today who also reported she was having word finding difficulty during her planning, therefore she was brought to the ED for further evaluation. Patient reports she otherwise been feeling her normal self with the exception of being more tired than usual and having a runny nose this week. She continues to have some mild word finding difficulties during her conversation, however has no sensory deficits, motor deficits, visual changes, dizziness, headache, nausea or vomiting. In ED, she is hypertensive 04/17/2014, now down to 188/96 after clonidine. VS otherwise wnl. Labs significant for elevated glucose 195, hs trop 34.3. Dig level 1.9. Head CT without any acute findings. Admission Exam Per Admitting Provider General: awake, alert, no apparent distress Head: Normocephalic, atraumatic ENT: PERRL, EOMI, no pharyngeal exudate, mucous membranes moist Chest: Clear to auscultation, on room air, no adventitious breath sounds Cardiac: irregular rhythm consistent with afib; no murmur, no JVD, normal peripheral pulses, good capillary refill Abdominal: NABS x 4 quadrants, soft, nontender to palpation, no rebound, guarding or tenderness Extremities: Normal inspection, no peripheral edema or erythema, calfs nontender to palpation Psych: Normal mood and affect Neuro: AAO x 3, strength intact bilaterally and rated 5/5, no motor deficits, speech is clear, no peripheral sensory deficits Skin: no rash or erythema Principal Diagnosis TIA Discharge Exam Constitutional WD/WN, vitals as above cooperative and comfortable Eyes PERRL, conjunctivae normal, anicteric sclerae ENMT external ear and nose normal, oropharynx normal Neck trachea midline, no thyromegaly Respiratory normal respiratory effort, lungs clear to auscultation Cardiovascular Rate/Rhythm: regular rate and regular rhythm Extremities: + edema (trace pitting in b/l LE, UE) Chest (Breasts) Chest: normal inspection of chest Gastrointestinal (Abdomen) Inspection/Auscultation: abdomen normal to inspection Percussion/Palpation: abdomen soft; abdomen nontender Skin no rashes, warm and dry Discharge Data Allergies Allergy/AdvReac Type Severity Reaction Status Date / Time Sulfa (Sulfonamide Allergy Unknown Nausea Unverified 10/23/21 20:19 Antibiotics) Consultations 10/23/21 18:02 ED Decision to Admit Stat Ordered Studies 10/23/21 16:22 CT head/brain wo con Stat 10/23/21 19:31 CTA head w con [CT angio head w con] Urgent CTA neck with con [CT angio neck with con] Urgent 10/23/21 20:37 MR brain wo con Routine 10/27/21 12:00 FL lumbar puncture diagnostic Routine Hospital Course (1) TIA (transient ischemic attack): 86yo Female PMH DM2 HTN afib CKD3 HLD here from [facility] with word finding difficulty. -Started on Losartan 25mg daily -Started on Aspirin 81mg daily (1) TIA (transient ischemic attack): Patient initially admited with difficulty word finding as her symptoms. Symptoms have resolved. Likely small vessel disease predominantly mediated by hypertension. - For BP control - Initiated losartan 25 mg titrate up as needed.Initiate asp irin 81 mg - Patient to continue her eliquis, understands benefits and risks -will defer to PCP on starting statin or tightening glycemic control for HA1c of 8, given her age and condition may not benefit as much from additional medication management -consider goals of care discussion ()Delirium - resolved Per SNF nurse never returned to baseline after encephalitis stay in September -noted previous lyme screen positive but bands negative lumbar puncture positive protein 93.8 but normal cell count. May be 2/2 to her TIA. CRP elevated to 20.74 now downtrending, WBC wnl Was started on rocephin, later discontinued given low suspicion infection -B12 being repleted -TSH normal (2) A-fib: Rates uncontrolled at home, possible noncompliance with medication at home. Patient to continue digoxin 0.25 mg, eliquis 5mg BID, metoprolol 100mg BID, diltiazem 240mg (3) Hypertension: Continue diltiazem, losartan, metoprolol (4) Chronic kidney disease, stage 3: Creatinine last 0.71, baseline 0.7-1.0 (5) DVT prophylaxis: Anticoagulated on Eliquis (2) A-fib: (3) Hypertension: (4) Chronic kidney disease, stage 3: (5) DVT prophylaxis: (6) Discharge planning issues: Total Time Total Time Spent Total Time Spent (In Minutes): see attending attestation Discharge Plan Discharge Items Patient Disposition: Transfer [facility]irement Fac Reason For Visit: TIA Discharge Diagnosis: TIA Activity: Resume your previous activity Non-emergency contact: Primary Care Provider Call non-emergency contact if: you have any medication questions Follow-up/Referrals: Erik Garcia [Primary Care Provider] - Diet: Carb Consistent or DM2 Addtl Attending Provider Instructions: 86yo Female PMH DM2 HTN afib CKD3 HLD here from [facility] with word finding difficulty. -Started on Losartan 25mg daily -Started on Aspirin 81mg daily (1) TIA (transient ischemic attack): Patient initially admited with difficulty word finding as her symptoms. Symptoms have resolved. Likely small vessel disease predominantly mediated by hypertension. - For BP control - Initiated losartan 25 mg titrate up as needed.Initiate aspirin 81 mg - Patient to continue her eliquis, understands benefits and risks -will defer to PCP on starting statin or tightening glycemic control for HA1c of 8, given her age and condition may not benefit as much from additional medication management ()Delirium - improving Per SNF nurse never returned to baseline after encephalitis stay in September -noted previous lyme screen positive but bands negative lumbar puncture positive protein 93.8 but normal cell count. May be 2/2 to her TIA. CRP elevated to 20.74 now downtrending, WBC wnl Was started on rocephin, later discontinued given low suspicion infection -B12 being repleted -TSH normal (2) A-fib: Rates uncontrolled at home, possible noncompliance with medication at home. Patient to continue digoxin 0.25 mg, eliquis 5mg BID, metoprolol 100mg BID, diltiazem 240mg (3) Hypertension: Continue diltiazem, losartan, metoprolol (4) Chronic kidney disease, stage 3: Creatinine last 0.71, baseline 0.7-1.0 (5) DVT prophylaxis: Anticoagulated on Eliquis Pending Studies at Discharge: Yes (echocardiogram) Stand-Alone Forms: Consult [employer] Skilled Items Patient informed of condition?: Yes DNR: Yes Discharge Level of Care: Skilled Communicable Disease: No Discharge Prognosis: Stable Lines: None Urinary Catheter: No Medications and DC Order Prescriptions: New losartan 25 mg tablet 25 mg PO DAILY Qty: 30 0RF aspirin 81 mg capsule 81 mg PO DAILY Qty: 30 0RF diltiazem HCl 240 mg capsule,extended release 24hr 240 mg PO DAILY 30 Days Qty: 30 3RF Continued PreserVision AREDS [id number] capsule 1 cap PO BID acetaminophen 500 mg tablet 1,000 mg PO TID bimatoprost 0.01 % drops 1 drp ophthalmic (eye) DAILY atorvastatin 10 mg tablet 10 mg PO QPM Qty: 90 3RF fludrocortisone 0.1 mg tablet 0.2 mg PO DAILY Lantus U-100 Insulin 100 unit/mL solution 42 unit SUBCUT BID cholecalciferol (vitamin D3) [Vitamin D3] 2,000 unit Capsule 2,000 unit PO DAILY metoprolol tartrate 50 mg tablet 75 mg PO BID Rx Instructions: HOLD FOR SBP<90 OR HR<60 gabapentin 300 mg capsule 300 mg PO TID midodrine 10 mg tablet 10 mg PO TID Rx Instructions: HOLD IF SBP > 180 LYING. insulin lispro [Humalog KwikPen Insulin] 100 unit/mL insulin pen 15 unit SUBCUT AC Rx Instructions: +SLIDING SCALE UD magnesium hydroxide [Milk of Magnesia] 400 mg/5 mL Suspension 30 ml PO Q OTHER DAY PRN (Reason: Constipation) bisacodyl 10 mg Suppository 10 mg OR Q OTHER DAY PRN (Reason: Constipation) Fleet Enema 19-7 gram/118 mL Enema 118 ml OR Q3D PRN (Reason: Constipation) digoxin 250 mcg (0.25 mg) tablet 250 mcg PO QAM Eliquis 5 mg Tablet 5 mg PO BID Qty: 60 0RF famotidine 20 mg tablet 20 mg PO DAILY Qty: 30 0RF Discharge Orders: Discharge Order (Routine); Ordered 11/01/21 Ordered By: Kaye Ho Admission Data Admit Date/Time: 10/23/21 19:30 Attending Provider: Marlin Méndez Admit Provider: Terrance Newell Primary Care Provider: Erik Garcia Other Providers: Terrance Newell ; [place] Other Interventions: Discharge Summary Assessment (RN) Last Done: 11/01/21 12:14 Supervising Physician Co-Signing Physician Notes Resident Physician Supervision Note: I independently interviewed and examined the patient and verified the mariee history and physical, reviewed labs and image studies and agree with resident Dr. Ho findings and care plan. Resident Activity Tracking Resident Involvement: Resident Care Provided Care Provided: Adult Hospital Medicine
[2021-11-04 12:27] LABS: Lyme DNA PCR CSF or Synovial Not Detected (Not Detected); Lyme DNA Source CSF; Lyme IgG Band Pattern CSF DNR; Lyme IgG CSF NO BANDS DETECTED; Lyme IgM Band Pattern CSF DNR; Lyme IgM CSF NO BANDS DETECTED
== END 2021-11-01 13:58 | DRG 69 ==
LOC: ED 16:02 → SUATTDRO 19:30 → 2W 19:30

== ENCOUNTER 2021-12-17 22:27 | Inpatient (IN) ==
[2021-12-17] MEDS ORDERED: DAPTOmycin 250 MG in SYRINGE 0 ML IV SCH (23:00)
[2021-12-17 23:43] LABS: Basophils # (auto) 0.05 K/uL (0-0.2); Basophils % (auto) 0.4 %; Eosinophils # (auto) 0.29 K/uL (0-0.50); Eosinophils % (auto) 2.6 %; Hematocrit (blood only) 39.3 % (34.1-44.9); Immature Granulocytes # (auto) 0.03 K/uL (0.00-0.02); Immature Granulocytes % (auto) 0.3 %; Lymphocytes # (auto) 2.77 K/uL (1.2-3.4); Lymphocytes % (auto) 24.4 %; Mean Corpuscular Hemoglobin 32.5 pg (25.0-34.0); Mean Corpuscular Hgb Conc 33.1 g/dL (32.0-36.0); Mean Corpuscular Volume 98.3 fL (80.0-100.0); Mean Platelet Volume 9.3 fL (9.4-12.3); Monocytes # (auto) 1.46 K/uL (0.24-0.82); Monocytes % (auto) 12.9 %; Neutrophils # (auto) 6.76 K/uL (1.4-6.5); Neutrophils % (auto) 59.4 %; Platelet Count 305 K/uL (130-400); RDW Coefficient of Variation 13.2 % (11.5-14.5); RDW Standard Deviation 48.3 fL (36.4-46.3); White Blood Count 11.36 K/ul (4.8-10.8)
[2021-12-18 00:08] LABS: Albumin Globulin Ratio 0.9 (0.9-2); Albumin Level 3.2 gm/dl (3.4-5.0); Bilirubin,Total 0.4 mg/dl (0.2-1.0); Calcium 9.3 mg/dl (8.5-10.1); Creatinine Clr Calc Pharmacy 33.7 ml/min; Est GFR (African American) 47.6 ml/min; Est GFR (Non-African American) 41.1 ml/min; Globulin 3.6 gm/dl (2.5-4.0); Potassium 3.8 mmol/L (3.5-5.1); Total Protein 6.8 gm/dl (6.0-8.3)
--- NOTE | 2021-12-18 00:22 | History & Physical Report ---
Date of Service December 18, 2021 Assessment & Plan (1) UTI (urinary tract infection): Plan: Patient with UTI. Some increasing confusion and possible hallucinations which may be secondary to this. Culture from 12/15/2021 with greater than 100,000 colony-forming units of Enterococcus faecium (sensitive to daptomycin, nitrofurantoin, tetracycline and vancomycin) patient is afebrile, hemodynamically stable, nontoxic in appearance. Continue daptomycin Check urinalysis (2) A-fib: Plan: Rate controlled atrial fibrillation Continue metoprolol 75 mg p.o. twice daily New Eliquis 5 mg p.o. twice daily Continue digoxin 250 mcg p.o. every morning. Will check digoxin level (3) Controlled type 2 diabetes mellitus with kidney complication, with long-term current use of insulin: Plan: Fairly well controlled with last hemoglobin A1c = 8 on 10/24/2021 We will continue Lantus 15 units twice daily Insulin sliding scale Goal blood sugar 1 10-1 40 Consistent carb diet as tolerated (4) TIA (transient ischemic attack): Plan: Patient hospitalized for difficulty word finding thought to be secondary to TIA in October 2021. Continue atorvastatin 10 mg p.o. daily Continue aspirin 81 mg p.o. daily (5) Dyslipidemia: Plan: Chronic. Continue atorvastatin 10 mg p.o. daily (6) Hypertension: Plan: Blood pressure elevated at present Continue metoprolol 75 mg p.o. twice daily We will hold midodrine Was previously on losartan for blood pressure management but does not appear to be on that anymore Was previously on diltiazem for rate control and blood pressure. Does not appear to be on per medication reconciliation today (7) Chronic kidney disease, stage 3: Plan: Creatinine mildly above baseline Gentle IV fluids Avoid nephrotoxic agents Renal dosing were needed Repeat chemistry in a.m. History of Present Illness Chief Complaint: Urinary tract infection Primary Care Provider: [facility] Ewelina Nolasco is an 86-year-old female with history of hypertension, CKD, this metabolic syndrome X, diabetes presenting with [facility] with UTI and confusion. Patient was reportedly diagnosed with a UTI 2 days ago. She was being managed with ceftriaxone. Culture returned Enterococcus faecium. Staff noted patient has been more confused with possible hallucinations. Here she is afebrile, hypertensive otherwise hemodynamically stable. Nontoxic in appearance Episodes of confusion during encounter but redirectable. ER course: Daptomycin 250 mg IV Allergies Allergy/AdvReac Type Severity Reaction Status Date / Time Sulfa (Sulfonamide Allergy Unknown Nausea Unverified 12/18/21 00:19 Antibiotics) Home Medications Medication Instructions Recorded Confirmed Type cholecalciferol (vitamin D3) 50 2,000 unit PO DAILY 01/03/18 12/18/21 History mcg (2,000 unit) capsule (Vitamin D3) atorvastatin 10 mg tablet 10 mg PO QPM #90 tabs 11/21/20 12/18/21 Rx vitamins A,C,E-eqyz-ffhouv 14,320 1 cap PO BID 11/24/20 12/18/21 History unit-226 mg-200 unit capsule (PreserVision AREDS) insulin glargine 100 unit/mL 42 unit subcut BID 08/09/21 12/18/21 History subcutaneous solution (Lantus U-100 Insulin) acetaminophen 500 mg tablet 1,000 mg PO TID pain 08/22/21 12/18/21 History bimatoprost 0.01 % eye drops 1 drp ophthalmic (eye) DAILY 09/06/21 12/18/21 History bisacodyl 10 mg rectal suppository 10 mg OK Q OTHER DAY PRN 09/07/21 12/18/21 History Constipation digoxin 250 mcg (0.25 mg) tablet 250 mcg PO QAM 09/07/21 12/18/21 History magnesium hydroxide 400 mg/5 mL 30 ml PO Q OTHER DAY PRN 09/07/21 12/18/21 History oral suspension (Milk of Magnesia) Constipation sodium phosphates 19 gram-7 118 ml OK Q3D PRN Constipation 09/07/21 12/18/21 History gram/118 mL enema (Fleet Enema) apixaban 5 mg tablet (Eliquis) 5 mg PO BID #60 tabs 09/12/21 12/18/21 Rx famotidine 20 mg tablet 20 mg PO DAILY #30 tabs 09/13/21 12/18/21 Rx fludrocortisone 0.1 mg tablet 0.2 mg PO DAILY 10/16/21 12/18/21 History insulin lispro 100 unit/mL 15 unit subcut AC 10/23/21 12/18/21 History subcutaneous pen (Humalog KwikPen (U-100) Insulin) metoprolol tartrate 50 mg tablet 75 mg PO BID 10/23/21 12/18/21 History midodrine 10 mg tablet 10 mg PO TID 10/23/21 12/18/21 History aspirin 81 mg capsule 81 mg PO DAILY #30 caps 10/24/21 12/18/21 Rx ceftriaxone 1 gram solution for 1 g IM DAILY 12/18/21 12/18/21 History injection ondansetron 4 mg disintegrating 4 mg translingual Q8 PRN Nausea 12/18/21 12/18/21 History tablet thiamine HCl (vitamin B1) 100 mg 100 mg PO DAILY 12/18/21 12/18/21 History tablet Past Med/Surg History Medical History Accelerated hypertension Chronic kidney disease, stage 3 Discharge planning issues Dysmetabolic syndrome X Elevated troponin History of actinic keratosis History of basal cell carcinoma History of colon cancer History of diabetes mellitus History of nummular eczema History of rheumatic fever History of rosacea Hypertension Right knee DJD Vitamin D deficiency Surgical History History of partial colectomy History of tonsillectomy Hx of appendectomy Hx of cholecystectomy Family History Unknown Family history of thromboembolic disease Social History Smoking Status: Unknown if ever smoked Second Hand Exposure: No; Hx Alcohol Use: No Hx Substance Use: No Preferred Language: [place] Communication Ability: Effective [employer] Required: No Beliefs That Will Affect Care: Confucianist marital status: / Current Living Situation: Group Home Current Living Situation Comment: lives at [facility] current occupational status: retired Feels Safe at Home: Yes Assistive Devices: Walker and Wheelchair Review of Systems Review of Systems: All systems reviewed & are unremarkable except as noted in HPI & below Physical Exam Physical Exam: General: patient resting comfortably, NAD, non-toxic in appearance, AA&O to person, location and date. Able to provide some history of events prior to arrival. Skin: warm, dry, intact, no rashes or lesions HEENT: NC/AT, PERRL, EOMI, anicteric sclera, conjunctiva without injection, ext ernal ear normal to inspection and nontender, nares patent, moist mucus membranes, dentition intact, no oropharyngeal lesions, neck supple, trachea midline, no LAD, no thyromegaly, no JVD Heart: +S1/S2, irregularly irregular, no m/r/g Lungs: equal air entry bilaterally, no rales/rhonchi/wheezes Abd: +BS, soft, NT/ND, no masses/organomegaly/ascites Ext: warm, 2+ pulses in UE/LE bilaterally, no clubbing/cyanosis or edema Neuro: nonfocal, patient AA&O x 4, speech intact, no facial droop, moving all extremities on command with equal strength 5/5 Results & Data Results & Data ([facility]) Vital Signs (Past 12 Hours) Vital Signs Temp Pulse Pulse Resp BP BP Pulse Ox 12/18/21 00:01 194/89 H 12/18/21 00:01 75 21 12/18/21 00:00 80 19 12/17/21 23:30 73 20 12/17/21 23:30 177/92 H 12/17/21 23:00 83 15 12/17/21 23:00 195/124 H 12/17/21 22:32 64 20 97 12/17/21 22:31 198/108 H 12/17/21 22:34 79 20 177/92 H 98 12/17/21 22:34 84 20 97 12/17/21 22:34 36.9 C 83 19 198/108 H 97 O2 Del Method 12/18/21 00:01 12/18/21 00:01 12/18/21 00:00 12/17/21 23:30 12/17/21 23:30 12/17/21 23:00 12/17/21 23:00 12/17/21 22:32 12/17/21 22:31 12/17/21 22:34 Room Air 12/17/21 22:34 Room Air 12/17/21 22:34 Room Air Laboratory Results Laboratory Results WBC 11.36 K/ul (4.8-10.8) H 12/17/21 23:29 RBC 4.00 M/uL (3.93-5.22) 12/17/21 23:29 Hgb 13.0 g/dl (12.0-16.0) 12/17/21: Hct 39.3 % (34.1-44.9) 12/17/21: MCV 98.3 fL (80.0-100.0) 12/17/21: MCH 32.5 pg (25.0-34.0) 12/17/21: MCHC 33.1 g/dL (32.0-36.0) 12/17/21: RDW Std Deviation 48.3 fL (36.4-46.3) H 12/17/21: RDW Coeff of Rosie 13.2 % (11.5-14.5) 12/17/21: Plt Count 305 K/uL (130-400) 12/17/21: MPV 9.3 fL (9.4-12.3) L 12/17/21: Immature Gran % (Auto) 0.3 % 12/17/21: Neut % (Auto) 59.4 % 12/17/21: Lymph % (Auto) 24.4 % 12/17/21 23: [place] % (Auto) 12.9 % 12/17/21 23: Eos % (Auto) 2.6 % 12/17/21: Baso % (Auto) 0.4 % 12/17/21 Neut # (Auto) 6.76 K/uL (1.4-6.5) H 12/17/21: Lymph # (Auto) 2.77 K/uL (1.2-3.4) 12/17/21: [place] # (Auto) 1.46 K/uL (0.24-0.82) H 12/17/21: Eos # (Auto) 0.29 K/uL (0-0.50) 12/17/21: Baso # (Auto) 0.05 K/uL (0-0.2) 12/17/21: Immature Gran # (Auto) 0.03 K/uL (0.00-0.02) H 12/17/21: Sodium 135 mmol/L (136-145) L 12/17/21 23: Potassium 3.8 mmol/L (3.5-5.1) 12/17/21 23:29 Chloride 98 mmol/L (98-107) 12/17/21 23:29 Carbon Dioxide 31 mmol/L (21-32) 12/17/21 23:29 Anion Gap 6 (3-11) 12/17/21 23:29 BUN 23 mg/dl (6-23) 12/17/21 23:29 Creatinine 1.21 mg/dl (0.6-1.2) H 12/17/21 23:29 Est Cr Clr Drug Dosing 33.7 ml/min 12/17/21 23:29 Est GFR ( Amer) 47.6 ml/min 12/17/21 23:29 Est GFR (Non-Af Amer) 41.1 ml/min 12/17/21 23:29 BUN/Creatinine Ratio 19.0 (10-20) 12/17/21 23:29 Glucose 80 mg/dl (70-99(Fasting)) 12/17/21 23:29 Calcium 9.3 mg/dl (8.5-10.1) 12/17/21 23:29 Total Bilirubin 0.4 mg/dl (0.2-1.0) 12/17/21 23:29 AST 11 U/L (13-39) L 12/17/21 23:29 ALT 13 U/L (7-52) 12/17/21 23:29 Alkaline Phosphatase 65 U/L (34-104) 12/17/21 23:29 Total Protein 6.8 gm/dl (6.0-8.3) 12/17/21 23:29 Albumin 3.2 gm/dl (3.4-5.0) L 12/17/21 23:29 Globulin 3.6 gm/dl (2.5-4.0) 12/17/21 23:29 Albumin/Globulin Ratio 0.9 (0.9-2) 12/17/21 23:29 Lipase 20 U/L (11-82) 12/17/21 23:29 SARS-CoV-2, RNA, NAAT NEGATIVE (NEGATIVE) 12/17/21 23:30 PG Care Time/CCT Total # of Minutes Spent Total Time Spent with Patient: Total time spent is greater than 50% in coordination of care (as documented) at patient's floor/unit and/or counseling patient: Coding Level of Care Code INT OBSERVATION CARE 70M LVL 3 Diagnoses UTI (urinary tract infection) N39.0 A-fib I48.21 Atrial fibrillation type: permanent Controlled type 2 diabetes mellitus with kidney complication, with long-term current use of insulin E11.29; Z79.4 TIA (transient ischemic attack) G45.9 Dyslipidemia E78.5 Hypertension I10 Chronic kidney disease, stage 3 N18.3 (1) A-fib Atrial fibrillation type: permanent Qualified Code(s): I48.21 - Permanent atrial fibrillation
--- NOTE | 2021-12-18 01:19 | Emergency Department Note ---
Impression & Plan Enterococcus UTI, Acute UTI, Acute confusion ED Provider Note NAME: EWELINA CARTY AGE: 86 SEX: F : 1935 ARRIVES VIA: Ambulance INFORMANT: Patient ED PROVIDER(S): Rancho Monahan DO CHIEF COMPLAINT: confusion with UTI HPI: Patient is an 86-year-old female with a past medical history of TIA, hyponatremia, encephalopathy, A. fib, REYES, dyslipidemia, diabetes, hypertension presents the ER from [facility] for UTI that is being treated with Rocephin for the past 3 days. They noted that she is getting worse and has having worsening confusion and hallucinations. Denies any headache or change in vision. No chest pain or shortness of breath. No nausea, vomiting or diarrhea. Denies any fevers. No other exacerbating or remitting factors. She has no pain and is aware that she is being treated for UTI and notes that they do not believe that is going better. ROS: See above HPI for pertinent positives & negatives. A total of 10 systems reviewed and were otherwise negative. PAST MEDICAL HISTORY:See Below PAST SURGICAL HISTORY:See Below FAMILY HISTORY:See Below SOCIAL HISTORY:See Below HOME MEDICATIONS:See Below ALLERGIES:See Below VITALS:See Below PHYSICAL EXAMINATION: GENERAL: Sitting up in bed, alert, well appearing, well nourished, no distress, non-toxic EYE EXAM: normal conjunctiva. OROPHARYNX: mucous membranes are moist LUNGS: Clear to auscultation. Normal chest wall mechanics HEART: no murmurs, S1 normal and S2 normal ABDOMEN: abdomen soft, non-tender, normo-active bowel sounds, no masses, no rebound or guarding. UPPER EXTREMITIES: upper extremities are grossly normal. LOWER EXTREMITIES: No pitting edema. NEURO EXAM: Oriented to person and place but not year, cranial nerves II-XII grossly intact, normal speech, no gross weakness of arms, no gross weakness of legs. MEDICAL DECISION MAKING: Patient is an 86-year-old female who presents the ER for worsening confusion associated with a UTI which has been treated as an outpatient with IM Rocephin for the past 3 days and his Enterococcus only susceptible to Dapto, gent, Macrobid and vancomycin. IV was established blood work was obtained. Labs show mild leukocytosis of 11,000. No significant anemia. BMP with LFTs bilirubin lipase is unremarkable. COVID was negative. Benign Aabdomen on exam. No back pain to suggest Jayson. Afebrile. She was given IV daptomycin. Discussed with Nusrat Ohara for further evaluation. Triage Nursing notes reviewed. Limited review of prior medical records performed Vital Signs: reviewed and remarkable for HTN Differential diagnosis: Differential diagnoses includes but is not limited to gastritis, peptic ulcer disease, GERD, gallbladder disease, pancreatitis, small bowel obstruction, acute coronary syndrome, pericarditis, ischemic bowel, irritable bowel disease, irritable bowel syndrome, appendicitis, diverticulitis, malignancy, hernia, urinary tract infection, torsion, [/ectopic (if female)], perforation, trauma, infectious. ER treatment provided: See below Diagnostics interpreted by me: ECG: none Cardiac Monitoring: An order was placed for continuous cardiac monitoring. The monitor shows a rate of 92 with sinus rhythm. Laboratory studies: As stated above and show below. Imaging studies: See below Consultation(s): Discussed with Dr. Nusrat Ohara for further evaluation Procedures: none Critical Care: None Past Med/Surg History Medical History Accelerated hypertension Chronic kidney disease, stage 3 Discharge planning issues Dysmetabolic syndrome X Elevated troponin History of actinic keratosis History of basal cell carcinoma History of colon cancer History of diabetes mellitus History of nummular eczema History of rheumatic fever History of rosacea Hypertension Right knee DJD Vitamin D deficiency Surgical History History of partial colectomy History of tonsillectomy Hx of appendectomy Hx of cholecystectomy Family History Unknown Family history of thromboembolic disease Social History Smoking Status: Unknown if ever smoked Second Hand Exposure: No; Hx Alcohol Use: No Hx Substance Use: No Preferred Language: Icelandic Communication Ability: Effective 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 Required: No Beliefs That Will Affect Care: [employer] marital status: / Current Living Situation: Longterm Current Living Situation Comment: lives at [facility] current occupational status: retired Feels Safe at Home: Yes Assistive Devices: Walker and Wheelchair Allergies Allergies Allergy/AdvReac Type Severity Reaction Status Date / Time Sulfa (Sulfonamide Allergy Unknown Nausea Unverified 12/18/21 00:19 Antibiotics) Home Meds Home Medications Medication Instructions Recorded Confirmed cholecalciferol (vitamin D3) 50 2,000 unit PO DAILY 01/03/18 12/18/21 mcg (2,000 unit) capsule (Vitamin D3) vitamins A,C,H-dntv-vesbra 14,320 1 cap PO BID 11/24/20 12/18/21 unit-226 mg-200 unit capsule (PreserVision AREDS) insulin glargine 100 unit/mL 42 unit subcut BID 08/09/21 12/18/21 subcutaneous solution (Lantus U-100 Insulin) acetaminophen 500 mg tablet 1,000 mg PO TID pain 08/22/21 12/18/21 bimatoprost 0.01 % eye drops 1 drp ophthalmic (eye) DAILY 09/06/21 12/18/21 bisacodyl 10 mg rectal suppository 10 mg NE Q OTHER DAY PRN 09/07/21 12/18/21 Constipation digoxin 250 mcg (0.25 mg) tablet 250 mcg PO QAM 09/07/21 12/18/21 magnesium hydroxide 400 mg/5 mL 30 ml PO Q OTHER DAY PRN 09/07/21 12/18/21 oral suspension (Milk of Magnesia) Constipation sodium phosphates 19 gram-7 118 ml NE Q3D PRN Constipation 09/07/21 12/18/21 gram/118 mL enema (Fleet Enema) fludrocortisone 0.1 mg tablet 0.2 mg PO DAILY 10/16/21 12/18/21 insulin lispro 100 unit/mL 15 unit subcut AC 10/23/21 12/18/21 subcutaneous pen (Humalog KwikPen (U-100) Insulin) metoprolol tartrate 50 mg tablet 75 mg PO BID 10/23/21 12/18/21 midodrine 10 mg tablet 10 mg PO TID 10/23/21 12/18/21 ceftriaxone 1 gram solution for 1 g IM DAILY 12/18/21 12/18/21 injection ondansetron 4 mg disintegrating 4 mg translingual Q8 PRN Nausea 12/18/21 12/18/21 tablet thiamine HCl (vitamin B1) 100 mg 100 mg PO DAILY 12/18/21 12/18/21 tablet Previous Rx's Medication Instructions Recorded atorvastatin 10 mg tablet 10 mg PO QPM #90 tabs 11/21/20 apixaban 5 mg tablet (Eliquis) 5 mg PO BID #60 tabs 09/12/21 famotidine 20 mg tablet 20 mg PO DAILY #30 tabs 09/13/21 aspirin 81 mg capsule 81 mg PO DAILY #30 caps 10/24/21 Results & Data (ED) Vital Signs Vital Signs - 24 hr 12/17/21 22:34 12/17/21 22:34 12/17/21 22:34 Temperature 36.9 C Temperature Source Oral Pulse Rate 83 84 Pulse Rate [Apical] 79 Pulse Rate from SpO2 Sensor Pulse Rhythm Regular Regular Pulse Rhythm [Apical] Regular Pulse Strength Normal Pulse Strength [Apical] Normal Respiratory Rate 19 20 20 Respiratory Effort / Characteristics Non-Labored Non-Labored Respiratory Depth Normal Normal Respiratory Pattern Regular Regular Blood Pressure 198/108 H Blood Pressure [Right Arm] 177/92 H Blood Pressure Mean 138 Blood Pressure Mean [Right Arm] 120 Blood Pressure Position [Right Arm] Lying Pulse Oximetry 97 97 98 Oxygen Delivery Method Room Air Room Air Room Air Sepsis Recent Fever Within 48 Hours No Sepsis New/Unexplained Change in Mental Status N/A Sepsis Action Taken by Nursing No Action Required 12/17/21 22:31 12/17/21 22:32 12/17/21 23:00 Temperature Temperature Source Pulse Rate 64 Pulse Rate [Apical] Pulse Rate from SpO2 Sensor 75 Pulse Rhythm Pulse Rhythm [Apical] Pulse Strength Pulse Strength [Apical] Respiratory Rate 20 Respiratory Effort / Characteristics Respiratory Depth Respiratory Pattern Blood Pressure 198/108 H 195/124 H Blood Pressure [Right Arm] Blood Pressure Mean 138 147 Blood Pressure Mean [Right Arm] Blood Pressure Position [Right Arm] Pulse Oximetry 97 Oxygen Delivery Method Sepsis Recent Fever Within 48 Hours Sepsis New/Unexplained Change in Mental Status Sepsis Action Taken by Nursing 12/17/21 23:00 12/17/21 23:30 12/17/21 23:30 Temperature Temperature Source Pulse Rate 83 73 Pulse Rate [Apical] Pulse Rate from SpO2 Sensor Pulse Rhythm Pulse Rhythm [Apical] Pulse Strength Pulse Strength [Apical] Respiratory Rate 15 20 Respiratory Effort / Characteristics Respiratory Depth Respiratory Pattern Blood Pressure 177/92 H Blood Pressure [Right Arm] Blood Pressure Mean 120 Blood Pressure Mean [Right Arm] Blood Pressure Position [Right Arm] Pulse Oximetry Oxygen Delivery Method Sepsis Recent Fever Within 48 Hours Sepsis New/Unexplained Change in Mental Status Sepsis Action Taken by Nursing 12/18/21 00:00 12/18/21 00:01 12/18/21 00:01 Temperature Temperature Source Pulse Rate 80 75 Pulse Rate [Apical] Pulse Rate from SpO2 Sensor Pulse Rhythm Pulse Rhythm [Apical] Pulse Strength Pulse Strength [Apical] Respiratory Rate 19 21 Respiratory Effort / Characteristics Respiratory Depth Respiratory Pattern Blood Pressure 194/89 H Blood Pressure [Right Arm] Blood Pressure Mean 124 Blood Pressure Mean [Right Arm] Blood Pressure Position [Right Arm] Pulse Oximetry Oxygen Delivery Method Sepsis Recent Fever Within 48 Hours Sepsis New/Unexplained Change in Mental Status Sepsis Action Taken by Nursing 12/18/21 00:30 12/18/21 00:31 12/18/21 00:31 Temperature Temperature Source Pulse Rate 77 94 H Pulse Rate [Apical] Pulse Rate from SpO2 Sensor Pulse Rhythm Pulse Rhythm [Apical] Pulse Strength Pulse Strength [Apical] Respiratory Rate 20 23 Respiratory Effort / Characteristics Respiratory Depth Respiratory Pattern Blood Pressure 188/134 H Blood Pressure [Right Arm] Blood Pressure Mean 152 Blood Pressure Mean [Right Arm] Blood Pressure Position [Right Arm] Pulse Oximetry Oxygen Delivery Method Sepsis Recent Fever Within 48 Hours Sepsis New/Unexplained Change in Mental Status Sepsis Action Taken by Nursing Laboratory Data Result diagrams: 12/17/21 23:29 12/17/21 23:29 Lab Results 12/17/21 12/17/21 12/17/21 Range/Units 23:29 23:29 23:30 WBC 11.36 H (4.8-10.8) K/ul RBC 4.00 (3.93-5.22) M/uL Hgb 13.0 (12.0-16.0) g/dl Hct 39.3 (34.1-44.9) % MCV 98.3 (80.0-100.0) fL MCH 32.5 (25.0-34.0) pg MCHC 33.1 (32.0-36.0) g/dL RDW Std Deviation 48.3 H (36.4-46.3) fL RDW Coeff of Rosie 13.2 (11.5-14.5) % Plt Count 305 (130-400) K/uL MPV 9.3 L (9.4-12.3) fL Immature Gran % (Auto) 0.3 % Neut % (Auto) 59.4 % Lymph % (Auto) 24.4 % [place] % (Auto) 12.9 % Eos % (Auto) 2.6 % Baso % (Auto) 0.4 % Neut # (Auto) 6.76 H (1.4-6.5) K/uL Lymph # (Auto) 2.77 (1.2-3.4) K/uL [place] # (Auto) 1.46 H (0.24-0.82) K/uL Eos # (Auto) 0.29 (0-0.50) K/uL Baso # (Auto) 0.05 (0-0.2) K/uL Immature Gran # (Auto) 0.03 H (0.00-0.02) K/uL Sodium 135 L (136-145) mmol/L Potassium 3.8 (3.5-5.1) mmol/L Chloride 98 (98-107) mmol/L Carbon Dioxide 31 (21-32) mmol/L Anion Gap 6 (3-11) BUN 23 (6-23) mg/dl Creatinine 1.21 H (0.6-1.2) mg/dl Est Cr Clr Drug Dosing 33.7 ml/min Est GFR ( Amer) 47.6 ml/min Est GFR (Non-Af Amer) 41.1 ml/min BUN/Creatinine Ratio 19.0 (10-20) Glucose 80 (70-99(Fasting)) mg/dl Calcium 9.3 (8.5-10.1) mg/dl Total Bilirubin 0.4 (0.2-1.0) mg/dl AST 11 L (13-39) U/L ALT 13 (7-52) U/L Alkaline Phosphatase 65 (34-104) U/L Total Protein 6.8 (6.0-8.3) gm/dl Albumin 3.2 L (3.4-5.0) gm/dl Globulin 3.6 (2.5-4.0) gm/dl Albumin/Globulin Ratio 0.9 (0.9-2) Lipase 20 (11-82) U/L SARS-CoV-2, RNA, NAAT NEGATIVE (NEGATIVE) Administered Medications Daptomycin 250 mg/ Syringe 5 mls @ 2.5 mls/min IV Q24H [facility]; Protocol Stop: 12/19/21 22:59 Last Admin: 12/17/21 23:33 Dose: 2.5 mls/min Documented By: RDD Discharge Plan Visit Data Chief Complaint: Urinary Symptoms Stated Complaint: Urinary Symptoms, Altered Mental Status ED Provider: Rancho Monahan Discharge Problem: Enterococcus UTI, Acute UTI, Acute confusion Forms Stand Alone Forms: My [facility] Prescriptions Prescriptions: No Action PreserVision AREDS [id number] capsule 1 cap PO BID acetaminophen 500 mg tablet 1,000 mg PO TID bimatoprost 0.01 % drops 1 drp ophthalmic (eye) DAILY atorvastatin 10 mg tablet 10 mg PO QPM Qty: 90 3RF fludrocortisone 0.1 mg tablet 0.2 mg PO DAILY Lantus U-100 Insulin 100 unit/mL solution 42 unit SUBCUT BID cholecalciferol (vitamin D3) [Vitamin D3] 2,000 unit Capsule 2,000 unit PO DAILY metoprolol tartrate 50 mg tablet 75 mg PO BID Rx Instructions: HOLD FOR SBP<90 OR HR<60 midodrine 10 mg tablet 10 mg PO TID Rx Instructions: HOLD IF SBP > 180 LYING. insulin lispro [Humalog KwikPen Insulin] 100 unit/mL insulin pen 15 unit SUBCUT AC Rx Instructions: +SLIDING SCALE UD aspirin 81 mg capsule 81 mg PO DAILY Qty: 30 0RF ceftriaxone 1 gram recon soln 1 g IM DAILY Rx Instructions: END DATE 12/18/21 thiamine HCl (vitamin B1) 100 mg Tablet 100 mg PO DAILY ondansetron 4 mg tablet,disintegrating 4 mg translingual Q8 PRN (Reason: Nausea) magnesium hydroxide [Milk of Magnesia] 400 mg/5 mL Suspension 30 ml PO Q OTHER DAY PRN (Reason: Constipation) bisacodyl 10 mg Suppository 10 mg NE Q OTHER DAY PRN (Reason: Constipation) Fleet Enema 19-7 gram/118 mL Enema 118 ml NE Q3D PRN (Reason: Constipation) digoxin 250 mcg (0.25 mg) tablet 250 mcg PO QAM Eliquis 5 mg Tablet 5 mg PO BID Qty: 60 0RF famotidine 20 mg tablet 20 mg PO DAILY Qty: 30 0RF Referrals Referrals: Erik Garcia [Primary Care Provider] -
[2021-12-18] MEDS ORDERED: ACETAMINOPHEN 325 MG TAB PO PRN (02:08)
[2021-12-18] MEDS ORDERED: bisacodyL 10 MG SUPP PR PRN (02:08)
[2021-12-18] MEDS ORDERED: ONDANSETRON INJ 2 MG/ML 2 ML VIAL IV PRN (02:08)
[2021-12-18] MEDS ORDERED: CARBOHYDRATES FOR HYPOGLYCEMIA PO PRN (02:08)
[2021-12-18] MEDS ORDERED: DEXTROSE 50% 50 ML SYRINGE IV PRN (02:08)
[2021-12-18] MEDS ORDERED: GLUCAGON FOR INJ 1 MG VIAL SQ PRN (02:08)
[2021-12-18] MEDS ORDERED: GLUCOSE 10 TAB/TUBE PO PRN (02:08)
[2021-12-18] MEDS ORDERED: GLUCOSE 40% GEL 15 GM TUBE PO PRN (02:08)
[2021-12-18 02:31] LABS: Magnesium 2.1 mg/dl (1.7-2.4); Phosphorus 3.9 mg/dl (2.5-4.9)
[2021-12-18] MEDS ORDERED: PNEUMOCOCCAL Polysaccharide Vaccine 25mcg/0.5mL vial/Syr IM ONE (04:15)
[2021-12-18] MEDS ORDERED: SODIUM CHLORIDE 0.9% 500 ML IV SCH (08:45)
[2021-12-18] MEDS ORDERED: dilTIAZem HCL 120 MG CAPCR PO SCH (09:00)
--- NOTE | 2021-12-18 09:54 | History & Physical Bridge Note ---
Date of Service December 18, 2021 History & Physical Bridge Note I have examined the patient, reviewed the History & Physical and in the interval since the performance of the History & Physical I have noted the following changes of clinical significance: no changes noted Seen this morning following breakfast. Had some eggs/toast, wanting something sweet. Knows she is in the hospital, but name centre community. States year is 2021, from [facility]. Patient with hx UTI, discussed current UTI on cultures and sensitive to ordered antibiotics. She notes she was antibiotics at [facility], but discussed they were not effective at treating current UTI. Discussed could continue the Dapto vs consideration for Nitrofurantoin based on sensitivities. Will discuss with case management about antibiotics at [facility] but given sensitivities may be able to arrange back home today or tomorrow on appropriate antibiotics. Will also check about status of the losartan and cardizem as added last admission given elevated BPs, denied headache.
[2021-12-18 09:56] LABS: Calcium 9.2 mg/dl (8.5-10.1); Creatinine Clr Calc Pharmacy 40.7 ml/min; Est GFR (African American) 59.9 ml/min; Est GFR (Non-African American) 51.7 ml/min; Potassium 3.6 mmol/L (3.5-5.1)
[2021-12-18] MEDS: APIXABAN 5 MG TABLET PO SCH ×2 (10:06→21:44)
[2021-12-18] MEDS: METOPROLOL TARTRATE 25 MG TAB PO SCH ×2 (10:06→21:45)
[2021-12-18] MEDS: FLUDROCORTISONE ACETATE 0.1 MG TAB PO SCH (10:06)
[2021-12-18] MEDS: ASPIRIN 81 MG ECTAB PO SCH (10:07)
[2021-12-18] MEDS: BIMATOPROST 0.01% OP SOLN 2.5 ML BTL OP SCH (10:07)
[2021-12-18] MEDS: FAMOTIDINE 20 MG TAB PO SCH (10:08)
[2021-12-18] MEDS: LANTUS PER UNIT CHARGE SQ SCH ×2 (10:09→21:43)
[2021-12-18] MEDS: THIAMINE HCL 100 MG TAB PO SCH (10:09)
[2021-12-18] MEDS: INSULIN ASPART PER UNIT SC SCH ×4 (10:09→21:42)
[2021-12-18] MEDS: DIGOXIN 0.25 MG TAB PO SCH (16:41)
[2021-12-18] MEDS: DAPTOmycin 250 MG in SYRINGE 0 ML IV SCH (21:56)
[2021-12-19 07:08] LABS: Basophils # (auto) 0.04 K/uL (0-0.2); Basophils % (auto) 0.3 %; Eosinophils # (auto) 0.12 K/uL (0-0.50); Eosinophils % (auto) 0.9 %; Hemoglobin 13.9 g/dl (12.0-16.0); Immature Granulocytes # (auto) 0.03 K/uL (0.00-0.02); Immature Granulocytes % (auto) 0.2 %; Lymphocytes # (auto) 2.49 K/uL (1.2-3.4); Lymphocytes % (auto) 19.7 %; Mean Corpuscular Hemoglobin 33.3 pg (25.0-34.0); Mean Corpuscular Hgb Conc 34.8 g/dL (32.0-36.0); Mean Corpuscular Volume 95.7 fL (80.0-100.0); Mean Platelet Volume 9.5 fL (9.4-12.3); Monocytes # (auto) 1.36 K/uL (0.24-0.82); Monocytes % (auto) 10.7 %; Neutrophils # (auto) 8.63 K/uL (1.4-6.5); Neutrophils % (auto) 68.2 %; Platelet Count 290 K/uL (130-400); RDW Coefficient of Variation 13.3 % (11.5-14.5); Red Blood Count 4.18 M/uL (3.93-5.22); White Blood Count 12.67 K/ul (4.8-10.8)
[2021-12-19 07:28] LABS: BUN Creatinine Ratio 14.8 (10-20); Calcium 9.2 mg/dl (8.5-10.1); Creatinine Clr Calc Pharmacy 46.3 ml/min; Est GFR (African American) 69.9 ml/min; Est GFR (Non-African American) 60.3 ml/min; Potassium 3.4 mmol/L (3.5-5.1)
[2021-12-19] MEDS ORDERED: POTASSIUM CHLORIDE CRTAB 20 MEQ TABCR PO STA ×2 (08:38→11:58)
[2021-12-19] MEDS: APIXABAN 5 MG TABLET PO SCH ×2 (09:36→20:44)
[2021-12-19] MEDS: ASPIRIN 81 MG ECTAB PO SCH (09:37)
[2021-12-19] MEDS: BIMATOPROST 0.01% OP SOLN 2.5 ML BTL OP SCH (09:37)
[2021-12-19] MEDS: FAMOTIDINE 20 MG TAB PO SCH (09:38)
[2021-12-19] MEDS: THIAMINE HCL 100 MG TAB PO SCH ×2 (09:39→20:44)
[2021-12-19] MEDS: FLUDROCORTISONE ACETATE 0.1 MG TAB PO SCH (09:40)
[2021-12-19] MEDS: METOPROLOL TARTRATE 25 MG TAB PO SCH ×2 (09:41→20:44)
[2021-12-19] MEDS: dilTIAZem HCL 240 MG CAPCR PO SCH (09:41)
[2021-12-19] MEDS: LANTUS PER UNIT CHARGE SQ SCH ×2 (09:46→20:43)
[2021-12-19] MEDS: INSULIN ASPART PER UNIT SC SCH ×4 (09:46→20:42)
[2021-12-19 10:17] LABS: Appearance Urine Turbid (Clear); Bacteria Urine Automated Negative (Negative); Bilirubin Urine Negative (Negative); Blood Urine 2+ (Negative); Color Urine Yellow; Epithelial Cell Urine Auto 20-30 /lpf (0-5); Glucose Urine UA Trace (Negative); Ketones Urine Trace (Negative); Leukocyte Esterase Urine 3+ (Negative); Nitrite Urine Negative (Negative); Protein Urine 4+ (Negative); Specific Gravity Urine 1.021 (1.000-1.030); Urobilinogen Urine Negative (Negative); WBC Urine Automated >30 /hpf (0-5); pH Urine 6.5 (4.5-7.5)
[2021-12-19 11:02] LABS: RBC Urine Automated 0-4 /hpf (0-4)
--- NOTE | 2021-12-19 11:53 | Hospitalist Progress Note ---
Date of Service December 19, 2021 Assessment & Plan (1) UTI (urinary tract infection): Plan: Patient with UTI. Some increasing confusion and possible hallucinations which may be secondary to this. Culture from 12/15/2021 with greater than 100,000 colony-forming units of Enterococcus faecium (sensitive to daptomycin, nitrofurantoin, tetracycline and vancomycin) patient is afebrile, hemodynamically stable, nontoxic in appearance. Placed on Daptomycin on admission given resistant enterococcus on 12/15 cx from [facility] and had been on Ceftriaxone Continue Dapto (day 2) Urine cx obtained -->monitor for any additional species/resistance given elevated WBC however afebrile IVF ordered for today for some mild dehydration on exam Will check orthostatics as well given orthostatic hypotension at [facility] and use of midodrine (had discontinued her diltiazem/losartan) however diltiazem added back given elevated HR (denied palpitations) and BP given prior TIA symptoms last month will also order 500ml NSS for today for mild dehydration on exam Will consult PT/OT to ensure able to go back to [facility] Asked CM to check if able to go back on IV abx given she came on such awaiting response Possible d/c tomorrow (2) A-fib: Plan: Rate controlled atrial fibrillation Rates slightly higher last 24 hours, continues on metoprolol 75mg BID Eliquis 5mg BID Digoxin 250mcg daily, dig level acceptable Of note, prior on diltiazem 240mg daily -- added back at 120, increased to 240mg for today check orthostatic VS TSH checked -- 1.113 Checked EKG 12/19 for faster HR EKG w/ left axis deviation however does not look as changed as EKGs BP control needs to be obtained Trop obtained, around prior values. no CP/SOB reported, denied any palpitations Keep mag ~2, K~4 Mag IV ordered, PO potassium (3) Controlled type 2 diabetes mellitus with kidney complication, with long-term current use of insulin: Plan: Fairly well controlled with last hemoglobin A1c = 8 on 10/24/2021 We will continue Lantus 15 units twice daily Insulin sliding scale Goal blood sugar 1 10-1 40 Consistent carb diet as tolerated BSGs acceptable (4) TIA (transient ischemic attack): Plan: Patient hospitalized for difficulty word finding thought to be secondary to TIA in October 2021. Continue atorvastatin 10 mg p.o. daily Continue aspirin 81 mg p.o. daily Obtain better BP control as outlined, check orthostatic VS No focal deficit to warrant MRI for now (5) Dyslipidemia: Plan: Chronic. Continue atorvastatin 10 mg p.o. daily (6) Hypertension: Plan: Blood pressure elevated Continue metoprolol 75 mg p.o. twice daily We will hold midalfredo Was previously on losartan for blood pressure management but does not appear to be on that anymore Was previously on diltiazem for rate control and blood pressure. Does not appear to be on per medication reconciliation today restarted diltiazem 12/18, increased to 240 as prior taking as outlined BP improved to 148/74 this afternoon gentle ivf ordered for some dehydration check orthostatics monitor BP response (7) Chronic kidney disease, stage 3: Plan: Creatinine mildly above baseline 0.88 IVF ordered 500cc for today Avoid nephrotoxic agents/renal dose meds when able BMP in AM Plan continued inpatient stay on IV Daptomycin check renal US for eval of stones given weakness monitor repeat urine culture check orthostatic vital signs/IVF as ordered --> maintain BP control PT consulted hopeful d/c back to [facility] tomorrow Admission and Anticipated Discharge Date Admission Date: December 18, 2021 Subjective Eval this morning, resting comfortably in bed but fatigued appearing. Awakens to name, states year 2021, she's in [facility]. UA obtained this morning for foul/cloudy smelling urine not yet collected on admission. Remains on Dapto for prior enterococcus on culture being tx w/ ceftriaxone at [facility]. Patient recalls name diltiazem but not sure about losartan, asked CM to obtain medication list from [facility] , but increased diltiazem to 240mg this morning given elevated BP and HR 109. Appears slightly, irregular, will check EKG. Denies any pain anywhere, any chills/fevers, any chest pain or shortness of breath. Not great appetite. Also prior B1 level 7 and 8, increased thiamine supplementation and would continue at d/c Awaiting response from [facility] to see if able to take on Daptomycin IV. Checking CK given blood on UA but no RBC. Does have dry mm, will order gentle IVF for today. Per [facility] notes, mary jane had been on dilt and losartan and BPs elevated in bed but orthostatic hypotension and midodrine added. Will check orthostatic vitals given prior elevated BPS. Review of Systems Review of Systems: All systems reviewed & are unremarkable except as noted in HPI & below Physical Exam Physical Exam: General: WD/WN female resting in bed, fatigued but NAD HEENT: slightly dry mm, trachea mideline without deviation Resp: CTAB, diminished in the bases, on room air CV: irregularly irregular, no m/r/g, no calf edema or tenderness to palpation, pulses palpable, trace pedal edema GI: +BS, soft nontender : purewick with concentrated cloudy urine draining MSK/Neuro: generalized weakness but strength equal bilaterally, no focal deficit, slurred speech or facial droop Psych: alert to person, [facility], year 2021, cooperative but flat affect Results & Data Results & Data ([facility]) Vital Signs (Past 12 Hours) Vital Signs Temp Pulse Resp BP Pulse Ox O2 Del Method 12/19/21 09:00 Room Air 12/19/21 09:40 98 H 148/74 H 12/19/21 07:31 36.7 C 82 18 164/75 H 96 Room Air Laboratory Results 12/19/21 12/19/21 12/19/21 Range/Units 11:53 09:55 08:06 WBC (4.8-10.8) K/ul RBC (3.93-5.22) M/uL Hgb (12.0-16.0) g/dl Hct (34.1-44.9) % MCV (80.0-100.0) fL MCH (25.0-34.0) pg MCHC (32.0-36.0) g/dL RDW Std Deviation (36.4-46.3) fL RDW Coeff of Rosie (11.5-14.5) % Plt Count (130-400) K/uL MPV (9.4-12.3) fL Immature Gran % (Auto) % Neut % (Auto) % Lymph % (Auto) % [place] % (Auto) % Eos % (Auto) % Baso % (Auto) % Neut # (Auto) (1.4-6.5) K/uL Lymph # (Auto) (1.2-3.4) K/uL [place] # (Auto) (0.24-0.82) K/uL Eos # (Auto) (0-0.50) K/uL Baso # (Auto) (0-0.2) K/uL Immature Gran # (Auto) (0.00-0.02) K/uL Sodium (136-145) mmol/L Potassium (3.5-5.1) mmol/L Chloride (98-107) mmol/L Carbon Dioxide (21-32) mmol/L Anion Gap (3-11) BUN (6-23) mg/dl Creatinine (0.6-1.2) mg/dl Est Cr Clr Drug Dosing ml/min Est GFR ( Amer) ml/min Est GFR (Non-Af Amer) ml/min BUN/Creatinine Ratio (10-20) Glucose (70-99(Fasting)) mg/dl POC Glucose 143 H 98 (70-99) mg/dl Calcium (8.5-10.1) mg/dl Magnesium (1.7-2.4) mg/dl Total Creatine Kinase (26-192) U/L Troponin I High Sens (0-14) pg/ml Urine Color Yellow Urine Appearance Turbid A (Clear) Urine pH 6.5 (4.5-7.5) Ur Specific [place] 1.021 (1.000-1.030) Urine Protein 4+ H (Negative) Urine Glucose (UA) Trace H (Negative) Urine Ketones Trace H (Negative) Urine Blood 2+ H (Negative) Urine Nitrite Negative (Negative) Urine Bilirubin Negative (Negative) Urine Urobilinogen Negative (Negative) Ur Leukocyte Esterase 3+ H (Negative) Urine WBC (Auto) >30 H (0-5) /hpf Urine RBC (Auto) 0-4 (0-4) /hpf U Hyaline Cast (Auto) 1-5 (0-5) /lpf U Epithel Cells (Auto) 20-30 H (0-5) /lpf Urine Bacteria (Auto) Negative (Negative) Urine Yeast Present A (None Prsent) 12/19/21 12/19/21 12/19/21 Range/Units 06:50 06:50 06:50 WBC (4.8-10.8) K/ul RBC (3.93-5.22) M/uL Hgb (12.0-16.0) g/dl Hct (34.1-44.9) % MCV (80.0-100.0) fL MCH (25.0-34.0) pg MCHC (32.0-36.0) g/dL RDW Std Deviation (36.4-46.3) fL RDW Coeff of Rosie (11.5-14.5) % Plt Count (130-400) K/uL MPV (9.4-12.3) fL Immature Gran % (Auto) % Neut % (Auto) % Lymph % (Auto) % [place] % (Auto) % Eos % (Auto) % Baso % (Auto) % Neut # (Auto) (1.4-6.5) K/uL Lymph # (Auto) (1.2-3.4) K/uL [place] # (Auto) (0.24-0.82) K/uL Eos # (Auto) (0-0.50) K/uL Baso # (Auto) (0-0.2) K/uL Immature Gran # (Auto) (0.00-0.02) K/uL Sodium 136 (136-145) mmol/L Potassium 3.4 L (3.5-5.1) mmol/L Chloride 99 (98-107) mmol/L Carbon Dioxide 31 (21-32) mmol/L Anion Gap 6 (3-11) BUN 13 (6-23) mg/dl Creatinine 0.88 (0.6-1.2) mg/dl Est Cr Clr Drug Dosing 46.3 ml/min Est GFR ( Amer) 69.9 ml/min Est GFR (Non-Af Amer) 60.3 ml/min BUN/Creatinine Ratio 14.8 (10-20) Glucose 100 H (70-99(Fasting)) mg/dl POC Glucose (70-99) mg/dl Calcium 9.2 (8.5-10.1) mg/dl Magnesium 1.9 (1.7-2.4) mg/dl Total Creatine Kinase 38 (26-192) U/L Troponin I High Sens 37.4 H (0-14) pg/ml Urine Color Urine Appearance (Clear) Urine pH (4.5-7.5) Ur Specific [place] (1.000-1.030) Urine Protein (Negative) Urine Glucose (UA) (Negative) Urine Ketones (Negative) Urine Blood (Negative) Urine Nitrite (Negative) Urine Bilirubin (Negative) Urine Urobilinogen (Negative) Ur Leukocyte Esterase (Negative) Urine WBC (Auto) (0-5) /hpf Urine RBC (Auto) (0-4) /hpf U Hyaline Cast (Auto) (0-5) /lpf U Epithel Cells (Auto) (0-5) /lpf Urine Bacteria (Auto) (Negative) Urine Yeast (None Prsent) 12/19/21 12/18/21 12/18/21 Range/Units 06:50 20:20 17:14 WBC 12.67 H (4.8-10.8) K/ul RBC 4.18 (3.93-5.22) M/uL Hgb 13.9 (12.0-16.0) g/dl Hct 40.0 (34.1-44.9) % MCV 95.7 (80.0-100.0) fL MCH 33.3 (25.0-34.0) pg MCHC 34.8 (32.0-36.0) g/dL RDW Std Deviation 47.0 H (36.4-46.3) fL RDW Coeff of Rosie 13.3 (11.5-14.5) % Plt Count 290 (130-400) K/uL MPV 9.5 (9.4-12.3) fL Immature Gran % (Auto) 0.2 % Neut % (Auto) 68.2 % Lymph % (Auto) 19.7 % [place] % (Auto) 10.7 % Eos % (Auto) 0.9 % Baso % (Auto) 0.3 % Neut # (Auto) 8.63 H (1.4-6.5) K/uL Lymph # (Auto) 2.49 (1.2-3.4) K/uL [place] # (Auto) 1.36 H (0.24-0.82) K/uL Eos # (Auto) 0.12 (0-0.50) K/uL Baso # (Auto) 0.04 (0-0.2) K/uL Immature Gran # (Auto) 0.03 H (0.00-0.02) K/uL Sodium (136-145) mmol/L Potassium (3.5-5.1) mmol/L Chloride (98-107) mmol/L Carbon Dioxide (21-32) mmol/L Anion Gap (3-11) BUN (6-23) mg/dl Creatinine (0.6-1.2) mg/dl Est Cr Clr Drug Dosing ml/min Est GFR ( Amer) ml/min Est GFR (Non-Af Amer) ml/min BUN/Creatinine Ratio (10-20) Glucose (70-99(Fasting)) mg/dl POC Glucose 154 H 102 H (70-99) mg/dl Calcium (8.5-10.1) mg/dl Magnesium (1.7-2.4) mg/dl Total Creatine Kinase (26-192) U/L Troponin I High Sens (0-14) pg/ml Urine Color Urine Appearance (Clear) Urine pH (4.5-7.5) Ur Specific [place] (1.000-1.030) Urine Protein (Negative) Urine Glucose (UA) (Negative) Urine Ketones (Negative) Urine Blood (Negative) Urine Nitrite (Negative) Urine Bilirubin (Negative) Urine Urobilinogen (Negative) Ur Leukocyte Esterase (Negative) Urine WBC (Auto) (0-5) /hpf Urine RBC (Auto) (0-4) /hpf U Hyaline Cast (Auto) (0-5) /lpf U Epithel Cells (Auto) (0-5) /lpf Urine Bacteria (Auto) (Negative) Urine Yeast (None Prsent) Diagnostic Findings Chest X-Ray 12/19/21 11:47 XR chest 1V portable CLINICAL HISTORY: leukocytosis, ?atelectasis TECHNIQUE: Single frontal radiograph of the chest was obtained. Comparison: Comparison is made to chest radiograph 11/13/2021 FINDINGS: No lines and tubes are seen. Cardiomegaly is noted. The lungs are clear. No evidence of pleural effusion or pneumothorax. IMPRESSION: Stable cardiomegaly without acute abnormality, in particular no evidence of atelectasis or pneumonia. ACT 112: Negative or not required by law. Electronically signed by: Dayron Flores M.D. 12/19/2021 12:48 PM PG Care Time/CCT Total # of Minutes Spent Total Time Spent with Patient: Total time spent is greater than 50% in coordination of care (as documented) at patient's floor/unit and/or counseling patient: Coding Level of Care Code 59022 Subseq Obs Care Lvl 3 Diagnoses UTI (urinary tract infection) N39.0 A-fib I48.21 Atrial fibrillation type: permanent Controlled type 2 diabetes mellitus with kidney complication, with long-term current use of insulin E11.29; Z79.4 TIA (transient ischemic attack) G45.9 Dyslipidemia E78.5 Hypertension I10 Chronic kidney disease, stage 3 N18.3 (1) A-fib Atrial fibrillation type: permanent Qualified Code(s): I48.21 - Permanent atrial fibrillation
[2021-12-19] MEDS ORDERED: MAGNESIUM SULFATE / D5W 1 GM/100 ML BAG IV ONE (11:58)
[2021-12-19] MEDS ORDERED: THIAMINE HCL 100 MG TAB PO SCH (12:00)
--- NOTE | 2021-12-19 12:50 | XRay Report ---
XR chest 1V portable CLINICAL HISTORY: leukocytosis, ?atelectasis TECHNIQUE: Single frontal radiograph of the chest was obtained. Comparison: Comparison is made to chest radiograph 11/13/2021 FINDINGS: No lines and tubes are seen. Cardiomegaly is noted. The lungs are clear. No evidence of pleural effus ion or pneumothorax. IMPRESSION: Stable cardiomegaly without acute abnormality, in particular no evidence of atelectasis or pneumonia. ACT 112: Negative or not required by law. Electronically signed by: Dayron Flores M.D. 12/19/2021 12:48 PM
[2021-12-19 13:57] LABS: Troponin I High Sensitivity 37.4 pg/ml (0-14)
--- NOTE | 2021-12-19 14:17 | Electrocardiogram Report ---
Test Reason : Blood Pressure : / mmHG Vent. Rate : 082 BPM Atrial Rate : 375 BPM P-R Int : 000 ms QRS Dur : 090 ms QT Int : 312 ms P-R-T Axes : 000 -56 150 degrees QTc Int : 364 ms Atrial fibrillation Left axis deviation Septal infarct (cited on or before 07-SEP-2021) Abnormal ECG When compared with ECG of 13-NOV-2021 11:42, Significant changes have occurred Confirmed by Guy Childs ([id number]) on 12/19/2021 2:16:53 PM Referred By: Erik Garcia Confirmed By:Guy Childs
--- NOTE | 2021-12-19 14:20 | Electrocardiogram Report ---
Test Reason : Blood Pressure : / mmHG Vent. Rate : 070 BPM Atrial Rate : 394 BPM P-R Int : 000 ms QRS Dur : 090 ms QT Int : 326 ms P-R-T Axes : 000 -53 162 degrees QTc Int : 352 ms Atrial fibrillation Left axis deviation Abnormal ECG When compared with ECG of 19-DEC-2021 12:11, (unconfirmed) No significant change was found Confirmed by Guy Childs ([id number]) on 12/19/2021 2:20:04 PM Referred By: Erik Garcia Confirmed By:Guy Childs
[2021-12-19] MEDS: SODIUM CHLORIDE 0.9% 500 ML IV SCH ×2 (15:40→23:25)
[2021-12-19] MEDS: DIGOXIN 0.25 MG TAB PO SCH (17:30)
--- NOTE | 2021-12-19 17:30 | Ultrasound Report ---
RENAL ULTRASOUND CLINICAL HISTORY: UTI, eval stones COMPARISON STUDY: Renal ultrasound April 23, 2014. CT of the abdomen and pelvis September 07, 2021. TECHNIQUE: Sonography of the kidneys and the urinary bladder was performed. FINDINGS: This exam is compromised by suboptimal hydration. No hydronephrosis is identified. The righ t kidney measures approximately 9.8 x 4.4 x 5.1 cm and the left kidney measures 9.4 x 5.6 x 3.6 cm. 7 mm left renal lesion likely reflects a cyst. No urinary calculi are identified by sonography. Bladde r is unremarkable. IMPRESSION: 1. No hydronephrosis. Exam compromised by suboptimal penetration. 2. No urinary calculi identified by sonography. ACT 112: Negative or not required by law. Electronically signed by: Alfredito Mendez M.D. 12/19/2021 5:28 PM
[2021-12-19] MEDS: DAPTOmycin 250 MG in SYRINGE 0 ML IV SCH (20:50)
[2021-12-20 08:17] LABS: Basophils # (auto) 0.03 K/uL (0-0.2); Basophils % (auto) 0.3 %; Eosinophils # (auto) 0.06 K/uL (0-0.50); Eosinophils % (auto) 0.5 %; Hematocrit (blood only) 37.9 % (34.1-44.9); Hemoglobin 12.4 g/dl (12.0-16.0); Immature Granulocytes # (auto) 0.05 K/uL (0.00-0.02); Immature Granulocytes % (auto) 0.4 %; Lymphocytes # (auto) 2.36 K/uL (1.2-3.4); Lymphocytes % (auto) 20.7 %; Mean Corpuscular Hemoglobin 32.4 pg (25.0-34.0); Mean Corpuscular Hgb Conc 32.7 g/dL (32.0-36.0); Mean Platelet Volume 9.6 fL (9.4-12.3); Monocytes # (auto) 1.47 K/uL (0.24-0.82); Monocytes % (auto) 12.9 %; Neutrophils # (auto) 7.42 K/uL (1.4-6.5); Neutrophils % (auto) 65.2 %; Platelet Count 288 K/uL (130-400); RDW Coefficient of Variation 13.9 % (11.5-14.5); RDW Standard Deviation 50.6 fL (36.4-46.3); Red Blood Count 3.83 M/uL (3.93-5.22); White Blood Count 11.39 K/ul (4.8-10.8)
--- NOTE | 2021-12-20 08:28 | Hospitalist Progress Note ---
Date of Service December 20, 2021 Assessment & Plan (1) UTI (urinary tract infection): Plan: Patient with UTI. Some increasing confusion and possible hallucinations which may be secondary to this. Culture from 12/15/2021 with greater than 100,000 colony-forming units of Enterococcus faecium (sensitive to daptomycin, nitrofurantoin, tetracycline and vancomycin) patient is afebrile, hemodynamically stable, nontoxic in appearance. Placed on Daptomycin on admission given resistant enterococcus on 12/15 cx from [facility] and had been on Ceftriaxone Remains on Dapto (day 3) -- CM checking to see if [place] able to take back on such Repeat urine cx pending (obtained 12/19) -- pin-point growth re-incubating Of note, no prior blood cultures obtained IVF 1L ordered for dehydration on 12/19, improvement on examination WBC 11.3k, afebrile PT/OT consulted Monitor labs/cx in AM --> [facility] to accept back if able to continue IV abx (2) PMR (polymyalgia rheumatica): Plan: suspected weakness multifactorial with multple recent admissions/deconditioning/TIA prior admit, however appears proximal muscle weakness consistent with possible PMR Reports occasionally has to use wheelchair at [facility], sometimes uses a walker, due to weakness. ?deconditioning vs PMR Prior review elevated ESR/CRP (ESR >100) Added to AM labs --> elevated 96, CRP 13.38 Obtained procalcitonin, only 0.26 -- in setting of enterococcus UTI. Not significant elevation Did endorse occasional blurry vision (?if from elevated BP or PMR related GCA?) --> NONTENDER exam of temporal artery, low susp for GCA, however monitor with possible underlying PMR with weakness. rec outpt f/u ophthalmology given proximal muscle weakness, suspect could be underlying PMR and has had continued elevated inflammatory markers Will start prednisone 15mg x1, continue daily/monitor response Interestingly with her weakness, prior TIA admission with elevated BP and orthostatic hypotension at [facility] who stopped her cardizem and losartan and placed on midodrine for BP support when up/standing (3) Hypertension: Plan: Blood pressure elevated on admission prior on diltiazem 240mg/losartan 25mg after last admission but BPs elevated at rest at [facility] but orthostatic hypotension and these were discontinued and she was placed on midodrine TID Remains on metoprolol 75mg BID Added back diltiazem 240mg daily , holding off losartan given dehydration and suspect elevated HR related to such BP currently 145/75 after 1L IVF ordered 12/19 for +orthostatics/dehydration less dehydrated on exam, encouraged PO intake Continue OFF midodrine --> would NOT resume Repeat orthostatics Monitor BP (4) A-fib: Plan: Rate controlled atrial fibrillation Rates slightly higher last 24 hours, continues on metoprolol 75mg BID Eliquis 5mg BID Digoxin 250mcg daily, dig level acceptable Of note, prior on diltiazem 240mg daily -- added back on given elevated BPs and HR --> HR improved as outlined with IV hydration as well EKG w/ Afib. TSH 1.13 Keep mag ~2, K ~4 (5) Controlled type 2 diabetes mellitus with kidney complication, with long-term current use of insulin: Plan: Fairly well controlled with last hemoglobin A1c = 8 on 10/24/2021 We will continue Lantus 15 units twice daily Insulin sliding scale Goal blood sugar 1 10-1 40 Consistent carb diet as tolerated BSGs acceptable, however slightly elevated after prednisone consulted pharmacy while inpatient as expect elevations, will tighten ISS in meantime (6) TIA (transient ischemic attack): Plan: Patient hospitalized for difficulty word finding thought to be secondary to TIA in October 2021. Continue atorvastatin 10 mg p.o. daily Continue aspirin 81 mg p.o. daily Obtain better BP control as outlined, check orthostatic VS IVF provided, BP improved as well as HR Repeat orthostatics for today No focal deficit to warrant MRI for now, improvement in cognition/energy (7) Dyslipidemia: Plan: Chronic. Continue atorvastatin 10 mg p.o. daily (8) Chronic kidney disease, stage 3: Plan: Cr around baseline, slightly above 1.13 BP control Tx UTI Renal US w/o obstruction but poor penitration due to dehydration 1L IVF 12/19 encouraged PO intake Avoid nephrotoxic agents/renal dose meds when able BMP in AM Plan continued inpatient stay, changed to admission CM following, awaiting response from [place] to see if able to take back on IV daptomycin to complete course Admission and Anticipated Discharge Date Admission Date: December 18, 2021 Subjective Evaluated this morning, able to feed herself per nursing, needed assistance yesterday. Discussed elevated ESR, denies any temporal tenderness, but does endorse occasional blurry vision from time to time. Discussed concerns for PMR, she notes sometimes she uses a walker but sometimes needs wheelchair. Denies any fever/chills, no chest pain/shortness of breath, no abdominal pain or nausea. Able to lift arms above head but generalized weakness throughout. Awaiting therapy evaluations/repeat culture results but urine much clearer in canister after IVF provided yesterday. Will also repeat orthostatics/additional IVF if needed. Added procal to AM labs given elevated ESR/CRP, not significantly elevated and will try ordering 15mg prednisone for possible underlying PMR and montior response. Does have proximal hip/girdle weakness as well requiring assistance with sta nding. Review of Systems Review of Systems: All systems reviewed & are unremarkable except as noted in HPI & below Physical Exam Physical Exam: General: WD/WN female resting in bed, fatigued but NAD, improvement in energy level/less fatigue HEENT: eyes anicteric, pupils equal/reactive, less dry mm, trachea midline without deviation Resp: CTAB, diminished in the bases, on room air CV: irregularly irregular, no m/r/g, no calf edema or tenderness to palpation, pulses palpable, trace pedal edema generalized UE puffiness, nonpitting edema GI: +BS, soft nontender : purewick with less concentrated urine, clearer yellow today MSK/Neuro: generalized weakness but strength equal bilaterally, proximal hip weakness with flexion/extension, able to raise arms above head but generalize weakness against resistance no focal deficit, slurred speech or facial droop Psych: alert to person, [facility], year 2021, cooperative but flat affect, slightly improved affect, more conversive Results & Data Results & Data ([facility]) Vital Signs (Past 12 Hours) Vital Signs Temp Pulse Resp BP Pulse Ox O2 Del Method 12/20/21 07:27 36.9 C 63 16 173/78 H 96 Room Air 12/19/21 21:42 36.9 C 81 12 131/78 95 Room Air 12/19/21 20:46 96 H 133/75 Laboratory Results 12/20/21 12/20/21 12/20/21 Range/Units 11:49 10:05 08:06 WBC (4.8-10.8) K/ul RBC (3.93-5.22) M/uL Hgb (12.0-16.0) g/dl Hct (34.1-44.9) % MCV (80.0-100.0) fL MCH (25.0-34.0) pg MCHC (32.0-36.0) g/dL RDW Std Deviation (36.4-46.3) fL RDW Coeff of Rosie (11.5-14.5) % Plt Count (130-400) K/uL MPV (9.4-12.3) fL Immature Gran % (Auto) % Neut % (Auto) % Lymph % (Auto) % [place] % (Auto) % Eos % (Auto) % Baso % (Auto) % Neut # (Auto) (1.4-6.5) K/uL Lymph # (Auto) (1.2-3.4) K/uL [place] # (Auto) (0.24-0.82) K/uL Eos # (Auto) (0-0.50) K/uL Baso # (Auto) (0-0.2) K/uL Immature Gran # (Auto) (0.00-0.02) K/uL ESR (0-30) mm/hr Sodium (136-145) mmol/L Potassium (3.5-5.1) mmol/L Chloride (98-107) mmol/L Carbon Dioxide (21-32) mmol/L Anion Gap (3-11) BUN (6-23) mg/dl Creatinine (0.6-1.2) mg/dl Est Cr Clr Drug Dosing ml/min Est GFR ( Amer) ml/min Est GFR (Non-Af Amer) ml/min BUN/Creatinine Ratio (10-20) Glucose (70-99(Fasting)) mg/dl POC Glucose 267 H 114 H (70-99) mg/dl Calcium (8.5-10.1) mg/dl Magnesium (1.7-2.4) mg/dl C-Reactive Protein (0-0.5) mg/dl Procalcitonin 0.26 (0-0.5) ng/ml 12/20/21 12/20/21 12/20/21 Range/Units 07:30 07:30 07:30 WBC 11.39 H (4.8-10.8) K/ul RBC 3.83 L (3.93-5.22) M/uL Hgb 12.4 (12.0-16.0) g/dl Hct 37.9 (34.1-44.9) % MCV 99.0 (80.0-100.0) fL MCH 32.4 (25.0-34.0) pg MCHC 32.7 (32.0-36.0) g/dL RDW Std Deviation 50.6 H (36.4-46.3) fL RDW Coeff of Rosie 13.9 (11.5-14.5) % Plt Count 288 (130-400) K/uL MPV 9.6 (9.4-12.3) fL Immature Gran % (Auto) 0.4 % Neut % (Auto) 65.2 % Lymph % (Auto) 20.7 % [place] % (Auto) 12.9 % Eos % (Auto) 0.5 % Baso % (Auto) 0.3 % Neut # (Auto) 7.42 H (1.4-6.5) K/uL Lymph # (Auto) 2.36 (1.2-3.4) K/uL [place] # (Auto) 1.47 H (0.24-0.82) K/uL Eos # (Auto) 0.06 (0-0.50) K/uL Baso # (Auto) 0.03 (0-0.2) K/uL Immature Gran # (Auto) 0.05 H (0.00-0.02) K/uL ESR 96 H (0-30) mm/hr Sodium 136 (136-145) mmol/L Potassium 4.1 D (3.5-5.1) mmol/L Chloride 103 (98-107) mmol/L Carbon Dioxide 26 (21-32) mmol/L Anion Gap 7 (3-11) BUN 20 (6-23) mg/dl Creatinine 1.13 (0.6-1.2) mg/dl Est Cr Clr Drug Dosing 36.0 ml/min Est GFR ( Amer) 51.7 ml/min Est GFR (Non-Af Amer) 44.6 ml/min BUN/Creatinine Ratio 17.7 (10-20) Glucose 120 H (70-99(Fasting)) mg/dl POC Glucose (70-99) mg/dl Calcium 8.8 (8.5-10.1) mg/dl Magnesium 2.2 (1.7-2.4) mg/dl C-Reactive Protein 13.38 H (0-0.5) mg/dl Procalcitonin (0-0.5) ng/ml 12/19/21 12/19/21 Range/Units 20:20 17:20 WBC (4.8-10.8) K/ul RBC (3.93-5.22) M/uL Hgb (12.0-16.0) g/dl Hct (34.1-44.9) % MCV (80.0-100.0) fL MCH (25.0-34.0) pg MCHC (32.0-36.0) g/dL RDW Std Deviation (36.4-46.3) fL RDW Coeff of Rosie (11.5-14.5) % Plt Count (130-400) K/uL MPV (9.4-12.3) fL Immature Gran % (Auto) % Neut % (Auto) % Lymph % (Auto) % [place] % (Auto) % Eos % (Auto) % Baso % (Auto) % Neut # (Auto) (1.4-6.5) K/uL Lymph # (Auto) (1.2-3.4) K/uL [place] # (Auto) (0.24-0.82) K/uL Eos # (Auto) (0-0.50) K/uL Baso # (Auto) (0-0.2) K/uL Immature Gran # (Auto) (0.00-0.02) K/uL ESR (0-30) mm/hr Sodium (136-145) mmol/L Potassium (3.5-5.1) mmol/L Chloride (98-107) mmol/L Carbon Dioxide (21-32) mmol/L Anion Gap (3-11) BUN (6-23) mg/dl Creatinine (0.6-1.2) mg/dl Est Cr Clr Drug Dosing ml/min Est GFR ( Amer) ml/min Est GFR (Non-Af Amer) ml/min BUN/Creatinine Ratio (10-20) Glucose (70-99(Fasting)) mg/dl POC Glucose 265 H 137 H (70-99) mg/dl Calcium (8.5-10.1) mg/dl Magnesium (1.7-2.4) mg/dl C-Reactive Protein (0-0.5) mg/dl Procalcitonin (0-0.5) ng/ml Diagnostic Findings Renal Ultrasound 12/19/21 15:13 RENAL ULTRASOUND CLINICAL HISTORY: UTI, eval stones COMPARISON STUDY: Renal ultrasound April 23, 2014. CT of the abdomen and pelvis September 07, 2021. TECHNIQUE: Sonography of the kidneys and the urinary bladder was performed. FINDINGS: This exam is compromised by suboptimal hydration. No hydronephrosis is identified. The right kidney measures approximately 9.8 x 4.4 x 5.1 cm and the left kidney measures 9.4 x 5.6 x 3.6 cm. 7 mm left renal lesion likely reflects a cyst. No urinary calculi are identified by sonography. Bladder is unremarkable. IMPRESSION: 1. No hydronephrosis. Exam compromised by suboptimal penetration. 2. No urinary calculi identified by sonography. ACT 112: Negative or not required by law. Electronically signed by: Alfredito Mendez M.D. 12/19/2021 5:28 PM PG Care Time/CCT Total # of Minutes Spent Total Time Spent with Patient: Total time spent is greater than 50% in coordination of care (as documented) at patient's floor/unit and/or counseling patient: Coding Level of Care Code 77702 Subseq Hosp Care Lvl 3 Diagnoses UTI (urinary tract infection) N39.0 PMR (polymyalgia rheumatica) M35.3 Hypertension I10 A-fib I48.21 Atrial fibrillation type: permanent Controlled type 2 diabetes mellitus with kidney complication, with long-term current use of insulin E11.29; Z79.4 TIA (transient ischemic attack) G45.9 Dyslipidemia E78.5 Chronic kidney disease, stage 3 N18.3 (1) A-fib Atrial fibrillation type: permanent Qualified Code(s): I48.21 - Permanent atrial fibrillation
[2021-12-20 08:54] LABS: BUN Creatinine Ratio 17.7 (10-20); C Reactive Protein 13.38 mg/dl (0-0.5); Calcium 8.8 mg/dl (8.5-10.1); Est GFR (African American) 51.7 ml/min; Est GFR (Non-African American) 44.6 ml/min; Magnesium 2.2 mg/dl (1.7-2.4); Potassium 4.1 mmol/L (3.5-5.1)
[2021-12-20] MEDS: INSULIN ASPART PER UNIT SC SCH ×4 (09:10→20:55)
[2021-12-20] MEDS: APIXABAN 5 MG TABLET PO SCH ×2 (09:12→20:57)
[2021-12-20] MEDS: THIAMINE HCL 100 MG TAB PO SCH ×2 (09:13→20:56)
[2021-12-20] MEDS: FLUDROCORTISONE ACETATE 0.1 MG TAB PO SCH (09:14)
[2021-12-20] MEDS: ASPIRIN 81 MG ECTAB PO SCH (09:15)
[2021-12-20] MEDS: METOPROLOL TARTRATE 25 MG TAB PO SCH ×2 (09:15→20:56)
[2021-12-20] MEDS: dilTIAZem HCL 240 MG CAPCR PO SCH (09:16)
[2021-12-20] MEDS: FAMOTIDINE 20 MG TAB PO SCH (09:16)
[2021-12-20] MEDS: BIMATOPROST 0.01% OP SOLN 2.5 ML BTL OP SCH (09:17)
[2021-12-20] MEDS: LANTUS PER UNIT CHARGE SQ SCH ×2 (09:23→20:55)
[2021-12-20] MEDS: predniSONE 5 MG TAB PO SCH (14:12)
[2021-12-20] MEDS ORDERED: PHARMACY GLYCEMIC MGMT CONSULT PRN (15:46)
[2021-12-20] MEDS: DIGOXIN 0.25 MG TAB PO SCH (18:14)
[2021-12-20] MEDS: DAPTOmycin 250 MG in SYRINGE 0 ML IV SCH (20:56)
[2021-12-21 06:33] LABS: Hematocrit (blood only) 35.5 % (34.1-44.9); Mean Corpuscular Hemoglobin 32.6 pg (25.0-34.0); Mean Corpuscular Hgb Conc 33.8 g/dL (32.0-36.0); Mean Corpuscular Volume 96.5 fL (80.0-100.0); Mean Platelet Volume 9.5 fL (9.4-12.3); Platelet Count 328 K/uL (130-400); RDW Coefficient of Variation 12.9 % (11.5-14.5); RDW Standard Deviation 46.1 fL (36.4-46.3); Red Blood Count 3.68 M/uL (3.93-5.22); White Blood Count 12.02 K/ul (4.8-10.8)
[2021-12-21 06:59] LABS: Albumin Globulin Ratio 0.8 (0.9-2); BUN Creatinine Ratio 22.3 (10-20); Bilirubin,Total 0.7 mg/dl (0.2-1.0); Calcium 8.9 mg/dl (8.5-10.1); Creatinine Clr Calc Pharmacy 39.5 ml/min; Est GFR (African American) 57.8 ml/min; Est GFR (Non-African American) 49.9 ml/min; Globulin 3.6 gm/dl (2.5-4.0); Potassium 3.9 mmol/L (3.5-5.1); Total Protein 6.6 gm/dl (6.0-8.3)
[2021-12-21] MEDS ORDERED: LANTUS PER UNIT CHARGE SQ SCH (09:00)
[2021-12-21] MEDS: FLUDROCORTISONE ACETATE 0.1 MG TAB PO SCH (09:18)
[2021-12-21] MEDS: THIAMINE HCL 100 MG TAB PO SCH ×2 (09:19→20:42)
[2021-12-21] MEDS: ASPIRIN 81 MG ECTAB PO SCH (09:19)
[2021-12-21] MEDS: predniSONE 5 MG TAB PO SCH (09:19)
[2021-12-21] MEDS: APIXABAN 5 MG TABLET PO SCH ×2 (09:19→20:42)
[2021-12-21] MEDS: FAMOTIDINE 20 MG TAB PO SCH (09:19)
[2021-12-21] MEDS: BIMATOPROST 0.01% OP SOLN 2.5 ML BTL OP SCH (09:20)
[2021-12-21] MEDS: METOPROLOL TARTRATE 25 MG TAB PO SCH ×2 (09:20→20:42)
[2021-12-21] MEDS: dilTIAZem HCL 240 MG CAPCR PO SCH (09:20)
[2021-12-21] MEDS: INSULIN ASPART PER UNIT SC SCH ×4 (09:27→20:40)
[2021-12-21] MEDS: LANTUS PER UNIT CHARGE SQ SCH ×2 (09:34→20:40)
--- NOTE | 2021-12-21 12:17 | Pharmacy Report ---
Pharmacy Glycemic Short Note 2 - Date of Service December 21, 2021 - Glycemic Short BSG Results (Last 24 hours): 12/20/21 12/20/21 12/21/21 16:44 20:19 06:02 Glucose 189 H POC Glucose 194 H 258 H 12/21/21 12/21/21 07:50 11:49 Glucose POC Glucose 202 H 221 H OUTPATIENT ANTIDIABETIC REGIMEN: * Lantus 42 units SQ BID * Humalog 15 units SQ TID before meals * HbA1c: 8.0% (10/24/21) ASSESSMENT: * Ms Nolasco is an 86yo diabetic female, receiving treatment for UTI (with some increasing confusion, ?hallucinations). * Pt received PO prednisone yesterday morning and this morning, which has resu lted in some steroid-induced hyperglycemia. * Lantus was increased slightly this morning for elevated fasting BSG, and Novolog parameters have been tightened to provide additional coverage throughout the day. * Will monitor and adjust regimen as indicated. Expect that BSGs will improve with discontinuation of steroids. PLAN FOR INPATIENT GLYCEMIC CONTROL: * Hold outpatient oral diabetes medications * Basal insulin * Lantus 15 units SQ BID * Bolus insulin * NovoLog per scale ACHS or Q6hrs while NPO * Goal Range: Low 110 mg/dL - High 140 mg/dL * Correction Factor: 15 mg/dL/unit * Nutritional / Prandial insulin per carb ratio of 1 unit per 5 grams CHO consumed
--- NOTE | 2021-12-21 13:05 | Hospitalist Progress Note ---
Date of Service December 21, 2021 Assessment & Plan (1) UTI (urinary tract infection): Plan: Patient with UTI. Some increasing confusion and possible hallucinations which may be secondary to this. Culture from 12/15/2021 with greater than 100,000 colony-forming units of Enterococcus faecium (sensitive to daptomycin, nitrofurantoin, tetracycline and vancomycin) patient is afebrile, hemodynamically stable, nontoxic in appearance. Placed on Daptomycin on admission given resistant enterococcus on 12/15 cx from [facility] and had been on Ceftriaxone Remains on Dapto (day 4) -- CM checking to see if [place] able to take back on such Repeat urine cx pending (obtained 12/19) -- yeast not jose - no need to treat this Of note, no prior blood cultures obtained IVF 1L ordered for dehydration on 12/19, improvement on examination WBC 11.3k, afebrile PT/OT consulted Monitor labs/cx in AM --> [facility] to accept back if able to continue IV abx (2) Generalized weakness: Plan: Concern for PMR by prior provider although patient not having any pain consistent with this. She does have significant proximal muscle weakness. Unable to contact family member for better history but per jail appears to be (3) PMR (polymyalgia rheumatica): Plan: possible no significant improvement with prednisone for the last two days. In setting of infection will discontinue further steroids and defer ongoing treatment to her outpatient providers. Interestingly with her weakness, prior TIA admission with elevated BP and orthostatic hypotension at [facility] who stopped her cardizem and losartan and placed on midodrine for BP support when up/standing (4) Hypertension: Plan: Blood pressure elevated on admission prior on diltiazem 240mg/losartan 25mg after last admission but BPs elevated at rest at [facility] but orthostatic hypotension and these were discontinued and she was placed on midodrine TID - ? insetting of infection Remains on metoprolol 75mg BID Added back diltiazem 240mg daily , holding off losartan given dehydration and suspect elevated HR related to such BP currently 145/75 after 1L IVF ordered 12/19 for +orthostatics/dehydration less dehydrated on exam, encouraged PO intake Continue OFF midodrine --> would NOT resume Repeat orthostatics Monitor BP (5) A-fib: Plan: Rate controlled atrial fibrillation Rates slightly higher last 24 hours, continues on metoprolol 75mg BID Eliquis 5mg BID Digoxin 250mcg daily, dig level acceptable Of note, prior on diltiazem 240mg daily -- added back on given elevated BPs and HR --> HR improved as outlined with IV hydration as well EKG w/ Afib. TSH 1.13 Keep mag ~2, K ~4 (6) Controlled type 2 diabetes mellitus with kidney complication, with long-term current use of insulin: Plan: Fairly well controlled with last hemoglobin A1c = 8 on 10/24/2021 We will continue Lantus 15 units twice daily Insulin sliding scale Goal blood sugar 1 10-1 40 Consistent carb diet as tolerated BSGs acceptable, however slightly elevated after prednisone consulted pharmacy while inpatient as expect elevations, will tighten ISS in meantime (7) TIA (transient ischemic attack): Plan: Patient hospitalized for difficulty word finding thought to be secondary to TIA in October 2021. Continue atorvastatin 10 mg p.o. daily Continue aspirin 81 mg p.o. daily Obtain better BP control as outlined, check orthostatic VS IVF provided, BP improved as well as HR Repeat orthostatics for today No focal deficit to warrant MRI for now, improvement in cognition/energy (8) Dyslipidemia: Plan: Chronic. Continue atorvastatin 10 mg p.o. daily (9) Chronic kidney disease, stage 3: Plan: Cr around baseline, slightly above 1.13 BP control Tx UTI Plan continued inpatient stay, changed to admission CM following, medically stable for discharge as long as daptomycin can be set up at [facility] Admission and Anticipated Discharge Date Admission Date: December 20, 2021 Subjective Patient feels she is currently at her baseline self. Discussed with jail and concerned about significant deterioration over the last 3 months. Planning on following up with neurology as an outpatient. Review of Systems Review of Systems: All systems reviewed & are unremarkable except as noted in Subjective Physical Exam Constitutional: WD/WN, vitals as above no acute distress Eyes: + anicteric sclerae; normal pupil size ENMT: external ear and nose normal, oropharynx normal Neck: trachea midline, no thyromegaly Respiratory: normal respiratory effort, lungs clear to auscultation Cardiovascular: RRR, no murmur, no edema Gastrointestinal (Abdomen): normal bowel sounds, soft, nontender, no hepatosplenomegaly Musculoskeletal: significant MCP swelling b/l Skin: no rashes, warm and dry Neurologic: moves all extremities and awake Results & Data Results & Data ([facility]) Vital Signs (Past 12 Hours) Vital Signs Temp Pulse Resp BP BP Pulse Ox O2 Del Method 12/21/21 11:05 34.6 C L 74 24 157/80 H 97 Room Air 12/21/21 10:21 83 109/76 12/21/21 08:12 36.4 C L 87 24 173/83 H 96 Room Air 12/21/21 06:10 36.5 C 91 H 14 188/76 H 94 Room Air PG Care Time/CCT Total # of Minutes Spent Total Time Spent with Patient: Total time spent is greater than 50% in coordination of care (as documented) at patient's floor/unit and/or counseling patient: Coding Level of Care Code 23034 Subseq Hosp Care Lvl 1 Diagnoses UTI (urinary tract infection) N39.0 Generalized weakness R53.1 PMR (polymyalgia rheumatica) M35.3 Hypertension I10 A-fib I48.21 Atrial fibrillation type: permanent Controlled type 2 diabetes mellitus with kidney complication, with long-term current use of insulin E11.29; Z79.4 TIA (transient ischemic attack) G45.9 Dyslipidemia E78.5 Chronic kidney disease, stage 3 N18.3 (1) A-fib Atrial fibrillation type: permanent Qualified Code(s): I48.21 - Permanent atrial fibrillation
[2021-12-21] MEDS: DIGOXIN 0.25 MG TAB PO SCH (16:49)
[2021-12-21] MEDS: DAPTOmycin 250 MG in SYRINGE 0 ML IV SCH (22:07)
[2021-12-22] MEDS: FLUDROCORTISONE ACETATE 0.1 MG TAB PO SCH (08:06)
[2021-12-22] MEDS: FAMOTIDINE 20 MG TAB PO SCH (08:07)
[2021-12-22] MEDS: THIAMINE HCL 100 MG TAB PO SCH ×2 (08:07→20:46)
[2021-12-22] MEDS: ASPIRIN 81 MG ECTAB PO SCH (08:07)
[2021-12-22] MEDS: dilTIAZem HCL 240 MG CAPCR PO SCH (08:07)
[2021-12-22] MEDS: METOPROLOL TARTRATE 25 MG TAB PO SCH ×2 (08:08→20:45)
[2021-12-22] MEDS: BIMATOPROST 0.01% OP SOLN 2.5 ML BTL OP SCH (08:12)
[2021-12-22] MEDS: APIXABAN 5 MG TABLET PO SCH ×2 (08:12→20:46)
[2021-12-22] MEDS: INSULIN ASPART PER UNIT SC SCH ×4 (09:37→20:41)
[2021-12-22] MEDS: LANTUS PER UNIT CHARGE SQ SCH ×2 (11:45→20:41)
[2021-12-22] MEDS: DIGOXIN 0.25 MG TAB PO SCH (18:32)
--- NOTE | 2021-12-22 22:13 | Hospitalist Progress Note ---
Date of Service December 22, 2021 Assessment & Plan (1) UTI (urinary tract infection): Plan: Patient with UTI. Some increasing confusion and possible hallucinations which may be secondary to this. Culture from 12/15/2021 with greater than 100,000 colony-forming units of Enterococcus faecium (sensitive to daptomycin, nitrofurantoin, tetracycline and vancomycin) patient is afebrile, hemodynamically stable, nontoxic in appearance. Placed on Daptomycin on admission given resistant enterococcus on 12/15 cx from [facility] and had been on Ceftriaxone Remains on Dapto (day 5) -- CM checking to see if [place] able to take back on such Repeat urine cx pending (obtained 12/19) -- yeast not jose - no need to treat this Of note, no prior blood cultures obtained IVF 1L ordered for dehydration on 12/19, improvement on examination WBC 11.3k, afebrile PT/OT consulted Monitor labs/cx in AM --> [facility] to accept back if able to continue IV abx (2) Generalized weakness: Plan: Concern for PMR by prior provider although patient not having any pain consistent with this. She does have significant proximal muscle weakness. Unable to contact family member for better history but per longterm appears to be (3) PMR (polymyalgia rheumatica): Plan: possible diagnosis no significant improvement with prednisone here. In setting of infection will discontinue further steroids and defer ongoing treatment to her outpatient providers. Interestingly with her weakness, prior TIA admission with elevated BP and orthostatic hypotension at [facility] who stopped her cardizem and losartan and placed on midodrine for BP support when up/standing (4) Hypertension: Plan: Blood pressure elevated on admission prior on diltiazem 240mg/losartan 25mg after last admission but BPs elevated at rest at [facility] but orthostatic hypotension and these were discontinued and she was placed on midodrine TID - ? insetting of infection Remains on metoprolol 75mg BID Added back diltiazem 240mg daily , holding off losartan given dehydration and suspect elevated HR related to such BP currently 145/75 after 1L IVF ordered 12/19 for +orthostatics/dehydration less dehydrated on exam, encouraged PO intake Continue OFF midodrine --> would NOT resume Repeat orthostatics Monitor BP (5) A-fib: Plan: Rate controlled atrial fibrillation Rates slightly higher last 24 hours, continues on metoprolol 75mg BID Eliquis 5mg BID Digoxin 250mcg daily, dig level acceptable Of note, prior on diltiazem 240mg daily -- added back on given elevated BPs and HR --> HR improved as outlined with IV hydration as well EKG w/ Afib. TSH 1.13 Keep mag ~2, K ~4 (6) Controlled type 2 diabetes mellitus with kidney complication, with long-term current use of insulin: Plan: Fairly well controlled with last hemoglobin A1c = 8 on 10/24/2021 We will continue Lantus 15 units twice daily Insulin sliding scale Goal blood sugar 1 10-1 40 Consistent carb diet as tolerated BSGs acceptable, however slightly elevated after prednisone consulted pharmacy while inpatient as expect elevations, will tighten ISS in meantime (7) TIA (transient ischemic attack): Plan: Patient hospitalized for difficulty word finding thought to be secondary to TIA in October 2021. Continue atorvastatin 10 mg p.o. daily Continue aspirin 81 mg p.o. daily Obtain better BP control as outlined, check orthostatic VS IVF provided, BP improved as well as HR Repeat orthostatics for today No focal deficit to warrant MRI for now, improvement in cognition/energy (8) Dyslipidemia: Plan: Chronic. Continue atorvastatin 10 mg p.o. daily (9) Chronic kidney disease, stage 3: Plan: Cr around baseline, slightly above 1.13 BP control Tx UTI Plan continued inpatient stay, changed to admission CM following, medically stable for discharge as long as daptomycin can be set up at [facility] Admission and Anticipated Discharge Date Admission Date: December 20, 2021 Subjective No acute concerns or questions from patient. No new symptoms. Eating well today. Physical Exam Constitutional: WD/WN, vitals as above no acute distress Eyes: + anicteric sclerae; normal pupil size ENMT: external ear and nose normal, oropharynx normal Neck: trachea midline, no thyromegaly Respiratory: normal respiratory effort, lungs clear to auscultation Cardiovascular: RRR, no murmur, no edema Gastrointestinal (Abdomen): normal bowel sounds, soft, nontender, no hepatosplenomegaly Skin: no rashes, warm and dry Neurologic: moves all extremities and awake Results & Data Results & Data ([facility]) Vital Signs (Past 12 Hours) Vital Signs Temp Pulse Pulse Resp BP Pulse Ox O2 Del Method 12/22/21 18:32 101 H 12/22/21 15:42 36.4 C L 59 L 16 160/82 H 98 Room Air PG Care Time/CCT Total # of Minutes Spent Total Time Spent with Patient: Total time spent is greater than 50% in coordination of care (as documented) at patient's floor/unit and/or counseling patient: Coding Level of Care Code 14958 Subseq Hosp Care Lvl 1 Diagnoses UTI (urinary tract infection) N39.0 Generalized weakness R53.1 PMR (polymyalgia rheumatica) M35.3 Hypertension I10 A-fib I48.21 Atrial fibrillation type: permanent Controlled type 2 diabetes mellitus with kidney complication, with long-term current use of insulin E11.29; Z79.4 TIA (transient ischemic attack) G45.9 Dyslipidemia E78.5 Chronic kidney disease, stage 3 N18.3 (1) A-fib Atrial fibrillation type: permanent Qualified Code(s): I48.21 - Permanent atrial fibrillation
[2021-12-22] MEDS: DAPTOmycin 250 MG in SYRINGE 0 ML IV SCH (22:33)
[2021-12-23] MEDS: APIXABAN 5 MG TABLET PO SCH (09:04)
[2021-12-23] MEDS: FLUDROCORTISONE ACETATE 0.1 MG TAB PO SCH (09:04)
[2021-12-23] MEDS: THIAMINE HCL 100 MG TAB PO SCH (09:04)
[2021-12-23] MEDS: METOPROLOL TARTRATE 25 MG TAB PO SCH (09:04)
[2021-12-23] MEDS: dilTIAZem HCL 240 MG CAPCR PO SCH (09:05)
[2021-12-23] MEDS: FAMOTIDINE 20 MG TAB PO SCH (09:05)
[2021-12-23] MEDS: INSULIN ASPART PER UNIT SC SCH ×2 (09:05→12:41)
[2021-12-23] MEDS: ASPIRIN 81 MG ECTAB PO SCH (09:05)
[2021-12-23] MEDS: BIMATOPROST 0.01% OP SOLN 2.5 ML BTL OP SCH (09:05)
[2021-12-23] MEDS: LANTUS PER UNIT CHARGE SQ SCH (09:06)
--- NOTE | 2021-12-23 12:04 | Discharge Summary ---
Date of Service December 23, 2021 Admission HPI Per Admitting Provider Ewelina Nolasco is an 86-year-old female with history of hypertension, CKD, this metabolic syndrome X, diabetes presenting with [facility] with UTI and confusion. Patient was reportedly diagnosed with a UTI 2 days ago. She was being managed with ceftriaxone. Culture returned Enterococcus faecium. Staff noted patient has been more confused with possible hallucinations. Here she is afebrile, hypertensive otherwise hemodynamically stable. Nontoxic in appearance Episodes of confusion during encounter but redirectable. ER course: Daptomycin 250 mg IV Principal Diagnosis Urinary tract infection Discharge Exam Constitutional WD/WN, vitals as above no acute distress Eyes + anicteric sclerae; normal pupil size ENMT external ear and nose normal, oropharynx normal Neck trachea midline, no thyromegaly Respiratory normal respiratory effort, lungs clear to auscultation Cardiovascular RRR, no murmur, no edema Gastrointestinal (Abdomen) normal bowel sounds, soft, nontender, no hepatosplenomegaly Skin no rashes, warm and dry Neurologic moves all extremities and awake Discharge Data Allergies Allergy/AdvReac Type Severity Reaction Status Date / Time Sulfa (Sulfonamide Allergy Unknown Nausea Unverified 12/18/21 00:19 Antibiotics) Consultations 12/17/21 22:46 ED Decision to Admit Stat Ordered Studies 12/19/21 15:13 US renal/blad retro comp Routine IMPRESSION: 1. No hydronephrosis. Exam compromised by suboptimal penetration. 2. No urinary calculi identified by sonography. Hospital Course (1) UTI (urinary tract infection): Ewelina Nolasco is an 86 year old female admitted to [facility] from December 18 - 2021 due to UTI. This was treated with daptomycin and recommend a further 2 doses (today and tomorrow) on discharge. We discussed her ongoing weakness and considered a prednisone course to see if this will help your symptoms as suspected she may have a seronegative arthritis (previous CAMRON, RF and anti-CCP negative) or possible polymyalgia rheumatica (persistently elevated ESR and proximal muscle weakness). Given current infection steroids will be deferred to her outpatient providers. Myasthenia antibodies have also been sent and recommend these are followed up by her outpatient providers however this diagnosis remains unlikely based on her clinical symptoms. Creatine kinase level was normal. B12 level > 400. Recommend rheumatology and neurology follow up for her ongoing generalized weakness. Due to elevated blood pressures her midodrine was discontinued and she was started back on her previously prescribed diltiazem. She is requiring significantly less insulin during her inpatient stay but given HbA1C 8.0 in October no adjustments to her insulin have been made. Please adjust at [place] as necessary. Given ongoing low thiamine levels despite thiamine replacement her dose was increased to 200mg PO BID. Atorvastatin temporarily discontinued due to daptomycin interaction. However, consider not restarting if felt to be contributing towards generalized weakness. (2) Generalized weakness: (3) PMR (polymyalgia rheumatica): (4) Hypertension: (5) A-fib: (6) Controlled type 2 diabetes mellitus with kidney complication, with long-term current use of insulin: (7) TIA (transient ischemic attack): (8) Dyslipidemia: (9) Chronic kidney disease, stage 3: Total Time Total Time Spent Total Time Spent (In Minutes): 35 Discharge Plan Discharge Items Patient Disposition: Transfer Snf Fac Reason For Visit: UTI Discharge Diagnosis: UTI Activity: Resume your previous activity Non-emergency contact: Primary Care Provider Call non-emergency contact if: you have any medication questions and your symptoms worsen Follow-up/Referrals: Erik Garcia [Primary Care Provider] - Diet: Carb Consistent or DM2 and Heart Healthy Addtl Attending Provider Instructions: Ewelina Nolasco is an 86 year old female admitted to [facility] from December 18 - 2021 due to UTI. This was treated with daptomycin and recommend a further 2 doses (today and tomorrow) on discharge. We discussed her ongoing weakness and considered a prednisone course to see if this will help your symptoms as suspected she may have a seronegative arthritis (previous CAMRON, RF and anti-CCP negative) or possible polymyalgia rheumatica (persistently e levated ESR and proximal muscle weakness). Given current infection steroids will be deferred to her outpatient providers. Myasthenia antibodies have also been sent and recommend these are followed up by her outpatient providers however this diagnosis remains unlikely based on her clinical symptoms. Creatine kinase level was normal. B12 level > 400. Recommend rheumatology and neurology follow up for her ongoing generalized weakness. Due to elevated blood pressures her midodrine was discontinued and she was started back on her previously prescribed diltiazem. She is requiring significantly less insulin during her inpatient stay but given HbA1C 8.0 in October no adjustments to her insulin have been made. Please adjust at [place] as necessary. Given ongoing low thiamine levels despite thiamine replacement her dose was increased to 200mg PO BID. Atorvastatin temporarily discontinued due to daptomycin interaction. However, consider not restarting if felt to be contributing towards generalized weakness. Pending Studies at Discharge: Yes (myasthenia antibodies) Stand-Alone Forms: [facility] Skilled Items Patient informed of condition?: Yes DNR: Yes Discharge Level of Care: Skilled Communicable Disease: No Discharge Prognosis: Stable Lines: None Urinary Catheter: No Medications and DC Order Prescriptions: New diltiazem HCl 240 mg Capsule,Extended Release 24hr 240 mg PO QAM Qty: 30 0RF Continued PreserVision AREDS [id number] capsule 1 cap PO BID acetaminophen 500 mg tablet 1,000 mg PO TID bimatoprost 0.01 % drops 1 drp ophthalmic (eye) DAILY fludrocortisone 0.1 mg tablet 0.2 mg PO DAILY Lantus U-100 Insulin 100 unit/mL solution 42 unit SUBCUT BID cholecalciferol (vitamin D3) [Vitamin D3] 2,000 unit Capsule 2,000 unit PO DAILY metoprolol tartrate 50 mg tablet 75 mg PO BID Rx Instructions: HOLD FOR SBP<90 OR HR<60 insulin lispro [Humalog KwikPen Insulin] 100 unit/mL insulin pen 15 unit SUBCUT AC Rx Instructions: +SLIDING SCALE UD aspirin 81 mg capsule 81 mg PO DAILY Qty: 30 0RF ondansetron 4 mg tablet,disintegrating 4 mg translingual Q8 PRN (Reason: Nausea) magnesium hydroxide [Milk of Magnesia] 400 mg/5 mL Suspension 30 ml PO Q OTHER DAY PRN (Reason: Constipation) bisacodyl 10 mg Suppository 10 mg HI Q OTHER DAY PRN (Reason: Constipation) Fleet Enema 19-7 gram/118 mL Enema 118 ml HI Q3D PRN (Reason: Constipation) digoxin 250 mcg (0.25 mg) tablet 250 mcg PO QAM Eliquis 5 mg Tablet 5 mg PO BID Qty: 60 0RF famotidine 20 mg tablet 20 mg PO DAILY Qty: 30 0RF Changed thiamine HCl (vitamin B1) 100 mg Tablet 200 mg PO BID Qty: 60 0RF Discontinued atorvastatin 10 mg tablet 10 mg PO QPM Qty: 90 3RF midodrine 10 mg tablet 10 mg PO TID Rx Instructions: HOLD IF SBP > 180 LYING. ceftriaxone 1 gram recon soln 1 g IM DAILY Rx Instructions: END DATE 12/18/21 Discharge Orders: Discharge Order (Routine); Ordered 12/23/21 Ordered By: Tucker Schmidt Admission Data Admit Date/Time: 12/20/21 12:00 Attending Provider: Tucker Schmidt Admit Provider: Ewelina Ohara Primary Care Provider: Erik Garcia Other Providers: Ewelina Ohara Other Interventions: Discharge Summary Assessment (RN) Last Done: 12/23/21 12:18 Coding Level of Care Code D/C DAY MANAGEMENT >30 MINS Diagnoses UTI (urinary tract infection) N39.0 Generalized weakness R53.1 PMR (polymyalgia rheumatica) M35.3 Hypertension I10 A-fib I48.21 Atrial fibrillation type: permanent Controlled type 2 diabetes mellitus with kidney complication, with long-term current use of insulin E11.29; Z79.4 TIA (transient ischemic attack) G45.9 Dyslipidemia E78.5 Chronic kidney disease, stage 3 N18.3
== END 2021-12-23 13:36 | DRG 690 ==
LOC: 3E 22:27 → ED 22:27 → SUATTDRO 12-18 00:21 → 3E 12-18 01:39 → SUATTDRO 12-20 12:00

== ENCOUNTER 2024-05-08 11:16 | Inpatient (IN) ==
[2024-05-08 12:21] LABS: Albumin Globulin Ratio 1.3 (0.9-2); Albumin Level 3.5 gm/dl (3.4-5.0); BUN Creatinine Ratio 17.4 (10-20); Bilirubin,Total 0.5 mg/dl (0.2-1.0); Creatinine Clr Calc Pharmacy 27.8 ml/min; Globulin 2.8 gm/dl (2.5-4.0); Hematocrit (blood only) 23.8 % (37.0-47.0); Hemoglobin 7.5 g/dl (12.0-16.0); Mean Corpuscular Hemoglobin 34.2 pg (25.0-34.0); Mean Corpuscular Hgb Conc 31.5 g/dL (32.0-36.0); Mean Corpuscular Volume 108.7 fL (80.0-100.0); Mean Platelet Volume 9.6 fL (9.4-12.4); Platelet Count 221 K/uL (130-400); Potassium 4.7 mmol/L (3.5-5.1); RDW Coefficient of Variation 15.2 % (11.5-14.5); RDW Standard Deviation 61.1 fL (36.4-46.3); Red Blood Count 2.19 M/uL (4.20-5.40); Total Protein 6.3 gm/dl (6.0-8.3)
[2024-05-08 12:27] LABS: Troponin I High Sensitivity 31.8 pg/ml (0-14)
--- NOTE | 2024-05-08 12:29 | Emergency Department Note ---
Impression & Plan GIB (gastrointestinal bleeding) ADMIT ED Provider Note HPI: History obtained from patient. The patient is a 89-year-old female with history of Polymyalgia rheumatica, type 2 diabetes, atrial fibrillation, TIA, presents the emergency department with a chief complaint of downtrending hemoglobin on her outpatient lab work. Patient states she had some labs done recently that showed that her hemoglobin had down trended to below 8.0. This is an acute chart changer about the past month according to the patient. On arrival here to the ED the patient is hemodynamically stable, she otherwise appears to be in no acute distress. Patient states that she has had some "black" stools recently. ROS: - Per HPI Differential Diagnosis: Lower GI bleed/melena, symptomatic anemia, colonic mass/tumor, colonic AVM, peptic ulcer disease, amongst other potential pathologies. *Outpatient medications and allergy history reviewed. PE: General: Alert, no acute distress HEENT: Normocephalic, trachea midline Eyes: Extraocular eye movement is intact, no scleral erythema Pulmonary: Clear to auscultation bilaterally, no wheezing Cardio: Regular rate and rhythm GI: Abdomen is soft to palpation, rectal examination performed with female RN at the bedside does not show any evidence of external hemorrhoids or gross bleeding, melena is noted and stool is occult positive : No suprapubic tenderness MSK: No evidence of trauma or malformation of the extremities, no edema Skin: No evidence of rash Neuro: Alert, no focal deficits Psychiatric: Cooperative 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 Lab work shows no leukocytosis, hemoglobin is reduced at 7.5 in comparison to 10.9 on 03/19/2024. Patient does have occult positive stool, CMP does not show any evidence of any critical findings, creatinine is at baseline 1.44, troponin is 31.8 which also appears to be baseline. Patient denies any chest pain or shortness of breath. Given the patient's reduction in hemoglobin, she was ordered 1 unit packed red blood cells and consented at the bedside. She was started on Protonix bolus and drip. I suspect she likely has a slow upper GI bleed that is causing her melena and anemia over the past month. Patient believes that her Eliquis was held yesterday which is consistent with paperwork from her nursing facility. Patient will be admitted to the hospitalist service following my discussion with the on- call resident, Dr. Nice. Patient was placed for admission in stable condition to the service of Dr. Cotto. Consultants/Discussions held with other healthcare providers: -Hospitalist, Dr. Cotto Disposition discussion held by myself with: -Patient Diagnosis: 1. Upper GI bleed, acute 2. Anemia, acute Disposition: ADMIT Rocco Martell DO Emergency Medicine Past Med/Surg History Problem List (Updated 05/08/24 @ 18:23 by Rocco Martell DO) GIB (gastrointestinal bleeding) (Acute) Symptomatic anemia Upper GI bleed Idiopathic polyneuropathy Tremor Generalized weakness PMR (polymyalgia rheumatica) UTI (urinary tract infection) Orthostatic hypotension DVT prophylaxis Hyponatremia Sciatica Lyme disease Chronic pancreatitis Headache Elevated troponin Encephalopathy Back pain (Acute) Vomiting (Acute) Confusion (Acute) Chronic kidney disease, stage 3 (Chronic) Hypertension (Chronic) Vitamin D deficiency (Chronic) Controlled type 2 diabetes mellitus with kidney complication, with long-term current use of insulin Dyslipidemia REYES (nonalcoholic steatohepatitis) A-fib (Chronic) Right knee DJD Chronic anticoagulation (Acute) 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; cerebral non-ruptured MRI at [place] 09/27 TIA (transient ischemic attack) 2021, no residual Medical History History of encephalopathy GERD (gastroesophageal reflux disease) History of polyneuropathy History of Lyme disease History of orthostatic hypotension Discharge planning issues Dysmetabolic syndrome X History of rosacea History of rheumatic fever History of nummular eczema History of diabetes mellitus History of basal cell carcinoma History of actinic keratosis History of colon cancer Surgical History History of colonoscopy History of tonsillectomy History of partial colectomy Hx of cholecystectomy Hx of appendectomy Family History Unknown Family history of thromboembolic disease Social History Smoking Status: Never smoker Second Hand Exposure: No; Do You Dip or Chew Tobacco: No; Hx Alcohol Use: No Hx Substance Use: No Preferred Language: [place]i Communication Ability: Effective Communication Ability Comment: hx of dementia at baseline--worse w/ uti Visual Impairment: Diminished 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: No Beliefs That Will Affect Care: None marital status: / Current Living Situation: Alone Current Living Situation Comment: independent [place], they fill pill box current occupational status: retired Feels Safe at Home: Yes Assistive Devices: Glasses and Walker Allergies Allergies Allergy/AdvReac Type Severity Reaction Status Date / Time Sulfa (Sulfonamide AdvReac Unknown Nausea Verified 09/12/23 11:36 Antibiotics) covid vaccine Allergy Unknown "out of it" Uncoded 09/12/23 11:36 Home Meds Home Medications Medication Instructions Recorded Confirmed cholecalciferol (vitamin D3) 50 5,000 unit PO QAM 01/03/18 05/08/24 mcg (2,000 unit) capsule (Vitamin D3) vitamins A,C,S-iskn-emwijx 4,296 1 cap PO BID 11/24/20 05/08/24 mcg-226 mg-90 mg capsule (PreserVision AREDS) acetaminophen 500 mg tablet 1,000 mg PO BID PRN pain 08/22/21 05/08/24 digoxin 250 mcg (0.25 mg) tablet 125 mcg PO QAM 09/07/21 05/08/24 latanoprost 0.005 % eye drops 1 drp ophthalmic (eye) UD 03/14/22 05/08/24 clonidine HCl 0.1 mg 0.1 mg PO Q8H PRN Blood Pressure 04/06/22 05/08/24 tablet,extended release,12 hr glucagon 1 mg solution for 1 mg subcut ONCE PRN Hypoglycemia 06/25/22 05/08/24 injection (Glucagon Emergency Kit) aspirin 81 mg capsule 81 mg PO UD 12/05/22 05/08/24 cyanocobalamin (vitamin B-12) 1,000 mcg PO UD 12/05/22 05/08/24 1,000 mcg capsule famotidine 20 mg tablet 20 mg PO QAM 12/05/22 05/08/24 ferrous sulfate 325 mg (65 mg 325 mg PO QAM 12/05/22 05/08/24 iron) tablet metoprolol tartrate 25 mg tablet 25 mg PO BID 09/12/23 05/08/24 prednisone 1 mg tablet 4 mg PO UD 09/12/23 05/08/24 insulin lispro 100 unit/mL 28 unit subcut UD 01/23/24 05/08/24 subcutaneous pen insulin glargine 100 unit/mL (3 36 unit subcut BID 05/08/24 05/08/24 mL) subcutaneous pen (Lantus Solostar U-100 Insulin) rosuvastatin 10 mg tablet 10 mg PO HS 05/08/24 05/08/24 Previous Rx's Medication Instructions Recorded diltiazem HCl 240 mg 240 mg PO QAM #30 caps 12/23/21 capsule,extended release 24 hr blood-glucose sensor (FreeStyle #2 ea 07/11/22 Roman 3 Sensor device) insulin syringe-needle U-100 0.3 #200 ea 12/20/22 mL 30 gauge x 1/2" (BD Insulin Syringe Ultra-Fine) pen needle, diabetic, safety 30 #500 ea 07/02/23 gauge x 1/3" (Novofine Autocover) apixaban 2.5 mg tablet (Eliquis) 2.5 mg PO BID #180 tabs 09/12/23 Results & Data (ED) Vital Signs Vital Signs - 24 hr 05/08/24 11:16 05/08/24 11:17 05/08/24 12:25 Temperature 36.6 C Temperature Source Temporal Artery Scan Pulse Rate 87 78 Pulse Rate [Right] 77 Pulse Rate from SpO2 Sensor Pulse Rhythm [Right] Respiratory Rate 16 18 Respiratory Effort / Characteristics Non-Labored Spontaneous Respiratory Depth Normal Respiratory Pattern Regular Blood Pressure 122/72 Blood Pressure [Left Arm] 141/79 H Blood Pressure Mean 88 Blood Pressure Mean [Left Arm] 99 Pulse Oximetry 96 98 Oxygen Delivery Method Room Air Room Air Sepsis Recent Fever Within 48 Hours No Sepsis New/Unexplained Change in Mental Status N/A Sepsis Action Taken by Nursing No Action Required 05/08/24 12:33 05/08/24 13:07 05/08/24 13:16 Temperature Temperature Source Pulse Rate 86 Pulse Rate [Right] 80 Pulse Rate from SpO2 Sensor 83 Pulse Rhythm [Right] Regular Respiratory Rate 14 16 Respiratory Effort / Characteristics Respiratory Depth Respiratory Pattern Blood Pressure 141/79 H Blood Pressure [Left Arm] 140/70 Blood Pressure Mean 99 Blood Pressure Mean [Left Arm] 93 Pulse Oximetry 99 98 99 Oxygen Delivery Method Room Air Room Air Sepsis Recent Fever Within 48 Hours Sepsis New/Unexplained Change in Mental Status Sepsis Action Taken by Nursing 05/08/24 13:57 05/08/24 14:19 Temperature 36.8 C 36.6 C Temperature Source Oral Oral Pulse Rate 75 70 Pulse Rate [Right] Pulse Rate from SpO2 Sensor Pulse Rhythm [Right] Respiratory Rate 16 16 Respiratory Effort / Characteristics Respiratory Depth Respiratory Pattern Blood Pressure 158/84 H 162/66 H Blood Pressure [Left Arm] Blood Pressure Mean 108 98 Blood Pressure Mean [Left Arm] Pulse Oximetry 96 97 Oxygen Delivery Method Sepsis Recent Fever Within 48 Hours Sepsis New/Unexplained Change in Mental Status Sepsis Action Taken by Nursing Laboratory Data 05/08/24 17:21 05/08/24 11:50 Lab Results 05/08/24 05/08/24 05/08/24 Range/Units 11:48 11:50 12:55 WBC 5.90 (4.8-10.8) K/ul RBC 2.19 L (4.20-5.40) M/uL Hgb 7.5 L (12.0-16.0) g/dl Hct 23.8 L (37.0-47.0) % MCV 108.7 H (80.0-100.0) fL MCH 34.2 H (25.0-34.0) pg MCHC 31.5 L (32.0-36.0) g/dL RDW Std Deviation 61.1 H (36.4-46.3) fL RDW Coeff of Rosie 15.2 H (11.5-14.5) % Plt Count 221 (130-400) K/uL MPV 9.6 (9.4-12.4) fL PT 10.9 (9.0-12.0) Seconds INR 1.0 (0.9-1.1) APTT 24 (21-31) Seconds PTT Ratio 0.9 Sodium 137 (136-145) mmol/L Potassium 4.7 (3.5-5.1) mmol/L Chloride 107 (98-107) mmol/L Carbon Dioxide 22 (21-32) mmol/L Anion Gap 8 (3-11) BUN 25 H (6-23) mg/dl Creatinine 1.44 H (0.6-1.2) mg/dl Est Cr Clr Drug Dosing 27.8 ml/min eGFR 35.20 BUN/Creatinine Ratio 17.4 (10-20) Glucose 155 H (70-99(Fasting)) mg/dl Calcium 9.0 (8.6-10.3) mg/dl Total Bilirubin 0.5 (0.2-1.0) mg/dl AST 19 (13-39) U/L ALT 18 (7-52) U/L Alkaline Phosphatase 37 (34-104) U/L Troponin I High Sens 31.8 H (0-14) pg/ml Total Protein 6.3 (6.0-8.3) gm/dl Albumin 3.5 (3.4-5.0) gm/dl Globulin 2.8 (2.5-4.0) gm/dl Albumin/Globulin Ratio 1.3 (0.9-2) Blood Type A Positive Blood Type Recheck A Positive Antibody Screen NEGATIVE Crossmatch See Detail Administered Medications Pantoprazole Sodium 40 mg/ (Dextrose) 100 mls @ 20 mls/hr IV Q5H AAYUSH Stop: 06/07/24 12:59 Last Admin: 05/08/24 17:38 Dose: 8 mg/hr, 20 mls/hr Documented By: Infusion: 05/08/24 17:37 Dose: Infused Documented By: Admin: 05/08/24 13:33 Dose: 8 mg/hr, 20 mls/hr Documented By: RISHABH Insulin Aspart (Insulin Aspart Per Unit Charge) 0 units SC ACHS AAYUSH Stop: 06/07/24 16:50 Last Admin: 05/08/24 17:50 Dose: 4 units Documented By: QING Co-signed By: RNC Discontinued Medications Sodium Chloride (Nss) 1,000 mls @ 999 mls/hr IV .Q1H1M ONE Stop: 05/08/24 13:34 Last Infusion: 05/08/24 13:00 Dose: Infused Documented By: Admin: 05/08/24 12:59 Dose: 999 mls/hr Documented By: ROBY Pantoprazole Sodium 80 mg/ (Dextrose) 120 mls @ 480 mls/hr IV NOW ONE Stop: 05/08/24 12:48 Last Infusion: 05/08/24 13:15 Dose: Infused Documented By: Admin: 05/08/24 12:59 Dose: 480 mls/hr Documented By: ROBY Pantoprazole Sodium (Pantoprazole Bolus/Drip) 1 each IV NOW STA Stop: 05/08/24 12:35 Last Admin: 05/08/24 12:59 Dose: 1 each Documented By: ROBY Discharge Plan Visit Data Chief Complaint: Abnormal Labs/Diagnostic Testing Stated Complaint: ABN LABS, HEMOGLOBIN HIGH ED Provider: Rocco Martell Discharge Problem: GIB (gastrointestinal bleeding) Patient Disposition: Admitted As Inpatient Discharge Instructions Interventions: ED Discharge Assessment Last Done: 05/08/24 16:37
[2024-05-08] MEDS ORDERED: SODIUM CHLORIDE 0.9% 100 ML IV PRN (12:33)
[2024-05-08] MEDS ORDERED: SODIUM CHLORIDE 0.9% 50 ML IV PRN (12:33)
[2024-05-08 12:37] LABS: Partial Thromboplastin Ratio 0.9; Partial Thromboplastin Time 24 Seconds (21-31); Prothrombin Time 10.9 Seconds (9.0-12.0)
[2024-05-08] MEDS: PANTOPRAZOLE BOLUS/DRIP IV STA (12:59)
[2024-05-08] MEDS: SODIUM CHLORIDE 0.9% 1,000 ML IV ONE (12:59)
[2024-05-08] MEDS: PANTOprazole 80 MG in DEXTROSE 5% 100 ML IV ONE (12:59)
[2024-05-08] MEDS: PANTOprazole 40 MG in DEXTROSE 5% MINI-B 100 ML IV SCH (13:33)
--- NOTE | 2024-05-08 14:06 | History & Physical Report ---
Date of Service May 08, 2024 Assessment & Plan (1) Upper GI bleed: (2) Symptomatic anemia: (3) A-fib: (4) Chronic anticoagulation: (5) Chronic kidney disease, stage 3: (6) Controlled type 2 diabetes mellitus with kidney complication, with long-term current use of insulin: (7) Vitamin D deficiency: (8) Dyslipidemia: Plan Patient is a 89yo with T2DM, afib, colon polyps s/p partial resection 17y ago, cholecystectomy, appendectomy who presents from [facility] due to symptomatic anemia. Hgb on 03/19/2024 was 10.9; on admission today is 7.5. Patient endorses symptoms of generalized weakness and black stools for ~2 weeks. Admitted for UGIB workup and management of symptomatic anemia. #Symptomatic anemia, UGIB - Pt w weakness & fatigue for approx 2 wk. Hgb was 10.9 on 03/19/2024; now 7.5 at admission - transfuse 1 unit pRBC. H&H q6 to evaluate need for more units - GI consulted. Because pt took aspirin & eliquis already today, plan for EGD on Saturday - hold aspirin & eliquis - Continue PPI bid #Afib, chronic anticoagulation - Eliquis decreased to 2.5mg bid recently based on kidney fxn; Held d/t GIB - Continue Digoxin; level on 04/30 was 1.1 - Continue metoprolol #CKD - Baseline Cr ~1.5; on admission Cr 1.44 - Daily BMPs - s/p 1L NSS; continue IVF as needed Chronic, stable conditions: T2DM - 30u insulin glargine + SSI (CF 30; CR 10; target 110-160); BSGs ACHS if eating, q6h if npo GERD - IV protonix PMR - continue prednisone Diet: regular (NPO on Saturday 00:01) VTE ppx: SCDs, holding eliquis in light of GIB Code: full Dispo: admit to tele History of Present Illness Chief Complaint: anemia Primary Care Provider: [facility] 89yo with PMH of T2DM, afib, TIA, PMR, colon polyps and surgical hx of partial colon resection (~2006), cholecystectomy, and appendectomy who presents from [facility] due to down-trending hemoglobin. Daughter Kenny is in room and helps provide history. Patient describes herself as "healthier than average" for her age, until she had a likely viral infection in March, and reports she hasn't felt the same since. It began around Ying and says it took her weeks to recover. She reports feeling much weaker and more fatigued. Her diarrhea started around the same time, and has worsened up to now having daily liquid stools that appear dark or black. She has taken to wearing Depends regularly. She denies experiencing similar issues before. She denies recent nausea/reflux, abdominal pain, or bright red or maroon stools. She reports having no known diverticulosis, but does mention a history of colon polyps that eventually required resection. Patient and daughter mention cancer and rupture when explaining the resection; true indication for it is unclear. Patient and daughter are unsure of exactly which medications she takes or how often because she gets her medications in pre-prepared pill boxes. She does know she takes various supplements including iron & B12. In ED, she was given 1L NSS and IV Protonix. Type and screen and consent obtained for blood transfusion. Patient currently feeling well, denies any symptoms Allergies Allergy/AdvReac Type Severity Reaction Status Date / Time Sulfa (Sulfonamide AdvReac Unknown Nausea Verified 09/12/23 11:36 Antibiotics) covid vaccine Allergy Unknown "out of it" Uncoded 09/12/23 11:36 Home Medications Medication Instructions Recorded Confirmed Type cholecalciferol (vitamin D3) 50 5,000 unit PO QAM 01/03/18 05/08/24 History mcg (2,000 unit) capsule (Vitamin D3) vitamins A,C,V-igsc-agjenp 4,296 1 cap PO BID 11/24/20 05/08/24 History mcg-226 mg-90 mg capsule (PreserVision AREDS) acetaminophen 500 mg tablet 1,000 mg PO BID PRN pain 08/22/21 05/08/24 History digoxin 250 mcg (0.25 mg) tablet 125 mcg PO QAM 09/07/21 05/08/24 History diltiazem HCl 240 mg 240 mg PO QAM #30 caps 12/23/21 05/08/24 Rx capsule,extended release 24 hr latanoprost 0.005 % eye drops 1 drp ophthalmic (eye) UD 03/14/22 05/08/24 History clonidine HCl 0.1 mg 0.1 mg PO Q8H PRN Blood Pressure 12/30/22 01/31/25 History tablet,extended release,12 hr glucagon 1 mg solution for 1 mg subcut ONCE PRN Hypoglycemia 06/25/22 05/08/24 History injection (Glucagon Emergency Kit) blood-glucose sensor (FreeStyle #2 ea 07/11/22 09/12/23 Rx Roman 3 Sensor device) aspirin 81 mg capsule 81 mg PO UD 12/05/22 05/08/24 History cyanocobalamin (vitamin B-12) 1,000 mcg PO UD 12/05/22 05/08/24 History 1,000 mcg capsule famotidine 20 mg tablet 20 mg PO QAM 12/05/22 05/08/24 History ferrous sulfate 325 mg (65 mg 325 mg PO QAM 12/05/22 05/08/24 History iron) tablet insulin syringe-needle U-100 0.3 #200 ea 12/20/22 09/12/23 Rx mL 30 gauge x 1/2" (BD Insulin Syringe Ultra-Fine) pen needle, diabetic, safety 30 #500 ea 07/02/23 09/12/23 Rx gauge x 1/3" (Novofine Autocover) apixaban 2.5 mg tablet (Eliquis) 2.5 mg PO BID #180 tabs 09/12/23 05/08/24 Rx metoprolol tartrate 25 mg tablet 25 mg PO BID 09/12/23 05/08/24 History prednisone 1 mg tablet 4 mg PO UD 09/12/23 05/08/24 History insulin lispro 100 unit/mL 28 unit subcut UD 01/23/24 05/08/24 History subcutaneous pen insulin glargine 100 unit/mL (3 36 unit subcut BID 05/08/24 05/08/24 History mL) subcutaneous pen (Lantus Solostar U-100 Insulin) rosuvastatin 10 mg tablet 10 mg PO HS 05/08/24 05/08/24 History Past Med/Surg History Problem List (Updated 05/08/24 @ 14:40 by Judith Wright MD) Symptomatic anemia Upper GI bleed Idiopathic polyneuropathy Tremor Generalized weakness PMR (polymyalgia rheumatica) UTI (urinary tract infection) Orthostatic hypotension DVT prophylaxis Hyponatremia Sciatica Lyme disease Chronic pancreatitis Headache Elevated troponin Encephalopathy Back pain (Acute) Vomiting (Acute) Confusion (Acute) Chronic kidney disease, stage 3 (Chronic) Hypertension (Chronic) Vitamin D deficiency (Chronic) Controlled type 2 diabetes mellitus with kidney complication, with long-term current use of insulin Dyslipidemia REYES (nonalcoholic steatohepatitis) A-fib (Chronic) Right knee DJD Chronic anticoagulation (Acute) 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; cerebral non-ruptured [place] 09/27 TIA (transient ischemic attack) 2021, no residual Medical History History of encephalopathy GERD (gastroesophageal reflux disease) History of polyneuropathy History of Lyme disease History of orthostatic hypotension Discharge planning issues Dysmetabolic syndrome X History of rosacea History of rheumatic fever History of nummular eczema History of diabetes mellitus History of basal cell carcinoma History of actinic keratosis History of colon cancer Surgical History History of colonoscopy History of tonsillectomy History of partial colectomy Hx of cholecystectomy Hx of appendectomy Family History Unknown Family history of thromboembolic disease Social History Smoking Status: Never smoker Second Hand Exposure: No; Do You Dip or Chew Tobacco: No; Hx Alcohol Use: No Hx Substance Use: No Preferred Language: [place] Communication Ability: Effective Communication Ability Comment: hx of dementia at baseline--worse w/ uti Visual Impairment: Diminished 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: No Beliefs That Will Affect Care: None marital status: / Current Living Situation: Alone Current Living Situation Comment: independent [place], they fill pill box current occupational status: retired Feels Safe at Home: Yes Assistive Devices: Glasses and Walker Review of Systems 2 Review of Systems: Constitutional: + fatigue; denies fever, chills, abnormal weight loss HEENT: +sinus pressure; denies congestion, sore throat CV: denies chest pain, palpitations Resp: denies shortness of breath, cough GI: +loose, dark/black stool; denies abdominal pain, nausea, vomiting, constipation, blood or maroon-colored stool : denies pain with urination, change in urinary frequency, hematuria Neuro: denies HICKEY, numbness, tingling, unsteadiness Physical Exam 2 Physical Exam: Gen: Pleasant, alert, WD/WN, NAD HEENT: NCAT, nl conjunctiva, no facial/sinus pain, trachea midline, no LAD or thyromegaly CV: RRR, no m/r/g, S1/S2 normal, cap refill < 3s Resp: CTAB, symmetrical chest rise, breathing non-labored Abd: Soft, nontender, no distension, +BS in all quadrants, no HSM MSK: Full ROM, normal str, no gross deformities Skin: Warm, dry, pink, no rashes or lesions visible Neuro: AOx3, CN II-XII grossly intact Psych: Mood-affect congruent. Speech pace and content normal. Results & Data Results & Data Vital Signs (Past 12 Hours) Vital Signs Temp Pulse Pulse Resp BP BP Pulse Ox 05/08/24 13:16 80 16 140/70 99 05/08/24 13:07 98 05/08/24 12:33 86 14 141/79 H 99 05/08/24 12:25 78 05/08/24 11:17 36.6 C 87 18 122/72 98 05/08/24 11:16 77 16 141/79 H 96 O2 Del Method 05/08/24 13:16 Room Air 05/08/24 13:07 Room Air 05/08/24 12:33 05/08/24 12:25 05/08/24 11:17 Room Air 05/08/24 11:16 Room Air Laboratory Results 05/08/24 11:50 05/08/24 11:50 Supervising Physician Co-Signing Physician Notes I personally examined the patient and verified all mariee points of history and exam, discussed case, and agree with decision making with Dr Wright feeling ok just weak when she does much. Melena. Vitals noted, in general she is awake and alert pleasant no distress. HEENT normocephalic atraumatic mucous membranes moist. Breathing unlabored no accessory muscle use good effort. Skin shows no rashes no pallor or icterus. Neuro without focal deficits. Anemiasuspect upper GI bleed possibly AVMs given age. Holding aspirin and anticoagulation. Transfusing. Check iron stores. EGD Saturday. With past medical history, discussed with patient may be a situation of treating "what is happening now" in terms of chronic need for antiplatelets/anticoagulants, but also if she has AVMs the potential for a degree of chronic issues with GI bleeding. Fall peptic ulcer disease and this is able to heal over, obviously that will not be an issue. Otherwise as above. Resident Activity Tracking Resident Involvement: Resident Care Provided Care Provided: Adult [facility] (3) A-fib Atrial fibrillation type: permanent Qualified Code(s): I48.21 - Permanent atrial fibrillation
--- NOTE | 2024-05-08 14:13 | Gastrointestinal Consultation ---
Date of Consultation May 08, 2024 Assessment & Plan (1) Upper GI bleed: 89 year old female w/ history of atrial fibrillation, hypertension, dyslipidemia, diabetes mellitus, mitral regurgitation, CKD, T2DM, dyslipidemia and others below admitted w/ anemia - GI asked to evaluate for melena, ASA and Eliquis this AM Hold ASA and Eliquis Trend H&H Transfuse PRN per primary service Monitor and document GI output IV PPI twice daily Plan for EGD Saturday unless urgently indicated over the I spent a total of 60 minutes on the date of service in review of patient's record, and previously obtained information in person and appropriate medical visit, discussion and education of plan, with patient and/or caregiver, placing orders for tests/referral/procedures as medically necessary and documentation of pertinent clinical information in patient's medical records for their visit today.Thank you for allowing us to participate in the care of this patient. Please call with any acute changes, questions or concerns. Please see addendum below with additional recommendation from my supervising physician. Supervising Physician Co-Signing Physician Notes I personally saw and examined the patient. I have reviewed the chart and agree with the documentation provided by the ADMINISTRATIVE SUPPORT COORDINATOR including discussion about the assessment, treatment and plan. Briefly, 89 year old female w/ history of atrial fibrillation, hypertension, dyslipidemia, diabetes mellitus, mitral regurgitation, CKD, T2DM, dyslipidemia and others below admitted w/ anemia - GI asked to evaluate for melena. Suggests a few bouts of black stools for the last two weeks. No hematochezia. No nausea/vomiting. On ASA and eliquis - last dose this AM No other NSAIDs Has never had an EGD Last colon 10+ years ago w/ Dr. Key Higher suspicion for peptic ulcer disease versus gastritis esophagitis. PPI IV twice daily this . Hold aspirin and Eliquis. Will plan on EGD on Saturday unless she decompensates. CBC twice daily. She can have a full liquid diet over the weekend History of Present Illness Reason for Consultation: upper GI bleed Requesting Physician: Rocco Martell DO Attending Physician: Rocco Martell DO History of Present Illness 89 year old female w/ history of atrial fibrillation, hypertension, dyslipidemia, diabetes mellitus, mitral regurgitation, CKD, T2DM, dyslipidemia and others below admitted w/ anemia - GI asked to evaluate for melena. Suggests a few bouts of black stools for the last two weeks. No hematochezia. No nausea/vomiting. No black or bloody emesis. No fever, chills, CP, SOB. On ASA and eliquis - last dose this AM No other NSAIDs Has never had an EGD Last colon 10+ years ago w/ Dr. Key HGB 7.5 INR 1 PLT 221 Allergies Allergy/AdvReac Type Severity Reaction Status Date / Time Sulfa (Sulfonamide AdvReac Unknown Nausea Verified 09/12/23 11:36 Antibiotics) covid vaccine Allergy Unknown "out of it" Uncoded 09/12/23 11:36 Home Medications Medication Instructions Recorded Confirmed Type cholecalciferol (vitamin D3) 50 5,000 unit PO QAM 01/03/18 05/08/24 History mcg (2,000 unit) capsule (Vitamin D3) vitamins A,C,F-[id number]-tpnxns 4,296 1 cap PO BID 11/24/20 05/08/24 History mcg-226 mg-90 mg capsule (PreserVision AREDS) acetaminophen 500 mg tablet 1,000 mg PO BID PRN pain 08/22/21 05/08/24 History digoxin 250 mcg (0.25 mg) tablet 125 mcg PO QAM 09/07/21 05/08/24 History diltiazem HCl 240 mg 240 mg PO QAM #30 caps 12/23/21 05/08/24 Rx capsule,extended release 24 hr latanoprost 0.005 % eye drops 1 drp ophthalmic (eye) UD 03/14/22 05/08/24 History clonidine HCl 0.1 mg 0.1 mg PO Q8H PRN Blood Pressure 04/06/22 05/08/24 History tablet,extended release,12 hr glucagon 1 mg solution for 1 mg subcut ONCE PRN Hypoglycemia 06/25/22 05/08/24 History injection (Glucagon Emergency Kit) blood-glucose sensor (FreeStyle #2 ea 07/11/22 09/12/23 Rx Roman 3 Sensor device) aspirin 81 mg capsule 81 mg PO UD 12/05/22 05/08/24 History cyanocobalamin (vitamin B-12) 1,000 mcg PO UD 12/05/22 05/08/24 History 1,000 mcg capsule famotidine 20 mg tablet 20 mg PO QAM 12/05/22 05/08/24 History ferrous sulfate 325 mg (65 mg 325 mg PO QAM 12/05/22 05/08/24 History iron) tablet insulin syringe-needle U-100 0.3 #200 ea 12/20/22 09/12/23 Rx mL 30 gauge x 1/2" (BD Insulin Syringe Ultra-Fine) pen needle, diabetic, safety 30 #500 ea 07/02/23 09/12/23 Rx gauge x 1/3" (Novofine Autocover) apixaban 2.5 mg tablet (Eliquis) 2.5 mg PO BID #180 tabs 09/12/23 05/08/24 Rx metoprolol tartrate 25 mg tablet 25 mg PO BID 09/12/23 05/08/24 History prednisone 1 mg tablet 4 mg PO UD 09/12/23 05/08/24 History insulin lispro 100 unit/mL 28 unit subcut UD 01/23/24 05/08/24 History subcutaneous pen insulin glargine 100 unit/mL (3 36 unit subcut BID 05/08/24 05/08/24 History mL) subcutaneous pen (Lantus Solostar U-100 Insulin) rosuvastatin 10 mg tablet 10 mg PO HS 05/08/24 05/08/24 History Patient History Medical History History of encephalopathy GERD (gastroesophageal reflux disease) History of polyneuropathy History of Lyme disease History of orthostatic hypotension Discharge planning issues Dysmetabolic syndrome X History of rosacea History of rheumatic fever History of nummular eczema History of diabetes mellitus History of basal cell carcinoma History of actinic keratosis History of colon cancer Surgical History History of colonoscopy History of tonsillectomy History of partial colectomy Hx of cholecystectomy Hx of appendectomy Family History Unknown Family history of thromboembolic disease Social History Smoking Status: Never smoker Second Hand Exposure: No; Do You Dip or Chew Tobacco: No; Hx Alcohol Use: No Hx Substance Use: No Preferred Language: [place] Communication Ability: Effective Communication Ability Comment: hx of dementia at baseline--worse w/ uti Visual Impairment: Diminished Paper [employer] Pulp [employer] Operator Required: No Beliefs That Will Affect Care: None marital status: / Current Living Situation: Alone Current Living Situation Comment: independent [place], they fill pill box current occupational status: retired Feels Safe at Home: Yes Assistive Devices: Glasses and Walker Review of Systems Review of Systems: All other findings negative except as noted in HPI. Physical Exam Constitutional: WD/WN, vitals as above Respiratory: normal respiratory effort, lungs clear to auscultation Cardiovascular: Rate/Rhythm: regular rate and regular rhythm Gastrointestinal (Abdomen): normal bowel sounds, soft, nontender, no hepatosplenomegaly Skin: no rashes, warm and dry Results & Data Vital Signs (Past 12 Hours) Vital Signs Temp Pulse Pulse Resp BP BP Pulse Ox 05/08/24 13:57 98.2 F 75 16 158/84 H 96 05/08/24 13:16 80 16 140/70 99 05/08/24 13:07 98 05/08/24 12:33 86 14 141/79 H 99 05/08/24 12:25 78 05/08/24 11:17 97.9 F 87 18 122/72 98 05/08/24 11:16 77 16 141/79 H 96 O2 Del Method 05/08/24 13:57 05/08/24 13:16 Room Air 05/08/24 13:07 Room Air 05/08/24 12:33 05/08/24 12:25 05/08/24 11:17 Room Air 05/08/24 11:16 Room Air Laboratory Results 05/08/24 05/08/24 05/08/24 Range/Units 12:55 11:50 11:48 WBC 5.90 (4.8-10.8) K/ul RBC 2.19 L (4.20-5.40) M/uL Hgb 7.5 L (12.0-16.0) g/dl Hct 23.8 L (37.0-47.0) % MCV 108.7 H (80.0-100.0) fL MCH 34.2 H (25.0-34.0) pg MCHC 31.5 L (32.0-36.0) g/dL RDW Std Deviation 61.1 H (36.4-46.3) fL RDW Coeff of Rosie 15.2 H (11.5-14.5) % Plt Count 221 (130-400) K/uL MPV 9.6 (9.4-12.4) fL PT 10.9 (9.0-12.0) Seconds INR 1.0 (0.9-1.1) APTT 24 (21-31) Seconds PTT Ratio 0.9 Sodium 137 (136-145) mmol/L Potassium 4.7 (3.5-5.1) mmol/L Chloride 107 (98-107) mmol/L Carbon Dioxide 22 (21-32) mmol/L Anion Gap 8 (3-11) BUN 25 H (6-23) mg/dl Creatinine 1.44 H (0.6-1.2) mg/dl Est Cr Clr Drug Dosing 27.8 ml/min eGFR 35.20 BUN/Creatinine Ratio 17.4 (10-20) Glucose 155 H (70-99(Fasting)) mg/dl Calcium 9.0 (8.6-10.3) mg/dl Total Bilirubin 0.5 (0.2-1.0) mg/dl AST 19 (13-39) U/L ALT 18 (7-52) U/L Alkaline Phosphatase 37 (34-104) U/L Troponin I High Sens 31.8 H (0-14) pg/ml Total Protein 6.3 (6.0-8.3) gm/dl Albumin 3.5 (3.4-5.0) gm/dl Globulin 2.8 (2.5-4.0) gm/dl Albumin/Globulin Ratio 1.3 (0.9-2) Blood Type A Positive Blood Type Recheck A Positive Antibody Screen NEGATIVE Crossmatch See Detail PG Care Time/CCT Total # of Minutes Spent Total Time Spent with Patient: Total time spent is greater than 50% in coordination of care (as documented) at patient's floor/unit and/or counseling patient: Coding Level of Care Code 39447 INT INP/OBS CARE 2/55MIN Diagnoses Upper GI bleed K92.2
[2024-05-08] MEDS ORDERED: GLUCOSE 10 TAB/TUBE PO PRN (16:51)
[2024-05-08] MEDS ORDERED: GLUCAGON FOR INJ 1 MG VIAL SQ PRN (16:51)
[2024-05-08] MEDS ORDERED: GLUCOSE 40% GEL 15 GM TUBE PO PRN (16:51)
[2024-05-08] MEDS ORDERED: CARBOHYDRATES FOR HYPOGLYCEMIA PO PRN (16:51)
[2024-05-08] MEDS ORDERED: POLYETHYLENE (MIRALAX) 17 GM PACK PO PRN (16:51)
[2024-05-08] MEDS ORDERED: ONDANSETRON INJ 2 MG/ML 2 ML VIAL IV PRN (16:51)
--- NOTE | 2024-05-08 17:19 | Billing Data ---
Date of Service May 08, 2024 Coding Level of Care Code 85581 INT INP/OBS CARE
[2024-05-08] MEDS: INSULIN ASPART PER UNIT CHARGE SC SCH (17:50)
[2024-05-08 17:56] LABS: Hemoglobin 9.3 g/dl (12.0-16.0)
[2024-05-08] MEDS: LANTUS PER UNIT CHARGE SQ SCH (20:33)
[2024-05-08] MEDS: LATANOPROST 0.005% OP SOLN 2.5 ML BTL OP SCH (20:34)
[2024-05-08] MEDS: ROSUVASTATIN CALCIUM 10 MG TAB PO SCH (20:35)
[2024-05-08] MEDS: CEROVITE ADV FORMULA TAB PO SCH (20:35)
[2024-05-08] MEDS: METOPROLOL TARTRATE 25 MG TAB PO SCH (20:36)
[2024-05-08 23:51] LABS: Hematocrit (blood only) 29.3 % (37.0-47.0); Hemoglobin 9.7 g/dl (12.0-16.0)
--- NOTE | 2024-05-09 06:53 | Hospitalist Progress Note ---
Date of Service May 09, 2024 Assessment & Plan (1) Upper GI bleed: (2) Symptomatic anemia: (3) A-fib: (4) Chronic anticoagulation: (5) Chronic kidney disease, stage 3: (6) Controlled type 2 diabetes mellitus with kidney complication, with long-term current use of insulin: (7) Vitamin D deficiency: (8) Dyslipidemia: Plan Patient is a 89yo with T2DM, afib, colon polyps s/p partial resection 17y ago, cholecystectomy, appendectomy who presents from [facility] due to symptomatic anemia. Hgb on 03/19/2024 was 10.9; on admission today is 7.5. Patient endorses symptoms of generalized weakness and black stools for ~2 weeks. Admitted for UGIB workup and management of symptomatic anemia. #Symptomatic anemia, UGIB - Pt w weakness & fatigue for approx 2 wk. Hgb was 10.9 on 03/19/2024; now 7.5 at admission - Iron Profile: WNL (Iron 131, TIBC: 312, Transferrin: 223, Ferritin 110 - Transfused 1 unit pRBC. Latest Hb: 9.7gm%---8.4 gm% - H/H tomorrow morning. - GI on board: Appreciate recs; plans for EGD on Saturday - Aspirin & eliquis on hold. - Continue PPI BID #Afib, chronic anticoagulation *Stable No new symptoms NSR on overnight tele -Eliquis decreased to 2.5mg bid recently based on kidney fxn; Held d/t GIB -Continue metoprolol and Digoxin( Level 1.1 on 04/29) #CKD 2/2 DM - Baseline Cr ~1.5; on admission Cr 1.44--->1.64 - Daily BMPs; encourage oral intake. #Chronic, stable conditions: T2DM - 30u insulin glargine + SSI (CF 30; CR 10; target 110-160); BSGs ACHS if eating, q6h if npo GERD - IV protonix PMR - continue prednisone Diet: regular (NPO on Saturday 00:01) VTE ppx: SCDs, holding eliquis in light of GIB Code: full Dispo: Likely home return Admission and Anticipated Discharge Date Admission Date: May 08, 2024 Subjective Miss Nolasco, very pleasant lady was seen on bedside today. She mentioned she feel little weak and tired today. Sleep was not great last night because of new bed and cannulas on her hand. Able to ear, pee, walk with help of walker. Had BM early in morning at around 4 am today, did not notice fresh blood but thinks poop was as dark as it is since few days. Had documented fever on record, but does not feel feverish, no SOB, CP, urine complain, pain abdomen. No chills/ swearing. No itching. Tolerated BT well. Review of Systems Review of Systems: As per HPI Physical Exam Physical Exam: Gen: Pleasant, alert, WD/WN, NAD HEENT: NCAT, BL conjunctiva clear. CV: S1S2, no murmur. Resp: CTAB, symmetrical chest rise, breathing non-labored Abd: Soft, nontender, no distension MSK: no gross deformities Skin: Warm, dry, pink, All 4 Limbs swollen ?Chronic lymphedema. Neuro: AOx3, No focal deficit. Psych: Mood-affect congruent. Speech pace and content normal. Results & Data Results & Data Vital Signs (Past 12 Hours) Vital Signs Temp Pulse Pulse Resp BP Pulse Ox O2 Del Method 05/09/24 03:08 37.1 C 85 18 139/56 L 94 Room Air 05/08/24 22:38 36.5 C 76 18 154/71 H 93 Room Air 05/08/24 20:08 36.4 C L 75 20 145/76 H 96 Room Air Resident Activity Tracking Resident Involvement: Resident Care Provided Care Provided: Adult Hospital Medicine (3) A-fib Atrial fibrillation type: permanent Qualified Code(s): I48.21 - Permanent atrial fibrillation
[2024-05-09 07:54] LABS: Basophils # (auto) 0.03 K/uL (0.00-0.20); Basophils % (auto) 0.3 %; Eosinophils # (auto) 0.12 K/uL (0.00-0.50); Eosinophils % (auto) 1.4 %; Hematocrit (blood only) 25.3 % (37.0-47.0); Hemoglobin 8.4 g/dl (12.0-16.0); Immature Granulocytes # (auto) 0.02 K/uL (0.01-0.20); Immature Granulocytes % (auto) 0.2 %; Lymphocytes # (auto) 1.19 K/uL (1.20-3.40); Lymphocytes % (auto) 13.7 %; Mean Corpuscular Hgb Conc 33.2 g/dL (32.0-36.0); Mean Corpuscular Volume 102.4 fL (80.0-100.0); Mean Platelet Volume 9.8 fL (9.4-12.4); Monocytes # (auto) 1.26 K/uL (0.11-0.59); Monocytes % (auto) 14.5 %; Neutrophils # (auto) 6.05 K/uL (1.40-6.50); Neutrophils % (auto) 69.9 %; Platelet Count 202 K/uL (130-400); RDW Coefficient of Variation 17.8 % (11.5-14.5); RDW Standard Deviation 66.5 fL (36.4-46.3); Red Blood Count 2.47 M/uL (4.20-5.40); White Blood Count 8.67 K/ul (4.8-10.8)
[2024-05-09 08:14] LABS: Prothrombin Time 10.5 Seconds (9.0-12.0)
[2024-05-09 08:15] LABS: BUN Creatinine Ratio 14.6 (10-20); Calcium 9.1 mg/dl (8.6-10.3); Creatinine Clr Calc Pharmacy 26.6 ml/min; Potassium 4.7 mmol/L (3.5-5.1)
[2024-05-09 08:35] LABS: Ferritin 110.7 ng/ml (8-388)
[2024-05-09] MEDS: predniSONE 1 MG TAB PO SCH (08:58)
[2024-05-09] MEDS: FERROUS SULFATE 325 MG TAB PO SCH (08:58)
[2024-05-09] MEDS: CYANOCOBALAMIN (B-12) 500 MCG TABLET PO SCH (08:58)
[2024-05-09] MEDS: dilTIAZem HCL 240 MG CAPCR PO SCH (08:58)
[2024-05-09] MEDS: CHOLECALCIFEROL 125 MCG (5,000 UNITS) TAB PO SCH (08:58)
[2024-05-09] MEDS: DIGOXIN 0.125 MG TAB PO SCH (08:58)
--- NOTE | 2024-05-09 10:37 | Billing Data ---
Date of Service May 09, 2024 Coding Level of Care Code 77045 SUB INP/OBS CARE MIN
[2024-05-09 11:07] LABS: Hematocrit (blood only) 24.5 % (37.0-47.0); Hemoglobin 8.1 g/dl (12.0-16.0)
[2024-05-10 06:26] LABS: Basophils # (auto) 0.04 K/uL (0.00-0.20); Basophils % (auto) 0.4 %; Eosinophils # (auto) 0.05 K/uL (0.00-0.50); Eosinophils % (auto) 0.5 %; Hematocrit (blood only) 28.9 % (37.0-47.0); Hemoglobin 9.2 g/dl (12.0-16.0); Immature Granulocytes # (auto) 0.09 K/uL (0.01-0.20); Immature Granulocytes % (auto) 0.9 %; Lymphocytes # (auto) 1.42 K/uL (1.20-3.40); Mean Corpuscular Hemoglobin 33.3 pg (25.0-34.0); Mean Corpuscular Hgb Conc 31.8 g/dL (32.0-36.0); Mean Corpuscular Volume 104.7 fL (80.0-100.0); Mean Platelet Volume 9.7 fL (9.4-12.4); Monocytes # (auto) 1.63 K/uL (0.11-0.59); Monocytes % (auto) 16.1 %; Neutrophils # (auto) 6.89 K/uL (1.40-6.50); Neutrophils % (auto) 68.1 %; Platelet Count 191 K/uL (130-400); RDW Coefficient of Variation 17.2 % (11.5-14.5); RDW Standard Deviation 66.1 fL (36.4-46.3); Red Blood Count 2.76 M/uL (4.20-5.40); White Blood Count 10.12 K/ul (4.8-10.8)
[2024-05-10 06:43] LABS: BUN Creatinine Ratio 13.9 (10-20); Calcium 9.4 mg/dl (8.6-10.3); Creatinine Clr Calc Pharmacy 30.1 ml/min; Potassium 4.4 mmol/L (3.5-5.1)
--- NOTE | 2024-05-10 07:25 | Hospitalist Progress Note ---
Date of Service May 10, 2024 Assessment & Plan (1) Upper GI bleed: (2) Symptomatic anemia: (3) A-fib: (4) Chronic anticoagulation: (5) Chronic kidney disease, stage 3: (6) Controlled type 2 diabetes mellitus with kidney complication, with long-term current use of insulin: (7) Vitamin D deficiency: (8) Dyslipidemia: Plan Patient is a 89yo with T2DM, afib, colon polyps s/p partial resection 17y ago, cholecystectomy, appendectomy who presents from [facility] due to symptomatic anemia. Hgb on 03/19/2024 was 10.9; on admission today is 7.5. Patient endorses symptoms of generalized weakness and black stools for ~2 weeks. Admitted for UGIB workup and management of symptomatic anemia. #Symptomatic anemia, UGIB - Pt w weakness & fatigue for approx 2 wk. Hgb was 10.9 on 03/19/2024; 7.5 at admission - Iron Profile: WNL (Iron 131, TIBC: 312, Transferrin: 223, Ferritin 110 - Transfused 1 unit pRBC. Latest Hb: 9.7gm%---8.4 gm%---9.2gm% today. - H/H tomorrow morning. - GI on board: Appreciate recs; plans for EGD on Saturday. Will Keep NPO tonight. - Aspirin & eliquis on hold. - Continue PPI BID #Afib, chronic anticoagulation *Stable No new symptoms NSR to Afib on tele last day. -Eliquis decreased to 2.5mg bid recently based on kidney fxn; Held d/t GIB -Continue metoprolol and Digoxin( Level 1.1 on 04/29) #Pulmonary Edema: Desaturated last night. Chest Xray: early signs of pulmonary edema compared to last image, doubtful about PNE. Clinically PNE less likely Echo ordered today, last Echo from 2021 (not significant) 1 spike of fever, will monitor fever. Feels like fluid overload is more of issue, will give her lasix 20 mg IV stat. Will Reassess after lasix. Echo ordered. If fever persists have few more spikes will treat as PNE as that point. #CKD 2/2 DM - Baseline Cr ~1.5; on admission Cr 1.44--->1.64----1.44 Today - Daily BMPs; encourage oral intake. #Chronic, stable conditions: T2DM - 30u insulin glargine + SSI (CF 30; CR 10; target 110-160); BSGs ACHS if eating, q6h if npo GERD - IV Protonix PMR - continue prednisone Diet: regular (NPO on Saturday 00:01) VTE ppx: SCDs, holding eliquis in light of GIB Code: full Dispo: Likely home return Admission and Anticipated Discharge Date Admission Date: May 08, 2024 Supervising Physician Co-Signing Physician Notes I personally examined the patient and verified all mariee points of history and exam, discussed case, and agree with decision making with Dr Malik Sleeping whenever I first saw her, on revisit she was awake sitting in the chair having just had dinner and feeling good. No significant shortness of breath. No cough. Updated on events of the day with her oxygen requirement, x- ray, CT scan. Vitals noted, in general she is awake and alert pleasant no distress. HEENT normocephalic atraumatic mucous membranes moist. Breathing unlabored no accessory muscle use good effort. Skin shows no rashes no pallor or icterus. Neuro without focal deficits. Anemiasuspect upper GI bleed possibly AVMs given age. Holding aspirin and anticoagulation. Transfused. Iron levels respectable. EGD Saturday. With past medical history, discussed with patient may be a situation of treating "what is happening now" in terms of chronic need for antiplatelets/anticoagulants, but also if she has AVMs the potential for a degree of chronic issues with GI bleeding. if all peptic ulcer disease and this is able to heal over, obviously that will not be an issue. Acute diastolic CHFoxygen requirement appears to be a mild degree of pulmonary edema due to transfusiondiuresis has been ordered, patient looking wellimaging does raise the question of pneumonia which does not at all fit with her clinicallyand on personal review to me it looks far more like pulmonary edema than any sort of infectionespecially on CT. I do not see anything medically that should preclude EGD tomorrow. Otherwise as above. Subjective Miss Nolasco, very pleasant lady was seen on bedside today. She mentioned she feel better. Had documented fever on record, but does not feel feverish, no SOB, CP, urine complain, pain abdomen. No chills/ swearing. No itching. Tolerated BT well. She mentioned about some cough since admission when I directly lead. She seems to be cold ans says she is always cold, its not new. Looks like she has chills to me. She needed Oxygen supplement during night for desat to as low as 84, this seems new on chart review. Had one spike of fever as well yesterday. Hence I informed her we will do an Xray of lung today. She is ok with this plan. No new bleeding from anywhere. She was doing fine w/o O2 this AM. Review of Systems Review of Systems: As per HPI Physical Exam Physical Exam: Gen: Pleasant, alert, WD/WN, NAD HEENT: NCAT, BL conjunctiva clear. CV: S1S2, no murmur. Resp: CTAB, symmetrical chest rise, breathing non-labored Abd: Soft, nontender, no distension MSK: no gross deformities Skin: Warm, dry, pink, All 4 Limbs swollen ?Chronic lymphedema. Neuro: AOx3, No focal deficit. Psych: Mood-affect congruent. Speech pace and content normal. Results & Data Results & Data Vital Signs (Past 12 Hours) Vital Signs Temp Pulse Pulse Resp BP Pulse Ox O2 Del Method 05/10/24 02:38 36.8 C 88 20 139/62 96 Nasal Cannula 05/09/24 23:24 37.9 C H 86 20 150/67 H 92 Nasal Cannula 05/09/24 23:20 84 L Room Air 05/09/24 19:53 37.1 C 91 H 20 151/110 H 94 Room Air O2 Flow Rate 05/10/24 02:38 2 05/09/24 23:24 2 05/09/24 23:20 05/09/24 19:53 Resident Activity Tracking Resident Involvement: Resident Care Provided Care Provided: Adult Hospital Medicine (3) A-fib Atrial fibrillation type: permanent Qualified Code(s): I48.21 - Permanent atrial fibrillation
--- NOTE | 2024-05-10 09:41 | Communication Note ---
Date of Service: May 10, 2024 Patient out of room getting Xray. H/H are stable. Will set up for EGD in am.
--- NOTE | 2024-05-10 10:02 | XRay Report ---
EXAM: Radiographs of the Chest 2 Views INDICATION: Fever and hypoxia. TECHNIQUE: Frontal and lateral views of the chest. COMPARISON: 06/18/2022 FINDINGS: Lungs and pleural spaces: Pulmonary edema noted with superimposed medial right middle lobe infiltrate and small right pleural effusion noted. No pneumothorax. Heart: Stable prominent cardiac shadow. Mediastinum: Normal contour. Bones/joints: Degenerative changes noted throughout the spine. No acute osseous abnormality seen. IMPRESSION: CHF with superimposed right middle lobe pneumonia or developing alveolar edema. ACT 112: Negative or not required by law. Electronically signed by Cora Peña 05-10-2024 10:02 AM
--- NOTE | 2024-05-10 12:48 | XCELERA ---
[id number]
[2024-05-10] MEDS: FUROSEMIDE INJ 20 MG/2 ML VIAL IV STA (12:52)
--- NOTE | 2024-05-10 16:24 | CT Scan Report ---
HISTORY: Pneumonia versus fluid versus pulmonary hypertension. TECHNIQUE: Helical CT images of the chest was performed without the use of IV contrast. Images are presented in axial, sagittal, coronal reformats. COMPARISON: None. FINDINGS: Lungs: Moderate right and small left pleural effusions. Mild intralobular septal thickening suggesting interstitial pulmonary edema. Scattered nonspecific groundglass opacity involving the right upper and lower lobes may represent superimposed alveolar edema or pneumonia. No focal left lung consolidation. No pneumothorax. The central tracheobronchial tree is patent. Heart/Mediastinum: Mild cardiomegaly. Aortic valvular calcification is mild. Coronary artery calcifications are present with multivessel disease. Trace pericardial effusion. Mild atherosclerotic vascular disease involving the aorta and arch vessels. No thoracic aortic aneurysm. Main pulmonary artery is normal in caliber measuring 3 cm. No suspicious mediastinal or hilar lymph nodes. Thoracic esophagus is unremarkable. Included thyroid gland is unremarkable. Soft Tissues: The soft tissues of the chest wall are unremarkable Upper Abdomen: Extensive calcifications involving the body and tail of the pancreas likely representing sequelae of prior pancreatitis. Hepatic steatosis. Bones: Posterior disc osteophyte complex at T2-3 resulting in at least moderate central canal stenosis. Moderate degenerative changes of the spine. IMPRESSION: * Findings suggesting CHF with cardiomegaly, mild interstitial pulmonary edema, and bilateral pleural effusions. Superimposed patchy groundglass opacity involving the right upper and lower lobes may represent asymmetric alveolar edema or pneumonia. * Coronary artery calcifications are present with multivessel disease. Trace pericardial effusion. * Main pulmonary artery is top normal in caliber measuring 3.0 cm. * Hepatic steatosis. Extensive calcifications involving the body and tail of the pancreas likely representing sequelae of prior pancreatitis. * Additional chronic and/or incidental findings as detailed above. Electronically signed by Tyler Shultz 05-10-2024 4:23 PM
[2024-05-10] MEDS: FUROSEMIDE INJ 20 MG/2 ML VIAL IV ONE (16:34)
--- NOTE | 2024-05-10 17:39 | Billing Data ---
Date of Service May 10, 2024 Coding Level of Care Code 88260 SUB INP/OBS CARE MIN
[2024-05-11] MEDS: DEXTROSE 50% 50 ML SYRINGE IV PRN (06:28)
[2024-05-11 06:50] LABS: Basophils # (auto) 0.03 K/uL (0.00-0.20); Basophils % (auto) 0.3 %; Eosinophils # (auto) 0.15 K/uL (0.00-0.50); Eosinophils % (auto) 1.7 %; Hematocrit (blood only) 26.8 % (37.0-47.0); Hemoglobin 8.8 g/dl (12.0-16.0); Immature Granulocytes # (auto) 0.04 K/uL (0.01-0.20); Immature Granulocytes % (auto) 0.4 %; Lymphocytes # (auto) 1.55 K/uL (1.20-3.40); Lymphocytes % (auto) 17.4 %; Mean Corpuscular Hemoglobin 33.7 pg (25.0-34.0); Mean Corpuscular Hgb Conc 32.8 g/dL (32.0-36.0); Mean Corpuscular Volume 102.7 fL (80.0-100.0); Mean Platelet Volume 9.8 fL (9.4-12.4); Monocytes # (auto) 1.27 K/uL (0.11-0.59); Monocytes % (auto) 14.3 %; Neutrophils # (auto) 5.85 K/uL (1.40-6.50); Neutrophils % (auto) 65.9 %; Platelet Count 191 K/uL (130-400); RDW Coefficient of Variation 16.6 % (11.5-14.5); RDW Standard Deviation 62.4 fL (36.4-46.3); Red Blood Count 2.61 M/uL (4.20-5.40); White Blood Count 8.89 K/ul (4.8-10.8)
--- NOTE | 2024-05-11 06:59 | Hospitalist Progress Note ---
Date of Service May 11, 2024 Assessment & Plan (1) Upper GI bleed: Plan: Ms. Nolasco is an 89 y/o with a PMHx of T2DM, a fib, prior colon polyps s/p partial resection 17 years ago, s/p prior cholecystectomy/appendectomy presented with weakness and black stools found to have symptomatic anemia from presumed UGIB. #Symptomatic anemia, UGIB Etiology still not entirely clear - oncologic process, transiently bleeding AVMs, PUD. She has received 1U PRBCs. Iron profile normal. Had EGD 2/ revealing of several atypical gastric polyps, but no active bleeding. Plan for CLN 2/. Keep NPO Continue PPI Holding Eliquis and ASA AM CBC (2) Moderate pulmonary hypertension: Plan: #Moderate Pulmonary HTN #Mitral Regurg #Tricuspid Regurg Patient with occasional desaturations as low as 84. CXR inconclusive PNA vs edema which prompted CT eval. CT with some signs of fluid overload. ECHO ordered - moderate pulmonary hypertension, moderate mitral regurg, moderate to severe tricuspid regurg. Cardiology consult - appreciate recs. Lasix can be given as needed for signs of fluid overload - good response to 20 mg IV. cardiology consult can give Lasix 20 mg IV if needed (3) A-fib: Plan: Patient on tele in a fib without RVR. On metoprolol 50 mg BID, dilt 240 mg, and dig 0.125 mg. On Eliquis 2.5 mg BID for anticoagulation (reduced dose due to age and kidney function). Hold Eliquis continue rate/rhythm control (4) Chronic kidney disease, stage 3: Plan: Likely in the setting of DM. Baseline ~ 1.5. Continue to monitor kidney function avoid nephrotoxin, renal dosing AM BMP (5) Controlled type 2 diabetes mellitus with kidney complication, with long-term current use of insulin: Plan: Patient on basal - 36 units BID with bolus coverage as well at home. Reduce basal to 15 mg BID while NPO with Q6H SSI. (6) Hypertension: Plan: Patient on clonidine 0.1 mg Q8H PRN for hypertension. Will hold for now as we do not have the ER formulation and BPs have been acceptable. (7) Chronic anticoagulation: (8) Symptomatic anemia: Plan Chronic: PMR - continue prednisone HLD - continue rosuvastatin Diet: carb consistent VTE ppx: SCDs, chemo ppx contraindicated in setting of UGIB Code: full Dispo: tele unit, PT/OT for dispo planning Admission and Anticipated Discharge Date Admission Date: May 08, 2024 Supervising Physician Co-Signing Physician Notes ATTESTATION I also saw the patient and confirmed mariee portions of the history and exam. I agree with the impression and plan in the resident documentation, and as summarized below. I also personally discussed the case with cardiology. The patient is seen on the second floor post EGD. She has no complaints. She does tell us that she slept quite a bit yesterday, but feels more awake today. In review of the chart, the patient is on apixaban 2.5 mg twice daily for atrial fibrillation. Also noted, the patient looks to have been started on aspirin around 2021 for TIA, and has remained on since. EXAM 133/59, 95, 18, 36.6, 90% on room air Alert and oriented. No distress. Cardiovascular irregularly irregular Lungs with slight crackles, right side only. Equal chest expansion. Clear otherwise. No wheezing. No appreciable lower extremity edema; she does have what appears to be chronic lymphedema of the arms. DATA Labs Hemoglobin 8.8 sodium 136, potassium 3.8, BUN 20, creatinine 1.[address] scan of the chest completed 05/10/2024 shows findings suggestive of CHF with cardiomegaly, mild interstitial pulmonary edema, and bilateral pleural effusions. Superimposed patchy groundglass opacities over the right upper and lower lobe present asymmetric medial edema or pneumonia. Echocardiogram completed 05/10/2024 shows left ventricular ejection fraction 65%; moderate to severe tricuspid regurgitation, moderate mitral regurgitation. IMPRESSION & PLAN anemia - EGD completed today; colonoscopy planned for tomorrow; monitor CBC will likely resume apixaban post colonoscopy no clear indication to continue aspirin, so likely will not restart hypoxia - more noted on vital signs than symptomatic. Repeat dose of Lasix today follow clinically; no convincing signs of pneumonia but low threshold to add antibiotics Additional per resident documentation Subjective Patient seen at bedside this AM. Leaving for endoscopy at time of evaluation. Review of Systems 2 Review of Systems: As per HPI Physical Exam 2 Physical Exam: Gen: well appearing patient in NAD HEENT: AT NC MMM Resp: no increased work of breathing CV: clinically well perfused Abd: non-distended MSK: no obvious deformities Skin: no rashes or bruising Neuro: alert and oriented Psych: appropriate mood and affect Results & Data Results & Data Vital Signs (Past 12 Hours) Vital Signs Temp Pulse Resp BP Pulse Ox O2 Del Method 05/11/24 02:54 37.5 C 93 H 20 135/61 91 Room Air 05/10/24 22:33 37.0 C 80 18 122/55 L 92 Room Air 05/10/24 21:00 Room Air 05/10/24 20:00 37.2 C 94 H 18 145/77 H 92 Room Air Laboratory Results 05/11/24 06:08 05/11/24 06:[address] 05/10/24 15:04 FINDINGS: Lungs: Moderate right and small left pleural effusions. Mild intralobular septal thickening suggesting interstitial pulmonary edema. Scattered nonspecific ground glass opacity involving the right upper and lower lobes may represent superimposed alveolar edema or pneumonia. No focal left lung consolidation. No pneumothorax. The central tracheobronchial tree is patent. Heart/Mediastinum: Mild cardiomegaly. Aortic valvular calcification is mild. Coronary artery calcifications are present with multivessel disease. Trace pericardial effusion. Mild atherosclerotic vascular disease involving the aorta and arch vessels. No thoracic aortic aneurysm. Main pulmonary artery is normal in caliber measuring 3 cm. No suspicious mediastinal or hilar lymph nodes. Thoracic esophagus is unremarkable. Included thyroid gland is unremarkable. Soft Tissues: The soft tissues of the chest wall are unremarkable Upper Abdomen: Extensive calcifications involving the body and tail of the pancreas likely representing sequelae of prior pancreatitis. Hepatic steatosis. Bones: Posterior disc osteophyte complex at T2-3 resulting in at least moderate central canal stenosis. Moderate degenerative changes of the spine. IMPRESSION: Findings suggesting CHF with cardiomegaly, mild interstitial pulmonary edema, and bilateral pleural effusions. Superimposed patchy ground glass opacity involving the right upper and lower lobes may represent asymmetric alveolar edema or pneumonia. Coronary artery calcifications are present with multivessel disease. Trace pericardial effusion. Main pulmonary artery is top normal in caliber measuring 3.0 cm. Hepatic steatosis. Extensive calcifications involving the body and tail of the pancreas likely representing sequelae of prior pancreatitis. Additional chronic and/or incidental findings as detailed above. Resident Activity Tracking Resident Involvement: Resident Care Provided Care Provided: Adult [facility] (3) A-fib Atrial fibrillation type: permanent Qualified Code(s): I48.21 - Permanent atrial fibrillation
[2024-05-11 07:06] LABS: BUN Creatinine Ratio 13.7 (10-20); Calcium 9.1 mg/dl (8.6-10.3); Creatinine Clr Calc Pharmacy 27.4 ml/min; Potassium 3.8 mmol/L (3.5-5.1)
[2024-05-11] MEDS: LANTUS PER UNIT CHARGE SQ ONE (08:06)
--- NOTE | 2024-05-11 09:30 | History & Physical Bridge Note ---
Date of Service May 11, 2024 History & Physical Bridge Note I have examined the patient, reviewed the History & Physical and in the interval since the performance of the History & Physical I have noted the following changes of clinical significance: no changes noted Patient notes no stools/melena overnight. She denies abdominal pain or heartburn. No hematemesis. H/H 8.8/26.8. She continues on IV PPI therapy. She is NPO. Keep NPO and proceed with EGD today with Dr. Woodson. Supervising Physician Co-Signing Physician Notes Patient with dark or melanotic stools for at least a month. Comes in with slightly elevated BUN/creatinine ratio. Hemodynamically stable at this point. On multiple anticoagulants most recently aspirin and Eliquis. Schedule upper endoscopy evaluate for peptic ulcer disease hiatal hernia with Sedrick erosions in this 89-year-old female gastric or small bowel AVMs. Reviewed with patient informed consent obtained. Anticoagulants held since Saturday
--- NOTE | 2024-05-11 10:02 | Anesthesiology Consultation ---
Date of Service May 11, 2024 Assessment & Plan Chart Review Chart Review: Acceptable Risk for Surgery Consults Requested none ASA ASA3 Proposed Anesthesia Anesthesia Type: MAC History Surgery Operation Date: 05/11/24 16:45 Proposed Procedures p Esophagogastroduodenoscopy Dr. Woodson - Alok Woodson MD chart note for ref: Patient is a 89yo with T2DM, afib, colon polyps s/p partial resection 17y ago, cholecystectomy, appendectomy who presents from [facility] due to symptomatic anemia. Hgb on 03/19/2024 was 10.9; on admission today is 7.5. Patient endorses symptoms of generalized weakness and black stools for ~2 weeks. Admitted for UGIB workup and management of symptomatic anemia. Height/Weight Height: 5 ft 8 in Weight: 76.5 kg Allergies Allergy/AdvReac Type Severity Reaction Status Date / Time Sulfa (Sulfonamide AdvReac Unknown Nausea Verified 09/12/23 11:36 Antibiotics) covid vaccine Allergy Unknown "out of it" Uncoded 09/12/23 11:36 Medications Home Medications Medication Instructions Recorded Confirmed Last Taken cholecalciferol (vitamin D3) 50 5,000 unit PO QAM 01/03/18 05/08/24 12/11/22 mcg (2,000 unit) capsule (Vitamin D3) vitamins A,C,J-ngjs-pzplom 4,296 1 cap PO BID 11/24/20 05/08/24 12/11/22 mcg-226 mg-90 mg capsule (PreserVision AREDS) acetaminophen 500 mg tablet 1,000 mg PO BID PRN pain 08/22/21 05/08/24 12/11/22 digoxin 250 mcg (0.25 mg) tablet 125 mcg PO QAM 09/07/21 05/08/24 12/11/22 diltiazem HCl 240 mg 240 mg PO QAM #30 caps 12/23/21 05/08/24 12/11/22 capsule,extended release 24 hr latanoprost 0.005 % eye drops 1 drp ophthalmic (eye) UD 03/14/22 05/08/24 12/11/22 clonidine HCl 0.1 mg 0.1 mg PO Q8H PRN Blood Pressure 04/06/22 05/08/24 Unknown tablet,extended release,12 hr glucagon 1 mg solution for 1 mg subcut ONCE PRN Hypoglycemia 06/25/22 05/08/24 Unknown injection (Glucagon Emergency Kit) blood-glucose sensor (FreeStyle #2 ea 07/11/22 09/12/23 Unknown Roman 3 Sensor device) aspirin 81 mg capsule 81 mg PO UD 12/05/22 05/08/24 12/11/22 cyanocobalamin (vitamin B-12) 1,000 mcg PO UD 12/05/22 05/08/24 12/11/22 1,000 mcg capsule famotidine 20 mg tablet 20 mg PO QAM 12/05/22 05/08/24 12/11/22 ferrous sulfate 325 mg (65 mg 325 mg PO QAM 12/05/22 05/08/24 12/11/22 iron) tablet insulin syringe-needle U-100 0.3 #200 ea 12/20/22 09/12/23 Unknown mL 30 gauge x 1/2" (BD Insulin Syringe Ultra-Fine) pen needle, diabetic, safety 30 #500 ea 07/02/23 09/12/23 Unknown gauge x 1/3" (Novofine Autocover) apixaban 2.5 mg tablet (Eliquis) 2.5 mg PO BID #180 tabs 09/12/23 05/08/24 Unknown metoprolol tartrate 25 mg tablet 25 mg PO BID 09/12/23 05/08/24 Unknown prednisone 1 mg tablet 4 mg PO UD 09/12/23 05/08/24 Unknown insulin lispro 100 unit/mL 28 unit subcut UD 01/23/24 05/08/24 Unknown subcutaneous pen insulin glargine 100 unit/mL (3 36 unit subcut BID 05/08/24 05/08/24 Unknown mL) subcutaneous pen (Lantus Solostar U-100 Insulin) rosuvastatin 10 mg tablet 10 mg PO HS 05/08/24 05/08/24 Unknown Active Medications Generic Name Dose Route Start Last Admin Trade Name Freq PRN Reason Stop Dose Admin Cyanocobalamin 1,000 mcg 05/09/24 09:00 05/11/24 08:06 Cyanocobalamin (B-12) 500 Mcg Tablet PO 06/08/24 08:59 1,000 mcg DAILY AAYUSH Administration Dextrose 25 - 50 ml 05/08/24 16:51 05/11/24 06:28 Dextrose 50% 50 Ml Syringe IV 06/07/24 16:50 25 ml UD PRN Administration Hypoglycemia Protocol Protocol Digoxin 0.125 mg 05/09/24 09:00 05/11/24 08:06 Digoxin 0.125 Mg Tab PO 06/08/24 08:59 0.125 mg QAM AAYUSH Administration Diltiazem HCl 240 mg 05/09/24 09:00 05/11/24 08:06 Diltiazem Hcl 240 Mg Capcr PO 06/08/24 08:59 240 mg QAM AAYUSH Administration Ferrous Sulfate 325 mg 05/09/24 09:00 05/11/24 08:06 Ferrous Sulfate 325 Mg Tab PO 06/08/24 08:59 325 mg QAM AAYUSH Administration Pantoprazole Sodium 40 mg/ 100 mls @ 20 mls/hr 05/08/24 13:00 05/11/24 10:05 Dextrose IV 06/07/24 12:59 Infused Q5H AAYUSH Infusion 8 MG/HR Sodium Chloride 500 mls @ 15 mls/hr 05/11/24 07:30 05/11/24 10:05 Nss IV 05/12/24 07:29 15 mls/hr .Q24H AAYUSH Administration Insulin Aspart 0 units 05/08/24 16:51 05/11/24 07:20 Insulin Aspart Per Unit Charge SC 06/07/24 16:50 Not Given ACHS AAYUSH Insulin Glargine 30 units 05/08/24 21:00 05/11/24 07:33 Lantus Per Unit Charge SQ 06/07/24 20:59 Not Given BID AAYUSH Latanoprost 1 drops 05/08/24 21:00 05/10/24 21:13 Latanoprost 0.005% Op Soln 2.5 Ml Btl OP 06/07/24 20:59 1 drops HS AAYUSH Administration Metoprolol Tartrate 25 mg 05/08/24 21:00 05/11/24 08:06 Metoprolol Tartrate 25 Mg Tab PO 06/07/24 20:59 25 mg BID AAYUSH Administration Miscellaneous 1 each 05/09/24 00:00 05/11/24 07:19 Clonidine Hcl 0.1 Mg Tablet Extended Release 12 Hr--Order Awaiting Action N/A 06/08/24 00:00 Not Given QS AAYUSH Multivitamins/Minerals 1 tab 05/08/24 21:00 05/11/24 08:06 Cerovite Adv Formula Tab PO 06/07/24 20:59 1 tab BID AAYUSH Administration Prednisone 4 mg 05/09/24 09:00 05/11/24 08:06 Prednisone 1 Mg Tab PO 06/08/24 08:59 4 mg DAILY AAYUSH Administration Rosuvastatin Calcium 10 mg 05/08/24 21:00 05/10/24 21:14 Rosuvastatin Calcium 10 Mg Tab PO 06/07/24 20:59 10 mg HS AAYUSH Administration Vitamin D 125 mcg 05/09/24 09:00 05/11/24 08:06 Cholecalciferol 125 Mcg (5,000 Units) Tab PO 06/08/24 08:59 125 mcg QAM AAYUSH Administration NPO Date Last Intake of Fluids: 05/11/24 Time Last Intake of Fluids: 08:00 Date Last Intake of Solids: 05/08/24 Time Last Intake of Solids: 17:00 Last Intake of Solids Comment: Greater then 8 hrs Past Medical History Medical History History of encephalopathy [place] GERD (gastroesophageal reflux disease) History of polyneuropathy History of Lyme disease History of orthostatic hypotension no recent issues since med adjustment per nurse Discharge planning issues Dysmetabolic syndrome X History of rosacea History of rheumatic fever History of nummular eczema History of diabetes mellitus History of basal cell carcinoma History of actinic keratosis History of colon cancer Past Family History Family History Unknown Family history of thromboembolic disease Past Surgical History Surgical History History of colonoscopy History of tonsillectomy History of partial colectomy Hx of cholecystectomy Hx of appendectomy Past Anesthesia History No Hx of Anesthesia Complications History of PONV No Hx of PONV Social History Smoking Status: Never smoker Do You Dip or Chew Tobacco: No Hx Alcohol Use: No Hx Substance Use: No substance use type: does not use Review of Systems ROS Unobtainable: All systems reviewed & are unremarkable except as noted in HPI & below Physical Exam Vital Signs Last Vital Signs Temp 36.9 C 05/11/24 09:49 Pulse 87 05/11/24 09:49 Resp 16 05/11/24 09:49 BP 147/61 H 05/11/24 09:49 Pulse Ox 95 05/11/24 09:49 O2 Del Method Nasal Cannula 05/11/24 09:49 O2 Flow Rate 3 05/11/24 09:49 Constitutional no acute distress ENMT Thyromental Distance: > or= 3.5 Finger Breadths Mallampati Class: III Neck normal visual inspection Respiratory normal respiratory effort Auscultation: + diminished lung sounds Cardiovascular Rate/Rhythm: regular rate and regular rhythm Psychiatric Orientation: oriented x 3 Testing Laboratory Results 05/11/24 06:08 05/11/24 06:08 PT 10.5 Seconds (9.0-12.0) 05/09/24 06:48 INR 1.0 (0.9-1.1) 05/09/24 06:48 APTT 24 Seconds (21-31) 05/08/24 11:50 Blood Type A Positive 05/08/24 11:48 Antibody Screen NEGATIVE 05/08/24 11:48 05/11/24 05/11/24 05/11/24 07:11 06:42 06:11 POC Glucose 132 H 165 H 66 L* Echocardiogram Full report in [facility]
[2024-05-11] MEDS: SODIUM CHLORIDE 0.9% 500 ML IV SCH (10:05)
--- NOTE | 2024-05-11 11:35 | Gastroenterology Progress Note ---
Date of Service May 11, 2024 Assessment & Plan Admission and Anticipated Discharge Date Admission Date: May 08, 2024 Subjective EGD note No blood noted in the upper GI tract. No definite bleeding source identified. Scope was passed all the way to the third part of the duodenum without AVMs been identified. She did have some atypical gastric polyps which were biopsied though these were not ulcerating and I do not believe they are source for bleeding I reviewed with patient whether she wishes to pursue a colonoscopy at age 89. Typically melena means bleeding from the upper GI tract or the duodenum. Slow ooze noted from the right colon potentially could be a bleeding source. Results & Data Results & Data Vital Signs (Past 12 Hours) Vital Signs Temp Pulse Pulse Resp BP Pulse Ox O2 Del Method 05/11/24 11:12 Room Air 05/11/24 09:49 36.9 C 87 16 147/61 H 95 Nasal Cannula 05/11/24 07:11 37.1 C 98 H 18 134/59 L 92 Room Air 05/11/24 02:54 37.5 C 93 H 20 135/61 91 Room Air O2 Flow Rate 05/11/24 11:12 05/11/24 09:49 3 05/11/24 07:11 05/11/24 02:54 PG Care Time/CCT Total # of Minutes Spent Total Time Spent with Patient: Total time spent is greater than 50% in coordination of care (as documented) at patient's floor/unit and/or counseling patient: Coding Level of Care Code None
--- NOTE | 2024-05-11 11:40 | GI REPORT ---
[facility] Patient: KIRAN CARTY : 1935 Sex at : Female Age: 89 Years Procedure: Upper GI endoscopy Date: 05/11/2024 Attending Physician: Alok Woodson MD Referring MD: Referred Self Indications: - Suspected upper gastrointestinal bleeding - Melena Medications: - Monitored Anesthesia Care Complications: - No immediate complications. Estimated Blood Loss: - Estimated blood loss was minimal. Procedure: - The egd scope was introduced through the mouth and advanced to the third part of the duodenum. - The upper GI endoscopy was accomplished without difficulty. - The patient tolerated the procedure well. Findings: - The examined esophagus was normal. - Multiple medium pedunculated and sessile polyps with no bleeding and no stigmata of recent bleeding were found on the greater curvature of the gastric body. Biopsies were taken with a cold forceps for histology. Estimated blood loss was minimal. - A single 9 mm sessile polyp with no bleeding and no stigmata of recent bleeding was found on the lesser curvature of the gastric body. Biopsies were taken with a cold forceps for histology. Estimated blood loss was minimal. - The examined duodenum was normal. Impression: - Normal esophagus. - Multiple gastric polyps. Biopsied. - A single gastric polyp. Biopsied. - Normal examined duodenum. Recommendation: - Await pathology results. - No definite source for her melena appreciated. Small bowel AVMs distal to the third part of the duodenum are potential source. Less likely could be a right colon source. Patient is 89 I will review with whether she wishes to pursue further investigation such as a colonoscopy. Procedure Code(s): - 66287, Esophagogastroduodenoscopy, flexible, transoral; with biopsy, single or multiple Diagnosis Code(s): - K92.1, Melena (includes Hematochezia) - K31.7, Polyp of stomach and duodenum CPT(R) - 202 copyright [employer]. All Rights Reserved. The CPT codes, CCI edits and ICD codes generated are intended as suggestions and were generated based on input data. These codes are preliminary and upon medical insurance coder review may be revised to meet current compliance and payer requirements. The provider is responsible for the final determination of appropriate codes, and modifiers. Alok Woodson MD This document has been electronically signed. Note Initiated:05/11/2024 Note Completed:05/11/2024 11:39 AM \\[email or web address]\Central\InterfaceData\Data\Provation\Results\LIVE\[id number]
[2024-05-11] MEDS: GLYCOPYRROLATE 0.2 MG/ML VIAL ONE (12:14)
[2024-05-11] MEDS: LIDOCAINE 2% 2 ML VIAL/AMP(20MG/ML) INFIL ONE (12:15)
[2024-05-11] MEDS: PROPOFOL IV EMULSION 10 MG/ML 20 ML VIAL IV ONE (12:15)
[2024-05-11] MEDS: ONDANSETRON INJ 2 MG/ML 2 ML VIAL ONE (12:15)
[2024-05-11] MEDS: INSULIN ASPART PER UNIT CHARGE SC SCH (13:00)
--- NOTE | 2024-05-11 15:29 | Cardiology Consultation ---
Date of Consultation May 11, 2024 Assessment & Plan (1) Symptomatic anemia: (2) GIB (gastrointestinal bleeding): (3) Permanent atrial fibrillation: (4) Moderate pulmonary hypertension: (5) Moderate mitral regurgitation: (6) Moderate tricuspid regurgitation: (7) Chronic anticoagulation: Plan 89-year-old woman with permanent atrial fibrillation on chronic anticoagulation admitted with GI bleed. Incidentally noted to have some progression of her underlying valvular disease (MR/TR). This is not unexpected with advancing age, the valvular disease is not sufficiently severe to consider surgical intervention, particular given the patient's advanced age and comorbidities. Despite radiographic findings, no overt heart failure clinically. She has only mild stable dyspnea on exertion, stable weight, no orthopnea, only nonpitting edema, and only mild hypervolemia on neck vein exam. If she does have dyspneic symptoms, primary focus would be on addressing/correcting her anemia/GI bleed and regaining physical conditioning as able. Could try small dose of diuretic at some point, such as triamterene/HCTZ 37.5/25 mg once or twice a week, to see if gentle volume unloading benefits her in any way symptomatically. However, would be reluctant to diurese aggressively given her history of orthostatic hypotension. She seems to have had a longstanding underlying occult pulmonary disease, given that her right heart was moderately dilated nearly a decade ago (2015), her chest x-ray does suggest hyperaeration, and she likely had further decompensation during her prolonged bout with COVID. Although pulmonary evaluation may be warranted, again would address more readily correctable cause (anemia) initially. Her pulmonary hypertension is likely combination of underlying lung disease, right heart dilatation, and longstanding right and left heart valvular disease. In regards to her permanent atrial fibrillation, she is chronically anticoagulated with apixaban and has been on low-dose aspirin since 2021 at the time of the TIA. Aspirin's benefits are in the first several months post TIA, risk/benefits would favor stopping aspirin now but restarting apixaban once her hemoglobin has been demonstrated as stable and she has no evidence of ongoing GI bleeding. Rate control seems quite appropriate on diltiazem and digoxin, no change in these medications. As noted, she follows with Dr. Murphy regularly. She should be seen by him in follow-up at some point upon discharge. History of Present Illness Reason for Consultation: pulm HTN, mitral and tricuspid regurg Requesting Physician: Santos Kahn DO Attending Physician: Santos Kahn DO History of Present Illness 89-year-old woman with permanent atrial fibrillation (diltiazem/digoxin/reduced dose apixaban), chronic leg edema, chronic valvular heart disease (moderate RV dilation 2015, mild to moderate MR/TR previously), remote TIA, who was admitted 05/08/2024 with melenic stool and anemia (hemoglobin 8.1), noted on current echocardiogram to have normal LVEF (60 to 65%) with moderate MR and moderate to severe TR with moderate pulmonary hypertension. She has a longstanding mild dyspnea exertion, noting that she must stop when she walks a [place]. This began about 2 years ago and is unchanged. She denies any orthopnea, PND, abrupt weight changes or weight gain, chest pain, palpitations, presyncope, or syncope. She notes that she is able to sleep lying flat. In 2021, she had prolonged COVID and did have a period of orthostatic hypotension (see cardiology visit with Dr. Moctezuma 03/14/2022). In general, she is followed from a cardiology standpoint by Dr. Murphy. At the time of my evaluation, she was comfortable and denied any somatic complaints. No chest pain, dyspnea, palpitations, or lightheadedness. Telemetry showed atrial fibrillation with controlled ventricular rate of 70-90 bpm. Allergies Allergy/AdvReac Type Severity Reaction Status Date / Time Sulfa (Sulfonamide AdvReac Unknown Nausea Verified 09/12/23 11:36 Antibiotics) covid vaccine Allergy Unknown "out of it" Uncoded 09/12/23 11:36 Home Medications Medication Instructions Recorded Confirmed Type cholecalciferol (vitamin D3) 50 5,000 unit PO QAM 01/03/18 05/08/24 History mcg (2,000 unit) capsule (Vitamin D3) vitamins A,C,G-mxvx-foobzh 4,296 1 cap PO BID 11/24/20 05/08/24 History mcg-226 mg-90 mg capsule (PreserVision AREDS) acetaminophen 500 mg tablet 1,000 mg PO BID PRN pain 08/22/21 05/08/24 History digoxin 250 mcg (0.25 mg) tablet 125 mcg PO QAM 09/07/21 05/08/24 History diltiazem HCl 240 mg 240 mg PO QAM #30 caps 12/23/21 05/08/24 Rx capsule,extended release 24 hr latanoprost 0.005 % eye drops 1 drp ophthalmic (eye) UD 03/14/22 05/08/24 History clonidine HCl 0.1 mg 0.1 mg PO Q8H PRN Blood Pressure 04/06/22 05/08/24 History tablet,extended release,12 hr glucagon 1 mg solution for 1 mg subcut ONCE PRN Hypoglycemia 06/25/22 05/08/24 History injection (Glucagon Emergency Kit) blood-glucose sensor (FreeStyle #2 ea 07/11/22 09/12/23 Rx Roman 3 Sensor device) aspirin 81 mg capsule 81 mg PO UD 12/05/22 05/08/24 History cyanocobalamin (vitamin B-12) 1,000 mcg PO UD 12/05/22 05/08/24 History 1,000 mcg capsule famotidine 20 mg tablet 20 mg PO QAM 12/05/22 05/08/24 History ferrous sulfate 325 mg (65 mg 325 mg PO QAM 12/05/22 05/08/24 History iron) tablet insulin syringe-needle U-100 0.3 #200 ea 12/20/22 09/12/23 Rx mL 30 gauge x 1/2" (BD Insulin Syringe Ultra-Fine) pen needle, diabetic, safety 30 #500 ea 07/02/23 09/12/23 Rx gauge x 1/3" (Novofine Autocover) apixaban 2.5 mg tablet (Eliquis) 2.5 mg PO BID #180 tabs 09/12/23 05/08/24 Rx metoprolol tartrate 25 mg tablet 25 mg PO BID 09/12/23 05/08/24 History prednisone 1 mg tablet 4 mg PO UD 09/12/23 05/08/24 History insulin lispro 100 unit/mL 28 unit subcut UD 01/23/24 05/08/24 History subcutaneous pen insulin glargine 100 unit/mL (3 36 unit subcut BID 05/08/24 05/08/24 History mL) subcutaneous pen (Lantus Solostar U-100 Insulin) rosuvastatin 10 mg tablet 10 mg PO HS 05/08/24 05/08/24 History Patient History Medical History (Updated 05/11/24 @ 16:46 by aDmian Barrera MD) TIA (transient ischemic attack) (2021) 2021, no residual Peripheral vascular disease Former smoker History of encephalopathy -2021 [place] GERD (gastroesophageal reflux disease) History of polyneuropathy History of Lyme disease History of orthostatic hypotension no recent issues since med adjustment per nurse Discharge planning issues Dysmetabolic syndrome X History of rosacea History of rheumatic fever History of nummular eczema History of diabetes mellitus History of basal cell carcinoma History of actinic keratosis History of colon cancer Surgical History History of colonoscopy History of tonsillectomy History of partial colectomy Hx of cholecystectomy Hx of appendectomy Family History Unknown Family history of thromboembolic disease Social History Smoking Status: Never smoker Second Hand Exposure: No; Do You Dip or Chew Tobacco: No; Hx Alcohol Use: No Hx Substance Use: No Preferred Language: Romansh Communication Ability: Effective Communication Ability Comment: hx of dementia at baseline--worse w/ uti Visual Impairment: Diminished Ssrs Developer Required: No Beliefs That Will Affect Care: None marital status: / Current Living Situation: Alone Current Living Situation Comment: independent [place], they fill pill box current occupational status: retired Feels Safe at Home: Yes Assistive Devices: Walker Physical Exam Physical Exam: Only white female in no distress. Afebrile. Normotensive. Pulse 90 bpm and irregular. Respirations 18 unlabored. Skin: no ecchymoses or generalized lesions. HEENT: unremarkable. Neck: JVP less than a quart of the way to the angle of the jaw at 90 degrees. Lungs: Mildly decreased breath sounds but generally clear. Cardiac: irregular rhythm, normal S1-2, 3/6 apical holosystolic murmur rating to the left sternal border and axilla, no diastolic murmur. Abdomen: benign. Extremities: Chronic nonpitting appearing edema both upper and lower extremities, mild rubor, excellent capillary refill and pulses intact. Neurologic: normal affect and conversation, nonfocal. Results & Data Diagnostic Findings Chest x-ray showed mildly increased vasculature with right middle lobe infiltrate and small right pleural effusion. Chest CT suggested mild interstitial pulmonary edema with bilateral effusions. No recent ECG, ECG from June showed A-fib with diffuse nonspecific ST-T wave abnormalities. PG Care Time/CCT Total # of Minutes Spent Total Time Spent with Patient: Total time spent is greater than 50% in coordination of care (as documented) at patient's floor/unit and/or counseling patient: Coding Level of Care Code 82732 IN/OBS CONSULT LVL 4,60M Diagnoses Symptomatic anemia D64.9 GIB (gastrointestinal bleeding) K92.2 Permanent atrial fibrillation I48.21 Moderate pulmonary hypertension I27.20 Moderate mitral regurgitation I34.0 Moderate tricuspid regurgitation I07.1 Chronic anticoagulation Z79.01
--- NOTE | 2024-05-11 15:32 | Anesthesiology Progress Note ---
Date of Service May 11, 2024 Anesthesia Post Procedure Vital Signs Vital Signs: Temp Pulse Pulse Resp BP Pulse Ox O2 Del Method 05/11/24 15:12 36.6 C 95 H 18 133/59 L 90 Room Air 05/11/24 12:03 81 16 126/57 L 97 Nasal Cannula 05/11/24 11:49 85 16 114/52 L 96 Nasal Cannula 05/11/24 11:36 73 16 86/48 L 92 Nasal Cannula 05/11/24 11:12 Room Air 05/11/24 09:49 36.9 C 87 16 147/61 H 95 Nasal Cannula 05/11/24 07:11 37.1 C 98 H 18 134/59 L 92 Room Air 05/11/24 02:54 37.5 C 93 H 20 135/61 91 Room Air 05/10/24 22:33 37.0 C 80 18 122/55 L 92 Room Air 05/10/24 21:00 Room Air 05/10/24 20:00 37.2 C 94 H 18 145/77 H 92 Room Air 05/10/24 15:33 36.8 C 92 H 18 132/67 89 L Room Air O2 Flow Rate 05/11/24 15:12 05/11/24 12:03 3 05/11/24 11:49 3 05/11/24 11:36 3 05/11/24 11:12 05/11/24 09:49 3 05/11/24 07:11 05/11/24 02:54 05/10/24 22:33 05/10/24 21:00 05/10/24 20:00 05/10/24 15:33 Transfer of Care Handoff Completed per policy Notes Mental Status: alert / awake / arousable Patient Amnestic to Procedure: Yes Nausea / Vomiting: adequately controlled Pain: adequately controlled Airway Patency, RR, SpO2: stable & adequate BP & HR: stable & adequate Hydration State: stable & adequate Anesthetic Complications: no major complications apparent and Pt Satisfied with anesthetic care
[2024-05-11] MEDS: FUROSEMIDE INJ 20 MG/2 ML VIAL IV ONE (16:26)
[2024-05-11] MEDS: LAVAGE SOLUTION 4000ML PO SCH (18:11)
[2024-05-11 18:33] LABS: C Reactive Protein 20.51 mg/dl (0-0.5)
[2024-05-12] MEDS: LANTUS PER UNIT CHARGE SQ SCH ×2 (00:09→20:25)
[2024-05-12 04:22] LABS: Hematocrit (blood only) 28.2 % (37.0-47.0); Hemoglobin 9.3 g/dl (12.0-16.0); Mean Corpuscular Hemoglobin 33.6 pg (25.0-34.0); Mean Corpuscular Volume 101.8 fL (80.0-100.0); Mean Platelet Volume 9.6 fL (9.4-12.4); Platelet Count 211 K/uL (130-400); RDW Coefficient of Variation 15.8 % (11.5-14.5); RDW Standard Deviation 59.3 fL (36.4-46.3); Red Blood Count 2.77 M/uL (4.20-5.40); White Blood Count 6.64 K/ul (4.8-10.8)
[2024-05-12 04:29] LABS: Calcium 8.6 mg/dl (8.6-10.3); Magnesium 1.7 mg/dl (1.7-2.4); Potassium 3.8 mmol/L (3.5-5.1)
[2024-05-12 04:34] LABS: BUN Creatinine Ratio 11.8 (10-20); Creatinine Clr Calc Pharmacy 24.8 ml/min
--- NOTE | 2024-05-12 07:11 | Hospitalist Progress Note ---
Date of Service May 12, 2024 Assessment & Plan (1) Lower GI bleed: Plan: Ms. Nolasco is an 89 y/o with a PMHx of T2DM, a fib, prior colon polyps s/p partial resection 17 years ago, s/p prior cholecystectomy/appendectomy presented with weakness and black stools found to have symptomatic anemia from presumed UGIB. #Symptomatic anemia Per colonoscopy this AM 05/12/24, there was a 12-13mm bleeding polyp found at the ileocolic anastomosis, which was excised and sent for pathology. She has received 1U PRBCs. Iron profile normal. Had EGD 05/11/24 revealing of several atypical gastric polyps, but no active bleeding. DM2 diet order in place, tolerated lunch well PPI, IV drip -> pantoprazole 40mg IV BID on 05/12/24 Awaiting polyp pathology report Holding Eliquis for upper endoscopy 05/11/24 and colonoscopy 05/12/24 -> cardiology recommendation to discontinue ASA as pt is out of range of post-TIA benefit, however continue holding Eliquis for another 5 days while we ensure bleeding has resolved, then okay to resume AM CBC, 8.8 -> 9.2 on 05/12/24 (2) Status post colonoscopy with polypectomy: Plan: 05/12/24 AM, see above (3) Moderate pulmonary hypertension: Plan: #Moderate Pulmonary HTN #Mitral Regurg #Tricuspid Regurg Patient with occasional desaturations as low as 84. CXR inconclusive PNA vs edema which prompted CT eval. CT with some signs of fluid overload. Echocardiogram 05/10/24 - moderate pulmonary hypertension, moderate mitral regurg, moderate-severe tricuspid regurg, LVEF 60-65%. Cardiology consulted - appreciate recs. Cardiology consult 05/11/24: may consider triamterene/HCTZ 37.5/25 mg once or twice a week for gentle diuresis - Lasix 20 mg IV if needed (4) Chronic kidney disease, stage 3: Plan: Likely in the setting of DM. Baseline ~ 1.5. Continue to monitor kidney function AMILCAR - 1.61 on 05/12/24, likely increased due to dehydration encourage good PO fluid intake avoid nephrotoxic drugs; renal dosing AM BMP (5) Elevated C-reactive protein (CRP): Plan: elevated to 20.5 on 05/11/24. - WBCs within normal limits - chronic diseases include CKD, DM2, atrial fibrillation - awaiting pathology report from ileocolic anastomosis polypectomy, cannot yet rule out malignancy (6) Controlled type 2 diabetes mellitus with kidney complication, with long-term current use of insulin: Plan: Patient on basal - 36 units BID with bolus coverage as well at home. - Reduced basal at 15 mg BID while NPO with Q6H SSI has been increased to 20mg BID as she is now eating with good tolerance - AM BMP (7) Hypertension: Plan: Patient on clonidine 0.1 mg Q8H PRN for hypertension. Will hold for now as we do not have the ER formulation and BPs have been acceptable. (8) Chronic anticoagulation: (9) Symptomatic anemia: Plan Chronic: PMR - continue prednisone HLD - continue rosuvastatin Diet: carb consistent VTE ppx: SCDs, chemo ppx contraindicated in setting of UGIB Code: full Dispo: tele unit, PT/OT for dispo planning Admission and Anticipated Discharge Date Admission Date: May 08, 2024 Supervising Physician Co-Signing Physician Notes Attending attestation Pt seen and examined in concert with Dr. Cherry. In agreement with the documented findings as noted in the resident documentation with any exceptions or additions as noted here. Evaluation s/p colonsocopy without complaint and tolerating POI well. No further atypical stools reported at present. On examination, S1/S2 nl RRR no MCG. CTAB. Abd NT/ND BS+ve. VS as noted Hgb 9.3, Cr 1.61 acute blood loss anemia in the setting of lower GIB - GI consult, endoscopy completed - restart apixaban 5 days following endoscopy, d/c ASA, continue PPI IV BID and transition to PO likely Else see resident documentation as noted. Subjective Patient seen and evaluated at bedside this afternoon, feeling well and had just finished lunch prior to encounter. Denies any particular pain or discomfort, no obvious signs of bleeding since colonoscopy procedure this AM, which revealed a 12-13cm bleeding polyp- excised and bleeding was abated by clip. Was able to tolerate lunch without issue, no nausea or vomiting. States the edema in her arms and legs are currently around baseline, no pain/numbness/tingling noted. Denies lightheadedness or dizziness. Pt was curious about the pathology of the removed polyp- will inform once the report is back. Denies any other questions or concerns at this time. Review of Systems Review of Systems: no fever, body aches, chills, headache, neck pain, SOB, abdominal pain. Physical Exam Physical Exam: Constitutional: A&Ox3, appearing in no acute distress HEENT: EOM intact, anicteric sclerae, moist mucous membranes Cardiovascular: irregular rhythm, normal S1-2, holosystolic murmur heard best at apex, no diastolic murmur heard. No rubs/gallops - 2+ carotid pulses b/l, 1+ radial pulse s b/l limited by edema, 1+ dorsalis pedis pulses b/l limited by edema Respiratory: Mildly decreased breath sounds but generally clear to auscultation GI/Abd: nondistended, hyperactive bowel sounds, abdomen soft, nontender to palpation of all quadrants Extremities: Chronic nonpitting edema of b/l UE, 1+ pitting edema of b/l LE, mild rubor, good capillary refill and pulses intact. Skin: no ecchymoses or generalized lesions Neurologic: no focal deficits, no facial droop, speech intact, follows command to wiggle fingers and toes without difficulty Results & Data Results & Data Vital Signs (Past 12 Hours) Vital Signs Temp Pulse Resp BP Pulse Ox O2 Del Method 05/12/24 03:19 36.3 C L 79 20 159/65 H 92 Room Air 05/11/24 23:08 36.4 C L 89 18 158/80 H 90 Room Air Resident Activity Tracking Resident Involvement: Resident Care Provided Care Provided: Adult Hospital Medicine
[2024-05-12] MEDS: SODIUM CHLORIDE 0.9% 500 ML IV SCH (07:59)
--- NOTE | 2024-05-12 08:29 | Communication Note ---
Date of Service: May 12, 2024 Patient seen in preop holding Hemoglobin 9.3. Patient feels well today denies chest pain or shortness of breath. Her abdominal pain is benign. Does not note if there is any bleeding with her prep states she did not look For colonoscopy. Risks including bleeding and perforation addressed. Informed consent obtained
--- NOTE | 2024-05-12 08:32 | Anesthesiology Consultation ---
Date of Service May 12, 2024 Assessment & Plan Chart Review Chart Review: Acceptable Risk for Surgery and Patient NOT seen in Pre Admission Testing Consults Requested none ASA ASA3 Proposed Anesthesia Anesthesia Type: MAC Risk / Benefits Reviewed With: PT / POA / Parent / Guardian, Accepts Plan and Informed Consent Obtained History Surgery Operation Date: 05/11/24 16:45 Proposed Procedures p Esophagogastroduodenoscopy Dr. Chintan Woodson MD Operation Date: 05/12/24 16:45 Proposed Procedures p Colonoscopy Dr. Chintan Woodson MD Height/Weight Height: 5 ft 8 in Weight: 72.3 kg Allergies Allergy/AdvReac Type Severity Reaction Status Date / Time Sulfa (Sulfonamide AdvReac Unknown Nausea Verified 09/12/23 11:36 Antibiotics) covid vaccine Allergy Unknown "out of it" Uncoded 09/12/23 11:36 Medications Home Medications Medication Instructions Recorded Confirmed Last Taken cholecalciferol (vitamin D3) 50 5,000 unit PO QAM 01/03/18 05/08/24 12/11/22 mcg (2,000 unit) capsule (Vitamin D3) vitamins A,C,K-ljvp-xipcts 4,296 1 cap PO BID 11/24/20 05/08/24 12/11/22 mcg-226 mg-90 mg capsule (PreserVision AREDS) acetaminophen 500 mg tablet 1,000 mg PO BID PRN pain 08/22/21 05/08/24 12/11/22 digoxin 250 mcg (0.25 mg) tablet 125 mcg PO QAM 09/07/21 05/08/24 12/11/22 diltiazem HCl 240 mg 240 mg PO QAM #30 caps 12/23/21 05/08/24 12/11/22 capsule,extended release 24 hr latanoprost 0.005 % eye drops 1 drp ophthalmic (eye) UD 03/14/22 05/08/24 12/11/22 clonidine HCl 0.1 mg 0.1 mg PO Q8H PRN Blood Pressure 04/06/22 05/08/24 Unknown tablet,extended release,12 hr glucagon 1 mg solution for 1 mg subcut ONCE PRN Hypoglycemia 06/25/22 05/08/24 Unknown injection (Glucagon Emergency Kit) blood-glucose sensor (FreeStyle #2 ea 07/11/22 09/12/23 Unknown Roman 3 Sensor device) aspirin 81 mg capsule 81 mg PO UD 12/05/22 05/08/24 12/11/22 cyanocobalamin (vitamin B-12) 1,000 mcg PO UD 12/05/22 05/08/24 12/11/22 1,000 mcg capsule famotidine 20 mg tablet 20 mg PO QAM 12/05/22 05/08/24 12/11/22 ferrous sulfate 325 mg (65 mg 325 mg PO QAM 12/05/22 05/08/24 12/11/22 iron) tablet insulin syringe-needle U-100 0.3 #200 ea 12/20/22 09/12/23 Unknown mL 30 gauge x 1/2" (BD Insulin Syringe Ultra-Fine) pen needle, diabetic, safety 30 #500 ea 07/02/23 09/12/23 Unknown gauge x 1/3" (Novofine Autocover) apixaban 2.5 mg tablet (Eliquis) 2.5 mg PO BID #180 tabs 09/12/23 05/08/24 Unknown metoprolol tartrate 25 mg tablet 25 mg PO BID 09/12/23 05/08/24 Unknown prednisone 1 mg tablet 4 mg PO UD 09/12/23 05/08/24 Unknown insulin lispro 100 unit/mL 28 unit subcut UD 01/23/24 05/08/24 Unknown subcutaneous pen insulin glargine 100 unit/mL (3 36 unit subcut BID 05/08/24 05/08/24 Unknown mL) subcutaneous pen (Lantus Solostar U-100 Insulin) rosuvastatin 10 mg tablet 10 mg PO HS 05/08/24 05/08/24 Unknown Active Medications Generic Name Dose Route Start Last Admin Trade Name Freq PRN Reason Stop Dose Admin Cyanocobalamin 1,000 mcg 05/09/24 09:00 05/11/24 08:06 Cyanocobalamin (B-12) 500 Mcg Tablet PO 06/08/24 08:59 1,000 mcg DAILY AAYUSH Administration Dextrose 25 - 50 ml 05/08/24 16:51 05/11/24 06:28 Dextrose 50% 50 Ml Syringe IV 06/07/24 16:50 25 ml UD PRN Administration Hypoglycemia Protocol Protocol Digoxin 0.125 mg 05/09/24 09:00 05/11/24 08:06 Digoxin 0.125 Mg Tab PO 06/08/24 08:59 0.125 mg QAM AAYUSH Administration Diltiazem HCl 240 mg 05/09/24 09:00 05/11/24 08:06 Diltiazem Hcl 240 Mg Capcr PO 06/08/24 08:59 240 mg QAM AAYUSH Administration Ferrous Sulfate 325 mg 05/09/24 09:00 05/11/24 08:06 Ferrous Sulfate 325 Mg Tab PO 06/08/24 08:59 325 mg QAM AAYUSH Administration Pantoprazole Sodium 40 mg/ 100 mls @ 20 mls/hr 05/08/24 13:00 05/12/24 03:41 Dextrose IV 06/07/24 12:59 8 mg/hr Q5H AAYUSH 20 mls/hr Administration 8 MG/HR Sodium Chloride 500 mls @ 15 mls/hr 05/12/24 07:30 05/12/24 07:59 Nss IV 05/13/24 07:29 15 mls/hr .Q24H AAYUSH Administration Insulin Aspart 0 units 05/11/24 12:30 05/12/24 06:33 Insulin Aspart Per Unit Charge SC 06/10/24 12:29 2 units Q6 AAYUSH Administration Insulin Glargine 15 units 05/11/24 21:00 05/12/24 00:09 Lantus Per Unit Charge SQ 06/10/24 20:59 10 units BID AAYUSH Administration Latanoprost 1 drops 05/08/24 21:00 05/11/24 21:14 Latanoprost 0.005% Op Soln 2.5 Ml Btl OP 06/07/24 20:59 1 drops HS AAYUSH Administration Metoprolol Tartrate 25 mg 05/08/24 21:00 05/11/24 21:14 Metoprolol Tartrate 25 Mg Tab PO 06/07/24 20:59 25 mg BID AAYUSH Administration Multivitamins/Minerals 1 tab 05/08/24 21:00 05/11/24 21:15 Cerovite Adv Formula Tab PO 06/07/24 20:59 1 tab BID AAYUSH Administration Prednisone 4 mg 05/09/24 09:00 05/11/24 08:06 Prednisone 1 Mg Tab PO 06/08/24 08:59 4 mg DAILY AAYUSH Administration Rosuvastatin Calcium 10 mg 05/08/24 21:00 05/11/24 21:15 Rosuvastatin Calcium 10 Mg Tab PO 06/07/24 20:59 10 mg HS AAYUSH Administration Vitamin D 125 mcg 05/09/24 09:00 05/11/24 08:06 Cholecalciferol 125 Mcg (5,000 Units) Tab PO 06/08/24 08:59 125 mcg QAM AAYUSH Administration NPO Date Last Intake of Fluids: 05/12/24 Time Last Intake of Fluids: 23:57 Date Last Intake of Solids: 05/08/24 Time Last Intake of Solids: 18:00 Last Intake of Solids Comment: Greater then 8 hrs Past Medical History Medical History TIA (transient ischemic attack) (2021) 2021, no residual Peripheral vascular disease Former smoker History of encephalopathy -2021 [place] GERD (gastroesophageal reflux disease) History of polyneuropathy History of Lyme disease History of orthostatic hypotension no recent issues since med adjustment per nurse Discharge planning issues Dysmetabolic syndrome X History of rosacea History of rheumatic fever History of nummular eczema History of diabetes mellitus History of basal cell carcinoma History of actinic keratosis History of colon cancer Past Family History Family History Unknown Family history of thromboembolic disease Past Surgical History Surgical History History of colonoscopy History of tonsillectomy History of partial colectomy Hx of cholecystectomy Hx of appendectomy Past Anesthesia History No Hx of Anesthesia Complications and No Family Hx of Anesthesia Complications Social History Smoking Status: Never smoker Do You Dip or Chew Tobacco: No Hx Alcohol Use: No Hx Substance Use: No substance use type: does not use Review of Systems ROS Unobtainable: All systems reviewed & are unremarkable except as noted in HPI & below Physical Exam Vital Signs Last Vital Signs Temp 36.7 C 05/12/24 07:53 Pulse 99 H 05/12/24 07:53 Resp 16 05/12/24 07:53 BP 149/83 H 05/12/24 07:53 Pulse Ox 95 05/12/24 07:53 O2 Del Method Room Air 05/12/24 07:53 O2 Flow Rate 3 05/11/24 12:03 ENMT Mouth: no TMJ abnormality Thyromental Distance: > or= 3.5 Finger Breadths Mallampati Class: II Neck normal visual inspection and trachea midline; neck extension not limited Respiratory normal respiratory effort Auscultation: lungs clear to auscultation bilaterally Cardiovascular Rate/Rhythm: regular rate and regular rhythm Heart Sounds: no murmur Musculoskeletal Spine: normal cervical ROM Extremities: full ROM of extremities Neurologic moves all extremities Psychiatric Orientation: alert and oriented x 3 Testing Laboratory Results 05/12/24 03:30 05/12/24 03:30 PT 10.5 Seconds (9.0-12.0) 05/09/24 06:48 INR 1.0 (0.9-1.1) 05/09/24 06:48 APTT 24 Seconds (21-31) 05/08/24 11:50 Blood Type A Positive 05/08/24 11:48 Antibody Screen NEGATIVE 05/08/24 11:48 05/12/24 05/12/24 05/11/24 07:28 06:13 23:52 POC Glucose 186 H 205 H 169 H Echocardiogram Date: 05/10/24 Per crossing gateman; valvular heart disease (moderate RV dilation 2015, mild to moderate MR/TR previously), normal LVEF (60 to 65%) with moderate MR and moderate to severe TR with moderate pulmonary hypertension.
--- NOTE | 2024-05-12 08:59 | Communication Note ---
Date of Service: May 12, 2024 Colonoscopy Poor preparation throughout. Patient has not end to side ileocolonic anastomosis. ( history Colon cancer) Fresh blood seen in this area. Extensive lavage showed a bleeding inflammatory appearing polyp at the anastomosis. Measuring approximately 1.2 to 1.3 cm. This was removed by snare polypectomy. Post polypectomy site clean. Because of the use of anticoagulants decision was made to place a hemostatic clip. Potential source for blood loss. Active oozing even despite not being on blood thinners Recommend observe for bleeding in the next 5 to 7 days. If no signs of bleeding or following H&H as she can resume her Eliquis. She can continue aspirin at this time.
--- NOTE | 2024-05-12 09:09 | GI REPORT ---
[facility] Patient: KIRAN CARTY : 1935 Sex at : Female Age: 89 Years Procedure: Colonoscopy Date: 05/12/2024 Attending Physician: Alok Woodson MD Referring MD: Santos Kahn Indications: - Occult gastrointestinal bleed Medications: - Monitored Anesthesia Care Complications: - No immediate complications. Estimated Blood Loss: - Estimated blood loss: None. Procedure: - The Adult Colonoscope was introduced through the anus and advanced to the ileocolonic anastomosis. - The colonoscopy was somewhat difficult due to poor bowel prep with stool present. Successful completion of the procedure was aided by lavage. - The patient tolerated the procedure well. - The quality of the bowel preparation was poor. Findings: - The perianal examination was normal. - A moderate amount of stool was found in the entire colon, interfering with visualization. - There was evidence of a prior end-to-side ileo-colonic anastomosis in the transverse colon. This was patent and was characterized by inflammation. The anastomosis was traversed. - A 12 mm polyp was found in the anastomosis. The polyp was sessile and was actively using and is a potential source of bleeding. The polyp was removed with a hot snare. Resection was complete, and retrieval was complete. One hemostatic clip was successfully placed. There was no bleeding during nor at the end of the procedure. Impression: - Preparation of the colon was poor. - Stool in the entire examined colon. - Patent end-to-side ileo-colonic anastomosis, characterized by inflammation. - One bleeding 12 mm polyp at the anastomosis, removed with a hot snare. Resected and retrieved. Could be source of bleeding Recommendation: - Await pathology report, the polyp appears inflammatory - Can continue aspirin. Eliquis can be resumed in 5 days if counts stable and no evidence of bleeding Procedure Code(s): - 17496, Colonoscopy, flexible; with removal of tumor(s), polyp(s), or other lesion(s) by snare technique Diagnosis Code(s): - Z98.0, Intestinal bypass and anastomosis status - D12.6, Benign neoplasm of colon, unspecified CPT(R) - 202 copyright [employer]. All Rights Reserved. The CPT codes, CCI edits and ICD codes generated are intended as suggestions and were generated based on input data. These codes are preliminary and upon canvas baster review may be revised to meet current compliance and payer requirements. The provider is responsible for the final determination of appropriate codes, and modifiers. Alok Woodson MD This document has been electronically signed. Note Initiated:05/12/2024 Note Completed:05/12/2024 9:08 AM \\[id number]
[2024-05-12] MEDS: LIDOCAINE 2% 2 ML VIAL/AMP(20MG/ML) INFIL ONE (10:05)
[2024-05-12] MEDS: PROPOFOL IV EMULSION 10 MG/ML 20 ML VIAL IV ONE (10:06)
--- NOTE | 2024-05-12 10:29 | Anesthesiology Progress Note ---
Date of Service May 12, 2024 Anesthesia Post Procedure Vital Signs Vital Signs: Temp Pulse Pulse Pulse Resp BP Pulse Ox 05/12/24 09:55 89 05/12/24 09:50 89 18 133/82 96 05/12/24 09:37 78 18 128/59 L 94 05/12/24 09:19 83 18 136/69 95 05/12/24 09:04 84 18 106/52 L 95 05/12/24 07:53 36.7 C 99 H 16 149/83 H 95 05/12/24 07:22 36.6 C 102 H 18 133/63 92 05/12/24 07:21 79 05/12/24 03:19 36.3 C L 79 20 159/65 H 92 05/11/24 23:08 36.4 C L 89 18 158/80 H 90 05/11/24 19:00 36.5 C 88 20 136/65 91 05/11/24 15:12 36.6 C 95 H 18 133/59 L 90 05/11/24 12:03 81 16 126/57 L 97 05/11/24 11:49 85 16 114/52 L 96 05/11/24 11:36 73 16 86/48 L 92 05/11/24 11:12 O2 Del Method O2 Flow Rate 05/12/24 09:55 05/12/24 09:50 Room Air 05/12/24 09:37 Room Air 05/12/24 09:19 Room Air 05/12/24 09:04 Room Air 05/12/24 07:53 Room Air 05/12/24 07:22 Room Air 05/12/24 07:21 05/12/24 03:19 Room Air 05/11/24 23:08 Room Air 05/11/24 19:00 Room Air 05/11/24 15:12 Room Air 05/11/24 12:03 Nasal Cannula 3 05/11/24 11:49 Nasal Cannula 3 05/11/24 11:36 Nasal Cannula 3 05/11/24 11:12 Room Air Transfer of Care Handoff Completed per policy Notes Mental Status: alert / awake / arousable Patient Amnestic to Procedure: Yes Nausea / Vomiting: adequately controlled Pain: adequately controlled Airway Patency, RR, SpO2: stable & adequate BP & HR: stable & adequate Hydration State: stable & adequate Anesthetic Complications: no major complications apparent and Pt Satisfied with anesthetic care
[2024-05-12] MEDS: INSULIN ASPART PER UNIT CHARGE SC SCH (11:53)
[2024-05-12 12:06] LABS: Estimated Average Glucose 160 mg/dl; Hemoglobin A1C 7.2 % (4.5-5.6)
--- NOTE | 2024-05-12 15:03 | Cardiology Progress Note ---
Date of Service May 12, 2024 Assessment & Plan (1) Permanent atrial fibrillation: (2) Symptomatic anemia: (3) GIB (gastrointestinal bleeding): (4) Moderate pulmonary hypertension: (5) Moderate mitral regurgitation: (6) Moderate tricuspid regurgitation: (7) Chronic anticoagulation: Plan She is doing well from a cardiac standpoint with no symptoms to suggest clinically significant heart failure and with good rate control of her atrial fibrillation. When she has demonstrated no evidence of ongoing GI bleeding and hemoglobin remained stable, could restart low-dose apixaban. As noted, would be reluctant to be aggressive with attempts at diuresis for radiologic rather than clinical findings, since she does have a history of orthostasis and seems to be doing well. No new recommendations, will sign off. Cardiology follow-up on a routine basis with a regular tray drier Dr. Murphy. Admission and Anticipated Discharge Date Admission Date: May 08, 2024 Subjective Uneventful night. Patient was resting comfortable and able to lie flat. She denied any chest pain, dyspnea, palpitations, lightheadedness, or other somatic complaints. Telemetry showed atrial fibrillation with controlled ventricular sponsor of 70- 90 bpm. Physical Exam Physical Exam: No distress. BP 146/63 mmHg. Pulse 76 bpm and irregular. Respirations 20 unlabored. Skin: no ecchymoses or generalized lesions. HEENT: unremarkable. Neck: JVP less than a quarter of the way to the angle of the jaw at 90 degrees. Lungs: Mildly decreased breath sounds but generally clear. Cardiac: irregular rhythm, normal S1-2, 3/6 apical holosystolic murmur rating to the left sternal border and axilla, no diastolic murmur. Abdomen: benign. Extremities: Chronic nonpitting appearing edema both upper and lower extremities, mild rubor, excellent capillary refill and pulses intact. Neurologic: normal affect and conversation, nonfocal. Results & Data Laboratory Results Hemoglobin 9.3, normal white count platelet count. Normal electrolytes, BUN 19, creatinine 1.61. PG Care Time/CCT Total # of Minutes Spent Total Time Spent with Patient: Total time spent is greater than 50% in coordination of care (as documented) at patient's floor/unit and/or counseling patient: Coding Level of Care Code 19157 SUB INP/OBS CARE /25MIN Diagnoses Permanent atrial fibrillation I48.21 Symptomatic anemia D64.9 GIB (gastrointestinal bleeding) K92.2 Moderate pulmonary hypertension I27.20 Moderate mitral regurgitation I34.0 Moderate tricuspid regurgitation I07.1 Chronic anticoagulation Z79.01
[2024-05-12] MEDS: PANTOprazole 40 MG/10 ML SYR IV SCH (20:27)
[2024-05-13 04:11] LABS: Hematocrit (blood only) 25.4 % (37.0-47.0); Hemoglobin 8.5 g/dl (12.0-16.0); Mean Corpuscular Hemoglobin 33.7 pg (25.0-34.0); Mean Corpuscular Hgb Conc 33.5 g/dL (32.0-36.0); Mean Corpuscular Volume 100.8 fL (80.0-100.0); Mean Platelet Volume 9.3 fL (9.4-12.4); Platelet Count 229 K/uL (130-400); RDW Coefficient of Variation 15.5 % (11.5-14.5); RDW Standard Deviation 57.6 fL (36.4-46.3); Red Blood Count 2.52 M/uL (4.20-5.40); White Blood Count 6.15 K/ul (4.8-10.8)
[2024-05-13 04:29] LABS: BUN Creatinine Ratio 12.3 (10-20); Calcium 8.7 mg/dl (8.6-10.3); Creatinine Clr Calc Pharmacy 18.9 ml/min; Magnesium 1.8 mg/dl (1.7-2.4); Potassium 4.1 mmol/L (3.5-5.1)
--- NOTE | 2024-05-13 06:40 | Hospitalist Progress Note ---
Date of Service May 13, 2024 Assessment & Plan (1) Lower GI bleed: Plan: Ms. Nolasco is an 89 y/o with a PMHx of T2DM, a fib, prior colon polyps s/p partial resection 17 years ago, s/p prior cholecystectomy/appendectomy presented with weakness and black stools found to have symptomatic anemia from presumed UGIB. #Symptomatic anemia Per colonoscopy this AM 05/12/24, there was a 12-13mm bleeding polyp found at the ileocolic anastomosis, which was excised and sent for pathology. She has received 1U PRBCs. Iron profile normal. Had EGD 05/11/24 revealing of several atypical gastric polyps, but no active bleeding. DM2 diet order in place, tolerating food well PPI, IV drip -> pantoprazole 40mg IV BID on 05/12/24 Awaiting polyp pathology report Holding Eliquis for upper endoscopy 05/11/24 and colonoscopy 05/12/24 -> cardiology recommendation to discontinue ASA as pt is out of range of post-TIA benefit, continue holding Eliquis for another 4 days while we ensure bleeding has resolved, then okay to resume Hemoglobin 9.3 -> 8.5 on 05/13/24, will repeat CBC at 4pm Obtain hemoccult upon BM (2) Status post colonoscopy with polypectomy: Plan: 05/12/24 AM, see above (3) Moderate pulmonary hypertension: Plan: #Moderate Pulmonary HTN #Mitral Regurg #Tricuspid Regurg Patient with occasional desaturations as low as 84. CXR inconclusive PNA vs edema which prompted CT eval. CT with some signs of fluid overload. Echocardiogram 05/10/24 - moderate pulmonary hypertension, moderate mitral regurg, moderate-severe tricuspid regurg, LVEF 60-65%. Cardiology consulted - appreciate recs. Cardiology consult 05/11/24: may consider triamterene/HCTZ 37.5/25 mg once or twice a week for gentle diuresis - Lasix 20 mg IV if needed (4) Chronic kidney disease, stage 3: Plan: Likely in the setting of DM. Baseline ~ 1.5. Continue to monitor kidney function AMILCAR - 1.61 -> 2.11 on 05/13/24, likely increased due to dehydration and elevated blood glucose BUN:Cr ratio 12.3 Increase basal insulin to 30U BID encourage good PO fluid intake avoid nephrotoxic drugs; renal dosing Repeat BMP at 4pm Obtain urine electrolytes (5) Elevated C-reactive protein (CRP): Plan: elevated to 20.5 on 05/11/24. - WBCs within normal limits - chronic diseases include CKD, DM2, atrial fibrillation - awaiting pathology report from ileocolic anastomosis polypectomy, cannot yet rule out malignancy (6) Controlled type 2 diabetes mellitus with kidney complication, with long-term current use of insulin: Plan: Patient on basal - 36 units BID with bolus coverage as well at home. - basal 20U BID -> 30U BID on 05/13/24 due to elevated blood glucose - BMP at 4pm, then AM (7) Hypertension: Plan: Patient on clonidine 0.1 mg Q8H PRN for hypertension. Will hold for now as we do not have the ER formulation and BPs have been acceptable. (8) Chronic anticoagulation: (9) Symptomatic anemia: Plan Chronic: PMR - continue prednisone HLD - continue rosuvastatin Diet: carb consistent VTE ppx: SCDs, chemo ppx contraindicated in setting of UGIB Code: full Dispo: tele unit, PT/OT for dispo planning Admission and Anticipated Discharge Date Admission Date: May 08, 2024 Supervising Physician Co-Signing Physician Notes Attending attestation Pt seen and examined in concert with Dr. Cherry. In agreement with the documented findings as noted in the resident documentation with any exceptions or additions as noted here. Resting comfortably in bed without acute complaint. No bowel movement as yet following colonoscopy. On examination, S1/S2 nl RRR no MCG. CTAB. Abd NT/ND BS+ve. VS as noted Hgb 8.5, Cr 2.11 acute blood loss anemia in the setting of lower GIB - GI consult, endoscopy completed - can restart apixaban 5 days following endoscopy, d/c ASA, continue PPI IV BID AMILCAR on CKD - repeat BMP in PM and consider light bolus vs. encourage POI this AM Else see resident documentation as noted. Subjective Ms. Nolasco was seen and evaluated at bedside this AM, appearing in good spirits. States she is feeling better compared to day prior, endorses sleeping well. Ate breakfast without issue, was able to move from bed to chair and back without SOB, lightheadedness, dizziness. Denies any obvious bleeding. Has not had a bowel movement yet. Informed her of her decrease in hemoglobin and increase in creatinine. Encouraged increased PO fluid intake to help kidneys, but could result in lower hemoglobin. Informed her we would recheck labs this afternoon, and will obtain hemoccult if she had a BM. Review of Systems Review of Systems: no fever, body aches, chills, headache, neck pain, SOB, abdominal pain. Physical Exam Physical Exam: Constitutional: A&Ox3, appearing in no acute distress HEENT: EOM intact, anicteric sclerae, moist mucous membranes Cardiovascular: irregular rhythm, normal S1-2, holosystolic murmur heard best at apex, no diastolic murmur heard. No rubs/gallops - 2+ carotid pulses b/l, 1+ radial pulse s b/l limited by edema, 1+ dorsalis pedis pulses b/l limited by edema Respiratory: Mildly decreased breath sounds, otherwise clear to auscultation GI/Abd: nondistended, hyperactive bowel sounds, abdomen soft, nontender to palpation of all quadrants Extremities: Chronic nonpitting edema of b/l UE, 1+ pitting edema of b/l LE, mild rubor, good capillary refill and pulses intact. Skin: no ecchymoses or generalized lesions Neurologic: no focal deficits, no facial droop, speech intact, follows command to wiggle fingers and toes without difficulty Results & Data Results & Data Vital Signs (Past 12 Hours) Vital Signs Temp Pulse Pulse Resp BP Pulse Ox O2 Del Method 05/13/24 03:08 36.7 C 90 18 137/63 92 Room Air 05/12/24 23:16 36.8 C 90 18 126/61 Room Air 05/12/24 20:00 36.8 C 87 18 131/59 L 94 Room Air Resident Activity Tracking Resident Involvement: Resident Care Provided Care Provided: Adult Hospital Medicine
--- NOTE | 2024-05-13 11:03 | Gastroenterology Progress Note ---
Date of Service May 13, 2024 Assessment & Plan (1) GIB (gastrointestinal bleeding): Plan: -Continue IV PPI for now -Await biopsies of colon polyp -Monitor H/H -Continue to monitor for overt GI bleeding Admission and Anticipated Discharge Date Admission Date: May 08, 2024 Supervising Physician Co-Signing Physician Notes Iron deficiency. Bleeding polyp at colonic anastomosis. Hemoglobin stable at 8.5. I believe patient can be discharged on oral iron. Follow-up blood counts in 5 to 7 days. If counts are stable improving at that time anticoagulation can be resumed. Polyp results are pending though I believe them to be benign based on polyp appearance. Can discontinue IV PPI therapy. I would continue oral PPI therapy in this patient with iron deficiency. Subjective Patient is an 89 yo female hospitalized with anemia & melena. She underwent a colonoscopy on 05/12/24 that indicated a 1.2 cm polyp that was bleeding. Pathology pending at this time. H/H steady at 8.5/25.4. She has not had any ongoing melena, hematochezia, or other signs of active GI bleeding. Review of Systems Gastrointestinal: no abdominal pain, no hematemesis, no blood in stools and no melena Physical Exam Constitutional: well developed Respiratory: normal respiratory effort Gastrointestinal (Abdomen): Inspection/Auscultation: abdomen normal to inspection Psychiatric: Orientation: alert and oriented x 3 Results & Data Results & Data Vital Signs (Past 12 Hours) Vital Signs Temp Pulse Pulse Resp BP Pulse Ox O2 Del Method 05/13/24 09:09 96 H 05/13/24 07:14 37.0 C 96 H 19 118/60 90 Room Air 05/13/24 03:08 36.7 C 90 18 137/63 92 Room Air 05/12/24 23:16 36.8 C 90 18 126/61 Room Air PG Care Time/CCT Total # of Minutes Spent Total Time Spent with Patient: Total time spent is greater than 50% in coordination of care (as documented) at patient's floor/unit and/or counseling patient: Coding Level of Care Code 23888 SUB INP/OBS CARE 3/50MIN Diagnoses GIB (gastrointestinal bleeding) K92.2
[2024-05-13 16:08] LABS: Hematocrit (blood only) 26.9 % (37.0-47.0); Hemoglobin 8.6 g/dl (12.0-16.0); Mean Corpuscular Volume 103.1 fL (80.0-100.0); Mean Platelet Volume 9.3 fL (9.4-12.4); Platelet Count 245 K/uL (130-400); RDW Coefficient of Variation 15.4 % (11.5-14.5); RDW Standard Deviation 57.3 fL (36.4-46.3); Red Blood Count 2.61 M/uL (4.20-5.40); White Blood Count 5.54 K/ul (4.8-10.8)
[2024-05-13 16:23] LABS: BUN Creatinine Ratio 12.1 (10-20); Calcium 8.7 mg/dl (8.6-10.3); Creatinine Clr Calc Pharmacy 17.8 ml/min; Potassium 4.8 mmol/L (3.5-5.1)
[2024-05-13 18:09] LABS: Creatinine Urine Random 44.8 mg/dl
[2024-05-13] MEDS ORDERED: SODIUM CHLORIDE 0.9% 100 ML IV PRN (18:42)
[2024-05-13] MEDS ORDERED: SODIUM CHLORIDE 0.9% 50 ML IV PRN (18:42)
[2024-05-13 19:58] LABS: Hematocrit (blood only) 27.3 % (37.0-47.0); Hemoglobin 8.8 g/dl (12.0-16.0); Mean Corpuscular Hgb Conc 32.2 g/dL (32.0-36.0); Mean Corpuscular Volume 102.2 fL (80.0-100.0); Mean Platelet Volume 9.3 fL (9.4-12.4); Platelet Count 239 K/uL (130-400); RDW Coefficient of Variation 15.2 % (11.5-14.5); RDW Standard Deviation 57.7 fL (36.4-46.3); Red Blood Count 2.67 M/uL (4.20-5.40); White Blood Count 4.88 K/ul (4.8-10.8)
[2024-05-13 20:46] LABS: BUN Creatinine Ratio 13.2 (10-20); Calcium 8.7 mg/dl (8.6-10.3); Creatinine Clr Calc Pharmacy 18.2 ml/min; Potassium 4.7 mmol/L (3.5-5.1)
[2024-05-13] MEDS: LANTUS PER UNIT CHARGE SQ SCH (21:16)
[2024-05-14 03:52] LABS: Hematocrit (blood only) 28.1 % (37.0-47.0); Hemoglobin 9.3 g/dl (12.0-16.0); Mean Corpuscular Hemoglobin 32.4 pg (25.0-34.0); Mean Corpuscular Hgb Conc 33.1 g/dL (32.0-36.0); Mean Corpuscular Volume 97.9 fL (80.0-100.0); Mean Platelet Volume 9.3 fL (9.4-12.4); Platelet Count 237 K/uL (130-400); RDW Coefficient of Variation 15.9 % (11.5-14.5); RDW Standard Deviation 58.2 fL (36.4-46.3); Red Blood Count 2.87 M/uL (4.20-5.40); White Blood Count 5.25 K/ul (4.8-10.8)
[2024-05-14 03:58] LABS: BUN Creatinine Ratio 14.1 (10-20); Calcium 9.2 mg/dl (8.6-10.3); Creatinine Clr Calc Pharmacy 19.4 ml/min; Potassium 4.4 mmol/L (3.5-5.1)
--- NOTE | 2024-05-14 06:52 | Hospitalist Progress Note ---
Date of Service May 14, 2024 Assessment & Plan (1) Symptomatic anemia: Plan: Colonoscopy this AM 05/12/24, there was a 12-13mm bleeding polyp found at the ileocolic anastomosis, which was excised and sent for pathology. She has received 2U PRBCs. Iron profile normal. Had EGD 05/11/24 revealing of several atypical gastric polyps, but no active bleeding. 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 to be determined (2) Chronic kidney disease, stage 3: Plan: Likely in the setting of DM. Baseline ~ 1.5. Continue to monitor kidney function AMILCAR - 2.24 -> 2.06 -> 2.2 on 05/14/24, likely increased due to anemia, lack of oral intake, and elevated glucose Giving 250cc bolus 05/14/24 evening Basal insulin 36U BID encourage good PO fluid intake avoid nephrotoxic drugs; renal dosing Urine electrolytes: within normal limits (3) Lower GI bleed: Plan: Ms. Nolasco is an 89 y/o with a PMHx of T2DM, a fib, prior colon polyps s/p partial resection 17 years ago, s/p prior cholecystectomy/appendectomy presented with weakness and black stools found to have symptomatic anemia from presumed GIB. Per colonoscopy 05/12/24, there was a 12-13mm bleeding polyp found at the i leocolic anastomosis, which was excised and sent for pathology. She has received 2U PRBCs. Iron profile normal. Had EGD 05/11/24 revealing of several atypical gastric polyps, but no active bleeding. DM2 diet order in place, tolerating food well PPI, IV drip -> pantoprazole 40mg IV BID on 05/12/24 Holding Eliquis for upper endoscopy 05/11/24 and colonoscopy 05/12/24 -> cardiology recommendation to discontinue ASA as pt is out of range of post-TIA benefit, continue holding Eliquis for another 2 days while we ensure bleeding has resolved, then okay to resume Hemoglobin 8.6 -> 9.3 on 05/14/24 AM post-transfusion 1U (4) Status post colonoscopy with polypectomy: Plan: 05/12/24 AM, see above - pathology report noting it is benign granulation tissue with fibropurulent exudate (5) Controlled type 2 diabetes mellitus with kidney complication, with long-term current use of insulin: Plan: Patient on basal - 36 units BID with bolus coverage as well at home. - basal insulin 36U BID started 05/14/24 due to elevated blood glucose - BMP AM (6) Moderate pulmonary hypertension: Plan: #Moderate Pulmonary HTN #Mitral Regurg #Tricuspid Regurg Patient with occasional desaturations as low as 84. CXR inconclusive PNA vs edema which prompted CT eval. CT with some signs of fluid overload. Echocardiogram 05/10/24 - moderate pulmonary hypertension, moderate mitral regurg, moderate-severe tricuspid regurg, LVEF 60-65%. Cardiology consulted - appreciate recs. Cardiology consult 05/11/24: may consider triamterene/HCTZ 37.5/25 mg once or twice a week for gentle diuresis - Lasix 20 mg IV if needed (7) Elevated C-reactive protein (CRP): Plan: elevated to 20.5 on 05/11/24. - WBCs within normal limits - chronic diseases include CKD, DM2, atrial fibrillation - awaiting pathology report from ileocolic anastomosis polypectomy, cannot yet rule out malignancy (8) Hypertension: Plan: Patient on clonidine 0.1 mg Q8H PRN for hypertension. Will hold for now as we do not have the ER formulation and BPs have been acceptable. (9) Chronic anticoagulation: Plan Chronic: PMR - continue prednisone HLD - continue rosuvastatin Diet: carb consistent VTE ppx: SCDs, chemo ppx contraindicated in setting of UGIB Code: full Dispo: tele unit, PT/OT for dispo planning Admission and Anticipated Discharge Date Admission Date: May 08, 2024 Supervising Physician Co-Signing Physician Notes Attending attestation Pt seen and examined in concert with Dr. Cherry. In agreement with the documented findings as noted in the resident documentation with any exceptions or additions as noted here. Resting comfortably in bed s/p 1UPRB (2U total). Passing flatus without stool at time of exam (last 2 days ago reported). Tolerating ambulation in short bursts with assist without symptoms reported. On examination, S1/S2 nl RRR no MCG. CTAB. Abd NT/ND BS+ve. VS as noted. Hgb 9.3; Cr 2.06; glucose 319 acute blood loss anemia in the setting of lower GIB - GI consult, endoscopy completed - s/p 2 UPRBC - IV PPI BID to transition with stable hgb. Consider restart apixaban 5 days following stability as outpt, d/c ASA after d/w cards AMILCAR on CKD - repeat BMP in PM and consider light bolus vs. encourage POI this AM Else see resident documentation as noted. Subjective Ms. Nolasco was seen and evaluated at bedside this AM, appearing in good spirits. Feeling well after 1U blood transfusion yesterday evening. States she is feeling better compared to day prior, endorses sleeping well. Ate breakfast without issue, was able to move from bed to chair and back without SOB, lightheadedness, dizziness. Denies any obvious bleeding. Endorses nonbloody bowel movement around 5pm. Review of Systems Review of Systems: no fever, body aches, chills, headache, neck pain, SOB, abdominal pain. Physical Exam Physical Exam: Constitutional: A&Ox3, appearing in no acute distress HEENT: EOM intact, anicteric sclerae, moist mucous membranes Cardiovascular: irregular rhythm, normal S1-2, holosystolic murmur heard best at apex, no diastolic murmur heard. No rubs/gallops - 2+ carotid pulses b/l, 1+ radial pulse s b/l limited by edema, 1+ dorsalis pedis pulses b/l limited by edema Respiratory: Mildly decreased breath sounds, otherwise clear to auscultation GI/Abd: nondistended, hyperactive bowel sounds, abdomen soft, nontender to palpation of all quadrants Extremities: Chronic nonpitting edema of b/l UE, 1+ pitting edema of b/l LE, mild rubor, good capillary refill and pulses intact. - calves nontender to palpation, negativ e Zana's sign Skin: no ecchymoses or generalized lesions Neurologic: no focal deficits, no facial droop, speech intact, follows command to wiggle fingers and toes without difficulty Results & Data Results & Data Vital Signs (Past 12 Hours) Vital Signs Temp Pulse Pulse Pulse Resp BP BP 05/14/24 03:46 36.7 C 05/14/24 03:45 91 H 20 120/90 05/14/24 00:40 36.6 C 87 20 159/98 H 05/14/24 00:19 36.7 C 93 H 20 153/67 H 05/13/24 23:55 89 05/13/24 23:19 36.8 C 96 H 20 170/83 H 05/13/24 22:49 36.8 C 98 H 20 161/75 H 05/13/24 22:34 36.8 C 91 H 20 151/70 H 05/13/24 22:33 36.8 C 91 H 20 151/70 H 05/13/24 22:23 05/13/24 22:09 36.8 C 91 H 20 154/77 H 05/13/24 19:36 36.7 C 05/13/24 19:35 79 18 161/77 H Pulse Ox O2 Del Method 05/14/24 03:46 05/14/24 03:45 95 Room Air 05/14/24 00:40 95 05/14/24 00:19 93 05/13/24 23:55 05/13/24 23:19 92 05/13/24 22:49 91 05/13/24 22:34 92 05/13/24 22:33 92 05/13/24 22:23 Room Air 05/13/24 22:09 92 05/13/24 19:36 05/13/24 19:35 93 Room Air Resident Activity Tracking Resident Involvement: Resident Care Provided Care Provided: Adult Hospital Medicine
[2024-05-14] MEDS: PANTOprazole 40 MG TAB PO SCH (07:34)
[2024-05-14] MEDS: POLYETHYLENE (MIRALAX) 17 GM PACK PO ONE (11:58)
[2024-05-14 14:43] LABS: BUN Creatinine Ratio 13.6 (10-20); Calcium 9.3 mg/dl (8.6-10.3); Creatinine Clr Calc Pharmacy 18.2 ml/min; Potassium 4.8 mmol/L (3.5-5.1)
[2024-05-14] MEDS: PLASMA-LYTE A 250 ML IV ONE (17:39)
[2024-05-14] MEDS: PANTOprazole 40 MG/10 ML SYR IV SCH (20:28)
[2024-05-14] MEDS: LANTUS PER UNIT CHARGE SQ SCH (20:45)
[2024-05-15 05:58] LABS: Hematocrit (blood only) 28.4 % (37.0-47.0); Hemoglobin 9.5 g/dl (12.0-16.0); Mean Corpuscular Hgb Conc 33.5 g/dL (32.0-36.0); Mean Corpuscular Volume 98.6 fL (80.0-100.0); Platelet Count 237 K/uL (130-400); RDW Coefficient of Variation 15.2 % (11.5-14.5); RDW Standard Deviation 54.9 fL (36.4-46.3); Red Blood Count 2.88 M/uL (4.20-5.40); White Blood Count 6.75 K/ul (4.8-10.8)
[2024-05-15 06:15] LABS: BUN Creatinine Ratio 14.4 (10-20); Calcium 9.5 mg/dl (8.6-10.3); Creatinine Clr Calc Pharmacy 19.9 ml/min; Potassium 4.4 mmol/L (3.5-5.1)
--- NOTE | 2024-05-15 06:45 | Discharge Summary ---
Date of Service May 15, 2024 Admission HPI Per Admitting Provider 89yo with PMH of T2DM, afib, TIA, PMR, colon polyps and surgical hx of partial colon resection (~2006), cholecystectomy, and appendectomy who presents from [facility] due to down-trending hemoglobin. Daughter Kenny is in room and helps provide history. Patient describes herself as "healthier than average" for her age, until she had a likely viral infection in March, and reports she hasn't felt the same si nce. It began around Ying and says it took her weeks to recover. She reports feeling much weaker and more fatigued. Her diarrhea started around the same time, and has worsened up to now having daily liquid stools that appear dark or black. She has taken to wearing Depends regularly. She denies experiencing similar issues before. She denies recent nausea/reflux, abdominal pain, or bright red or maroon stools. She reports having no known diverticulosis, but does mention a history of colon polyps that eventually required resection. Patient and daughter mention cancer and rupture when explain ing the resection; true indication for it is unclear. Patient and daughter are unsure of exactly which medications she takes or how often because she gets her medications in pre-prepared pill boxes. She does know she takes various supplements including iron & B12. In ED, she was given 1L NSS and IV Protonix. Type and screen and consent obtained for blood transfusion. Patient currently feeling well, denies any symptoms Admission Exam Per Admitting Provider Gen: Pleasant, alert, WD/WN, NAD HEENT: NCAT, nl conjunctiva, no facial/sinus pain, trachea midline, no LAD or thyromegaly CV: RRR, no m/r/g, S1/S2 normal, cap refill < 3s Resp: CTAB, symmetrical chest rise, breathing non-labored Abd: Soft, nontender, no distension, +BS in all quadrants, no HSM MSK: Full ROM, normal str, no gross deformities Skin: Warm, dry, pink, no rashes or lesions visible Neuro: AOx3, CN II-XII grossly intact Psych: Mood-affect congruent. Speech pace and content normal. Principal Diagnosis symptomatic anemia, lower GI bleed resolved Discharge Exam Constitutional: A&Ox3, appearing in no acute distress HEENT: EOM intact, anicteric sclerae, moist mucous membranes Cardiovascular: irregular rhythm, normal S1-2, holosystolic murmur heard best at apex, no diastolic murmur heard. No rubs/gallops - 2+ carotid pulses b/l, 1+ radial pulses b/l limited by edema, 1+ dorsalis pedis pulses b/l limited by edema Respiratory: Mildly decreased breath sounds, otherwise clear to auscultation GI/Abd: nondistended, hyperactive bowel sounds, abdomen soft, nontender to palpation of all quadrants Extremities: Chronic nonpitting edema of b/l UE, less than 1+ pitting edema of b/l LE, mild rubor, good capillary refill and pulses intact. - calves nontender to palpation, negative Zana's sign Skin: no ecchymoses or generalized lesions Neurologic: no focal deficits, no facial droop, speech intact, follows command to wiggle fingers and toes without difficulty Discharge Data Allergies Allergy/AdvReac Type Severity Reaction Status Date / Time Sulfa (Sulfonamide AdvReac Unknown Nausea Verified 09/12/23 11:36 Antibiotics) covid vaccine Allergy Unknown "out of it" Uncoded 09/12/23 11:36 Consultations 05/08/24 13:00 ED Decision to Admit Stat 05/08/24 16:51 Consult Gastroenterology Routine 05/11/24 14:30 Consult Cardiology Routine Procedures Performed Operation Date: 05/12/24 16:45 Actual Procedures p Colonoscopy Polypectomy - Alok Woodson MD Ordered Studies 05/10/24 15:04 CT chest diagnostic wo con Routine Hospital Course (1) Symptomatic anemia: Colonoscopy this AM 05/12/24, there was a 12-13mm bleeding polyp found at the ileocolic anastomosis, which was excised and sent for pathology. She has received 2U PRBCs. Iron profile normal. Had EGD 05/11/24 revealing of several atypical gastric polyps, but no active bleeding. CBC: 9.3 -> 9.5 on 05/15/24, asymptomatic mild fatigue compared to baseline with ambulation per PT evaluation Can be discharged to [facility] with short-term rehab for 3-5 days prior to returning to [facility] Followup CBC while at [facility] - may resume Eliquis if your hemoglobin remains stable Consider stool guaic at SNF if hemoglobin is downtrending (2) Chronic kidney disease, stage 3: Likely in the setting of DM. Baseline ~ 1.5. Continue to monitor kidney function AMILCAR - 2.2 -> 2.01 on 05/15/24, improving likely due to IVF and good PO intake Given 250cc bolus 05/14/24 evening Basal insulin 36U BID Encouraged to continue good PO fluid intake Avoid nephrotoxic drugs; renal dosing Urine electrolytes: within normal limits (3) Lower GI bleed: Ms. Nolasco is an 89 y/o with a PMHx of T2DM, a fib, prior colon polyps s/p partial resection 17 years ago, s/p prior cholecystectomy/appendectomy presented with weakness and black stools found to have symptomatic anemia from presumed GIB. Per colonoscopy 05/12/24, there was a 12-13mm bleeding polyp found at the ileocolic anastomosis, which was excised and sent for pathology. She has received 2U PRBCs. Iron profile normal. Had EGD 05/11/24 revealing of several atypical gastric polyps, but no active bleeding. DM2 diet order in place, tolerating food well PPI, IV drip -> pantoprazole 40mg IV BID on 05/12/24 Holding Eliquis for upper endoscopy 05/11/24 and colonoscopy 05/12/24 -> cardiology recommendation to discontinue ASA as pt is out of range of post-TIA benefit, continue holding eliquis and restart w/ stability as below. Hemoglobin 8.6 -> 9.3 on 05/14/24 AM post-transfusion 1U (4) Status post colonoscopy with polypectomy: 05/12/24 AM, see above - pathology report noting it is benign granulation tissue with fibropurulent exudate (5) Controlled type 2 diabetes mellitus with kidney complication, with long-term current use of insulin: Patient on basal - 36 units BID with bolus coverage as well at home. - basal insulin 36U BID started 05/14/24 due to elevated blood glucose - BMP daily at SNF (6) Moderate pulmonary hypertension: #Moderate Pulmonary HTN #Mitral Regurg #Tricuspid Regurg Patient with occasional desaturations as low as 84. CXR inconclusive PNA vs edema which prompted CT eval. CT with some signs of fluid overload. Echocardiogram 05/10/24 - moderate pulmonary hypertension, moderate mitral regurg, moderate-severe tricuspid regurg, LVEF 60-65%. Cardiology consulted - appreciate recs. Cardiology consult 05/11/24: may consider triamterene/HCTZ 37.5/25 mg once or twice a week for gentle diuresis - Lasix 20 mg IV if needed (7) Elevated C-reactive protein (CRP): elevated to 20.5 on 05/11/24. - WBCs within normal limits - chronic diseases include CKD, DM2, atrial fibrillation - awaiting pathology report from ileocolic anastomosis polypectomy, cannot yet rule out malignancy (8) Hypertension: Patient on clonidine 0.1 mg Q8H PRN for hypertension. Will hold for now as we do not have the ER formulation and BPs have been acceptable. - continue holding until PCP visit, if labs reassure lack (9) Chronic anticoagulation: may resume Eliquis once CBCs at [facility] show hemoglobin stabilization/improvement Plan Chronic: PMR - continue prednisone HLD - continue rosuvastatin Diet: carb consistent VTE ppx: SCDs, chemo ppx contraindicated in setting of UGIB Code: full Dispo: tele unit, PT/OT for dispo planning Total Time Total Time Spent Total Time Spent (In Minutes): 45 Discharge Plan Discharge Items Patient Disposition: Transfer Group Home Fac Reason For Visit: ANEMIA, UPPER GI BLEED Discharge Diagnosis: lower GI bleed, colonic polyp, status post colonoscopy with polypectomy Activity: Per Instructions section Non-emergency contact: Primary Care Provider and Director Of Security Call non-emergency contact if: your symptoms worsen and your pain is not controlled Follow-up/Referrals: Erik Garcia [Primary Care Provider] - Diet: Carb Consistent or DM2 Addtl Attending Provider Instructions: You were evaluated and treated at [facility] starting for symptomatic anemia with hemoglobin 7.5. You had an upper endoscopy done on 05/11/24, revealing 5 atypical polyps within the stomach which were removed, did not appear to be bleeding. You had a colonoscopy on 05/12/24, revealing one 12-13mm polyp at the ileocolonic anastomosis which was bleeding: the polyp was excised, the remaining tissue was clipped to prevent further bleeding, and the removed polyp was sent to pathology for examination at the cellular level. Pathology report on 05/13/24 reveals benign granulation tissue with fibrinopurulent exudate. You have received 2 units of blood, been tolerating meals and fluids without issue since the procedure, and your hemoglobin levels have improved. Your creatinine levels are also downtrending with the help of oral meals, fluids, and 250cc IV fluids last night 05/14/24. Vital signs are also stable. Therefore, you are now medically stable for discharge home to [facility] - you will go to their Group Home Facility where you will receive short-term rehab for 3-5 days prior to returning to your independent living [facility] there. Please continue HOLDING your Eliquis (NOT taking) until you are seen by your PCP and have determined that you are no longer having any bleeding - obtain CBC daily while at [facility]. Pending Studies at Discharge: No Stand-Alone Forms: My [facility] [employer], Smoking Cessation Medications and DC Order Prescriptions: Continued PreserVision AREDS [id number] capsule 1 cap PO BID acetaminophen 500 mg tablet 1,000 mg PO BID PRN (Reason: pain) (DME) FreeStyle Roman 3 Sensor Device See Rx Instructions .Route Qty: 2 11RF Rx Instructions: change Q14D (DME) insulin syringe-needle U-100 [BD Insulin Syringe Ultra-Fine] 0.3 mL 30 gauge x 1/2" syringe See Rx Instructions .Route Qty: 200 11RF Rx Instructions: use to administer insulin 6 times per day (DME) Novofine Autocover 30 gauge x 1/3" needle See Rx Instructions .Route Qty: 500 3RF Rx Instructions: use 5 daily with insulin injections prednisone 1 mg tablet 4 mg PO UD Rx Instructions: 4 mg po AM. On hold w/pharmacy metoprolol tartrate 25 mg tablet 25 mg PO BID Eliquis 2.5 mg tablet 2.5 mg PO BID Qty: 180 3RF Glucagon Emergency Kit (human) 1 mg recon soln 1 mg subcut ONCE PRN (Reason: Hypoglycemia) Rx Instructions: on hold w/pharmacy latanoprost 0.005 % drops 1 drp ophthalmic (eye) UD Rx Instructions: 1 drop eye qpm. on hold w/pharmacy clonidine HCl 0.1 mg tablet extended release 12 hr 0.1 mg PO Q8H PRN (Reason: Blood Pressure) Rx Instructions: on hold w/pharmacy insulin lispro 100 unit/mL insulin pen 28 unit subcut UD Dose Instruction: INJECT 28 UNITS SUB-Q THREE TIMES DAILY FOR DM Rx Instructions: original: INJECT 30 in AM and 34 in PM UNITS SUB-Q THREE TIMES DAILY FOR DM 05/08:per pharmacy they dispensed as 28 units TID; last filled 04/18 cholecalciferol (vitamin D3) [Vitamin D3] 2,000 unit Capsule 5,000 unit PO QAM diltiazem HCl 240 mg Capsule,Extended Release 24hr 240 mg PO QAM Qty: 30 0RF ferrous sulfate 325 mg (65 mg iron) Tablet 325 mg PO QAM cyanocobalamin (vitamin B-12) 1,000 mcg Capsule 1,000 mcg PO UD Rx Instructions: //Sat/Sat famotidine 20 mg tablet 20 mg PO QAM aspirin 81 mg capsule 81 mg PO UD Rx Instructions: M/W/F Not on list from pharmacy, unable to verify digoxin 250 mcg (0.25 mg) tablet 125 mcg PO QAM rosuvastatin 10 mg tablet 10 mg PO HS insulin glargine [Lantus Solostar U-100 Insulin] 100 unit/mL (3 mL) insulin pen 36 unit subcut BID Rx Instructions: INJECT 36U SUB-Q TWICE DAILY Discharge Orders: Discharge Order (Routine); Ordered 05/15/24 Ordered By: Tyler Hoover/Other Patient Handouts: GI Bleeding Causes and Tests, Heart Valve Problems, AFib Dc, CKD Dc Admission Data Admit Date/Time: 05/08/24 14:28 Attending Provider: Clovis Castillo Admit Provider: Judith Wright Primary Care Provider: Erik Garcia Other Providers: [place]; Alexandr Garrison; Damian Barrera; Erik Garcia Other Interventions: Discharge Summary Assessment (RN) Last Done: 05/15/24 14:58 Supervising Physician Co-Signing Physician Notes Attending attestation Pt seen and examined in concert with Dr. Cherry. In agreement with the documented findings as noted in the resident documentation with any exceptions or additions as noted here. Resting comfortably in bed without complaint. On examination, S1/S2 nl RRR no MCG. CTAB. Abd NT/ND BS+ve. VS as noted. Hgb 9.5; Cr 2.01; glucose 170 acute blood loss anemia in the setting of lower GIB - GI consult, endoscopy completed - s/p 2 UPRBC - continue PO PPID BID. Consider restart apixaban 5 days following stability as outpt, d/c ASA after d/w cards AMILCAR on CKDIII - improved during admission following transfusion and intake, would recommend BMP at follow up Else see resident documentation as noted. Total attending physician time spent with this patient's care on the day of discharge: 35 minutes. Resident Activity Tracking Resident Involvement: Resident Care Provided Care Provided: Adult Hospital Medicine
[2024-05-15 10:57] VITALS: BP 138/69; RESP 18; TEMP 97.5; O2SAT 97
[2024-05-15 14:59] VITALS: PULSE 91
== END 2024-05-15 15:27 | DRG 385 ==
LOC: ED 11:16 → SUATTDRO 14:28 → 2E 14:28

== ENCOUNTER 2024-05-25 01:21 | Observation (INO) ==
[2024-05-25 01:56] LABS: Basophils # (auto) 0.04 K/uL (0.00-0.20); Basophils % (auto) 0.5 %; Eosinophils # (auto) 0.22 K/uL (0.00-0.50); Eosinophils % (auto) 2.9 %; Hematocrit (blood only) 35.9 % (37.0-47.0); Immature Granulocytes # (auto) 0.03 K/uL (0.01-0.20); Immature Granulocytes % (auto) 0.4 %; Lymphocytes # (auto) 1.42 K/uL (1.20-3.40); Lymphocytes % (auto) 18.9 %; Mean Corpuscular Hgb Conc 33.4 g/dL (32.0-36.0); Mean Corpuscular Volume 98.6 fL (80.0-100.0); Mean Platelet Volume 9.9 fL (9.4-12.4); Monocytes # (auto) 0.81 K/uL (0.11-0.59); Monocytes % (auto) 10.8 %; Neutrophils # (auto) 5.01 K/uL (1.40-6.50); Neutrophils % (auto) 66.5 %; Platelet Count 311 K/uL (130-400); RDW Coefficient of Variation 14.7 % (11.5-14.5); RDW Standard Deviation 54.1 fL (36.4-46.3); Red Blood Count 3.64 M/uL (4.20-5.40); White Blood Count 7.53 K/ul (4.8-10.8)
--- NOTE | 2024-05-25 01:58 | Emergency Department Note ---
Impression & Plan TIA (transient ischemic attack) Admit to the [facility] ED Provider Note NAME: KIRAN CARTY AGE: 89 SEX: Female INFORMANT: Patient ED PROVIDER(S): Janis Quijano DO CHIEF COMPLAINT: strokelike symptoms PLAN: Disposition: Admit to the [facility] MEDICAL DECISION MAKING: this is an 89-year-old female patient presents to the emergency department from the apartments at [facility] after having strokelike symptoms. Patient had fallen asleep watching TV. Upon awakening to go to the bathroom, she noted that she had no movement of her right hand and was having difficulty walking on her right leg. She attempted to contact her daughter by phone and was unable to speak. She did finally make contact with 911 and EMS arrived on scene to find the patient's having resolving strokelike symptoms. She was brought to the emergency department for evaluation. Upon her presentation to the ER, her neurological exam had returned to baseline. The patient had been admitted to the hospital recently for GI bleeding and received 2 units of packed red blood cells through blood transfusion. The patient has a history of atrial fibrillation and is supposed to be taking Eliquis but admits that she is not sure whether or not she is currently on that anticoagulant as her medication box is prefilled for her and therefore she does not know whether or not she is currently taking it. CT scan of the brain, CT angiogram of the brain and the neck were performed in the emergency department and were negative. Laboratory studies showed no leukocytosis or anemia. Coagulation studies were normal. Opponent was slightly elevated at 22.8. BUN was elevated at 26. Creatinine was 1.38. Glucose was 247. I discussed the case with the [facility] team. As they were evaluating the patient, her neurological symptoms began to return and they initiated a stroke alert. Care/management discussed with: resort manager and [facility] Triage Nursing notes: reviewed and agree with them. Vital Signs: reviewed and remarkable for no significant abnormalities Chronic Medical/Social Conditions affecting care: History of A-fib on Eliquis Prior/ Outside/ External records reviewed: I reviewed the most recent admission to the hospital where the patient had GI bleeding and received 2 units of packed red blood cells Differential Diagnosis: CVA, intracranial hemorrhage, TIA, UTI Diagnostics, independently interpreted by me: ECG: A-fib with RVR at a rate of 104. there is no ST segment elevation or signs of ischemia Cardiac Monitoring: A-fib at a rate at a rate of 106 Imaging studies: CT scan of the brain: As per [facility]mb[facility] CTA of the brain: As per [facility] CTA of the neck: As per Imbro HPI: 89 year old Female arrives for evaluation of strokelike symptoms. Patient fell asleep watching TV. She woke up to go to the bathroom and noted that she was having difficulty moving her right hand and walking on her right lower extremity. She attempted to call her daughter who lives locally could not speak into the phone that she could not formulate words. She tried to call the nurses at [facility] but could not find the phone number but was able to make contact with 911. PAST MEDICAL HISTORY: See Below, PAST SURGICAL HISTORY: See Below, SOCIAL HISTORY: See Below, HOME MEDICATIONS: See list ALLERGIES: See list VITALS: See Below PHYSICAL EXAMINATION: HEENT: Head - normocephalic and atraumatic. Pupils are equal, round, and reactive to light. Extraocular eye muscles are intact and sclera are anicteric. Nose - moist nasal mucosa without discharge. Mouth - moist buccal mucosa. Oropharynx is nonerythematous and there is no tonsillar exudate or edema noted. Neck: Supple; no JVD, nuchal rigidity, cervical lymphadenopathy, or auscultated bruits. Heart: Regular rate and rhythm. There is a normal S1 and S2 with no murmurs, clicks, or gallops appreciated. Lungs: Clear to auscultation bilaterally with no wheezes, rales, or rhonchi. Abdomen: Soft, completely nontender, nondistended, with good bowel sounds. There are no palpable pulsatile masses or hepatosplenomegaly. There is no guarding, rigidity, or rebound noted. Extremities: No evidence of cyanosis, clubbing, or edema. There are easily palpable peripheral pulses. Neuro:The patient is awake and alert, oriented to day, time, and place. Muscle strength is 5/5 in all 4 extremities. The patient has equal virtual classroom manager strength and equal pedal push and pull. There are no cerebellar signs. Emergency Department course: The patient was evaluated in room B-4. A complete history and physical was performed. An order was placed for continuous cardiac monitoring. The patient was in atrial fibrillation with a rapid ventricular response at a rate of 104. A twelve-lead EKG was obtained as described above. Patient went emergently for CT scan of the brain, CT angiogram of the brain and neck. Laboratory studies were drawn as above. Patient's blood pressure remains slightly elevated. It was unclear whether or not the patient was receiving her Eliquis after discharge from the hospital recently. I discussed the case with the [facility] Hospitalist for admission. Upon their evaluation of the patient, her neurological deficits returned. Past Med/Surg History Problem List (Updated 05/25/24 @ 21:10 by Janis Quijano DO) TIA (transient ischemic attack) (Acute) T2DM (type 2 diabetes mellitus) Atrial fibrillation Fall Stroke-like symptoms Elevated C-reactive protein (CRP) Status post colonoscopy with polypectomy Lower GI bleed Moderate mitral regurgitation Moderate tricuspid regurgitation Permanent atrial fibrillation Mitral insufficiency Moderate pulmonary hypertension GIB (gastrointestinal bleeding) (Acute) Symptomatic anemia Upper GI bleed Idiopathic polyneuropathy Tremor Generalized weakness PMR (polymyalgia rheumatica) UTI (urinary tract infection) Orthostatic hypotension DVT prophylaxis Hyponatremia Sciatica Lyme disease Chronic pancreatitis Elevated troponin Encephalopathy Chronic kidney disease, stage 3 (Chronic) Hypertension (Chronic) Vitamin D deficiency (Chronic) Controlled type 2 diabetes mellitus with kidney complication, with long-term current use of insulin Dyslipidemia REYES (nonalcoholic steatohepatitis) Right knee DJD Chronic anticoagulation (Acute) 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; cerebral non-ruptured MRI at [facility] 09/27 Medical History (Updated 05/25/24 @ 21:10 by Janis Quijano DO) TIA (transient ischemic attack) (2021) 2021, no residual Peripheral vascular disease Former smoker History of encephalopathy -2021 [place] GERD (gastroesophageal reflux disease) History of polyneuropathy History of Lyme disease History of orthostatic hypotension no recent issues since med adjustment per nurse Discharge planning issues Dysmetabolic syndrome X History of rosacea History of rheumatic fever History of nummular eczema History of diabetes mellitus History of basal cell carcinoma History of actinic keratosis History of colon cancer Surgical History (Updated 05/12/24 @ 14:23 by Tyler Cherry DO) History of colonoscopy History of tonsillectomy History of partial colectomy Hx of cholecystectomy Hx of appendectomy Family History Unknown Family history of thromboembolic disease Social History Smoking Status: Former smoker Tobacco Type: Cigarettes Cigarettes Per Day: Smoked Socially In The Past; Second Hand Exposure: No; Do You Dip or Chew Tobacco: No; Tobacco Cessation Education Requested by Patient: No Hx Alcohol Use: Yes Alcohol type: beer and wine Hx Substance Use: No Preferred Language: Pashto Communication Ability: Effective Communication Ability Comment: hx of dementia at baseline--worse w/ uti Visual Impairment: Diminished Operations Analyst Required: No Beliefs That Will Affect Care: None marital status: / Current Living Situation: Alone Current Living Situation Comment: [place] current occupational status: retired Other Information That Helps Us Care for You: No Feels Safe at Home: Yes Safety Concerns: Feels Safe At This Time Assistive Devices: Cane, Scooter/Electric Scooter and Walker Allergies Allergies Allergy/AdvReac Type Severity Reaction Status Date / Time Sulfa (Sulfonamide AdvReac Unknown Nausea Verified 09/12/23 11:36 Antibiotics) covid vaccine Allergy Unknown "out of it" Uncoded 09/12/23 11:36 Home Meds Home Medications Medication Instructions Recorded Confirmed cholecalciferol (vitamin D3) 50 5,000 unit PO QAM 01/03/18 05/25/24 mcg (2,000 unit) capsule (Vitamin D3) vitamins A,C,O-lvmi-cowquc 4,296 1 cap PO BID 11/24/20 05/25/24 mcg-226 mg-90 mg capsule (PreserVision AREDS) acetaminophen 500 mg tablet 1,000 mg PO BID PRN pain 08/22/21 05/25/24 digoxin 250 mcg (0.25 mg) tablet 125 mcg PO QAM 09/07/21 05/25/24 latanoprost 0.005 % eye drops 1 drp ophthalmic (eye) UD 03/14/22 05/25/24 clonidine HCl 0.1 mg 0.1 mg PO Q8H PRN Blood Pressure 04/06/22 05/25/24 tablet,extended release,12 hr glucagon 1 mg solution for 1 mg subcut ONCE PRN Hypoglycemia 06/25/22 05/25/24 injection (Glucagon Emergency Kit) aspirin 81 mg capsule 81 mg PO UD 12/05/22 05/25/24 cyanocobalamin (vitamin B-12) 1,000 mcg PO UD 12/05/22 05/25/24 1,000 mcg capsule famotidine 20 mg tablet 20 mg PO QAM 12/05/22 05/25/24 ferrous sulfate 325 mg (65 mg 325 mg PO QAM 12/05/22 05/25/24 iron) tablet metoprolol tartrate 25 mg tablet 25 mg PO BID 09/12/23 05/25/24 prednisone 1 mg tablet 4 mg PO UD 09/12/23 05/25/24 insulin lispro 100 unit/mL 28 unit subcut UD 01/23/24 05/25/24 subcutaneous pen insulin glargine 100 unit/mL (3 36 unit subcut BID 05/08/24 05/25/24 mL) subcutaneous pen (Lantus Solostar U-100 Insulin) rosuvastatin 10 mg tablet 10 mg PO HS 05/08/24 05/25/24 Previous Rx's Medication Instructions Recorded diltiazem HCl 240 mg 240 mg PO QAM #30 caps 12/23/21 capsule,extended release 24 hr blood-glucose sensor (FreeStyle #2 ea 07/11/22 Roman 3 Sensor device) insulin syringe-needle U-100 0.3 #200 ea 12/20/22 mL 30 gauge x 1/2" (BD Insulin Syringe Ultra-Fine) pen needle, diabetic, safety 30 #500 ea 07/02/23 gauge x 1/3" (Novofine Autocover) apixaban 2.5 mg tablet (Eliquis) 2.5 mg PO BID #180 tabs 09/12/23 Results & Data (ED) Vital Signs Vital Signs - 24 hr 05/25/24 01:25 05/25/24 01:32 05/25/24 01:41 Temperature 36.6 C Temperature Source Oral Pulse Rate 112 H 106 H Pulse Rate [Apical] Pulse Rate from SpO2 Sensor Pulse Rhythm [Apical] Pulse Strength [Apical] Respiratory Rate 18 Respiratory Effort / Characteristics Respiratory Depth Respiratory Pattern Blood Pressure 214/152 H Blood Pressure [Right Arm] Blood Pressure Mean 172 Blood Pressure Mean [Right Arm] Blood Pressure Position Lying Blood Pressure Position [Right Arm] Pulse Oximetry 99 99 Oxygen Delivery Method Room Air Room Air Sepsis Recent Fever Within 48 Hours No Sepsis New/Unexplained Change in Mental Status N/A Sepsis Action Taken by Nursing No Action Required 05/25/24 02:16 05/25/24 02:57 05/25/24 03:30 Temperature Temperature Source Pulse Rate 103 H 98 H 114 H Pulse Rate [Apical] Pulse Rate from SpO2 Sensor 83 Pulse Rhythm [Apical] Pulse Strength [Apical] Respiratory Rate 18 18 15 Respiratory Effort / Characteristics Respiratory Depth Respiratory Pattern Blood Pressure 192/105 H 202/109 H Blood Pressure [Right Arm] Blood Pressure Mean 134 140 Blood Pressure Mean [Right Arm] Blood Pressure Position Blood Pressure Position [Right Arm] Pulse Oximetry 98 98 95 Oxygen Delivery Method Sepsis Recent Fever Within 48 Hours Sepsis New/Unexplained Change in Mental Status Sepsis Action Taken by Nursing 05/25/24 03:31 05/25/24 03:42 05/25/24 03:48 Temperature Temperature Source Pulse Rate 112 H 108 H Pulse Rate [Apical] Pulse Rate from SpO2 Sensor 94 H 106 H Pulse Rhythm [Apical] Pulse Strength [Apical] Respiratory Rate 20 19 Respiratory Effort / Characteristics Respiratory Depth Respiratory Pattern Blood Pressure 219/121 H Blood Pressure [Right Arm] Blood Pressure Mean 153 Blood Pressure Mean [Right Arm] Blood Pressure Position Blood Pressure Position [Right Arm] Pulse Oximetry 98 99 Oxygen Delivery Method Sepsis Recent Fever Within 48 Hours Sepsis New/Unexplained Change in Mental Status Sepsis Action Taken by Nursing 05/25/24 04:00 05/25/24 04:03 05/25/24 04:04 Temperature Temperature Source Pulse Rate 104 H Pulse Rate [Apical] Pulse Rate from SpO2 Sensor 104 H Pulse Rhythm [Apical] Pulse Strength [Apical] Respiratory Rate 19 Respiratory Effort / Characteristics Respiratory Depth Respiratory Pattern Blood Pressure 129/92 189/117 H Blood Pressure [Right Arm] Blood Pressure Mean 119 135 Blood Pressure Mean [Right Arm] Blood Pressure Position Blood Pressure Position [Right Arm] Pulse Oximetry 98 Oxygen Delivery Method Sepsis Recent Fever Within 48 Hours Sepsis New/Unexplained Change in Mental Status Sepsis Action Taken by Nursing 05/25/24 04:04 05/25/24 04:18 05/25/24 04:21 Temperature Temperature Source Pulse Rate 115 H Pulse Rate [Apical] Pulse Rate from SpO2 Sensor Pulse Rhythm [Apical] Pulse Strength [Apical] Respiratory Rate 19 Respiratory Effort / Characteristics Respiratory Depth Respiratory Pattern Blood Pressure 189/117 H 210/104 H Blood Pressure [Right Arm] Blood Pressure Mean 135 176 Blood Pressure Mean [Right Arm] Blood Pressure Position Blood Pressure Position [Right Arm] Pulse Oximetry Oxygen Delivery Method Sepsis Recent Fever Within 48 Hours Sepsis New/Unexplained Change in Mental Status Sepsis Action Taken by Nursing 05/25/24 04:21 05/25/24 04:21 05/25/24 04:21 Temperature Temperature Source Pulse Rate 103 H Pulse Rate [Apical] Pulse Rate from SpO2 Sensor Pulse Rhythm [Apical] Pulse Strength [Apical] Respiratory Rate 17 Respiratory Effort / Characteristics Respiratory Depth Respiratory Pattern Blood Pressure 210/104 H 210/104 H Blood Pressure [Right Arm] Blood Pressure Mean 176 176 Blood Pressure Mean [Right Arm] Blood Pressure Position Blood Pressure Position [Right Arm] Pulse Oximetry Oxygen Delivery Method Sepsis Recent Fever Within 48 Hours Sepsis New/Unexplained Change in Mental Status Sepsis Action Taken by Nursing 05/25/24 04:30 05/25/24 04:30 05/25/24 04:30 Temperature Temperature Source Pulse Rate 110 H Pulse Rate [Apical] Pulse Rate from SpO2 Sensor 89 Pulse Rhythm [Apical] Pulse Strength [Apical] Respiratory Rate 20 Respiratory Effort / Characteristics Respiratory Depth Respiratory Pattern Blood Pressure 229/101 H 229/101 H Blood Pressure [Right Arm] Blood Pressure Mean 149 149 Blood Pressure Mean [Right Arm] Blood Pressure Position Blood Pressure Position [Right Arm] Pulse Oximetry 98 Oxygen Delivery Method Sepsis Recent Fever Within 48 Hours Sepsis New/Unexplained Change in Mental Status Sepsis Action Taken by Nursing 05/25/24 04:45 05/25/24 04:51 05/25/24 04:54 Temperature Temperature Source Pulse Rate 119 H 96 H 100 H Pulse Rate [Apical] Pulse Rate from SpO2 Sensor 111 H 99 H 95 H Pulse Rhythm [Apical] Pulse Strength [Apical] Respiratory Rate 16 20 15 Respiratory Effort / Characteristics Respiratory Depth Respiratory Pattern Blood Pressure Blood Pressure [Right Arm] Blood Pressure Mean Blood Pressure Mean [Right Arm] Blood Pressure Position Blood Pressure Position [Right Arm] Pulse Oximetry 98 99 99 Oxygen Delivery Method Sepsis Recent Fever Within 48 Hours Sepsis New/Unexplained Change in Mental Status Sepsis Action Taken by Nursing 05/25/24 05:00 05/25/24 05:00 05/25/24 05:00 Temperature Temperature Source Pulse Rate Pulse Rate [Apical] 100 H Pulse Rate from SpO2 Sensor Pulse Rhythm [Apical] Regular Pulse Strength [Apical] Normal Respiratory Rate 18 Respiratory Effort / Characteristics Non-Labored Spontaneous Respiratory Depth Normal Respiratory Pattern Regular Blood Pressure 204/97 H 204/97 H Blood Pressure [Right Arm] 204/97 H Blood Pressure Mean 164 164 Blood Pressure Mean [Right Arm] 132 Blood Pressure Position Blood Pressure Position [Right Arm] Semi-fowlers Pulse Oximetry 96 Oxygen Delivery Method Room Air Sepsis Recent Fever Within 48 Hours Sepsis New/Unexplained Change in Mental Status Sepsis Action Taken by Nursing 05/25/24 05:03 05/25/24 05:12 Temperature Temperature Source Pulse Rate 98 H 97 H Pulse Rate [Apical] Pulse Rate from SpO2 Sensor 108 H 106 H Pulse Rhythm [Apical] Pulse Strength [Apical] Respiratory Rate 16 21 Respiratory Effort / Characteristics Respiratory Depth Respiratory Pattern Blood Pressure Blood Pressure [Right Arm] Blood Pressure Mean Blood Pressure Mean [Right Arm] Blood Pressure Position Blood Pressure Position [Right Arm] Pulse Oximetry 99 99 Oxygen Delivery Method Sepsis Recent Fever Within 48 Hours Sepsis New/Unexplained Change in Mental Status Sepsis Action Taken by Nursing Laboratory Data 05/25/24 01:30 05/25/24 01:30 Lab Results 05/25/24 05/25/24 05/25/24 Range/Units 01:30 01:41 01:43 WBC 7.53 (4.8-10.8) K/ul RBC 3.64 L (4.20-5.40) M/uL Hgb 12.0 (12.0-16.0) g/dl POC Hgb 12.2 (12.0-16.0) g/dl Hct 35.9 L (37.0-47.0) % POC Hct 36 L (37-47) % MCV 98.6 (80.0-100.0) fL MCH 33.0 (25.0-34.0) pg MCHC 33.4 (32.0-36.0) g/dL RDW Std Deviation 54.1 H (36.4-46.3) fL RDW Coeff of Rosie 14.7 H (11.5-14.5) % Plt Count 311 (130-400) K/uL MPV 9.9 (9.4-12.4) fL Immature Gran % (Auto) 0.4 % Neut % (Auto) 66.5 % Lymph % (Auto) 18.9 % [place] % (Auto) 10.8 % Eos % (Auto) 2.9 % Baso % (Auto) 0.5 % Neut # (Auto) 5.01 (1.40-6.50) K/uL Lymph # (Auto) 1.42 (1.20-3.40) K/uL [place] # (Auto) 0.81 H (0.11-0.59) K/uL Eos # (Auto) 0.22 (0.00-0.50) K/uL Baso # (Auto) 0.04 (0.00-0.20) K/uL Immature Gran # (Auto) 0.03 (0.01-0.20) K/uL PT 10.7 (9.0-12.0) Seconds INR 1.0 (0.9-1.1) APTT 25 (21-31) Seconds PTT Ratio 0.9 Heparin Anti-Xa, Unfract 0.45 (0.3-0.7) IU/ml POC Sodium 138 (135-144) mmol/L Sodium 137 (136-145) mmol/L POC Potassium 4.0 (3.3-5.0) mmol/L Potassium 4.0 (3.5-5.1) mmol/L POC Chloride 106 (101-112) mmol/L Chloride 104 (98-107) mmol/L Carbon Dioxide 24 (21-32) mmol/L POC Total CO2 23 L (24-31) mmol/L Anion Gap 9 (3-11) POC Anion Gap 14.0 L (16-25) mmol/L POC BUN 24 H (7-18) mg/dl BUN 26 H (6-23) mg/dl Creatinine 1.38 H (0.6-1.2) mg/dl POC Creatinine 1.4 H (0.6-1.3) mg/dl Est Cr Clr Drug Dosing 29.0 ml/min eGFR 37.05 BUN/Creatinine Ratio 18.8 (10-20) Glucose 247 H (70-99(Fasting)) mg/dl POC Glucose (other) 247 H (70-99) mg/dl Calcium 9.8 (8.6-10.3) mg/dl POC Ioniz Calcium Arely 1.19 (1.12-1.32) mmol/l Magnesium 1.9 (1.7-2.4) mg/dl Total Bilirubin 0.5 (0.2-1.0) mg/dl AST 24 (13-39) U/L ALT 31 (7-52) U/L Alkaline Phosphatase 49 (34-104) U/L Total Creatine Kinase 35 (26-192) U/L Troponin I High Sens 22.8 H (0-14) pg/ml Total Protein 7.4 (6.0-8.3) gm/dl Albumin 4.0 (3.4-5.0) gm/dl Globulin 3.4 (2.5-4.0) gm/dl Albumin/Globulin Ratio 1.2 (0.9-2) Urine Color Urine Appearance (Clear) Urine pH (4.5-7.5) Ur Specific [place] (1.000-1.030) Urine Protein (Negative) Urine Glucose (UA) (Negative) Urine Ketones (Negative) Urine Blood (Negative) Urine Nitrite (Negative) Urine Bilirubin (Negative) Urine Urobilinogen (Negative) Ur Leukocyte Esterase (Negative) Urine WBC (Auto) (0-5) /hpf Urine RBC (Auto) (0-2) /hpf U Hyaline Cast (Auto) (0-2) /lpf U Epithel Cells (Auto) (0-2) /hpf Urine Bacteria (Auto) (None Seen) Blood Type A Positive Antibody Screen NEGATIVE 05/25/24 05/25/24 Range/Units 02:52 03:26 WBC (4.8-10.8) K/ul RBC (4.20-5.40) M/uL Hgb (12.0-16.0) g/dl POC Hgb (12.0-16.0) g/dl Hct (37.0-47.0) % POC Hct (37-47) % MCV (80.0-100.0) fL MCH (25.0-34.0) pg MCHC (32.0-36.0) g/dL RDW Std Deviation (36.4-46.3) fL RDW Coeff of Rosie (11.5-14.5) % Plt Count (130-400) K/uL MPV (9.4-12.4) fL Immature Gran % (Auto) % Neut % (Auto) % Lymph % (Auto) % [place] % (Auto) % Eos % (Auto) % Baso % (Auto) % Neut # (Auto) (1.40-6.50) K/uL Lymph # (Auto) (1.20-3.40) K/uL [place] # (Auto) (0.11-0.59) K/uL Eos # (Auto) (0.00-0.50) K/uL Baso # (Auto) (0.00-0.20) K/uL Immature Gran # (Auto) (0.01-0.20) K/uL PT (9.0-12.0) Seconds INR (0.9-1.1) APTT (21-31) Seconds PTT Ratio Heparin Anti-Xa, Unfract (0.3-0.7) IU/ml POC Sodium (135-144) mmol/L Sodium (136-145) mmol/L POC Potassium (3.3-5.0) mmol/L Potassium (3.5-5.1) mmol/L POC Chloride (101-112) mmol/L Chloride (98-107) mmol/L Carbon Dioxide (21-32) mmol/L POC Total CO2 (24-31) mmol/L Anion Gap (3-11) POC Anion Gap (16-25) mmol/L POC BUN (7-18) mg/dl BUN (6-23) mg/dl Creatinine (0.6-1.2) mg/dl POC Creatinine (0.6-1.3) mg/dl Est Cr Clr Drug Dosing ml/min eGFR BUN/Creatinine Ratio (10-20) Glucose (70-99(Fasting)) mg/dl POC Glucose (other) (70-99) mg/dl Calcium (8.6-10.3) mg/dl POC Ioniz Calcium Arely (1.12-1.32) mmol/l Magnesium (1.7-2.4) mg/dl Total Bilirubin (0.2-1.0) mg/dl AST (13-39) U/L ALT (7-52) U/L Alkaline Phosphatase (34-104) U/L Total Creatine Kinase (26-192) U/L Troponin I High Sens 26.5 H (0-14) pg/ml Total Protein (6.0-8.3) gm/dl Albumin (3.4-5.0) gm/dl Globulin (2.5-4.0) gm/dl Albumin/Globulin Ratio (0.9-2) Urine Color Yellow Urine Appearance Clear (Clear) Urine pH 6.0 (4.5-7.5) Ur Specific [place] 1.026 (1.000-1.030) Urine Protein 2+ H (Negative) Urine Glucose (UA) 3+ H (Negative) Urine Ketones Trace H (Negative) Urine Blood Trace H (Negative) Urine Nitrite Negative (Negative) Urine Bilirubin Negative (Negative) Urine Urobilinogen Negative (Negative) Ur Leukocyte Esterase Negative (Negative) Urine WBC (Auto) 0-5 (0-5) /hpf Urine RBC (Auto) 3-5 H (0-2) /hpf U Hyaline Cast (Auto) 0-2 (0-2) /lpf U Epithel Cells (Auto) 6-10 H (0-2) /hpf Urine Bacteria (Auto) 1+ H (None Seen) Blood Type Antibody Screen Administered Medications Apixaban (Apixaban 5 Mg Tablet) 5 mg PO BID [facility] Stop: 06/24/24 10:29 Last Admin: 05/25/24 19:58 Dose: 5 mg Documented By: Admin: 05/25/24 11:16 Dose: 5 mg Documented By: FRANCESCO Digoxin (Digoxin 0.125 Mg Tab) 0.125 mg PO DAILY@1600 [facility] Stop: 06/24/24 15:59 Last Admin: 05/25/24 17:27 Dose: 0.125 mg Documented By: CHERELLE Famotidine (Famotidine 20 Mg Tab) 20 mg PO [facility] Stop: 06/24/24 09:59 Last Admin: 05/25/24 11:16 Dose: 20 mg Documented By: FRANCESCO Ferrous Sulfate (Ferrous Sulfate 325 Mg Tab) [facility] [facility] [place] Stop: 06/24/24 09:59 Last Admin: 05/25/24 11:16 Dose: 325 mg Documented By: FRANCESCO Insulin Aspart (Insulin Aspart Per Unit Charge) 0 units SC ACHS [facility] Stop: 06/24/24 10:14 Last Admin: 05/25/24 17:39 Dose: 6 units Documented By: CHERELLE Co-signed By: ALEK Admin: 05/25/24 14:29 Dose: 6 units Documented By: FRANCESCO Co-signed By: MAINOR Admin: 05/25/24 11:16 Dose: 3 units Documented By: FRANCESCO Co-signed By: MARIO Insulin Glargine (Lantus Per Unit Charge) 25 units SQ BID [facility] Stop: 06/24/24 09:59 Last Admin: 05/25/24 11:16 Dose: 25 units Documented By: FRANCESCO Co-signed By: SHUBHAM Rosuvastatin Calcium (Rosuvastatin Calcium 10 Mg Tab) 10 mg PO HS AAYUSH Stop: 06/24/24 20:59 Last Admin: 05/25/24 19:58 Dose: 10 mg Documented By: SKS Discontinued Medications Pantoprazole Sodium (Protonix) 40 mg in 10 mls @ 5 mls/min IV NOW ONE Stop: 05/25/24 05:06 Last Admin: 05/25/24 05:35 Dose: 5 mls/min Documented By: TRACI Ioversol (Optiray 320 125ml) 125 ml IV ONCE ONE Stop: 05/25/24 02:14 Last Admin: 05/25/24 02:13 Dose: 118 ml Documented By: KAVON Labetalol HCl (Labetalol Hcl Iv 5 Mg/Ml 20ml) 10 mg IV NOW STA Stop: 05/25/24 05:02 Last Admin: 05/25/24 05:35 Dose: 10 mg Documented By: TRACI Metoprolol Tartrate (Metoprolol Tartrate 1 Mg/Ml Vial) 2.5 mg IV NOW STA Stop: 05/25/24 18:43 Last Admin: 05/25/24 18:51 Dose: 2.5 mg Documented By: RJMary Discharge Plan Visit Data Chief Complaint: Neuro Symptoms/Deficit Stated Complaint: LOSS OF SENSATION TO R, RESOLVED NOW ED Provider: Janis Quijano Discharge Problem: TIA (transient ischemic attack) Patient Disposition: Admitted As Inpatient Discharge Instructions Interventions: ED Discharge Assessment Last Done: 05/25/24 09:53
[2024-05-25 02:07] LABS: Partial Thromboplastin Ratio 0.9; Partial Thromboplastin Time 25 Seconds (21-31); Prothrombin Time 10.7 Seconds (9.0-12.0)
[2024-05-25] MEDS: OPTIRAY 320 125ml IV ONE (02:13)
[2024-05-25 02:15] LABS: Albumin Globulin Ratio 1.2 (0.9-2); BUN Creatinine Ratio 18.8 (10-20); Bilirubin,Total 0.5 mg/dl (0.2-1.0); Calcium 9.8 mg/dl (8.6-10.3); Globulin 3.4 gm/dl (2.5-4.0); Magnesium 1.9 mg/dl (1.7-2.4); Total Protein 7.4 gm/dl (6.0-8.3)
[2024-05-25 02:22] LABS: Troponin I High Sensitivity 22.8 pg/ml (0-14)
--- NOTE | 2024-05-25 02:45 | CT Scan Report ---
EXAM: CT angio neck with con CLINICAL HISTORY: neuro deficit, acute stroke suspected TECHNIQUE: Contrast enhanced thin slice CT angiography scan of the carotid vessels was performed with intravenous contrast. Angiographic images were processed, 3D MIP images were acquired for interpretation.Contiguous axial images were obtained. Reformatted coronal and sagittal images were also reviewed. If IV contrast material had not been administered, the likelihood of detecting abnormalities relevant to the patients condition would have been substantially decreased. CT scan was performed according to ALARA (as low as reasonable achievable). COMPARISON: 23 October 2021 FINDINGS: Atherosclerotic calcifications are noted involving bilateral carotid bulb causes 15%-20% luminal narrowing on right side and 25%-30% luminal narrowing on left side. Included great vessels of the aortic arch are grossly unremarkable. Common carotid artery, internal carotid artery , and origin of the external carotid artery are well opacified. Vertebral arteries are well opacified. Jugular veins are well opacified. Included lung apices are grossly unremarkable. Thyroid gland appears unremarkable. IMPRESSION: 1. Atherosclerotic calcifications are noted involving bilateral carotid bulb causes 15%-20% luminal narrowing on right side and 25%-30% luminal narrowing on left side. -stable.No evidence of aneurysm. No evidence of dissection. 2. No other new interval abnormality since prior study. Electronically signed by Johny Romero 05-25-2024 02:44 AM
--- NOTE | 2024-05-25 02:45 | CT Scan Report ---
EXAM: CT angio head w con CLINICAL HISTORY: neuro deficit, acute stroke suspected TECHNIQUE: Contrast enhanced thin slice CT angiography scan of the cerebral vessels was performed with intravenous contrast. Angiographic images were processed, 3D MIP images were acquired for interpretation. Contiguous axial images were obtained. Reformatted coronal and sagittal images were also reviewed. If IV contrast material had not been administered, the likelihood of detecting abnormalities relevant to the patients condition would have been substantially decreased. CT scan was performed according to ALARA (as low as reasonable achievable). COMPARISON: 25 may 2022. FINDINGS: Atherosclerotic calcifications are noted involving cavernous, clinoid and supraclinoid segment of bilateral internal carotid arteries. Bilateral internal carotid arteries show normal course, calibre and opacification in the canalicular and cavernous part. Their division into the anterior cerebral artery and middle cerebral artery is defined. A1, A2 and M1, M2 segments are normal on both the sides. Bilateral vertebral arteries are seen to unite the form the basilar artery in a normal fashion. Basilar artery shows normal course, caliber and opacification. Its division into the posterior cerebral arteries is defined. Bilateral P1 and P2 segments are normal. Visualized venous structures show normal opacification. No evidence of intracranial aneurysm or AV malformation is seen. IMPRESSION: 1. Atherosclerotic calcifications are noted involving cavernous, clinoid and supraclinoid segment of bilateral internal carotid arteries. 2. No evidence of stenosis or aneurysm. No evidence of dissection. 3. No other new interval abnormality since prior study. Electronically signed by Johny Romero 05-25-2024 02:44 AM
--- NOTE | 2024-05-25 03:36 | CT Scan Report ---
EXAM: CT head/brain wo con CLINICAL HISTORY: Neuro deficit, acute stroke suspected TECHNIQUE: Axial non-contrast CT scan of the brain was performed from the skull base to the high parietal region. One of the following dose reduction techniques were utilized for this exam: Automated exposure control, adjustment of the mA and/or kV according to patient size, use of iterative reconstruction. Total DLP: 1023 mGy-cm. COMPARISON: 05/25/2022. FINDINGS: Brain Parenchyma: No evidence of acute infarct, hemorrhage, or mass effect. Bilateral periventricular hypodensity. Stable hypodense area in the right occipital lobe. Ventricular System: Ventricles are prominent. No evidence of hydrocephalus or ventricular enlargement. Subarachnoid Spaces: widened sulci and cisterns. No evidence of subarachnoid hemorrhage or extra-axial fluid collections. Cerebellum and Brainstem: Normal size and signal. No masses, lesions, or areas of abnormal signal. Orbits: Normal appearance of the globes, optic nerves, and extraocular muscles. No evidence of orbital masses or abnormal signal. Sinuses: Clear paranasal sinuses. o evidence of sinusitis or mucosal thickening. Mastoid Air Cells: Clear mastoid air cells. No evidence of mastoiditis. Skull: Normal skull morphology. IMPRESSION: 1. For acute brain insult. MRI with DWI/ADC is advised. 2. Bilateral periventricular hypodensities in keeping with small vessel disease. Stable. 3. Hypodense area in the right occipital lobe. Stable. 4. Age-matched involutional brain changes. Stable. 5. Recommend clinical correlation and further MR if clinically warranted. Electronically signed by Charisse Higgins 05-25-2024 03:36 AM
--- NOTE | 2024-05-25 04:18 | History & Physical Report ---
Date of Service May 25, 2024 Assessment & Plan (1) Stroke-like symptoms: (2) Fall: (3) Lower GI bleed: (4) Atrial fibrillation: (5) T2DM (type 2 diabetes mellitus): Plan Patient is a 89 y/o female with a PMHx of recent GI bleed, a fib on Eliquis, CKD3, T2DM insulin dependent, pulmonary HTN, PMR. She was recently admitted from 05/08-05/15 for a GI bleed and had an EGD 05/11 with multiple gastric polyp biopsies and a colonoscopy 05/12 ileocecal biopsies. She presented to the ED today due to stroke like symptoms. #stroke like symptoms CT head Hypodense area of right occipital lobe Head/Neck CTA essentially negative - 15-20% luminal narrowing right side, 25-30% left side echo 05/10/24 showed moderate pulm htn, mitral regurg, tricuspid regurg - defer repeat echo recent GI interventions as above; not candidate for TNK resumed Eliquis 2.5mg BID 05/18; continue Eliquis - [id number] 0.45 recent a1c 7.2 on 05/09/24 on rosuvastatin 10mg , continue; lipid panel with AM labs TSH and UA ordered Allow for permissive hypertension with goal parameters 220/110 until MRI resulted - no acute changes seen, decrease systolic <180 - IV labetalol 10 Mg IV ordered on admission with BP of 229/101 and HR of 115 - IV labetalol 5 Mg IV as needed Telemetry monitoring Q4H neuro checks MRI ordered Hypercoagulable workup ordered speech to eval as per stroke workup neurology consulted would appreciate recs on continuing anticoagulation Patient has been holding baby aspirin with recent GI bleed Differential includes but not limited to TIA, CVA, polycythemia (received 2 units of blood recent admission - hgb 9.9 ->12.0) #Fall / strokelike symptoms above CK negative not complaining of any pain PT/OT ordered #recent GI bleed Hospitalization 05/08 to 05/15 with EGD / with multiple gastric biopsies and colonoscopy 05/12 with ileocecal biopsies Eliquis was held until 05/18 in which box no records note patient resumed; patient unable to confirm Melena improved but still present Received 2 PRBC hgb improved 9.9 ->12.0; now concern for polycythemia, hypercoagulable workup ordered patient with nausea/reflux symptomsIV Protonix ordered continue famotidine and iron supplement #A-fib In A-fib with RVR on admission, rate 104 continue digoxin Holding metoprolol and diltizem with permissive htn above; IV labetalol as needed Continue Eliquis #T2DM Insulin controlled Avoid hypoglycemia with stroke workup above Reduce glargine from 36U to 25U twice daily SSI #elevated Trop Chronically elevated, reduced from baseline 22.8->26.5 Monitor on telemetry Trend Trop Chronic stable diagnoses: PMRcontinue prednisone HLDcontinue statin VTE ppx: Eliquis Diet: t2dm Dispo: pcu Patient's daughter needs updated. Admission in middle of night - call during daylight hours. Admission and Anticipated Discharge Date Admission Date: 05/25/24 History of Present Illness Chief Complaint: stroke sx Primary Care Provider: Rmairo Lyn MD Patient is a 89 y/o female with a PMHx of recent GI bleed, a fib on Eliquis, CKD3, T2DM insulin dependent, pulmonary HTN, PMR. She was recently admitted from 05/08-05/15 for a GI bleed and had an EGD 05/11 with multiple gastric polyp biopsies and a colonoscopy 05/12 ileocecal biopsies. She presented to the ED today due to stroke like symptoms. Hand off from ED stated that patient fell asleep on her couch this even and when she woke up to go back to her bed, she noticed that her right hand was numb and her right foot was dragging. She fell going back to the bedroom and laid on the ground for approximately 1 hr. She tried to call her daughter and left a voicemail, which is when the patient noticed that she couldn't speak. The patient then crawled from her bedroom to kitchen to try to call '[facility]'. She couldn't figure out how to call them so she ended up call 911 and was unable to speak so they reportedly tracked her call and EMS found her. She was started to return to baseline at this point. Patient stated this began somewhere around 11pm. She was holding her Eliquis due to recent GI bleed and is unsure of if this was restarted because they seen her medications pills packs. Her symptoms were completely resolved and she was back to baseline in ED. Patient seen at bedside. Her symptoms of right hand numbness and decreased right foot strength returned; stroke alert called at 0413. Medications records from [facility] obtained - patient resumed Eliquis 2.5 BID 05/18/24. She denies dizziness, lightheadedness, visual changes. She is endorsing nausea but denies need for nausea control. She denies chest pain or shortness of breath. 0500telestroke still not present. Patient's symptoms improving. Not TNK candidate given recent GI interventions and on Eliquis. Will cancel stroke alert and obtain MRI. Patient stated that she was at the long-term side of [facility], [place] until when she was transition back to independent living. She stated that her stool is still dark but nowhere near as dark as it was during recent admission. She does not use nicotine products or drink alcohol. She did note that yesterday she took her evening medications in the morning so she did not take any of her morning medications. She wishes to be DNR/DNI. Allergies Allergy/AdvReac Type Severity Reaction Status Date / Time Sulfa (Sulfonamide AdvReac Unknown Nausea Verified 09/12/23 11:36 Antibiotics) covid vaccine Allergy Unknown "out of it" Uncoded 09/12/23 11:36 Home Medications Medication Instructions Recorded Confirmed Type cholecalciferol (vitamin D3) 50 5,000 unit PO QAM 01/03/18 05/25/24 History mcg (2,000 unit) capsule (Vitamin D3) vitamins A,C,X-sadv-ctseue 4,296 1 cap PO BID 11/24/20 05/25/24 History mcg-226 mg-90 mg capsule (PreserVision AREDS) acetaminophen 500 mg tablet 1,000 mg PO BID PRN pain 08/22/21 05/25/24 History digoxin 250 mcg (0.25 mg) tablet 125 mcg PO QAM 09/07/21 05/25/24 History diltiazem HCl 240 mg 240 mg PO QAM #30 caps 12/23/21 05/25/24 Rx capsule,extended release 24 hr latanoprost 0.005 % eye drops 1 drp ophthalmic (eye) UD 03/14/22 05/25/24 History clonidine HCl 0.1 mg 0.1 mg PO Q8H PRN Blood Pressure 04/06/22 05/25/24 History tablet,extended release,12 hr glucagon 1 mg solution for 1 mg subcut ONCE PRN Hypoglycemia 06/25/22 05/25/24 History injection (Glucagon Emergency Kit) blood-glucose sensor (FreeStyle #2 ea 07/11/22 09/12/23 Rx Roman 3 Sensor device) cyanocobalamin (vitamin B-12) 1,000 mcg PO UD 12/05/22 05/25/24 History 1,000 mcg capsule famotidine 20 mg tablet 20 mg PO QAM 12/05/22 05/25/24 History ferrous sulfate 325 mg (65 mg 325 mg PO QAM 12/05/22 05/25/24 History iron) tablet insulin syringe-needle U-100 0.3 #200 ea 12/20/22 09/12/23 Rx mL 30 gauge x 1/2" (BD Insulin Syringe Ultra-Fine) pen needle, diabetic, safety 30 #500 ea 07/02/23 09/12/23 Rx gauge x 1/3" (Novofine Autocover) apixaban 2.5 mg tablet (Eliquis) 2.5 mg PO BID #180 tabs 09/12/23 05/25/24 Rx metoprolol tartrate 25 mg tablet 25 mg PO BID 09/12/23 05/25/24 History prednisone 1 mg tablet 4 mg PO UD 09/12/23 05/25/24 History insulin lispro 100 unit/mL 28 unit subcut UD 01/23/24 05/25/24 History subcutaneous pen insulin glargine 100 unit/mL (3 36 unit subcut BID 05/08/24 05/25/24 History mL) subcutaneous pen (Lantus Solostar U-100 Insulin) rosuvastatin 10 mg tablet 10 mg PO HS 05/08/24 05/25/24 History Past Med/Surg History Problem List (Updated 05/26/24 @ 09:40 by Rashaad Akhtar MD) Stroke TIA (transient ischemic attack) (Acute) T2DM (type 2 diabetes mellitus) Atrial fibrillation Fall Stroke-like symptoms Elevated C-reactive protein (CRP) Status post colonoscopy with polypectomy Lower GI bleed Moderate mitral regurgitation Moderate tricuspid regurgitation Permanent atrial fibrillation Mitral insufficiency Moderate pulmonary hypertension GIB (gastrointestinal bleeding) (Acute) Symptomatic anemia Upper GI bleed Idiopathic polyneuropathy Tremor Generalized weakness PMR (polymyalgia rheumatica) UTI (urinary tract infection) Orthostatic hypotension DVT prophylaxis Hyponatremia Sciatica Lyme disease Chronic pancreatitis Elevated troponin Encephalopathy Chronic kidney disease, stage 3 (Chronic) Hypertension (Chronic) Vitamin D deficiency (Chronic) Controlled type 2 diabetes mellitus with kidney complication, with long-term current use of insulin Dyslipidemia REYES (nonalcoholic steatohepatitis) Right knee DJD Chronic anticoagulation (Acute) 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; cerebral non-ruptured [place] 09/27 Medical History (Updated 05/26/24 @ 09:40 by Rashaad Akhtar MD) TIA (transient ischemic attack) (2021) 2021, no residual Peripheral vascular disease Former smoker History of encephalopathy -2021 [place] GERD (gastroesophageal reflux disease) History of polyneuropathy History of Lyme disease History of orthostatic hypotension no recent issues since med adjustment per nurse Discharge planning issues Dysmetabolic syndrome X History of rosacea History of rheumatic fever History of nummular eczema History of diabetes mellitus History of basal cell carcinoma History of actinic keratosis History of colon cancer Surgical History (Updated 05/12/24 @ 14:23 by Tyler Cherry DO) History of colonoscopy History of tonsillectomy History of partial colectomy Hx of cholecystectomy Hx of appendectomy Family History Unknown Family history of thromboembolic disease Social History Smoking Status: Former smoker Tobacco Type: Cigarettes Cigarettes Per Day: Smoked Socially In The Past; Second Hand Exposure: No; Do You Dip or Chew Tobacco: No; Hx Alcohol Use: Yes Alcohol type: beer and wine Hx Substance Use: No Preferred Language: Divehi Communication Ability: Effective Communication Ability Comment: hx of dementia at baseline--worse w/ uti Visual Impairment: Diminished 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 Non-toxic appearing. HEENT- EOMI, mucous membranes moist. Hearing grossly intact. Heart-normal S1 and S2. No murmurs, rubs or gallops. Lungs-clear bilaterally, no respiratory distress, no accessory muscle use. Abdomen-normal bowel sounds and soft. No ascites noted. Non-tender. Extremities- no clubbing, cyanosis, or edema. Psychiatric-anxious affect. Musculoskeletal: BL UE strength 5/5 LEFT LE strength 5/5 right LE strength 3/5 Neurologic: PERRL, EOMI, accommodation nl, no face palsy, no dysarthria Speech / Cognition: normal speech Motor/Sensory: + abnormal movement (BL UE tremor) and + sensory deficit (right UE numbness); no pronator drift Coordination: normal [id number] test Results & Data Results & Data Vital Signs (Past 12 Hours) Vital Signs Temp Pulse Resp BP Pulse Ox O2 Del Method 05/25/24 02:57 98 H 18 202/109 H 98 05/25/24 02:16 103 H 18 192/105 H 98 05/25/24 01:41 99 Room Air 05/25/24 01:32 106 H 05/25/24 01:25 36.6 C 112 H 18 214/152 H 99 Room Air Laboratory Results Reviewed CBC, PT/INR, CMP, troponin, mag, anti 10a Diagnostic Findings reviewed head ct, neck cta, head cta Medications Administered none ECG Additional Comments: a fib rvr Code Status & VTE Plan Code Status dnr/dni VTE Prophylaxis Plan VTE Prophylaxis will be ordered: Yes Supervising Physician Co-Signing Physician Notes Attending addendum: I have physically seen this patient, have supervised the CHAD"s activities, and agree with the H&P unless as otherwise noted. Assessment and Plan: The patient is a 89-year-old female with past medical history including recent G I bleed, atrial fibrillation on Eliquis, CKD stage III, diabetes mellitus type 2 insulin-dependent, pulmonary hypertension, PMR, EGD on 05/11/2024 with biopsies of multiple gastric polyps, and colonoscopy on 06/02 with 1 bleeding ileocolic polyp that was biopsied. She did receive 2 units PRBCs, with hemoglobin 12 this evening in the ED, and has presented to the emergency department with stroke like symptoms. Patient did undergo CT head which showed chronic small vessel disease and hypodense area in the right occipital lobe, CTA neck which showed carotid bulb on the right side 15 to 20% on the left 25 to 30% narrowing, and CTA head which was negative. She was then referred for evaluation for admission to the [facility]ist service #Strokelike symptoms- Stroke without thrombolytic order set CT head showing hypodense area right occipital lobe CTA head and neck with minor narrowings as noted Echocardiogram on 05/10/2024 with moderate pulm hypertension, mitral rotation, tricuspid regurgitation Eliquis which had been temporarily discontinued with previous GI bleeding, had been resumed to 2.5 mg twice daily on 05/18, making her a poor candidate for thrombolytics Permissive hypertension as noted, with IV labetalol coverage and escalating dosages MRI brain without contrast Hypercoagulable workup ordered Consult speech/PT/OT Atrial fibrillation/hypertension- Rate 104 at admission Continuing digoxin with level pending Hold metoprolol and diltiazem to allow permissive hypertension Continuing Eliquis Diabetes mellitus-glargine adjusted from 36 to 25 units subcu twice daily Sliding scale insulin as noted Hemoglobin A1c Remaining orders and notations as noted PG Care Time/CCT Total # of Minutes Spent Total Time Spent with Patient: Total time spent is greater than 50% in coordination of care (as documented) at patient's floor/unit and/or counseling patient: Coding Level of Care Code 90281 INT INP/OBS CARE 375MIN Diagnoses Stroke-like symptoms R29.90 Fall W19.XXXA Lower GI bleed K92.2 Atrial fibrillation I48.91 T2DM (type 2 diabetes mellitus) E11.9
[2024-05-25 04:29] LABS: ANTI-Xa, UFH(UnfractionatedHep 0.45 IU/ml (0.3-0.7)
[2024-05-25 04:58] LABS: Appearance Urine Clear (Clear); Bacteria Urine Automated 1+ (None Seen); Bilirubin Urine Negative (Negative); Blood Urine Trace (Negative); Cast Urine Automated 0-2 /lpf (0-2); Color Urine Yellow; Glucose Urine UA 3+ (Negative); Ketones Urine Trace (Negative); Leukocyte Esterase Urine Negative (Negative); Nitrite Urine Negative (Negative); Protein Urine 2+ (Negative); Specific Gravity Urine 1.026 (1.000-1.030); Urobilinogen Urine Negative (Negative); WBC Urine Automated 0-5 /hpf (0-5)
[2024-05-25] MEDS: PANTOprazole 40 MG/10 ML SYR IV ONE (05:35)
[2024-05-25] MEDS: LABETALOL HCL IV 5 MG/ML 20ML IV STA (05:35)
[2024-05-25 07:08] LABS: iSTAT Creatinine 1.4 mg/dl (0.6-1.3); iSTAT Hemoglobin 12.2 g/dl (12.0-16.0); iSTAT Ionized Calcium 1.19 mmol/l (1.12-1.32)
--- NOTE | 2024-05-25 07:35 | Hospitalist Progress Note ---
Date of Service May 25, 2024 Assessment & Plan (1) Stroke-like symptoms: (2) Fall: (3) Lower GI bleed: (4) Atrial fibrillation: (5) T2DM (type 2 diabetes mellitus): Plan Patient is a 89 y/o female with a PMHx of recent GI bleed, a fib on Eliquis, CKD3, T2DM insulin dependent, pulmonary HTN, PMR. She was recently admitted from 05/08-05/15 for a GI bleed and had an EGD 05/11 with multiple gastric polyp biopsies and a colonoscopy / ileocecal biopsies. She presented to the ED today due to stroke like symptoms. 1) stroke like symptoms/ TIA CT head Hypodense area of right occipital lobe Head/Neck CTA essentially negative - 15-20% luminal narrowing right side, 25-30% left side echo 05/10/24 showed moderate pulm htn, mitral regurg, tricuspid regurg - defer repeat echo recent GI interventions as above; not candidate for TNK resumed Eliquis 2.5 mg BID 05/18; continue Eliquis but at 5 mg, PO, BID - [id number] 0.45 recent A1C, 7.2 on 05/09/24 on rosuvastatin 10mg , continue; lipid panel with AM labs TSH and UA ordered Allow for permissive hypertension with goal parameters 220/110 until MRI resulted - no acute changes seen, decrease systolic <180 - IV labetalol 10 Mg IV ordered on admission with BP of 229/101 and HR of 115 - IV labetalol 5 Mg IV as needed Telemetry monitoring, Q4H neuro checks MRI: no acute abnormality noted Hypercoagulable workup ordered, pending speech to eval as per stroke workup neurology consulted would appreciate recs on continuing anticoagulation Aspirin re-started, Patient had been holding baby aspirin with recent GI bleed, Differential includes but not limited to TIA, CVA, polycythemia (received 2 units of blood recent admission - hgb 9.9 ->12.0) 2) Fall 2/2 strokelike symptoms above CK negative not complaining of any pain PT/OT ordered 3) recent GI bleed Hospitalization 05/08 to 05/15 with EGD 2/3 with multiple gastric biopsies and colonoscopy 05/12 with ileocecal biopsies Eliquis was held until 05/18 in which box no records note patient resumed; patient unable to confirm Melena improved but still present Received 2 PRBCs units hgb improved 9.9 ->12.0; now concern for polycythemia, hypercoagulable workup ordered patient with nausea/reflux symptomsIV Protonix ordered continue famotidine and iron supplement 4) A-fib In A-fib with RVR on admission, rate 104 continue digoxin Holding metoprolol and diltiazem with permissive htn above; IV labetalol as needed Lopressor, 2.5 mg, IV, ONCE given Continue Eliquis 5) T2DM Insulin controlled Avoid hypoglycemia with stroke workup above Reduce glargine from 36U to 25U twice daily SSI 6) Elevated Trop Chronically elevated, reduced from baseline 22.8->26.5 -> 40.7 -> 33.8 Monitor on telemetry Trend Trop Chronic stable diagnoses: PMRcontinue prednisone HLDcontinue statin VTE ppx: Eliquis Diet: t2dm Dispo: pcu Patient's daughter needs updated. Admission in middle of night - call during daylight hours. Admission and Anticipated Discharge Date Admission Date: 05/25/24 Supervising Physician Co-Signing Physician Notes I personally examined the patient and verified mariee points of history and exam, discussed case, and agree with decision making and plan documented by Dr. Olivier and Kaylene Fuentes [facility]. Patient reports resolution of symptoms. Will monitor. Subjective When arriving to the hospital, she returned to baseline, and her symptoms resolved. This morning, she noticed some new numbness/decreased sensation in her right extremity. Second stroke alert called but she was not an TNK candidate given recent GI interventions and on Eliquis. Her symptoms of right hand numbness and decreased right foot strength returned. Patient stated that she was at the nursing home site until when she was transition back to independent living, she ambulates with a walker, and there are no stairs in her home. Medications records from [facility] obtained - patient resumed Eliquis 2.5 BID 05/18/24. She notes that there was a medication mix up, and she took her evening medications in the morning so she did not take any of her morning medications. Overnight she was in afib, which is consistent with her baseline. Patient has been in afib 'since as long as she can remember' As of 8:00, she is not currently experience any numbness or tingling in her right arm/leg. She is no longer nauseous and no episodes of vomiting. She did mentioned her eyes are more red than usual. Denies dryness or itchiness. She denies, headaches, confusion, memory changes, diplopia, dysphagia. Denies chest pain, lightheadedness, or dizziness, shortness or breath, or wheezing. She denies abdominal pain, GERD, and says her recent stools have been not as dark. She denies endorse some coldness in in her distal extremities, that she said has been consistent with her peripheral neuropathy from diabetes. The patient did note that she had a similar episode, with negative imaging in 1971, after the of her 4th child. She wishes to be DNR/DNI. Review of Systems Constitutional: no fatigue and no weakness Ear, Nose, Mouth, Throat: + nasal congestion Respiratory: no cough (resolved after discharged) and no dyspnea Cardiovascular: no chest pain, no palpitations and no calf pain Gastrointestinal: no abdominal pain, no nausea (mild nausea upon admission, resolved) and no vomiting Genitourinary: no dysuria, no urinary frequency and no urinary urgency Neurologic: no localized weakness (r. foot weakness resolved), no tingling (r. finger numbness resolved) and no numbness Hematologic / Lymphatic: + easy bruising (at baseline) Physical Exam Physical Exam: General: Well developed and well nourished, normocephalic and atraumatic, in no acute distress. HEENT- EOMI, mucous membranes moist. Hearing grossly intact. Heart- irregularly irregular rhythm, S1 and S2. No murmurs, rubs or gallops. Lungs-clear to auscultation bilaterally, no respiratory distress Abdomen-normal bowel sounds and soft.Non-tender in all 4 quadrants. Extremities- no clubbing, cyanosis. Peripheral edema appreciated arms and legs Psychiatric- appropriate mood and affect. Neuro: Alert, awake and oriented to person, place, and time. CN II-XII intact Sensation: equal and bilateral to dull and sharp touch in her forearms, hands, thigh and forearms, but decreased sensation to light and sharp in her distal fingers and toes. Motor: 4/5 RUE, 5/5 LUE 5/5 RLE, 5/5 RLE No pronator drift Cerebellar: R sided dysdiadochokinesia, normal finger to nose Gait not tested Constitutional: WD/WN, vitals as above Eyes: + scleral abnormality (increased dull ye llow/light red of sclera) Respiratory: normal respiratory effort, lungs clear to auscultation Cardiovascular: Rate/Rhythm: + irregularly irregular Heart Sounds: normal S1 and normal S2 Extremities: + edema Neurologic: PERRL, EOMI, accommodation nl, no face palsy, no dysarthria Speech / Cognition: normal speech Motor/Sensory: no pronator drift Coordination: + abnormal rapid alternating movements (dysdiadochokinesia/ clumsiness in right hand); normal [id number] test Psychiatric: A+Ox3, euthymic affect Results & Data Results & Data Vital Signs (Past 12 Hours) Vital Signs Temp Pulse Pulse Resp BP BP Pulse Ox 05/25/24 07:17 97 H 20 198/102 H 95 05/25/24 07:12 98 H 16 98 05/25/24 07:10 198/102 H 05/25/24 07:10 198/102 H 05/25/24 06:09 115 H 17 97 05/25/24 06:06 88 20 99 05/25/24 06:00 178/99 H 05/25/24 05:57 99 H 15 99 05/25/24 05:50 186/100 H 05/25/24 05:50 186/100 H 05/25/24 05:50 87 186/100 H 05/25/24 05:48 112 H 20 98 05/25/24 05:42 22 98 05/25/24 05:35 103 H 202/126 H 05/25/24 05:30 202/126 H 05/25/24 05:30 202/126 H 05/25/24 05:28 117 H 05/25/24 05:27 112 H 15 98 05/25/24 05:12 97 H 21 99 05/25/24 05:03 98 H 16 99 05/25/24 05:00 204/97 H 05/25/24 05:00 204/97 H 05/25/24 05:00 100 H 18 204/97 H 96 05/25/24 04:54 100 H 15 99 05/25/24 04:51 96 H 20 99 05/25/24 04:45 119 H 16 98 05/25/24 04:30 229/101 H 05/25/24 04:30 229/101 H 02/17/25 04:30 110 H 20 98 05/25/24 04:21 103 H 17 05/25/24 04:21 210/104 H 05/25/24 04:21 210/104 H 05/25/24 04:21 210/104 H 05/25/24 04:18 115 H 19 05/25/24 04:04 189/117 H 05/25/24 04:04 189/117 H 05/25/24 04:03 104 H 19 98 05/25/24 04:00 129/92 05/25/24 03:48 108 H 19 99 05/25/24 03:42 112 H 20 98 05/25/24 03:31 219/121 H 05/25/24 03:30 114 H 15 95 05/25/24 02:57 98 H 18 202/109 H 98 05/25/24 02:16 103 H 18 192/105 H 98 05/25/24 01:41 99 05/25/24 01:32 106 H 05/25/24 01:25 36.6 C 112 H 18 214/152 H 99 O2 Del Method 05/25/24 07:17 Room Air 05/25/24 07:12 05/25/24 07:10 05/25/24 07:10 05/25/24 06:09 05/25/24 06:06 05/25/24 06:00 05/25/24 05:57 05/25/24 05:50 05/25/24 05:50 05/25/24 05:50 05/25/24 05:48 05/25/24 05:42 05/25/24 05:35 05/25/24 05:30 05/25/24 05:30 05/25/24 05:28 05/25/24 05:27 05/25/24 05:12 05/25/24 05:03 05/25/24 05:00 05/25/24 05:00 05/25/24 05:00 Room Air 05/25/24 04:54 05/25/24 04:51 05/25/24 04:45 05/25/24 04:30 05/25/24 04:30 05/25/24 04:30 05/25/24 04:21 05/25/24 04:21 05/25/24 04:21 05/25/24 04:21 05/25/24 04:18 05/25/24 04:04 05/25/24 04:04 05/25/24 04:03 05/25/24 04:00 05/25/24 03:48 05/25/24 03:42 05/25/24 03:31 05/25/24 03:30 05/25/24 02:57 05/25/24 02:16 05/25/24 01:41 Room Air 05/25/24 01:32 05/25/24 01:25 Room Air Laboratory Data Sodium 136 mmol/L (136-145) 05/26/24 Potassium 4.6 mmol/L (3.5-5.1) 05/26/24 Chloride 103 mmol/L (98-107) 05/26/24 Carbon Dioxide 26 mmol/L (21-32) 05/26/24 Anion Gap 7 (3-11) 05/26/24 BUN 27 mg/dl (6-23) H 05/26/24 Creatinine 1.61 mg/dl (0.6-1.2) H 05/26/24 eGFR 30.79 05/26/24 Est GFR ( Amer) 36.2 ml/min 12/19/23 Est GFR (Non-Af Amer) 31.2 ml/min 12/19/23 BUN/Creatinine Ratio 16.8 (10-20) 05/26/24 Glucose 258 mg/dl (70-99(Fasting)) H 05/26/24 Hemoglobin A1c 7.2 % (4.5-5.6) H 05/09/24 Calcium 9.1 mg/dl (8.6-10.3) 05/26/24 Phosphorus 4.3 mg/dl (2.5-4.9) 07/24/23 Total Bilirubin 0.5 mg/dl (0.2-1.0) 05/25/24 Direct Bilirubin 0.0 mg/dl (0-0.2) 12/07/22 AST 24 U/L (13-39) 05/25/24 ALT 31 U/L (7-52) 05/25/24 Alkaline Phosphatase 49 U/L (34-104) 05/25/24 Total Protein 7.4 gm/dl (6.0-8.3) 05/25/24 Albumin 4.0 gm/dl (3.4-5.0) 05/25/24 Globulin 3.4 gm/dl (2.5-4.0) 05/25/24 Triglycerides 192 mg/dl (0-150) H 05/25/24 Cholesterol 118 mg/dl (0-200) 05/25/24 LDL Cholesterol, Calc 37 mg/dl 05/25/24 HDL Cholesterol 43 mg/dl 05/25/24 Cholesterol/HDL Ratio 2.7 (0-5) 05/25/24 Microalb/Creat Ratio 761.2 mg/g (0-30) H 01/23/24
--- NOTE | 2024-05-25 08:23 | Magnetic Resonance Report ---
EXAM: MR brain wo con CLINICAL HISTORY: stroke workup TECHNIQUE: MRI of the brain was performed without contrast with multiplanar sequences obtained. COMPARISON: 23 October 2021 FINDINGS: Brain Parenchyma: Multiple patchy and confluent T2 T2 and FLAIR hyperintense foci are noted involving bilateral cerebral lobes periventricular white matter s appears chronic small vessel ischemia /old ischemic infarct.. No evidence of acute infarction or hemorrhage. Normal martins-white matter differentiation. No mass lesions or focal cortical abnormalities identified. Ventricles and Sulci: Mild prominence of the ventricles and cerebral lobe sulci - suggestive of atrophic changes Normal configuration of the lateral ventricles, third ventricle, and fourth ventricle. No evidence of hydrocephalus or ventriculomegaly. Sylvian fissures, sulci, and cisterns are within normal limits. Posterior Fossa: Cerebellum and brainstem appear normal without evidence of mass lesions or signal abnormalities. Cranial Nerves: Normal course and appearance of cranial nerves identified. Vessels: No evidence of vascular malformations or aneurysms. Intracranial arteries and veins appear normal without evidence of stenosis or occlusion. Orbits and Skull Base: Orbits and skull base structures are normal without evidence of abnormalities. IMPRESSION: 1. 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 2. No obvious acute ischemic infarct or intracranial hemorrhage 3. Mild cerebral and cerebellar atrophy 4. No other new interval abnormality since prior study. Electronically signed by Johny Romero 05-25-2024 08:23 AM
[2024-05-25] MEDS ORDERED: ACETAMINOPHEN 325 MG TAB PO PRN (09:52)
[2024-05-25] MEDS ORDERED: GLUCAGON FOR INJ 1 MG VIAL SQ PRN (09:52)
[2024-05-25] MEDS ORDERED: PHARMACIST DISCHARGE MED REC CONSULT PRN (09:52)
[2024-05-25] MEDS ORDERED: CARBOHYDRATES FOR HYPOGLYCEMIA PO PRN (09:52)
[2024-05-25] MEDS ORDERED: DEXTROSE 50% 50 ML SYRINGE IV PRN (09:52)
[2024-05-25] MEDS ORDERED: GLUCOSE 10 TAB/TUBE PO PRN (09:52)
[2024-05-25] MEDS ORDERED: GLUCOSE 40% GEL 15 GM TUBE PO PRN (09:52)
[2024-05-25] MEDS ORDERED: LABETALOL HCL IV 5 MG/ML 20ML IV PRN (09:52)
[2024-05-25] MEDS ORDERED: ONDANSETRON INJ 2 MG/ML 2 ML VIAL IV PRN (09:52)
[2024-05-25] MEDS ORDERED: predniSONE 1 MG TAB PO SCH (10:15)
[2024-05-25 10:50] LABS: Chol HDL Ratio 2.7 (0-5)
[2024-05-25 11:01] LABS: Troponin I High Sensitivity 40.7 pg/ml (0-14)
[2024-05-25 11:06] LABS: Thyroid Stimulating Hormone 1.605 uIu/ml (0.300-4.500)
[2024-05-25] MEDS: LANTUS PER UNIT CHARGE SQ SCH (11:16)
[2024-05-25] MEDS: APIXABAN 5 MG TABLET PO SCH (11:16)
[2024-05-25] MEDS: FERROUS SULFATE 325 MG TAB PO SCH (11:16)
[2024-05-25] MEDS: FAMOTIDINE 20 MG TAB PO SCH (11:16)
[2024-05-25] MEDS: INSULIN ASPART PER UNIT CHARGE SC SCH (11:16)
--- NOTE | 2024-05-25 13:04 | Electrocardiogram Report ---
Test Reason : Blood Pressure : */* mmHG Vent. Rate : 104 BPM Atrial Rate : * BPM P-R Int : * ms QRS Dur : 90 ms QT Int : 330 ms P-R-T Axes : * -54 162 degrees QTcB Int : 433 ms Atrial fibrillation with rapid ventricular response Left axis deviation Anterior infarct , age undetermined Nonspecific ST abnormality Abnormal ECG When compared with ECG of 18-Jun-2022 10:39, Nonspecific T wave abnormality no longer evident in Anterior leads Confirmed by Clovis Leslie ([id number]) on 05/25/2024 1:04:35 PM Referred By: REFERRED SELF Confirmed By: Clovis Leslie
[2024-05-25] MEDS: DIGOXIN 0.125 MG TAB PO SCH (17:27)
[2024-05-25] MEDS: METOPROLOL TARTRATE 1 MG/ML VIAL IV STA (18:51)
[2024-05-25] MEDS: ROSUVASTATIN CALCIUM 10 MG TAB PO SCH (19:58)
[2024-05-26] MEDS: METOPROLOL TARTRATE 1 MG/ML VIAL IV STA (01:30)
[2024-05-26] MEDS ORDERED: PANTOprazole 40 MG/10 ML SYR IV ONE (05:35)
--- NOTE | 2024-05-26 07:10 | Hospitalist Progress Note ---
Date of Service May 26, 2024 Assessment & Plan (1) Stroke-like symptoms: (2) Fall: (3) Lower GI bleed: (4) Atrial fibrillation: (5) T2DM (type 2 diabetes mellitus): (6) Stroke: Plan Patient is a 89 y/o female with a PMHx of recent GI bleed, a fib on Eliquis, CKD3, T2DM insulin dependent, pulmonary HTN, PMR. She was recently admitted from 05/08-05/15 for a GI bleed and had an EGD 05/11 with multiple gastric polyp biopsies and a colonoscopy 05/12 ileocecal biopsies. She presented to the ED due to stroke like symptoms which have since all resolved. 1) Stroke like symptoms/ CVA CT head Hypodense area of right occipital lobe Head/Neck CTA essentially negative - 15-20% luminal narrowing right side, 25-30% left side echo 05/10/24 showed moderate pulm htn, mitral regurg, tricuspid regurg - defer repeat echo Not candidate for TNK in light of recent resumption of Eliquis. 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 Imaging reviewed with [facility] radiology, Dr. Mendez. The location of the stroke is suggestive of embolism in the context of this patient's history of atrial fibrillation with recent holding of Eliquis due to GI bleed. Plan to stop aspirin Continue Eliquis 2.5mg Continue Digoxin 2) Fall 2 strokelike symptoms above CK negative not complaining of any pain Seen by Pt/Ot Plan to discharge to [facility] nursing [facility] when medically stable 3) Recent GI bleed Hospitalization 05/08 to 05/15 with EGD 05/11 with multiple gastric biopsies and colonoscopy 05/12 with ileocecal biopsies Eliquis was held until 05/18 in which box no records note patient resumed; patient unable to confirm Melena improved but still present Received 2 PRBCs units Patient with nausea/reflux symptoms managed with IV Protonix continue famotidine and iron supplement Plan to not continue asprin 81mg 4) A-fib In A-fib with RVR on admission, rate 104 Continue digoxin Metoprolol tartrate, 25 mg, PO, BID Lopressor, 2.5 mg, IV, ONCE given Continue Eliquis, 2.5 mg, PO, BID 5) T2DM Avoid hypoglycemia with stroke workup above Glargine 30U twice daily SSI, CF 20, CR 10 POC 431, continue to monitor and manage with plan to discharge once medically stable 6) Elevated Trop Chronically elevated, reduced from baseline 22.8->26.5 -> 40.7 -> 33.8 Monitor on telemetry Chronic stable diagnoses: PMRcontinue prednisone HLDcontinue statin VTE ppx: Eliquis Diet: t2dm Dispo: pcu Admission and Anticipated Discharge Date Admission Date: May 25, 2024 Supervising Physician Co-Signing Physician Notes I personally examined the patient and verified mariee points of history and exam, discussed case, and agree with decision making and plan documented by Dr. Olivier and [facility]. Small acute ischemic infarct of left premotor cortex identified on MRI by neurology and confirmed by radiology. Patient is now back on Eliquis. Thankfully her symptoms have resolved. Reviewed this with her daughter Kenny. PT recommending rehab. Patient to return to [facility], assisting, discharge likely tomorrow. Subjective Patient is a 89 y/o female with a PMHx of recent GI bleed, a fib on Eliquis, CKD3, T2DM insulin dependent, pulmonary HTN, PMR, with a recent hospitalization from 05/08-05/15 for a GI bleed and had an EGD 2/3 with multiple gastric polyp biopsies and a colonoscopy 2/4 ileocecal biopsies, admitted for observation of dysphasia, right sided weakness, and numbness/tingling in her RUE and RLE. She is feeling well with no new or residual symptoms and no concerns. Overnight, she was Afib with her HR the 100s/110s, Lopressor, 2.5 mg, IV, ONCE given by [employer]. She was seen by neurology this morning. Review of Systems Constitutional: no fatigue and no weakness Ear, Nose, Mouth, Throat: + nasal congestion Respiratory: no cough, no dyspnea and no wheezing Cardiovascular: no chest pain, no palpitations and no calf pain Gastrointestinal: no abdominal pain, no nausea and no vomiting Genitourinary: no dysuria, no urinary frequency and no urinary urgency Neurologic: no localized weakness, no generalized weakness, no loss of sensation, no tingling and no numbness Hematologic / Lymphatic: + easy bruising (at baseline) Physical Exam Physical Exam: General: Well developed and well nourished, normocephalic and atraumatic, in no acute distress. HEENT- EOMI, mucous membranes moist. Hearing grossly intact. Heart- irregularly irregular rhythm, S1 and S2. No murmurs, rubs or gallops. Lungs- Clear to auscultation bilaterally, no respiratory distress Abdomen- Normal bowel sounds and soft.Non-tender in all 4 quadrants. Extremities- No clubbing, cyanosis. Peripheral edema appreciated arms and legs Psychiatric- appropriate mood and affect. Neuro: Alert, awake and oriented to person, place, and time. CN II-XII intact Sensation: equal and bilateral to dull and sharp touch in her forearms, hands, thigh and forearms Motor: 5/5 RUE, 5/5 LUE 5/5 RLE, 5/5 RLE Gait not tested Results & Data Results & Data Vital Signs (Past 12 Hours) Vital Signs Temp Pulse Pulse Resp BP BP Pulse Ox 05/26/24 04:04 37.1 C 118 H 18 151/70 H 95 05/26/24 01:45 102 H 05/26/24 01:30 126 H 118/64 05/25/24 23:06 108 H 05/25/24 22:54 36.8 C 91 H 18 126/63 95 05/25/24 20:00 05/25/24 19:48 37.1 C 106 H 16 138/63 95 O2 Del Method 05/26/24 04:04 Room Air 05/26/24 01:45 05/26/24 01:30 05/25/24 23:06 05/25/24 22:54 Room Air 05/25/24 20:00 Room Air 05/25/24 19:48 Room Air
[2024-05-26 07:56] LABS: Basophils # (auto) 0.05 K/uL (0.00-0.20); Basophils % (auto) 0.7 %; Eosinophils # (auto) 0.34 K/uL (0.00-0.50); Hematocrit (blood only) 33.1 % (37.0-47.0); Immature Granulocytes # (auto) 0.02 K/uL (0.01-0.20); Immature Granulocytes % (auto) 0.3 %; Lymphocytes # (auto) 1.91 K/uL (1.20-3.40); Lymphocytes % (auto) 28.3 %; Mean Corpuscular Hemoglobin 32.6 pg (25.0-34.0); Mean Corpuscular Hgb Conc 33.2 g/dL (32.0-36.0); Mean Corpuscular Volume 98.2 fL (80.0-100.0); Mean Platelet Volume 10.4 fL (9.4-12.4); Monocytes # (auto) 0.87 K/uL (0.11-0.59); Monocytes % (auto) 12.9 %; Neutrophils # (auto) 3.56 K/uL (1.40-6.50); Neutrophils % (auto) 52.8 %; Platelet Count 283 K/uL (130-400); RDW Coefficient of Variation 14.7 % (11.5-14.5); RDW Standard Deviation 53.4 fL (36.4-46.3); Red Blood Count 3.37 M/uL (4.20-5.40); White Blood Count 6.75 K/ul (4.8-10.8)
[2024-05-26 08:15] LABS: BUN Creatinine Ratio 16.8 (10-20); Calcium 9.1 mg/dl (8.6-10.3); Creatinine Clr Calc Pharmacy 24.8 ml/min; Magnesium 1.9 mg/dl (1.7-2.4); Potassium 4.6 mmol/L (3.5-5.1)
[2024-05-26] MEDS: ASPIRIN 81 MG CHEW PO SCH (08:19)
--- NOTE | 2024-05-26 08:59 | Neurology Consultation ---
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 Imaging reviewed with [facility] radiology, Dr. Mendez. The location of the stroke is suggestive of embolism in the context of this patient's history of atrial fibrillation with recent holding of Eliquis due to GI bleed. Clinically, however, her symptoms completely resolved in about 1 hour. Other stroke risk factors for this patient include insulin-dependent diabetes mellitus and hypertension. Her diabetes has been suboptimally controlled although a most recent hemoglobin A1c was 7.2 indicating some improvement. She has a history of dyslipidemia as well, on Crestor, recent LDL 37 indicating good control. Her CT angiography revealed mild to moderate bilateral plaque, no significant stenosis of the intracranial or cervical arteries. Recommend restarting patient's Eliquis if not already done so. Would continue to hold aspirin, however, in light of her recent GI bleeding. Blood pressure management per stroke protocol, may allow for permissive hypertension acutely. PT/OT consultations. Please call with any questions. History of Present Illness Reason for Consultation: TIA Requesting Physician: Dewey Attending Physician: Usha Segura DO History of Present Illness The patient is an 89-year-old left-handed female with a chief complaint of sudden onset right sided weakness and aphasia, inability to speak, that began Saturday morning. She was unable to move her right arm or leg, was unable to stand. Her symptoms resolved in about an hour. This morning, she continues to report symptom resolution, no headache, vision loss, or dysphagia. No difficulty moving the right arm or leg at this time. No difficulty with expressive or receptive speech. Past medical history notable for recent GI bleed, EGD with multiple gastric polyp biopsies and colonoscopy with several ileocecal biopsies. She required transfusion. Her Eliquis and aspirin had been held in the context of this GI bleed. Past medical history significant for atrial fibrillation and insulin-dependent type 2 diabetes mellitus. She has a diabetic peripheral neuropathy, degenerative arthritis of the right knee, ambulates with rolling walker. CT angiography of the head and neck revealed atherosclerotic calcifications of the carotid bulbs, no significant stenosis, and calcifications of the supraclinoid internal carotid arteries, no significant stenosis, aneurysm, or other vascular abnormality. Brain MRI, per my independent review of the images, does reveal a possible small area of restricted diffusion within the left premotor cortex, image 19 of 24, there is subtle associated signal dropout on corresponding ADC sequences. This finding is potentially consistent with a small acute embolic infarct. The study is otherwise notable for generalized atrophy and chronic small vessel ischemic di sease. Cardiac reveals patient with ventricular response. An echocardiogram completed May 10, 2024 revealed normal left ventricular systolic function, normal left ventricular wall motion, signs of pulmonary hypertension, and moderate dilation of the left atrium. Allergies Allergy/AdvReac Type Severity Reaction Status Date / Time Sulfa (Sulfonamide AdvReac Unknown Nausea Verified 09/12/23 11:36 Antibiotics) covid vaccine Allergy Unknown "out of it" Uncoded 09/12/23 11:36 Home Medications Medication Instructions Recorded Confirmed Type cholecalciferol (vitamin D3) 50 5,000 unit PO QAM 01/03/18 05/25/24 History mcg (2,000 unit) capsule (Vitamin D3) vitamins A,C,I-jdbs-vytrms 4,296 1 cap PO BID 11/24/20 05/25/24 History mcg-226 mg-90 mg capsule (PreserVision AREDS) acetaminophen 500 mg tablet 1,000 mg PO BID PRN pain 08/22/21 05/25/24 History digoxin 250 mcg (0.25 mg) tablet 125 mcg PO QAM 09/07/21 05/25/24 History diltiazem HCl 240 mg 240 mg PO QAM #30 caps 12/23/21 05/25/24 Rx capsule,extended release 24 hr latanoprost 0.005 % eye drops 1 drp ophthalmic (eye) UD 03/14/22 05/25/24 History clonidine HCl 0.1 mg 0.1 mg PO Q8H PRN Blood Pressure 04/06/22 05/25/24 History tablet,extended release,12 hr glucagon 1 mg solution for 1 mg subcut ONCE PRN Hypoglycemia 06/25/22 05/25/24 History injection (Glucagon Emergency Kit) blood-glucose sensor (FreeStyle #2 ea 07/11/22 09/12/23 Rx Roman 3 Sensor device) aspirin 81 mg capsule 81 mg PO UD 12/05/22 05/25/24 History cyanocobalamin (vitamin B-12) 1,000 mcg PO UD 12/05/22 05/25/24 History 1,000 mcg capsule famotidine 20 mg tablet 20 mg PO QAM 12/05/22 05/25/24 History ferrous sulfate 325 mg (65 mg 325 mg PO QAM 12/05/22 05/25/24 History iron) tablet insulin syringe-needle U-100 0.3 #200 ea 12/20/22 09/12/23 Rx mL 30 gauge x 1/2" (BD Insulin Syringe Ultra-Fine) pen needle, diabetic, safety 30 #500 ea 07/02/23 09/12/23 Rx gauge x 1/3" (Novofine Autocover) apixaban 2.5 mg tablet (Eliquis) 2.5 mg PO BID #180 tabs 09/12/23 05/25/24 Rx metoprolol tartrate 25 mg tablet 25 mg PO BID 09/12/23 05/25/24 History prednisone 1 mg tablet 4 mg PO UD 09/12/23 05/25/24 History insulin lispro 100 unit/mL 28 unit subcut UD 01/23/24 05/25/24 History subcutaneous pen insulin glargine 100 unit/mL (3 36 unit subcut BID 05/08/24 05/25/24 History mL) subcutaneous pen (Lantus Solostar U-100 Insulin) rosuvastatin 10 mg tablet 10 mg PO HS 05/08/24 05/25/24 History Patient History Medical History (Updated 05/26/24 @ 09:40 by Rashaad Akhtar MD) TIA (transient ischemic attack) (2021) 2021, no residual Peripheral vascular disease Former smoker History of encephalopathy -2021 [place] GERD (gastroesophageal reflux disease) History of polyneuropathy History of Lyme disease History of orthostatic hypotension no recent issues since med adjustment per nurse Discharge planning issues Dysmetabolic syndrome X History of rosacea History of rheumatic fever History of nummular eczema History of diabetes mellitus History of basal cell carcinoma History of actinic keratosis History of colon cancer Surgical History (Updated 05/12/24 @ 14:23 by Tyler Cherry DO) History of colonoscopy History of tonsillectomy History of partial colectomy Hx of cholecystectomy Hx of appendectomy Family History Unknown Family history of thromboembolic disease Social History Smoking Status: Former smoker Tobacco Type: Cigarettes Cigarettes Per Day: Smoked Socially In The Past; Second Hand Exposure: No; Do You Dip or Chew Tobacco: No; Tobacco Cessation Education Requested by Patient: No Hx Alcohol Use: Yes Alcohol type: beer and wine Hx Substance Use: No Preferred Language: Latvian Communication Ability: Effective Communication Ability Comment: hx of dementia at baseline--worse w/ uti Visual Impairment: Diminished Security Compliance Engineer Required: No Beliefs That Will Affect Care: None marital status: / Current Living Situation: Alone Current Living Situation Comment: Erik current occupational status: retired Other Information That Helps Us Care for You: No Feels Safe at Home: Yes Safety Concerns: Feels Safe At This Time Assistive Devices: Cane, Scooter/Electric Scooter and Walker Review of Systems Constitutional: no fever and no chills Eyes: no blind spots and no diplopia Ear, Nose, Mouth, Throat: no hearing loss Respiratory: no cough and no dyspnea Cardiovascular: no chest pain and no palpitations Gastrointestinal: no nausea and no vomiting Genitourinary: no dysuria Musculoskeletal: no myalgia Integumentary: no rash and no lesions Neurologic: as per Subjective / HPI Psychiatric: no depression and no anxiety Hematologic / Lymphatic: no easy bleeding and no easy bruising Exam (Neuro) Constitutional: well developed and well nourished; no acute distress Eyes: normal visual jones by confrontation, PERRL and EOM intact bilaterally; no nystagmus Neurologic: Oriented to:: Person, Place and Time Memory: Short Term Intact and Remote Intact Attention: Span Intact and Concentration Intact Speech Fluency: negative Dysarthria or Dysfluency Speech Aphasia: negative Aphasia Fund of Knowledge: Current Events, Past History and Vocabulary Cranial Nerves: Normal II, III, IV, , V, VII, VIII, IX, X, XI and XII Motor Strength: Normal Lower Extremities and Normal Upper Extremities Motor Tone: Normal Lower Extremities and Normal Upper Extremities Muscle Bulk/Involuntary Movements: No Involuntary Movements; negative Muscle Atrophy Sensation: Light Touch Intact; negative Pain/Temperature Intact or Proprioception Intact Coordination: Normal; negative Limited Balance or Finger-Nose Abnormal Deep Tendon Reflexes: Rt Triceps: 1+, Lt Triceps: 1+, Rt Biceps: 1+, Lt Biceps: 1+, Rt Brachioradialis: 1+, Lt Brachioradialis: 1+, Rt Patellar: 1+, Lt Patellar: 1+, Rt Ankle: 0 and Lt Ankle: 0 Results & Data Vital Signs (Past 12 Hours) Vital Signs Temp Pulse Pulse Resp BP BP Pulse Ox 05/26/24 07:54 37.1 C 113 H 18 142/66 H 97 05/26/24 07:30 117 H 05/26/24 04:04 37.1 C 118 H 18 151/70 H 95 05/26/24 01:45 102 H 05/26/24 01:30 126 H 118/64 05/25/24 23:06 108 H 05/25/24 22:54 36.8 C 91 H 18 126/63 95 O2 Del Method 05/26/24 07:54 Room Air 05/26/24 07:30 05/26/24 04:04 Room Air 05/26/24 01:45 05/26/24 01:30 05/25/24 23:06 05/25/24 22:54 Room Air Laboratory Results WBC 6.75, hemoglobin 11.0, hematocrit 33.1, platelet count 283, sodium 136, potassium 4.6, BUN 27, creatinine 1.61, glucose 258, calcium 9.1, magnesium 1.9, triglycerides 192, cholesterol 118, LDL 37, VLDL 38, HDL 43, TSH 1.605, hemoglobin A1c from May 09 was 7.2. Vitamin B12 level from April 30 was 1138. Vitamin D level was 53.0. Coding Level of Care Code 86304 INT INP/OBS CARE 3/75MIN Diagnoses Stroke I63.9 Time Spent (min) 90 Comment Total time includes patient contact, chart review, counseling, note preparation
[2024-05-26] MEDS: METOPROLOL TARTRATE 25 MG TAB PO SCH (10:49)
[2024-05-26] MEDS: LANTUS PER UNIT CHARGE SQ SCH (21:19)
[2024-05-27 06:38] LABS: Basophils # (auto) 0.05 K/uL (0.00-0.20); Basophils % (auto) 0.9 %; Eosinophils # (auto) 0.42 K/uL (0.00-0.50); Eosinophils % (auto) 7.3 %; Hematocrit (blood only) 33.8 % (37.0-47.0); Hemoglobin 11.3 g/dl (12.0-16.0); Immature Granulocytes # (auto) 0.02 K/uL (0.01-0.20); Immature Granulocytes % (auto) 0.3 %; Lymphocytes # (auto) 1.74 K/uL (1.20-3.40); Lymphocytes % (auto) 30.4 %; Mean Corpuscular Hemoglobin 32.7 pg (25.0-34.0); Mean Corpuscular Hgb Conc 33.4 g/dL (32.0-36.0); Mean Corpuscular Volume 97.7 fL (80.0-100.0); Monocytes # (auto) 0.91 K/uL (0.11-0.59); Monocytes % (auto) 15.9 %; Neutrophils # (auto) 2.59 K/uL (1.40-6.50); Neutrophils % (auto) 45.2 %; Platelet Count 259 K/uL (130-400); RDW Coefficient of Variation 14.6 % (11.5-14.5); RDW Standard Deviation 53.1 fL (36.4-46.3); Red Blood Count 3.46 M/uL (4.20-5.40); White Blood Count 5.73 K/ul (4.8-10.8)
[2024-05-27 06:48] LABS: BUN Creatinine Ratio 17.6 (10-20); Calcium 9.5 mg/dl (8.6-10.3); Creatinine Clr Calc Pharmacy 23.5 ml/min; Potassium 4.4 mmol/L (3.5-5.1)
--- NOTE | 2024-05-27 07:25 | Hospitalist Progress Note ---
Date of Service May 27, 2024 Assessment & Plan (1) Stroke-like symptoms: (2) Fall: (3) Lower GI bleed: (4) Atrial fibrillation: (5) T2DM (type 2 diabetes mellitus): (6) Stroke: Plan Patient is a 89 y/o female with a PMHx of recent GI bleed, a fib on Eliquis, CKD3, T2DM insulin dependent, pulmonary HTN, PMR. She was recently admitted from 05/08-05/15 for a GI bleed and had an EGD 05/11 with multiple gastric polyp biopsies and a colonoscopy 05/12 ileocecal biopsies. She presented to the ED due to stroke like symptoms which have since all resolved. 1) Stroke like symptoms/ CVA CT head [place] area of right occipital lobe Head/Neck CTA essentially negative - 15-20% luminal narrowing right side, 25-30% left side echo 05/10/24 showed moderate pulm htn, mitral regurg, tricuspid regurg - defer repeat echo Not candidate for TNK in light of recent GI in Neuro Consulted: Very small acute ischemic infarct involving the left premotor cortex visible on MRI (DWI image , corresponding signal dropout on ADC as well). Imaging reviewed with [facility] radiology, Dr. Mendez. The location of the stroke is suggestive of embolism in the context of this patient's history of atrial fibrillation with recent holding of Eliquis due to GI bleed. Plan to stop aspirin Continue Eliquis 2.5mg Continue Digoxin 2) Fall 2 strokelike symptoms above CK negative not complaining of any pain Seen by Pt/Ot Plan to discharge to [facility] nursing home facility when medicallu stable 3) Recent GI bleed Hospitalization 05/08 to 05/15 with EGD 05/11 with multiple gastric biopsies and colonoscopy 05/12 with ileocecal biopsies Eliquis was held until 05/18 in which box no records note patient resumed; patient unable to confirm Melena improved but still present Received 2 PRBCs units Patient with nausea/reflux symptoms managed with IV Protonix continue famotidine and iron supplement Plan to not continue asprin 81mg 4) A-fib In A-fib with RVR on admission, rate 104 Continue digoxin Holding metoprolol and diltiazem with permissive htn above; IV labetalol as needed Lopressor, 2.5 mg, IV, ONCE given Continue Eliquis 5) T2DM Avoid hypoglycemia with stroke workup above Reduce glargine from 36U to 25U twice daily SSI POC 454, continue to monitor and manage with plan to discharge once medically stable 6) Elevated Trop Chronically elevated, reduced from baseline 22.8->26.5 -> 40.7 -> 33.8 Monitor on telemetry Trend Trop Chronic stable diagnoses: PMRcontinue prednisone HLDcontinue statin VTE ppx: Eliquis Diet: t2dm Dispo: pcu Admission and Anticipated Discharge Date Admission Date: May 25, 2024 Subjective Patient is a 89 y/o female with a PMHx of recent GI bleed, a fib on Eliquis, CKD3, T2DM insulin dependent, pulmonary HTN, PMR, with a recent hospitalization from 05/08-05/15 for a GI bleed and had an EGD 05/11 with multiple gastric polyp biopsies and a colonoscopy 05/12 ileocecal biopsies, admitted for observation of dysphasia, right sided weakness, and numbness/tingling in her RUE and RLE. She is feeling well with no new or residual symptoms and no concerns. Overnight, she was Afib with her HR the 100s/110s, Lopressor, 2.5 mg, IV, ONCE given by boring machine operator vertical. She was seen by neurology this morning. BP: 157/79 Cr: 1.7 BS POC Glucose at 385 Results & Data Results & Data Vital Signs (Past 12 Hours) Vital Signs Temp Pulse Pulse Resp BP Pulse Ox O2 Del Method 05/27/24 03:19 36.7 C 88 18 152/79 H 98 Room Air 05/26/24 22:41 86 05/26/24 22:32 36.4 C L 90 18 168/93 H 98 Room Air 05/26/24 19:56 36.7 C 92 H 18 114/69 98 Room Air
--- NOTE | 2024-05-27 08:26 | Discharge Summary ---
Date of Service May 27, 2024 Admission HPI Per Admitting Provider Patient is a 89 y/o female with a PMHx of recent GI bleed, a fib on Eliquis, CKD3, T2DM insulin dependent, pulmonary HTN, PMR. She was recently admitted from 05/08-05/15 for a GI bleed and had an EGD 05/11 with multiple gastric polyp biopsies and a colonoscopy 05/12 ileocecal biopsies. She presented to the ED today due to stroke like symptoms. Hand off from ED stated that patient fell asleep on her couch this even and when she woke up to go back to her bed, she noticed that her right hand was numb and her right foot was dragging. She fell going back to the bedroom and laid on the ground for approximately 1 hr. She tried to call her daughter and left a voicemail, which is when the patient noticed that she couldn't speak. The patient then crawled from her bedroom to kitchen to try to call 'judah norbert'. She couldn't figure out how to call them so she ended up call 911 and was unable to speak so they reportedly tracked her call and EMS found her. She was started to return to baseline at this point. Patient stated this began somewhere around 11pm. She was holding her Eliquis due to recent GI bleed and is unsure of if this was restarted because they seen her medications pills packs. Her symptoms were completely resolved and she was back to baseline in ED. Patient seen at bedside. Her symptoms of right hand numbness and decreased right foot strength returned; stroke alert called at 0413. Medications records from [facility] obtained - patient resumed Eliquis 2.5 BID 05/18/24. She denies dizziness, lightheadedness, visual changes. She is endorsing nausea but denies need for nausea control. She denies chest pain or shortness of breath. 0500telestroke still not present. Patient's symptoms improving. Not TNK candidate given recent GI interventions and on Eliquis. Will cancel stroke alert and obtain MRI. Patient stated that she was at the [facility] side of [facility] until when she was transition back to independent living. She stated that her stool is still dark but nowhere near as dark as it was during recent admission. She does not use nicotine products or drink alcohol. She did note that yesterday she took her evening medications in the morning so she did not take any of her morning medications. She wishes to be DNR/DNI. Admission Exam Per Admitting Provider Physical Exam: The patient is awake, alert and oriented 3, well developed and well nourished, normocephalic and atraumatic, in no acute distress. Non-toxic appearing. HEENT- EOMI, mucous membranes moist. Hearing grossly intact. Heart-normal S1 and S2. No murmurs, rubs or gallops. Lungs-clear bilaterally, no respiratory distress, no accessory muscle use. Abdomen-normal bowel sounds and soft. No ascites noted. Non-tender. Extremities- no clubbing, cyanosis, or edema. Psychiatric-anxious affect. Musculoskeletal: BL UE strength 5/5 LEFT LE strength 5/5 right LE strength 3/5 Neurologic: PERRL, EOMI, accommodation nl, no face palsy, no dysarthria Speech / Cognition: normal speech Motor/Sensory: + abnormal movement (BL UE tremor) and + sensory deficit (right UE numbness); no pronator drift Coordination: normal [id number] test Principal Diagnosis Stroke Discharge Exam General: Well developed and well nourished, normocephalic and atraumatic, in no acute distress. HEENT- EOMI, mucous membranes moist. Hearing grossly intact. Heart- irregularly irregular rhythm, S1 and S2. No murmurs, rubs or gallops. Lungs-clear to auscultation bilaterally, no respiratory distress Abdomen-normal bowel sounds and soft.Non-tender in all 4 quadrants. Extremities- no clubbing, cyanosis. Peripheral edema appreciated arms and legs Psychiatric- appropriate mood and affect. Neuro: Alert, awake and oriented to person, place, and time. CN II-XII intact Sensation: equal and bilateral to dull and sharp touch in her forearms, hands, thigh and forearms, but decreased sensation to light and sharp in her distal fingers and toes. Motor: 4/5 RUE, 5/5 LUE 5/5 RLE, 5/5 RLE No pronator drift Cerebellar: R sided dysdiadochokinesia, normal finger to nose Gait not tested Constitutional WD/WN, vitals as above Eyes + scleral abnormality (increased dull yellow/light red of sclera) Respiratory normal respiratory effort, lungs clear to auscultation Cardiovascular RRR, no murmur, no edema Neurologic PERRL, EOMI, accommodation nl, no face palsy, no dysarthria Speech / Cognition: normal speech Motor/Sensory: no pronator drift Coordination: + abnormal rapid alternating movements (dysdiadochokinesia/ clumsiness in right hand); normal crfibp-zn-iaid test Psychiatric A+Ox3, euthymic affect Discharge Data Allergies Allergy/AdvReac Type Severity Reaction Status Date / Time Sulfa (Sulfonamide AdvReac Unknown Nausea Verified 09/12/23 11:36 Antibiotics) covid vaccine Allergy Unknown "out of it" Uncoded 09/12/23 11:36 Consultations 05/25/24 03:43 ED Decision to Admit Stat 05/25/24 09:52 Consult Neurology Routine Ordered Studies 05/25/24 01:27 CT angio head w con Stat CT angio neck with con Stat CT head/brain wo con Stat 05/25/24 05:11 MRI Brain [MR brain wo con] Stat Hospital Course (1) Stroke-like symptoms: (2) Fall: (3) Lower GI bleed: (4) Atrial fibrillation: (5) T2DM (type 2 diabetes mellitus): (6) Stroke: Plan (1) Stroke-like symptoms: (2) Fall: (3) Lower GI bleed: (4) Atrial fibrillation: (5) T2DM (type 2 diabetes mellitus): (6) Stroke: Plan Patient is a 89 y/o female with a PMHx of recent GI bleed, a fib on Eliquis, CKD3, T2DM insulin dependent, pulmonary HTN, PMR. She was recently admitted from 05/08-05/15 for a GI bleed and had an EGD 05/11 with multiple gastric polyp biopsies and a colonoscopy 05/12 ileocecal biopsies. She presented to the ED due to stroke like symptoms which have since all resolved. 1) Stroke like symptoms/ CVA CT head Hypodense area of right occipital lobe Head/Neck CTA essentially negative - 15-20% luminal narrowing right side, 25-30% left side echo 05/10/24 showed moderate pulm htn, mitral regurg, tricuspid regurg - defer repeat echo Was not candidate for TNK in light of recent resumption of Eliquis. 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 [facility] Dr[facility] M[facility]. The lo cation of the stroke is suggestive of embolism in the context of this patient's history of atrial fibrillation with recent holding of Eliquis due to GI bleed. Stopped aspirin, PCP can continue re-starting once assured that GI bleeds won't recur Continue Eliquis 2.5mg Continue Digoxin Resume diltiazem upon discharge 2) Fall 2/ strokelike symptoms above CK negative not complaining of any pain Seen by Pt/Ot Plan to discharge to [facility] when medically stable 3) Recent GI bleed Hospitalization 05/08 to 05/15 with EGD 05/11 with multiple gastric biopsies and colonoscopy 05/12 with ileocecal biopsies Eliquis was held until 05/18 in which box no records note patient resumed; patient unable to confirm Melena improved but still present Received 2 PRBCs units Patient with nausea/reflux symptoms managed with IV Protonix continue famotidine and iron supplement Plan to not continue asprin 81mg 4) A-fib In A-fib with RVR on admission, rate 104 Continue digoxin Metoprolol tartrate, 25 mg, PO, BID Lopressor, 2.5 mg, IV, ONCE given Continue Eliquis, 2.5 mg, PO, BID (Cr, 1.70; 89 yo; 71.3 kg) Resume diltiazem, 240 mg, PO, daily 5) T2DM Avoid hypoglycemia with stroke workup above Glargine 30U twice daily SSI, CF 20, CR 10 POC Glu 431 during inpatient stay, continue to monitor and made changes to CF 30 -> 20 6) Elevated Trop #resolved Chronically elevated, reduced from baseline 22.8->26.5 -> 40.7 -> 33.8 Monitor on telemetry Chronic stable diagnoses: PMRcontinue prednisone HLDcontinue statin VTE ppx: Eliquis Diet: t2dm Dispo: pcu Total Time Total Time Spent Total Time Spent (In Minutes): Attending time 28 minutes Total Time Includes: Examination of the Patient, Discharge Planning and Med ication Reconciliation Discharge Plan Discharge Items Patient Disposition: Transfer Half-Way Fac Reason For Visit: SROKE WORKUP, RECENT GI BLEED Discharge Diagnosis: stroke Activity: As commented below Activity Comment: Resume activity as tolerated as you improve Non-emergency contact: Primary Care Provider Call non-emergency contact if: you have any medication questions and your symptoms worsen Follow-up/Referrals: Ramiro Lyn MD [Primary Care Provider] - Diet: Carb Consistent or DM2 Addtl Attending Provider Instructions: You were admitted to the hospital for r. leg weakness and r. hand numbness/tingling and subsequently determined to have had a stroke. Aspirin was discontinued and Eliquis dosage continued at 2.5 mg, PO, twice a day during hospital stay. A discharge summary will be sent to your primary care physician to ensure continuity of care. Please bring this discharge summary with you to your next office appointment so that your provider can review it at that time. Follow-up appointments: We have requested a follow-up appointment with your primary care physician within one week of discharge. Please call their office if you do not hear from them. Keep all your follow-up appointments as already scheduled. If you cannot make an appointment, notify your provider. Medications: Your medication list has been reviewed and reconciled upon discharge to ensure accuracy and continuity of care. An updated list of all your medications is included with your hospital discharge paperwork. Please review this list closely, and make note of any changes. Continue to take your Eliquis. Take Eliquis, 2.5 mg, one tablet, twice a day, regularly. Stop taking your aspirin, due to recent GI bleeding. Can consider resuming that under the direction of your PCP once there is no concern for further GI bleeding. Take your medications as instructed; do not skip a dose of your medicines. Make sure all of your doctors know every medicine you are taking (including ydhm-glx-lcbgxfq medicines, vitamins, and supplements). Call your primary care provider before taking any new medicines (including yopa-jqd-kkcvdgg medicines, vitamins, and supplements), because some of these may interact with your current medications, or may make your symptoms worse. Tell your primary care provider if you cannot afford your medications. CONTACT YOUR PRIMARY CARE PROVIDER if you experience any of the following: swallowing difficulty, speaking difficulty numbness, tingling, focal weakness, Difficulty following your treatment plan, or difficulty taking medications CALL 911 OR GO TO THE EMERGENCY DEPARTMENT if you experience any of the following: Sudden, severe abdominal pain or nausea/vomiting Severe chest pain, or chest pain that radiates (moves) to your jaw or arm Sudden, severe shortness of breath or difficulty breathing Thank you for allowing us to participate in your care Pending Studies at Discharge: Yes Studies:: Antibody tests (Beta-2 GPI, Anti-cardiolipin) Stand-Alone Forms: My [facility] [employer], Medications to Prevent Stroke Skilled Items Patient informed of condition?: Yes DNR: Yes Discharge Level of Care: Skilled Communicable Disease: No Discharge Prognosis: Stable Lines: None Urinary Catheter: No Medications and DC Order Prescriptions: Continued PreserVision AREDS [id number] muxv-ob-cqfw capsule 1 cap PO BID acetaminophen 500 mg tablet 1,000 mg PO BID PRN (Reason: pain) (DME) FreeStyle Roman 3 Sensor Device See Rx Instructions .Route Qty: 2 11RF Rx Instructions: change Q14D (DME) insulin syringe-needle U-100 [BD Insulin Syringe Ultra-Fine] 0.3 mL 30 gauge x 1/2" syringe See Rx Instructions .Route Qty: 200 11RF Rx Instructions: use to administer insulin 6 times per day (DME) Novofine Autocover 30 gauge x 1/3" needle See Rx Instructions .Route Qty: 500 3RF Rx Instructions: use 5 daily with insulin injections prednisone 1 mg tablet 4 mg PO UD Rx Instructions: 4 mg po AM. On hold w/pharmacy metoprolol tartrate 25 mg tablet 25 mg PO BID Eliquis 2.5 mg tablet 2.5 mg PO BID Qty: 180 3RF Glucagon Emergency Kit (human) 1 mg recon soln 1 mg subcut ONCE PRN (Reason: Hypoglycemia) Rx Instructions: on hold w/pharmacy latanoprost 0.005 % drops 1 drp ophthalmic (eye) UD Rx Instructions: 1 drop eye qpm. on hold w/pharmacy clonidine HCl 0.1 mg tablet extended release 12 hr 0.1 mg PO Q8H PRN (Reason: Blood Pressure) Rx Instructions: on hold w/pharmacy insulin lispro 100 unit/mL insulin pen 28 unit subcut UD Dose Instruction: INJECT 28 UNITS SUB-Q THREE TIMES DAILY FOR DM Rx Instructions: original: INJECT 30 in AM and 34 in PM UNITS SUB-Q THREE TIMES DAILY FOR DM 05/08:per pharmacy they dispensed as 28 units TID; last filled 04/18 cholecalciferol (vitamin D3) [Vitamin D3] 2,000 unit Capsule 5,000 unit PO QAM diltiazem HCl 240 mg Capsule,Extended Release 24hr 240 mg PO QAM Qty: 30 0RF ferrous sulfate 325 mg (65 mg iron) Tablet 325 mg PO QAM cyanocobalamin (vitamin B-12) 1,000 mcg Capsule 1,000 mcg PO UD Rx Instructions: T//Sat/Sat famotidine 20 mg tablet 20 mg PO QAM digoxin 250 mcg (0.25 mg) tablet 125 mcg PO QAM rosuvastatin 10 mg tablet 10 mg PO HS insulin glargine [Lantus Solostar U-100 Insulin] 100 unit/mL (3 mL) insulin pen 36 unit subcut BID Rx Instructions: INJECT 36U SUB-Q TWICE DAILY Discontinued aspirin 81 mg capsule 81 mg PO UD Rx Instructions: M// Not on list from pharmacy, unable to verify Discharge Orders: Discharge Order (Routine); Ordered 05/27/24 Ordered By: Clovis Olivier Admission Data Admit Date/Time: 05/25/24 05:17 Attending Provider: Usha Segura Admit Provider: Umair Bansal Primary Care Provider: Ramiro Lyn Other Providers: Uamir Bansal; Tyler Burgos; [facility] Other Interventions: Discharge Summary Assessment (RN) Last Done: 05/27/24 15:39 Supervising Physician Co-Signing Physician Notes I personally examined the patient and verified mariee points of history and exam, discussed case, and agree with decision making and plan documented by Dr. Olivier. 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 Continue Eliquis. Symptoms resolved. Patient to return to [facility] for rehab.
[2024-05-27] MEDS: APIXABAN 2.5 MG TAB PO SCH (09:08)
--- NOTE | 2024-05-27 10:12 | Pharmacy Report ---
- Date of Service May 27, 2024 - Pharmacy CVA/TIA Medication Review Medications to Prevent Stroke handout has been added to the patients discharge packet. Antiplatelet(s) * hold - recent GI bleeding, also on anticoagulation Cholesterol * Rosuvastatin 10 mg PO HS * High intensity statin deferred due to age >75 DVT Prophylaxis * Therapeutically anticoagulated Therapeutic Anticoagulation * Hx Afib/Aflutter noted, and patient is currently receiving apixaban Type 2 Diabetes * Patient has T2DM, but per Dr. Olivier, a diabetes medication with proven CVD benefit will be deferred to their outpatient provider due to familiarity with risks/benefits of such therapies. "Medications to prevent stroke" handout has already been added to the patient's discharge packet, which instructs the patient to follow up with their outpatient provider to evaluate which diabetes medication with proven CVD benefit is best for them
[2024-05-27] MEDS ORDERED: STROKE PATIENT DISCHARGE STA (11:04)
[2024-05-27 15:10] VITALS: BP 125/76; PULSE 87; RESP 16; TEMP 98.2; O2SAT 97
[2024-05-28 15:08] LABS: Anti Cardiolipin Ab IgG <2.0 GPL-U/mL; Anti Cardiolipin Ab IgM <2.0 MPL-U/mL; B2 Glycoprotein IgG <2.0 U/mL (<20.0); B2 Glycoprotein IgM <2.0 U/mL (<20.0)
[2024-05-29 09:47] LABS: PTT LA Screen 39 sec (<=40)
== END 2024-05-27 16:45 ==
LOC: SUATTDRO → ED 01:21 → EDINP 01:21 → 4W 09:53
DX: K92.2 Gastrointestinal hemorrhage, unspecified; Z88.7 Allergy status to serum and vaccine; E11.9 Type 2 diabetes mellitus without complications; Z88.2 Allergy status to sulfonamides; Z79.899 Other long term (current) drug therapy; W19.XXXA Unspecified fall, initial encounter; I63.9 Cerebral infarction, unspecified; Z87.891 Personal history of nicotine dependence; I48.91 Unspecified atrial fibrillation; Z66 Do not resuscitate; R29.90 Unspecified symptoms and signs involving the nervous system